=== PATIENT | female | born 1985 | race Caucasian/White ===

== ENCOUNTER 2016-10-09 11:04 | Inpatient (IN) | payer MEDICARE ==
--- NOTE | 2016-10-09 11:13 | ER Document Report ---
ED Medical Screen (RME) - General Stated Complaint: ABDOMINAL PAIN, COUGH Mode of Arrival: Ambulatory Information source: Patient Notes: pt c/o cough for past week. Pt reports cough makes chest and abd to hurt. Pt reports low grade fever at dialysis today. hx: dialysis, endocarditis, PE TRAVEL OUTSIDE OF THE [place] IN LAST 30 DAYS: No - Related Data Allergies/Adverse Reactions: vancomycin [Vancomycin] Allergy (Intermediate, Verified 09/20/16 10:50) rash amoxicillin [Amoxicillin] Allergy (Verified 09/20/16 10:50) Hives metoclopramide HCl [From Reglan] Allergy (Verified 09/20/16 10:50) Iodinated Contrast Media - Oral and [IV Dye, Iodine Containing] Adverse Reaction (Severe, Verified 09/20/16 10:50) esrd ok with topical Past Medical History - Past Medical History Cardiac Medical History: Reports: Hx Hypertension - CONTROLLED WITH MED, Hx Pulmonary Embolism Denies: Hx Coronary Artery Disease, Hx Heart Attack Pulmonary Medical History: Denies: Hx Asthma, Hx Bronchitis, Hx COPD, Hx Pneumonia, Hx Tuberculosis Neurological Medical History: Reports: Hx Seizures - BABY, NONE SINCE AGE 1/ FEBRILE. 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 Denies: Hx Kidney Stones GI Medical History: Denies: Hx Hepatitis, Hx Hiatal Hernia, Hx Ulcer Musculoskeltal Medical History: Denies Hx Arthritis Psychiatric Medical History: Reports: Hx Anxiety, Hx Depression Infectious Medical History: Denies: Hx Hepatitis Past Surgical History: Reports: Hx Cholecystectomy - 01/2010, Hx Herniorrhaphy - Double hernia repair, Hx Kidney (Renal Surgery) - kidney transplant 2004, Hx Tubal Ligation - 02/2008, Hx Vascular Surgery - PermCath placement for dialysis, multiple procedures for declotting CVC. Denies: Hx Appendectomy, Hx Bowel Surgery, Hx Section, Hx Hysterectomy, Hx Mastectomy, Hx Open Heart Surgery, Hx Pacemaker, Hx Tonsillectomy - Immunizations Immunizations up to date: Yes Hx Diphtheria, Pertussis, Tetanus Vaccination: Yes Physical Exam - Respiratory Respiratory status: No respiratory distress Breath sounds: Nonproductive cough
--- NOTE | 2016-10-09 11:28 | ER Document Report ---
ED General - General Chief Complaint: Cough Stated Complaint: ABDOMINAL PAIN, COUGH Mode of Arrival: Ambulatory Information source: Patient Notes: Patient presents to the emergency department with multiple complaints. Patient is a dialysis patient was at dialysis today and sent over. She reports facial swelling that started on [place]. She reports nonproductive cough since last Tuesday that is getting worse. She reports low-grade fever, abdominal swelling right flank pain sore throat. She also reports vomiting daily 3-4 times a day since . She reports she was evaluated by her primary care provider, Dr. cesilia BOTELLO, on . She reports a prescribed her Augmentin and some nasal spray. She's also been taking Mucinex and Tylenol. She reports medication is not helping her symptoms. Patient reports that she has a history of kidney transplant in 2004 in [place]. 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 She reports her shuttler car is Dr. Sanford in [place]. When she is here she sees Dr. Cavanaugh. She has dialysis Tuesday and Tuesday. She reports dialysis just removed 5.8 L today TRAVEL OUTSIDE OF THE [place] IN LAST 30 DAYS: No - HPI Onset: Last week Onset/Duration: Persistent Quality of pain: Achy Severity: Severe Pain Level: 5 Associated symptoms: Diarrhea, Fever, Nausea, Vomiting, Sore throat Exacerbated by: Denies Relieved by: Denies Similar symptoms previously: Yes Recently seen / treated by doctor: Yes - Related Data Allergies/Adverse Reactions: vancomycin [Vancomycin] Allergy (Intermediate, Verified 10/09/16 11:13) rash amoxicillin [Amoxicillin] Allergy (Verified 10/09/16 11:13) Hives metoclopramide HCl [From Reglan] Allergy (Verified 10/09/16 11:13) Iodinated Contrast Media - Oral and [IV Dye, Iodine Containing] Adverse Reaction (Severe, Verified 10/09/16 11:13) esrd ok with topical Home Medications: Current Home Medications Amlodipine Besylate [Norvasc 10 mg Tablet] 1 tab PO DAILY 10/09/16 [History] Calcium Acetate [Phoslo 667 mg Capsule] 2 cap PO MEALS 10/09/16 [History] Dicyclomine HCl [Bentyl 10 mg Capsule] 1 cap PO BID 10/09/16 [History] Hydralazine HCl [Apresoline 10 mg Tablet] 1 tab PO DAILY 10/09/16 [History] Lorazepam [Ativan 1 mg Tablet] 1 tab PO QHS PRN 10/09/16 [History] Metoprolol Succinate [Toprol XL 100 mg Tablet] 1 tab PO BID 10/09/16 [History] Past Medical History - General Information source: Patient - Social History Smoking Status: Unknown if Ever Smoked Cigarette use (# per day): No Frequency of alcohol use: None Drug Abuse: None Lives with: Family Family History: Reviewed & Not Pertinent, Arthritis, Malignancy - Past Medical History Cardiac Medical History: Reports: Hx Hypertension - CONTROLLED WITH MED, Hx Pulmonary Embolism, Other - endocarditis Denies: Hx Coronary Artery Disease, Hx Heart Attack Pulmonary Medical History: Denies: Hx Asthma, Hx Bronchitis, Hx COPD, Hx Pneumonia, Hx Tuberculosis Neurological Medical History: Reports: Hx Seizures - BABY, NONE SINCE AGE 1/ FEBRILE. 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 Denies: Hx Kidney Stones GI Medical History: Reports: Other - pancreatitis. Denies: Hx Hepatitis, Hx Hiatal Hernia, Hx Ulcer Musculoskeltal Medical History: Denies Hx Arthritis Psychiatric Medical History: Reports: Hx Anxiety, Hx Depression Infectious Medical History: Denies: Hx Hepatitis Past Surgical History: Reports: Hx Cholecystectomy - 01/2010, Hx Herniorrhaphy - Double hernia repair, Hx Kidney (Renal Surgery) - kidney transplant 2004, Hx Tubal Ligation - 02/2008, Hx Vascular Surgery - PermCath placement for dialysis, multiple procedures for declotting CVC. Denies: Hx Appendectomy, Hx Bowel Surgery, Hx Section, Hx Hysterectomy, Hx Mastectomy, Hx Open Heart Surgery, Hx Pacemaker, Hx Tonsillectomy - Immunizations Immunizations up to date: Yes Hx Diphtheria, Pertussis, Tetanus Vaccination: Yes Hx Pneumococcal Vaccination: 07/10/14 Review of Systems - Review of Systems Notes: Review HPI for review of systems., All other systems negative Physical Exam - Vital signs Vitals: Temp Pulse Resp BP Pulse Ox 98.7 F 109 H 20 161/105 H 98 10/09/16 11:13 10/09/16 11:13 10/09/16 11:13 10/09/16 11:13 10/09/16 11:13 - Notes Notes: PHYSICAL EXAMINATION: GENERAL: no acute distress nontoxic looking HEAD: Atraumatic, normocephalic. EYES: Pupils equal round and reactive to light, extraocular movements intact, sclera anicteric, conjunctiva are normal. ENT: nares patent, pharyngeal erythema without exudates. Moist mucous membranes. NECK: Normal range of motion, supple without lymphadenopathy LUNGS: CTAB and equal. No wheezes rales or rhonchi. HEART: Regular rate and rhythm without murmurs ABDOMEN: Soft, right sided pain, reports swelling, +BS X 4. No guarding, no rebound BACK: C/O RIGHT flank pain EXTREMITIES: Normal range of motion, no pitting edema. No cyanosis. NEUROLOGICAL: Cranial nerves grossly intact. Normal sensory/motor exams. PSYCH: Normal mood, normal affect. SKIN: Warm, Dry, normal turgor, no rashes or lesions noted Course - Re-evaluation Re-evalutation: 10/09/16 13:58 Lipase [address] Hull she agrees of admission. Contacted Enid Fuentes [facility] REWINDER for admission to telemetry 10/09/16 13:59 Patient updated on plan of care. Patient instructed on nothing by mouth status. She reports pain in her abdomen still and reports she has spit up one time since arrival. - Vital Signs Vital signs: Temp Pulse Resp BP Pulse Ox 98.7 F 83 16 130/90 H 98 10/09/16 18:06 10/09/16 18:31 10/09/16 18:31 10/09/16 18:06 10/09/16 18:31 - Laboratory Result Diagrams: 10/09/16 12:14 10/09/16 12:14 Laboratory results interpreted by me: 10/09/16 10/09/16 10/09/16 12:14 12:14 12:35 RBC 3.20 L Hgb 10.6 L Hct 30.4 L RDW 18.5 H Sodium 131.7 L Chloride 90 L Creatinine 4.43 H Est GFR ( Amer) 14 L Est GFR (Non-Af Amer) 11 L AST 47 H ALT 68 H Lipase 700.5 H Urine Protein 100 H Urine Glucose (UA) 150 H Ur Leukocyte Esterase MODERATE H - Diagnostic Test Radiology reviewed: Image reviewed, Reports reviewed - EKG Interpretation by Me EKG shows normal: Sinus rhythm Discharge - Discharge Clinical Impression: Cough Abdominal pain Qualifiers: Abdominal location: unspecified location Qualified Code(s): R10.9 - Unspecified abdominal pain Vomiting Qualifiers: Vomiting type: unspecified Nausea presence: with nausea Pancreatitis Qualifiers: Pancreatitis type: unspecified pancreatitis type Condition: Stable Disposition: ADMITTED INPATIENT Admitting Provider: Lucas marroquin Unit Admitted: Telemetry
[2016-10-09] MEDS ORDERED: HYDROCODONE/ACETAMINOPHEN 5-325 MG TABLET PO ONE (12:09)
[2016-10-09 12:39] LABS: ABSOLUTE LYMPHOCYTES (AUTO) 1.1 10^3/uL (0.5-4.7); ABSOLUTE MONOCYTES (AUTO) 0.5 10^3/uL (0.1-1.4); ABSOLUTE NEUT (AUTO) 4.4 10^3/uL (1.7-8.2); BASOPHILS % (AUTO) 0.4 % (0-2); EOSINOPHILS % (AUTO) 0.6 % (0-6); HEMATOCRIT 30.4 % (36.0-47.0); HEMOGLOBIN 10.6 g/dL (12.0-15.5); HGB HCT DIFFERENCE 1.4; LYMPHOCYTES % (AUTO) 18.6 % (13-45); MEAN CORPUSCULAR HEMOGLOBIN 33.1 pg (27.0-33.4); MEAN CORPUSCULAR HGB CONC 34.9 g/dL (32.0-36.0); MEAN CORPUSCULAR VOLUME 95 fl (80-97); MONOCYTES % (AUTO) 8.3 % (3-13); RED CELL DISTRIBUTION WIDTH 18.5 % (11.5-14.0); SEGMENTED NEUTROPHILS % (AUTO) 72.1 % (42-78); WHITE BLOOD COUNT 6.1 10^3/uL (4.0-10.5)
[2016-10-09 12:51] LABS: ALANINE AMINOTRANSFERASE 68 U/L (9-52); ALBUMIN 4.3 g/dL (3.5-5.0); ALKALINE PHOSPHATASE 109 U/L (38-126); ANION GAP 19 (5-19); ASPARTATE AMINO TRANSFERASE 47 U/L (14-36); BILIRUBIN,TOTAL 0.8 mg/dL (0.2-1.3); BLOOD UREA NITROGEN 14 mg/dL (7-20); CALCIUM 8.7 mg/dL (8.4-10.2); CARBON DIOXIDE 23 mmol/L (22-30); CHLORIDE 90 mmol/L (98-107); CREATININE RESULT 4.43 mg/dL (0.52-1.25); GLUCOSE 104 mg/dL (75-110); LIPASE 700.5 U/L (23-300); MAGNESIUM 1.6 mg/dL (1.6-2.3); POTASSIUM 3.9 mmol/L (3.6-5.0); SODIUM 131.7 mmol/L (137-145); TOTAL PROTEIN 6.5 g/dL (6.3-8.2)
[2016-10-09 12:59] LABS: APPEARANCE,URINE CLOUDY; BILIRUBIN,URINE NEGATIVE (NEGATIVE); GLUCOSE, URINE 150 mg/dL (NEGATIVE); KETONES,URINE NEGATIVE (NEGATIVE); LEUKOCYTE ESTERASE,URINE MODERATE (NEGATIVE); NITRITE,URINE NEGATIVE (NEGATIVE); PROTEIN,URINE 100 mg/dL (NEGATIVE); URINE SPECIFIC GRAVITY 1.006; UROBILINOGEN,URINE NEGATIVE mg/dL (<2.0)
[2016-10-09] MEDS ORDERED: MORPHINE SULFATE 10 MG/ML INJ IV ONE (13:53)
[2016-10-09] MEDS ORDERED: HYDROXYZINE HCL 10 MG TABLET PO PRN (14:12)
[2016-10-09] MEDS ORDERED: ZOLPIDEM TARTRATE 5 MG TABLET PO PRN (14:13)
[2016-10-09] MEDS ORDERED: IPRATROPIUM/ALBUTEROL 0.5-2.5 MG/3 ML AMPUL NEB PRN (14:13)
[2016-10-09] MEDS ORDERED: ACETAMINOPHEN 325 MG TABLET PO PRN (14:13)
[2016-10-09] MEDS: MORPHINE SULFATE 10 MG/ML INJ IV PRN ×2 (15:58→20:31)
[2016-10-09] MEDS: NORMAL SALINE 1000 ML 1,000 ML IV PRN ×2 (16:05→21:58)
--- NOTE | 2016-10-09 16:18 | PDOC H&P ---
History of Present Illness Admission Date/PCP: 10/09/16 15:11 BIBIANA CLAUDIO NP Patient complains of: Cough, nausea, and abdominal pain History of Present Illness: MILAGROS RAMOS is a 31 year old female with ESRD on HD , and Saturdays. She was sent from dialysis to [facility] ED by dialysis staff due to worsening cough. She states she has been coughing since last Tuesday. Symptoms started with a sore throat and then to a nonproductive cough. She was seen by her primary care provider and started on Augmentin on . Her cough has not improved at all. She denies fevers or chills. She also has abdominal pain and vomiting. She also has had diarrhea all week long as well, prior to starting antibiotics. She states abdominal pain is crampy in nature and waxes and wanes in intensity. She denies any shortness of breath or dyspnea. Her appetite has been poor all week. Vomiting began yesterday. 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 Malignancy Medical History: Reports: None GI Medical History: Reports: Gastroesophageal Reflux Disease, Other - pancreatitis Denies: Hepatitis, Hiatal Hernia Musculoskeltal Medical History: Reports: None Denies: Arthritis Skin Medical History: Reports: None Psychiatric Medical History: Reports: Depression Traumatic Medical History: Reports: None Hematology: Reports: Anemia Denies: Sickle Cell Disease Infectious Medical History: Reports: None Past Surgical History Past Surgical History: Reports: Cholecystectomy - 01/2010, Herniorrhaphy - Double hernia repair, Tubal Ligation - 02/2008, Vascular Surgery - PermCath placement for dialysis, multiple procedures for declotting CVC Denies: Amputation, Appendectomy, Section, Hysterectomy, Mastectomy , Pacemaker, Tonsillectomy Social History Information Source: Patient Lives with: Family, Parents Smoking Status: Current Every Day Smoker Cigarettes Packs Per Day: 0.5 Number of Years Smokin Frequency of Alcohol Use: None Hx Recreational Drug Use: No Drugs: None Hx Prescription Drug Abuse: No - Advance Directive Resuscitation Status: Full Code Surrogate healthcare decision maker:: mother Jonna An, should she become encapacitated Family History Family History: Arthritis, Malignancy Parental Family History Reviewed: Yes Children Family History Reviewed: Yes Sibling(s) Family History Reviewed.: Yes Medication/Allergy Home Medications: Promethazine HCl [Phenergan 25 mg Tablet] 1 - 2 tab PO Q6H PRN #30 tablet Diazepam [Valium 5 mg Tablet] 5 mg PO BID PRN #0 12/11/15 Metoprolol Succinate [Toprol Xl 50 mg Tab.sr] 100 mg PO BID 12/14/15 Hydrocodone/Acetaminophen [Crawford 7.5-325 mg Tablet] 1 tab PO Q4HP PRN #30 tablet 01/11/16 Levetiracetam [Keppra 500 mg Tablet] 250 mg PO DAILY 01/15/16 Warfarin Sodium 5 mg PO QHS #30 tablet 01/20/16 Warfarin Sodium [Coumadin 1 mg Tablet] 3 mg PO QHS #60 tablet 01/20/16 Clindamycin HCl 300 mg PO TID #30 capsule 05/19/16 Hydroxyzine HCl [Atarax 10 mg Tablet] 10 mg PO TID PRN #30 tablet 05/19/16 Omeprazole 40 mg PO DAILY #60 capsule.dr 07/30/16 Oxycodone HCl/Acetaminophen [Percocet 5-325 mg Tablet] 1 - 2 tab PO Q4H PRN #15 tablet 07/30/16 Sucralfate [Carafate 1 gm Tablet] 1 gm PO QID #40 tablet 07/30/16 Ondansetron [Zofran Odt 4 mg Tablet] 1 - 2 tab PO Q4H #30 tab.rapdis 09/09/16 Promethazine HCl [Phenergan 25 mg Tablet] 25 - 50 mg PO ASDIR PRN #60 tablet 10/25 Oxycodone HCl/Acetaminophen [Percocet 5-325 mg Tablet] 1 - 2 tab PO Q4H PRN #15 tablet 09/11/16 Allergies/Adverse Reactions: vancomycin [Vancomycin] Allergy (Intermediate, Verified 10/09/16 11:13) rash amoxicillin [Amoxicillin] Allergy (Verified 10/09/16 11:13) Hives metoclopramide HCl [From Reglan] Allergy (Verified 10/09/16 11:13) Iodinated Contrast Media - Oral and [IV Dye, Iodine Containing] Adverse Reaction (Severe, Verified 10/09/16 11:13) esrd ok with topical Review of Systems Constitutional: PRESENT: chills, fatigue, headache(s), weakness Eyes: ABSENT: visual disturbances Ears: ABSENT: hearing changes Nose, Mouth, and Throat: PRESENT: sore throat Cardiovascular: PRESENT: palpitations Respiratory: PRESENT: cough, sputum Gastrointestinal: PRESENT: abdominal pain, diarrhea, nausea, vomiting Genitourinary: ABSENT: dysuria, hematuria Musculoskeletal: ABSENT: joint swelling Integumentary: ABSENT: rash, wounds Neurological: ABSENT: abnormal gait, abnormal speech, confusion, dizziness, focal weakness, syncope Psychiatric: PRESENT: as per HPI Endocrine: ABSENT: cold intolerance, heat intolerance, polydipsia, polyuria Hematologic/Lymphatic: PRESENT: easy bruising Physical Exam Vital Signs: Temp Pulse Resp BP Pulse Ox 98.7 F 109 H 27 H 161/105 H 98 10/09/16 11:27 10/09/16 11:27 10/09/16 12:26 10/09/16 11:27 10/09/16 11:27 General appearance: PRESENT: no acute distress, thin, well-developed, well- nourished Head exam: PRESENT: atraumatic Eye exam: PRESENT: conjunctiva pale Ear exam: PRESENT: normal external ear exam Mouth exam: PRESENT: moist, tongue midline Neck exam: ABSENT: carotid bruit, JVD, lymphadenopathy, thyromegaly Respiratory exam: PRESENT: clear to auscultation marquis. ABSENT: rales, rhonchi, wheezes Cardiovascular exam: PRESENT: RRR. ABSENT: diastolic murmur, rubs, systolic murmur Pulses: PRESENT: normal dorsalis pedis pul Vascular exam: PRESENT: normal capillary refill GI/Abdominal exam: PRESENT: normal bowel sounds, soft, tenderness. ABSENT: distended, guarding, mass, organolmegaly, rebound Rectal exam: PRESENT: deferred Extremities exam: PRESENT: full ROM. ABSENT: calf tenderness, clubbing, pedal edema Neurological exam: PRESENT: alert, awake, oriented to person, oriented to place , oriented to time, oriented to situation, CN II-XII grossly intact. ABSENT: motor sensory deficit Psychiatric exam: PRESENT: appropriate affect, normal mood. ABSENT: homicidal ideation, suicidal ideation Skin exam: PRESENT: dry, intact, warm. ABSENT: cyanosis, rash Results Impressions: Chest X-Ray 10/09/16 11:10 IMPRESSION: NO ACUTE CARDIOPULMONARY PROCESS. NO SIGNIFICANT CHANGE FROM PRIOR STUDY. Assessment & Plan - Diagnosis (1) Pancreatitis Qualifiers: Pancreatitis type: unspecified pancreatitis type Is this a current diagnosis for this admission?: YesPlan: Will rehydrate, keep NPO and check lipase in the am. Prn analgesics and antiemetics (2) Cough Is this a current diagnosis for this admission?: YesPlan: Most likely viral in nature. PRN nebulizer treatments and cough syrup (3) ESRD on dialysis Is this a current diagnosis for this admission?: YesPlan: Patient was dialysed today. Will avoid nephrotoxic drugs and dosages (4) Chronic prescription opiate use Is this a current diagnosis for this admission?: Yes (5) Vomiting Qualifiers: Vomiting type: unspecified Nausea presence: with nausea Is this a current diagnosis for this admission?: YesPlan: Prn antiemetics (6) Hyponatremia Is this a current diagnosis for this admission?: YesPlan: Will gently rehydrate with normal saline ovenight (7) Pulmonary embolism Qualifiers: Pulmonary embolism type: other Chronicity: acute Acute cor pulmonale presence: without acute cor pulmonale Qualified Code(s): I26.99 - Other pulmonary embolism without acute cor pulmonale Is this a current diagnosis for this admission?: YesPlan: Continue coumadin. (8) Tobacco abuse Is this a current diagnosis for this admission?: YesPlan: Counseled - Time Time Spent: 50 to 70 Minutes Critical Time spent with patient: 25-34 minutes Smoking Cessation Education: 3 to 10 minutes Medications reviewed and adjusted accordingly: Yes Anticipated discharge: Home - Inpatient Certification Medical Necessity: Failure to Improve With Outpatient Therapy, Need For IV Fluids, Need for Pain Control
[2016-10-09] MEDS ORDERED: OXYCODONE-ACETAMINOPHEN 5-325 MG TABLET PO PRN (16:19)
[2016-10-09] MEDS: LANSOPRAZOLE 15 MG TAB.RAP.DR PO SCH (18:19)
[2016-10-09 19:28] LABS: URINE BARBITURATES SCREEN NEGATIVE; URINE METHADONE SCREEN NEGATIVE; URINE PHENCYCLIDINE SCREEN NEGATIVE
[2016-10-09] MEDS: ONDANSETRON HCL INJ/PF 4 MG/2 ML SDV IV PRN (20:53)
[2016-10-09] MEDS: METOPROLOL SUCCINATE 50 MG TAB.SR.24H PO SCH (21:58)
[2016-10-09] MEDS: WARFARIN SODIUM 5 MG TABLET PO SCH (21:58)
--- NOTE | 2016-10-09 22:42 | EKG REPORT ---
SEVERITY:- BORDERLINE ECG - SINUS TACHYCARDIA BORDERLINE PROLONGED QT INTERVAL : Confirmed by: Anthony Small MD 09-Oct-2016 22:40:55
[2016-10-10] MEDS: MORPHINE SULFATE 10 MG/ML INJ IV PRN ×6 (00:34→21:47)
[2016-10-10] MEDS: LANSOPRAZOLE 15 MG TAB.RAP.DR PO SCH ×2 (06:28→16:42)
[2016-10-10] MEDS: ONDANSETRON HCL INJ/PF 4 MG/2 ML SDV IV PRN ×2 (06:30→14:27)
[2016-10-10] MEDS ORDERED: LORAZEPAM 1 MG TABLET PO PRN ×2 (06:51→09:44)
[2016-10-10 07:33] LABS: ABSOLUTE EOSINOPHILS # (AUTO) 0.1 10^3/uL (0.0-0.6); ABSOLUTE LYMPHOCYTES (AUTO) 1.3 10^3/uL (0.5-4.7); ABSOLUTE MONOCYTES (AUTO) 0.3 10^3/uL (0.1-1.4); ABSOLUTE NEUT (AUTO) 2.1 10^3/uL (1.7-8.2); HEMATOCRIT 27.6 % (36.0-47.0); HEMOGLOBIN 9.5 g/dL (12.0-15.5); HGB HCT DIFFERENCE 0.9; LYMPHOCYTES % (AUTO) 33.1 % (13-45); MEAN CORPUSCULAR HEMOGLOBIN 33.6 pg (27.0-33.4); MEAN CORPUSCULAR HGB CONC 34.4 g/dL (32.0-36.0); MEAN CORPUSCULAR VOLUME 98 fl (80-97); MONOCYTES % (AUTO) 8.7 % (3-13); RED BLOOD COUNT 2.83 10^6/uL (3.72-5.28); SEGMENTED NEUTROPHILS % (AUTO) 55.2 % (42-78); WHITE BLOOD COUNT 3.8 10^3/uL (4.0-10.5)
[2016-10-10 07:39] LABS: PROTHROMBIN TIME 13.7 SEC (11.4-15.4)
[2016-10-10 07:51] LABS: ALANINE AMINOTRANSFERASE 59 U/L (9-52); ALKALINE PHOSPHATASE 97 U/L (38-126); ANION GAP 18 (5-19); ASPARTATE AMINO TRANSFERASE 31 U/L (14-36); BILIRUBIN,TOTAL 0.9 mg/dL (0.2-1.3); BLOOD UREA NITROGEN 20 mg/dL (7-20); CALCIUM 9.6 mg/dL (8.4-10.2); CARBON DIOXIDE 22 mmol/L (22-30); CHLORIDE 93 mmol/L (98-107); CREATININE RESULT 6.25 mg/dL (0.52-1.25); GLUCOSE 75 mg/dL (75-110); LIPASE 222.3 U/L (23-300); MAGNESIUM 1.9 mg/dL (1.6-2.3); POTASSIUM 4.6 mmol/L (3.6-5.0); SODIUM 133.3 mmol/L (137-145); TOTAL PROTEIN 5.9 g/dL (6.3-8.2)
[2016-10-10] MEDS ORDERED: CALCIUM ACETATE 667 MG CAPSULE PO SCH (08:00)
[2016-10-10] MEDS: METOPROLOL SUCCINATE 50 MG TAB.SR.24H PO SCH ×4 (09:17→22:03)
[2016-10-10] MEDS: LEVETIRACETAM 500 MG TABLET PO SCH (09:17)
[2016-10-10] MEDS ORDERED: DICYCLOMINE HCL 10 MG CAPSULE PO SCH (10:00)
[2016-10-10] MEDS ORDERED: AMLODIPINE BESYLATE 10 MG TABLET PO SCH (10:00)
[2016-10-10] MEDS ORDERED: HYDRALAZINE HCL 10 MG TABLET PO SCH ×2 (10:00)
[2016-10-10] MEDS ORDERED: WARFARIN SODIUM 3 MG TABLET PO SCH (10:00)
[2016-10-10] MEDS ORDERED: METOPROLOL SUCCINATE PO SCH (10:00)
[2016-10-10] MEDS ORDERED: NORMAL SALINE 1000 ML 1,000 ML IV PRN (10:02)
[2016-10-10] MEDS ORDERED: IPRATROPIUM/ALBUTEROL 0.5-2.5 MG/3 ML AMPUL NEB PRN (10:05)
[2016-10-10] MEDS: GUAIFENESIN/CODEINE PHOS 100-10 MG/ 5 ML UDC PO PRN (10:25)
--- NOTE | 2016-10-10 10:37 | PDOC PROGRESS REPORT ---
Subjective Progress Note for:: 10/10/16 Subjective:: Patient is seen on morning rounds. She is awake, alert and oriented x 3. She continues to have harsh mostly non productive cough. She deny fever or chills. She denies sinus congestion or sore throat. She does have mild pain and fullness in her left ear. She denies any shortness of breath or dyspnea. She denies any chest pain. She has mild epigastric discomfort. No vomiting since last night. She states the cough is what is bothering her the most at the present time. She did not receive any breathing treatments overnight. Physical Exam Vital Signs: Temp Pulse Resp BP Pulse Ox 97.6 F 74 20 119/69 100 10/10/16 05:28 10/10/16 07:00 10/10/16 05:28 10/10/16 05:28 10/10/16 05:28 Intake & Output 10/09/16 10/10/16 10/11/16 06:59 06:59 06:59 Intake Total 30 Output Total 0 Balance 30 Weight 50.5 kg General appearance: PRESENT: no acute distress, thin, well-developed, well- nourished Head exam: PRESENT: atraumatic Eye exam: PRESENT: conjunctiva pink, EOMI, PERRLA. ABSENT: scleral icterus Ear exam: PRESENT: normal external ear exam Mouth exam: PRESENT: moist, tongue midline Neck exam: ABSENT: carotid bruit, JVD, lymphadenopathy, thyromegaly Respiratory exam: PRESENT: clear to auscultation marquis, symmetrical. ABSENT: rales, rhonchi, wheezes Cardiovascular exam: PRESENT: RRR. ABSENT: diastolic murmur, rubs, systolic murmur Pulses: PRESENT: normal dorsalis pedis pul Vascular exam: PRESENT: normal capillary refill GI/Abdominal exam: PRESENT: normal bowel sounds, soft, tenderness - epigastric to palpation. ABSENT: distended, guarding, mass, organolmegaly, rebound Rectal exam: PRESENT: deferred Extremities exam: PRESENT: full ROM. ABSENT: calf tenderness, clubbing, pedal edema Neurological exam: PRESENT: alert, awake, oriented to person, oriented to place , oriented to time, oriented to situation, CN II-XII grossly intact. ABSENT: motor sensory deficit Psychiatric exam: PRESENT: appropriate affect, normal mood. ABSENT: homicidal ideation, suicidal ideation Skin exam: PRESENT: dry, intact, warm. ABSENT: cyanosis, rash Results Laboratory Results: 10/10/16 07:03 10/10/16 07:03 10/10/16 10/10/16 07:03 07:03 WBC 3.8 L RBC 2.83 L Hgb 9.5 L Hct 27.6 L MCV 98 H MCH 33.6 H MCHC 34.4 RDW 19.0 H Plt Count 154 Seg Neutrophils % 55.2 Lymphocytes % 33.1 Monocytes % 8.7 Eosinophils % 2.0 Basophils % 1.0 Absolute Neutrophils 2.1 Absolute Lymphocytes 1.3 Absolute Monocytes 0.3 Absolute Eosinophils 0.1 Absolute Basophils 0.0 Sodium 133.3 L Potassium 4.6 Chloride 93 L Carbon Dioxide 22 Anion Gap 18 BUN 20 Creatinine 6.25 H Est GFR ( Amer) 9 L Est GFR (Non-Af Amer) 8 L Glucose 75 Calcium 9.6 Magnesium 1.9 Total Bilirubin 0.9 AST 31 ALT 59 H Alkaline Phosphatase 97 Total Protein 5.9 L Albumin 4.0 Lipase 222.3 Impressions: Chest X-Ray 10/09/16 11:10 IMPRESSION: NO ACUTE CARDIOPULMONARY PROCESS. NO SIGNIFICANT CHANGE FROM PRIOR STUDY. Assessment & Plan - Diagnosis (1) Pancreatitis Qualifiers: Pancreatitis type: unspecified pancreatitis type Is this a current diagnosis for this admission?: YesPlan: Nausea improved. Lipase trending downward. More likely a flare up of chronic pancreatitis. Will start clear liquids and slowly progress diet. Prn analgesics and antiemetics (2) Cough Is this a current diagnosis for this admission?: YesPlan: Most likely viral in nature. PRN nebulizer treatments and cough syrup (3) ESRD on dialysis Is this a current diagnosis for this admission?: YesPlan: Patient was dialysed today. Will avoid nephrotoxic drugs and dosages (4) Chronic prescription opiate use Is this a current diagnosis for this admission?: Yes (5) Vomiting Qualifiers: Vomiting type: unspecified Nausea presence: with nausea Is this a current diagnosis for this admission?: YesPlan: Has resolved. PRN antiemetics if symptoms reoccur (6) Hyponatremia Is this a current diagnosis for this admission?: YesPlan: Will gently rehydrate with normal saline ovenight (7) Pulmonary embolism Qualifiers: Pulmonary embolism type: other Chronicity: acute Acute cor pulmonale presence: without acute cor pulmonale Qualified Code(s): I26.99 - Other pulmonary embolism without acute cor pulmonale Is this a current diagnosis for this admission?: YesPlan: Continue coumadin. (8) Tobacco abuse Is this a current diagnosis for this admission?: YesPlan: Counseled - Time Time Spent with patient: 25-34 minutes Critical Time spent with patient: 15-24 minutes Medications reviewed and adjusted accordingly: Yes Anticipated discharge: Home
[2016-10-10] MEDS: CALCIUM ACETATE 667 MG CAPSULE PO SCH ×2 (11:15→16:42)
[2016-10-10] MEDS: AMLODIPINE BESYLATE 10 MG TABLET PO SCH (11:15)
[2016-10-10] MEDS: HYDRALAZINE HCL 10 MG TABLET PO SCH (11:16)
[2016-10-10] MEDS: IPRATROPIUM/ALBUTEROL 0.5-2.5 MG/3 ML AMPUL NEB SCH ×2 (13:56→19:37)
[2016-10-10] MEDS ORDERED: HYDROXYZINE HCL 10 MG TABLET ONE (17:00)
[2016-10-10] MEDS: DICYCLOMINE HCL 10 MG CAPSULE PO SCH (17:25)
[2016-10-10] MEDS: WARFARIN SODIUM 5 MG TABLET PO SCH (22:03)
[2016-10-11] MEDS: LANSOPRAZOLE 15 MG TAB.RAP.DR PO SCH ×2 (05:28→17:42)
[2016-10-11] MEDS: MORPHINE SULFATE 10 MG/ML INJ IV PRN ×3 (06:41→19:45)
[2016-10-11 07:01] LABS: ABSOLUTE BASOPHILS # (AUTO) 0.1 10^3/uL (0.0-0.2); ABSOLUTE EOSINOPHILS # (AUTO) 0.1 10^3/uL (0.0-0.6); ABSOLUTE LYMPHOCYTES (AUTO) 1.6 10^3/uL (0.5-4.7); ABSOLUTE MONOCYTES (AUTO) 0.6 10^3/uL (0.1-1.4); ABSOLUTE NEUT (AUTO) 4.8 10^3/uL (1.7-8.2); EOSINOPHILS % (AUTO) 1.2 % (0-6); HEMATOCRIT 27.2 % (36.0-47.0); HEMOGLOBIN 9.3 g/dL (12.0-15.5); HGB HCT DIFFERENCE 0.7; LYMPHOCYTES % (AUTO) 22.6 % (13-45); MEAN CORPUSCULAR HEMOGLOBIN 33.8 pg (27.0-33.4); MEAN CORPUSCULAR HGB CONC 34.2 g/dL (32.0-36.0); MEAN CORPUSCULAR VOLUME 99 fl (80-97); MONOCYTES % (AUTO) 8.3 % (3-13); RED BLOOD COUNT 2.75 10^6/uL (3.72-5.28); RED CELL DISTRIBUTION WIDTH 18.6 % (11.5-14.0); SEGMENTED NEUTROPHILS % (AUTO) 66.9 % (42-78); WHITE BLOOD COUNT 7.1 10^3/uL (4.0-10.5)
[2016-10-11 07:15] LABS: BLOOD UREA NITROGEN 33 mg/dL (7-20); CALCIUM 8.8 mg/dL (8.4-10.2); CHLORIDE 95 mmol/L (98-107); CREATININE RESULT 8.76 mg/dL (0.52-1.25); LIPASE 104.2 U/L (23-300)
[2016-10-11 07:19] LABS: PROTHROMBIN TIME 14.5 SEC (11.4-15.4)
[2016-10-11 07:32] LABS: CARBON DIOXIDE 14 mmol/L (22-30); SODIUM 130.8 mmol/L (137-145)
[2016-10-11] MEDS ORDERED: DEXTROSE 50%-WATER 25 GM/50 ML DISP.SYRIN IV ONE ×2 (07:35→07:36)
[2016-10-11 07:37] LABS: ANION GAP 22 (5-19); GLUCOSE 28 mg/dL (75-110)
[2016-10-11] MEDS: GUAIFENESIN/CODEINE PHOS 100-10 MG/ 5 ML UDC PO PRN ×2 (08:06→17:42)
[2016-10-11] MEDS ORDERED: DIPHENHYDRAMINE HCL 50 MG CAPSULE PO PRN (08:39)
[2016-10-11] MEDS: IPRATROPIUM/ALBUTEROL 0.5-2.5 MG/3 ML AMPUL NEB SCH ×3 (08:51→20:12)
[2016-10-11] MEDS: CALCIUM ACETATE 667 MG CAPSULE PO SCH ×3 (09:37→17:41)
[2016-10-11] MEDS: LEVETIRACETAM 500 MG TABLET PO SCH (09:39)
[2016-10-11] MEDS: DIPHENHYDRAMINE HCL 50 MG/ML VIAL IV PRN ×2 (10:30→14:19)
--- NOTE | 2016-10-11 11:25 | PDOC CONSULTATION ---
Consultation Consult Date: 10/11/16 Attending physician:: FABIOLA HADLEY Consult reason:: I was asked by the hospitalist service to see the patient to supervise dialysis while here in the hospital. History of Present Illness Admission Date/PCP: 10/09/16 14:14 BIBIANA CLAUDIO NP History of Present Illness: MILAGROS RAMOS is a 31 year old female with ESRD on HD , and Saturdays under the supervision of Dr. Sanford of [facility]. She was sent from dialysis to [facility] ED by dialysis staff due to worsening cough. She states she has been coughing since last Tuesday. Symptoms started with a sore throat and then to a nonproductive cough. She was seen by her primary care provider and started on Augmentin on . Her cough has not improved at all. She denies fevers or chills. She also has abdominal pain and vomiting. She also has had diarrhea all week long as well, prior to starting antibiotics. She states abdominal pain is crampy in nature and waxes and wanes in intensity. She denies any shortness of breath or dyspnea. Her appetite has been poor all week. Vomiting began yesterday. I saw the patient during dialysis this morning. He seems to be doing well and feeling better. She said her cough is better and she finally able to expectorate some phlegm. She is not nauseated or vomiting this morning but the related that she had vomiting last night. She doesn't have anymore diarrhea or abdominal pain is getting better. So far she is tolerating dialysis well with Benadryl given prior to initiation of dialysis. She is hemodynamically stable. She denies any chest pains nor shortness of breath. Incidentally, she did have an episode of hypoglycemia this morning with a blood sugar of 28 so they were giving her orange juice in the floor prior to dialysis. 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 Malignancy Medical History: Reports: None GI Medical History: Reports: Gastroesophageal Reflux Disease, Other - pancreatitis Musculoskeltal Medical History: Reports: None Skin Medical History: Reports: None Psychiatric Medical History: Reports: Depression Traumatic Medical History: Reports: None Infectious Medical History: Reports: None Past Surgical History Past Surgical History: Reports: Cholecystectomy - 01/2010, Dialysis Access Surgery AVF, Herniorrhaphy - Double hernia repair, Tubal Ligation - 02/2008, Vascular Surgery - PermCath placement for dialysis, multiple procedures for declotting CVC Social History Lives with: Family Smoking Status: Unknown if Ever Smoked Cigarettes Packs Per Day: 0.5 Number of Years Smokin Frequency of Alcohol Use: None Hx Recreational Drug Use: No Drugs: None Hx Prescription Drug Abuse: No - Advance Directive Resuscitation Status: Full Code Family History Family History: Reviewed & Not Pertinent Parental Family History Reviewed: Yes Children Family History Reviewed: NA Sibling(s) Family History Reviewed.: Unknown Medication/Allergy Home Medications: Promethazine HCl [Phenergan 25 mg Tablet] 1 - 2 tab PO Q6H PRN #30 tablet Hydrocodone/Acetaminophen [[place] 7.5-325 mg Tablet] 1 tab PO Q4HP PRN #30 tablet 01/11/16 Levetiracetam [Keppra 500 mg Tablet] 250 mg PO DAILY 01/15/16 Warfarin Sodium [Coumadin 1 mg Tablet] 3 mg PO QHS #60 tablet 01/20/16 Omeprazole 40 mg PO DAILY #60 capsule. 07/30/16 Oxycodone HCl/Acetaminophen [Percocet 5-325 mg Tablet] 1 - 2 tab PO Q4H PRN #15 tablet 09/11/16 Amlodipine Besylate [Norvasc 10 mg Tablet] 1 tab PO DAILY 10/09/16 Calcium Acetate [Phoslo 667 mg Capsule] 2 cap PO MEALS 10/09/16 Dicyclomine HCl [Bentyl 10 mg Capsule] 1 cap PO BID 10/09/16 Hydralazine HCl [Apresoline 10 mg Tablet] 1 tab PO DAILY 10/09/16 Lorazepam [Ativan 1 mg Tablet] 1 tab PO QHS PRN 10/09/16 Metoprolol Succinate [Toprol XL 100 mg Tablet] 1 tab PO BID 10/09/16 Allergies/Adverse Reactions: vancomycin [Vancomycin] Allergy (Intermediate, Verified 10/09/16 11:13) rash amoxicillin [Amoxicillin] Allergy (Verified 10/09/16 11:13) Hives metoclopramide HCl [From Reglan] Allergy (Verified 10/09/16 11:13) Iodinated Contrast Media - Oral and [IV Dye, Iodine Containing] Adverse Reaction (Severe, Verified 10/09/16 11:13) esrd ok with topical Review of Systems All systems: reviewed and no additional remarkable complaints except as stated Review of Systems: Constitutional: ABSENT: chills, fatigue, fever(s), headache(s), weight gain, weight loss Eyes: ABSENT: visual disturbances Ears: ABSENT: hearing changes Cardiovascular: ABSENT: chest pain, dyspnea on exertion, edema, orthropnea, palpitations Respiratory: ABSENT: dyspnea, hemoptysis, she admits cough Gastrointestinal: ABSENT: constipation, hematemesis, hematochezia; patient has had abdominal pain, nausea, vomiting, and resolve diarrhea. Genitourinary: Patient is anuric Musculoskeletal: ABSENT: joint swelling, she admits muscle pain especially on her rib cage area due to coughing Integumentary: ABSENT: rash, wounds Neurological: ABSENT: abnormal gait, abnormal speech, confusion, dizziness, focal weakness, numbness, syncope Psychiatric: ABSENT: anxiety, depression Endocrine: ABSENT: cold intolerance, heat intolerance, polydipsia, polyuria Hematologic/Lymphatic: ABSENT: easy bleeding, easy bruising, lymphadenopathy Physical Exam Vital Signs: Temp Pulse Resp BP Pulse Ox 98.6 F 81 20 173/88 H 95 10/11/16 07:39 10/11/16 08:47 10/11/16 08:47 10/11/16 07:39 10/11/16 08:47 Intake & Output 10/10/16 10/11/16 10/12/16 06:59 06:59 06:59 Intake Total 30 1440 Output Total 0 Balance 30 1440 Weight 50.5 kg 56.2 kg Vital signs during dialysis when I'm seeing her: Blood pressure of 146/90 pulse rate of 76 blood flow rate of 350 mL per minute, dialysate flow of 600 mL per minute. Exam: General appearance: no acute distress, cooperative, well-developed, well- nourished Head exam: PRESENT: atraumatic, normocephalic Eye exam: PRESENT: Conjunctiva Norene, EOMI, PERRLA. ABSENT: conjunctival injection, scleral icterus Mouth exam: PRESENT: moist, neck supple, tongue midline Neck exam: PRESENT: full ROM. ABSENT: carotid bruit, JVD, lymphadenopathy, thyromegaly Respiratory exam: PRESENT: clear to auscultation bilaterally. ABSENT: rales, rhonchi, stridor, wheezes Cardiovascular exam: PRESENT: RRR, +S1, +S2. ABSENT: systolic murmur Pulses: PRESENT: normal radial pulses, normal dorsalis pedis pulses GI/Abdominal exam: PRESENT: normal bowel sounds, soft. Positive tenderness in the epigastric area and slightly on bilateral upper quadrants. ABSENT: guarding , mass Rectal exam: deferred Extremities exam: PRESENT: full ROM. ABSENT: calf tenderness, pedal edema Musculoskeletal: PRESENT: full ROM. ABSENT: deformity Neurological exam: PRESENT: alert, Awake, Oriented to person, Oriented to place , Oriented to time, reflexes normal, CN II-XII grossly intact. ABSENT: motor sensory deficit Psychiatric exam: PRESENT: appropriate affect, normal mood. ABSENT: homicidal ideation, suicidal ideation Skin exam: PRESENT: intact, dry, warm. ABSENT: rash Results Laboratory Results: 10/11/16 06:24 10/11/16 06:24 10/11/16 10/11/16 06:24 06:24 WBC 7.1 RBC 2.75 L Hgb 9.3 L Hct 27.2 L MCV 99 H MCH 33.8 H MCHC 34.2 RDW 18.6 H Plt Count 171 Seg Neutrophils % 66.9 Lymphocytes % 22.6 Monocytes % 8.3 Eosinophils % 1.2 Basophils % 1.0 Absolute Neutrophils 4.8 Absolute Lymphocytes 1.6 Absolute Monocytes 0.6 Absolute Eosinophils 0.1 Absolute Basophils 0.1 Sodium 130.8 L Potassium 5.0 Chloride 95 L Carbon Dioxide 14 L Anion Gap 22 H BUN 33 H Creatinine 8.76 H Est GFR ( Amer) 6 L Est GFR (Non-Af Amer) 5 L Glucose 28 L* Calcium 8.8 Lipase 104.2 10/09/16 15:36 Sputum Gram Stain - Final 10/09/16 15:36 Sputum Sputum Culture - Final NORMAL JOSE 10/09/16 18:48 Nasophary (Mrsa Only) MRSA Surveillance Culture - Final NO MRSA RECOVERED Impressions: Chest X-Ray 10/09/16 11:10 IMPRESSION: NO ACUTE CARDIOPULMONARY PROCESS. NO SIGNIFICANT CHANGE FROM PRIOR STUDY. Assessment & Plan - Diagnosis (1) ESRD on dialysis Is this a current diagnosis for this admission?: YesPlan: We will do dialysis today for 3 hours, using the patient's access, with 3 potassium bath, blood flow rate of 5050 mL per minute, dialysate flow rate of 600 mL per minute, ultrafiltration as tolerated, no heparin and Procrit with 5000 units during dialysis intravenously. We will monitor the patient during dialysis treatment. We will continue to supervise dialysis on this patient while she is here. If she gets discharge today or tomorrow morning her next dialysis as an outpatient will be on at [facility] on a regular scheduled time. However if she continues to be here by Tuesday then we will dialyze her on Tuesday. (2) Anemia in chronic kidney disease (CKD) Is this a current diagnosis for this admission?: YesPlan: Procrit will be given during dialysis as ordered. (3) Hypertension Is this a current diagnosis for this admission?: YesPlan: Currently controlled. Continue current blood pressure medications (4) Hyponatremia Is this a current diagnosis for this admission?: YesPlan: Dialysis would help resolve this. (5) Acute recurrent pancreatitis Is this a current diagnosis for this admission?: Yes - Notes Notes: Thank you very much for this consultation.
[2016-10-11] MEDS: EPOETIN ALFA 5,000 UNIT in SYRINGE, DISPOSABLE, 1 EACH IV ONE ×2 (13:30→14:18)
[2016-10-11] MEDS: METOPROLOL SUCCINATE 50 MG TAB.SR.24H PO SCH ×2 (14:15→21:45)
[2016-10-11] MEDS: DICYCLOMINE HCL 10 MG CAPSULE PO SCH ×2 (14:15→17:42)
[2016-10-11] MEDS: AMLODIPINE BESYLATE 10 MG TABLET PO SCH (14:16)
[2016-10-11] MEDS: HYDRALAZINE HCL 10 MG TABLET PO SCH (14:16)
[2016-10-11] MEDS: FLUTICASONE NASAL SPRAY 50 MCG/SPRY 120 SPRAY/16 GM NASL SCH (14:17)
--- NOTE | 2016-10-11 15:07 | PDOC PROGRESS REPORT ---
Subjective Progress Note for:: 10/11/16 Subjective:: Patient is seen on morning rounds. She is awake, alert and oriented x 3. She was just reported to have a blood glucose on her morning labs of 28. She typically has only had hypoglycemia when she is hyperkalemic, which she is not today. Her potassium is 5.0. She continues to have harsh mostly non productive cough. She deny fever or chills. She denies sinus congestion or sore throat. She does have mild pain and fullness in her left ear. She denies any shortness of breath or dyspnea. She denies any chest pain. She has mild epigastric discomfort. No vomiting since last night. She states the cough is what is bothering her the most at the present time. She did not receive any breathing treatments overnight. Physical Exam Vital Signs: Temp Pulse Resp BP Pulse Ox 98.6 F 82 20 173/88 H 98 10/11/16 07:39 10/11/16 14:43 10/11/16 14:43 10/11/16 07:39 10/11/16 14:43 Intake & Output 10/10/16 10/11/16 10/12/16 06:59 06:59 06:59 Intake Total 30 1440 Output Total 0 Balance 30 1440 Weight 50.5 kg 56.2 kg General appearance: PRESENT: no acute distress Head exam: PRESENT: atraumatic, normocephalic Eye exam: PRESENT: conjunctiva pink, EOMI, PERRLA. ABSENT: scleral icterus Ear exam: PRESENT: normal external ear exam Mouth exam: PRESENT: moist, tongue midline Neck exam: ABSENT: carotid bruit, JVD, lymphadenopathy, thyromegaly Respiratory exam: PRESENT: clear to auscultation marquis. ABSENT: rales, rhonchi, wheezes Cardiovascular exam: PRESENT: bradycardia Pulses: PRESENT: normal dorsalis pedis pul Vascular exam: PRESENT: normal capillary refill GI/Abdominal exam: PRESENT: normal bowel sounds, soft. ABSENT: distended, guarding, mass, organolmegaly, rebound, tenderness Rectal exam: PRESENT: deferred Extremities exam: PRESENT: full ROM. ABSENT: calf tenderness, clubbing, pedal edema Neurological exam: PRESENT: alert, awake, oriented to person, oriented to place , oriented to time, oriented to situation, CN II-XII grossly intact. ABSENT: motor sensory deficit Psychiatric exam: PRESENT: appropriate affect, normal mood. ABSENT: homicidal ideation, suicidal ideation Skin exam: PRESENT: dry, intact, warm. ABSENT: cyanosis, rash Results Laboratory Results: 10/11/16 06:24 10/11/16 06:24 10/11/16 10/11/16 06:24 06:24 WBC 7.1 RBC 2.75 L Hgb 9.3 L Hct 27.2 L MCV 99 H MCH 33.8 H MCHC 34.2 RDW 18.6 H Plt Count 171 Seg Neutrophils % 66.9 Lymphocytes % 22.6 Monocytes % 8.3 Eosinophils % 1.2 Basophils % 1.0 Absolute Neutrophils 4.8 Absolute Lymphocytes 1.6 Absolute Monocytes 0.6 Absolute Eosinophils 0.1 Absolute Basophils 0.1 Sodium 130.8 L Potassium 5.0 Chloride 95 L Carbon Dioxide 14 L Anion Gap 22 H BUN 33 H Creatinine 8.76 H Est GFR ( Amer) 6 L Est GFR (Non-Af Amer) 5 L Glucose 28 L* Calcium 8.8 Lipase 104.2 10/09/16 15:36 Sputum Gram Stain - Final 10/09/16 15:36 Sputum Sputum Culture - Final NORMAL JOSE 10/09/16 18:48 Nasophary (Mrsa Only) MRSA Surveillance Culture - Final NO MRSA RECOVERED Impressions: Chest X-Ray 10/09/16 11:10 IMPRESSION: NO ACUTE CARDIOPULMONARY PROCESS. NO SIGNIFICANT CHANGE FROM PRIOR STUDY. Assessment & Plan - Diagnosis (1) Pancreatitis Qualifiers: Pancreatitis type: unspecified pancreatitis type Is this a current diagnosis for this admission?: YesPlan: Nausea improved. Lipase is normal today. We will slowly progress diet. Prn analgesics and antiemetics (2) Cough Is this a current diagnosis for this admission?: YesPlan: Most likely viral in nature. PRN nebulizer treatments and cough syrup. Improved overall (3) ESRD on dialysis Is this a current diagnosis for this admission?: YesPlan: Patient was dialysed today. Will avoid nephrotoxic drugs and dosages (4) Chronic prescription opiate use Is this a current diagnosis for this admission?: YesPlan: Continue prn pain medications (5) Vomiting Qualifiers: Vomiting type: unspecified Nausea presence: with nausea Is this a current diagnosis for this admission?: YesPlan: Has resolved. PRN antiemetics if symptoms reoccur (6) Hyponatremia Is this a current diagnosis for this admission?: YesPlan: Will gently rehydrate with normal saline ovenight (7) Pulmonary embolism Qualifiers: Pulmonary embolism type: other Chronicity: acute Acute cor pulmonale presence: without acute cor pulmonale Qualified Code(s): I26.99 - Other pulmonary embolism without acute cor pulmonale Is this a current diagnosis for this admission?: YesPlan: Continue coumadin. (8) Tobacco abuse Is this a current diagnosis for this admission?: YesPlan: Counseled - Time Time Spent with patient: 25-34 minutes Critical Time spent with patient: 15-24 minutes Medications reviewed and adjusted accordingly: Yes Anticipated discharge: Home
[2016-10-11] MEDS: WARFARIN SODIUM 5 MG TABLET PO SCH (21:46)
[2016-10-12] MEDS: MORPHINE SULFATE 10 MG/ML INJ IV PRN ×2 (02:08→08:00)
[2016-10-12 04:57] LABS: PROTHROMBIN TIME 16.9 SEC (11.4-15.4)
[2016-10-12] MEDS: LANSOPRAZOLE 15 MG TAB.RAP.DR PO SCH (05:25)
[2016-10-12 05:27] LABS: BLOOD UREA NITROGEN 21 mg/dL (7-20); CALCIUM 7.8 mg/dL (8.4-10.2); CHLORIDE 90 mmol/L (98-107); CREATININE RESULT 6.27 mg/dL (0.52-1.25); GLUCOSE 73 mg/dL (75-110)
[2016-10-12 05:51] LABS: ANION GAP 16 (5-19); SODIUM 131.8 mmol/L (137-145)
[2016-10-12 05:56] LABS: CARBON DIOXIDE 26 mmol/L (22-30)
[2016-10-12] MEDS: CALCIUM ACETATE 667 MG CAPSULE PO SCH ×2 (08:00→12:28)
[2016-10-12] MEDS: IPRATROPIUM/ALBUTEROL 0.5-2.5 MG/3 ML AMPUL NEB SCH (09:16)
[2016-10-12] MEDS: METOPROLOL SUCCINATE 50 MG TAB.SR.24H PO SCH (10:41)
[2016-10-12] MEDS: FLUTICASONE NASAL SPRAY 50 MCG/SPRY 120 SPRAY/16 GM NASL SCH (10:41)
[2016-10-12] MEDS: DICYCLOMINE HCL 10 MG CAPSULE PO SCH (10:41)
[2016-10-12] MEDS: LEVETIRACETAM 500 MG TABLET PO SCH (10:42)
[2016-10-12] MEDS: AMLODIPINE BESYLATE 10 MG TABLET PO SCH (10:42)
[2016-10-12 12:23] VITALS: BP 133/81
[2016-10-12] MEDS: HYDRALAZINE HCL 10 MG TABLET PO SCH (12:28)
--- NOTE | 2016-10-12 13:21 | PDOC DISCHARGE SUMMARY ---
General - Admit/Disc Date/PCP Admission Date/Primary Care Provider: 10/09/16 14:14 BIBIANA CLAUDIO NP Discharge Date: 10/12/16 - Discharge Diagnosis (1) Pancreatitis Is this a current diagnosis for this admission?: YesSummary: Resolved. Patient with history of recurrent idiopathic pancreatitis (2) Cough Is this a current diagnosis for this admission?: YesSummary: Viral upper respiratory infection. Cough syrup every 4hrs as needed and inhaler prn (3) ESRD on dialysis Is this a current diagnosis for this admission?: YesSummary: Continue on dialysis schedule (4) Chronic prescription opiate use Is this a current diagnosis for this admission?: YesSummary: Patient counseled on to take medication only as needed (5) Vomiting Is this a current diagnosis for this admission?: YesSummary: Resolved (6) Hyponatremia Is this a current diagnosis for this admission?: YesSummary: Resolved with hydration and dialysis (7) Pulmonary embolism Is this a current diagnosis for this admission?: YesSummary: Continue warfarin (8) Tobacco abuse Is this a current diagnosis for this admission?: YesSummary: Patient was counseled, attempting to quit - Additional Information Resuscitation Status: Full Code Discharge Diet: Other (Comments) - Dialysis Discharge Activity: Activity As Tolerated, Balance Activity w/Rest Home Medications: Promethazine HCl [Phenergan 25 mg Tablet] 1 - 2 tab PO Q6H PRN #30 tablet Levetiracetam [Keppra 500 mg Tablet] 250 mg PO DAILY 01/15/16 Warfarin Sodium [Coumadin 1 mg Tablet] 3 mg PO QHS #60 tablet 01/20/16 Omeprazole 40 mg PO DAILY #60 capsule. 07/30/16 Amlodipine Besylate [Norvasc 10 mg Tablet] 1 tab PO DAILY 10/09/16 Calcium Acetate [Phoslo 667 mg Capsule] 2 cap PO MEALS 10/09/16 Dicyclomine HCl [Bentyl 10 mg Capsule] 1 cap PO BID 10/09/16 Hydralazine HCl [Apresoline 10 mg Tablet] 1 tab PO DAILY 10/09/16 Lorazepam [Ativan 1 mg Tablet] 1 tab PO QHS PRN 10/09/16 Metoprolol Succinate [Toprol XL 100 mg Tablet] 1 tab PO BID 10/09/16 Acetaminophen [Tylenol 325 mg Tablet] 650 mg PO Q4HP PRN tablet 10/12/16 Albuterol Sulfate [Proair Respiclick] 90 mcg IH Q4HP PRN #1 inhaler 10/12/16 Fluticasone Propionate [Flonase Nasal Aldie 50 Mcg/Aldie 16 gm] 2 spray NASL DAILY spray.pump 10/12/16 Guaifenesin/Codeine Phos [Robitussin-AC Liquid 5 ml Udcup] 5 ml PO QIDP PRN # 240 udc 10/12/16 Oxycodone HCl/Acetaminophen [Percocet 5-325 mg Tablet] 1 tab PO Q4HP PRN #20 tablet 10/12/16 History of Present Illness History of Present Illness: MILAGROS RAMOS is a 31 year old female with ESRD on HD , and Saturdays. She was sent from dialysis to [facility] ED by dialysis staff due to worsening cough. She states she has been coughing since last Tuesday. Symptoms started with a sore throat and then to a nonproductive cough. She was seen by her primary care provider and started on Augmentin on . Her cough has not improved at all. She denies fevers or chills. She also has abdominal pain and vomiting. She also has had diarrhea all week long as well, prior to starting antibiotics. She states abdominal pain is crampy in nature and waxes and wanes in intensity. She denies any shortness of breath or dyspnea. Her appetite has been poor all week. Vomiting began yesterday. Hospital Course Hospital Course: Patient was admitted to telemetry. She was kept NPO overnight and rehydrated with IV fluid. Lipase improved overnight. She was started on a clear liquid diet which she tolerated. Her cough improved with nebulizer treatments and cough syrup prn. Her abdominal pain improved. The following morning she was noted to be hypoglycemic with a blood sugar of 28. She was given an amp of D50 and started on a regular renal diet. Dr Cavanaugh was consulted from nephrology. The patient was dialyzed on 10/11/2016. Physical Exam Vital Signs: Temp Pulse Resp BP Pulse Ox 98.8 F 64 16 133/81 H 96 10/12/16 12:11 10/12/16 12:11 10/12/16 12:11 10/12/16 12:11 10/12/16 12:11 Intake & Output 10/11/16 10/12/16 10/13/16 06:59 06:59 06:59 Intake Total 1440 1070 Output Total 0 Balance 1440 1070 Weight 56.2 kg 53.3 kg General appearance: PRESENT: no acute distress, well-developed, well-nourished Head exam: PRESENT: atraumatic, normocephalic Eye exam: PRESENT: conjunctiva pink, EOMI, PERRLA. ABSENT: scleral icterus Ear exam: PRESENT: normal external ear exam Mouth exam: PRESENT: moist, tongue midline Neck exam: ABSENT: carotid bruit, JVD, lymphadenopathy, thyromegaly Respiratory exam: PRESENT: clear to auscultation marquis. ABSENT: rales, rhonchi, wheezes Cardiovascular exam: PRESENT: RRR. ABSENT: diastolic murmur, rubs, systolic murmur Pulses: PRESENT: normal dorsalis pedis pul Vascular exam: PRESENT: normal capillary refill GI/Abdominal exam: PRESENT: normal bowel sounds, soft. ABSENT: distended, guarding, mass, organolmegaly, rebound, tenderness Rectal exam: PRESENT: deferred Extremities exam: PRESENT: full ROM. ABSENT: calf tenderness, clubbing, pedal edema Neurological exam: PRESENT: alert, awake, oriented to person, oriented to place , oriented to time, oriented to situation, CN II-XII grossly intact. ABSENT: motor sensory deficit Psychiatric exam: PRESENT: appropriate affect, normal mood. ABSENT: homicidal ideation, suicidal ideation Skin exam: PRESENT: dry, intact, warm. ABSENT: cyanosis, rash Results Laboratory Results: 10/11/16 06:24 10/12/16 04:26 10/12/16 04:26 Sodium 131.8 L Potassium 4.0 D Chloride 90 L Carbon Dioxide 26 D Anion Gap 16 BUN 21 H Creatinine 6.27 H Est GFR ( Amer) 9 L Est GFR (Non-Af Amer) 8 L Glucose 73 L Calcium 7.8 L 10/09/16 15:36 Sputum Gram Stain - Final 10/09/16 15:36 Sputum Sputum Culture - Final NORMAL JOSE 10/09/16 18:48 Nasophary (Mrsa Only) MRSA Surveillance Culture - Final NO MRSA RECOVERED Impressions: Chest X-Ray 12/31/16 11:10 IMPRESSION: NO ACUTE CARDIOPULMONARY PROCESS. NO SIGNIFICANT CHANGE FROM PRIOR STUDY. Qualifiers PATEINT BEING DISCHARGED WITH ANY OF THE FOLLOWING DIAGNOSIS?: No Plan Discharge Plan: Home with family. Follow up with primary care provider in one week Time Spent: Less than 30 Minutes
== END 2016-10-12 13:01 | disposition home or self-care (01) | DRG 438 ==
LOC: ER 11:04 → EH 14:14 → UNDOADMIN 15:11 → 5 18:03
PROVIDERS: ADMIT Family Medicine; ATTEND Family Medicine
DX: K85.00 Idiopathic acute pancreatitis without necrosis or infection (principal); N18.6 End stage renal disease; I26.99 Other pulmonary embolism without acute cor pulmonale; I12.0 Hypertensive chronic kidney disease with stage 5 chronic kidney disease or end stage renal disease; E87.1 Hypo-osmolality and hyponatremia; T86.11 Kidney transplant rejection; J06.9 Acute upper respiratory infection, unspecified; K86.1 Other chronic pancreatitis; D63.1 Anemia in chronic kidney disease; Z99.2 Dependence on renal dialysis; E16.2 Hypoglycemia, unspecified; K21.9 Gastro-esophageal reflux disease without esophagitis; F32.9 Major depressive disorder, single episode, unspecified; F17.210 Nicotine dependence, cigarettes, uncomplicated; Z90.49 Acquired absence of other specified parts of digestive tract; Z79.01 Long term (current) use of anticoagulants; Z88.0 Allergy status to penicillin; Z88.1 Allergy status to other antibiotic agents; Z91.041 Radiographic dye allergy status; Z79.891 Long term (current) use of opiate analgesic; Z98.51 Tubal ligation status; Z82.61 Family history of arthritis; Z80.9 Family history of malignant neoplasm, unspecified
CPT/HCPCS: 36415; 71020; 80048; 80053; 80301; 81001; 82962; 83605; 83690; 83735; 84703; 85025; 85610; 87040; 87070; 87086; 87205; 87804; 87880; 93005; 93010; 94640; 96374; 99285; G0479; J1200; J2270; J2405; J3490; J7030; J7620; Q4081

== ENCOUNTER 2016-10-21 11:22 | Inpatient (IN) | payer MEDICARE ==
[2016-10-21] MEDS ORDERED: ONDANSETRON 4 MG TAB.RAPDIS PO ONE (11:36)
--- NOTE | 2016-10-21 11:36 | ER Document Report ---
ED Medical Screen (RME) - General Stated Complaint: ABDOMINAL PAIN Notes: was discharged on 10/12 for pancreatitis and hyperkalemia. comes in today c/o abdominal pain LUQ and abdominal distension. admits to nausea, vomiting, diarrhea approx. 10 episodes a day had dialysis today, HD every , , Tuesday TRAVEL OUTSIDE OF THE [place] IN LAST 30 DAYS: No - Related Data Allergies/Adverse Reactions: vancomycin [Vancomycin] Allergy (Intermediate, Verified 10/21/16 11:32) rash amoxicillin [Amoxicillin] Allergy (Verified 10/21/16 11:32) Hives metoclopramide HCl [From Reglan] Allergy (Verified 10/21/16 11:32) Iodinated Contrast Media - Oral and [IV Dye, Iodine Containing] Adverse Reaction (Severe, Verified 10/21/16 11:32) esrd ok with topical Past Medical History - Past Medical History Cardiac Medical History: Reports: Hx Hypertension - CONTROLLED WITH MED, Hx Pulmonary Embolism Denies: Hx Coronary Artery Disease, Hx Heart Attack Pulmonary Medical History: Denies: Hx Asthma, Hx Bronchitis, Hx COPD, Hx Pneumonia, Hx Tuberculosis Neurological Medical History: Reports: Hx Seizures - BABY, NONE SINCE AGE 1/ FEBRILE. 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 Denies: Hx Kidney Stones GI Medical History: Reports: Hx Gastroesophageal Reflux Disease. Denies: Hx Hepatitis, Hx Hiatal Hernia, Hx Ulcer Musculoskeltal Medical History: Denies Hx Arthritis Psychiatric Medical History: Reports: Hx Anxiety, Hx Depression Infectious Medical History: Denies: Hx Hepatitis Past Surgical History: Reports: Hx Cholecystectomy - 01/2010, Hx Herniorrhaphy - Double hernia repair, Hx Kidney (Renal Surgery) - kidney transplant 2004, Hx Tubal Ligation - 02/2008, Hx Vascular Surgery - PermCath placement for dialysis, multiple procedures for declotting CVC. Denies: Hx Appendectomy, Hx Bowel Surgery, Hx Section, Hx Hysterectomy, Hx Mastectomy, Hx Open Heart Surgery, Hx Pacemaker, Hx Tonsillectomy - Immunizations Immunizations up to date: Yes Hx Diphtheria, Pertussis, Tetanus Vaccination: Yes
--- NOTE | 2016-10-21 12:16 | ER Document Report ---
ED GI/ - General Chief Complaint: Abdominal Pain Stated Complaint: ABDOMINAL PAIN Notes: The patient is a 31-year-old female, past medical history ESRD ([facility]) from [facility] (failed renal transplant in 2014), multiple episodes of pancreatitis, presents with 1 day of epigastric pain, nausea, and vomiting, similar to her prior episodes of pancreatitis. She was admitted 2 weeks ago for pancreatitis. She received her full course of dialysis today. She denies diarrhea, constipation, fevers, rash, chest pain, shortness of breath or flank pain. TRAVEL OUTSIDE OF THE [place] IN LAST 30 DAYS: No - Related Data Allergies/Adverse Reactions: vancomycin [Vancomycin] Allergy (Intermediate, Verified 10/21/16 11:32) rash amoxicillin [Amoxicillin] Allergy (Verified 10/21/16 11:32) Hives metoclopramide HCl [From Reglan] Allergy (Verified 10/21/16 11:32) Iodinated Contrast Media - Oral and [IV Dye, Iodine Containing] Adverse Reaction (Severe, Verified 10/21/16 11:32) esrd ok with topical Past Medical History - General Information source: Patient - Social History Smoking Status: Never Smoker Chew tobacco use (# tins/day): No Frequency of alcohol use: None Drug Abuse: None Family History: Reviewed & Not Pertinent, Arthritis, Malignancy Patient has suicidal ideation: No Patient has homicidal ideation: No - Past Medical History Cardiac Medical History: Reports: Hx Hypertension - CONTROLLED WITH MED, Hx Pulmonary Embolism Denies: Hx Coronary Artery Disease, Hx Heart Attack Pulmonary Medical History: Denies: Hx Asthma, Hx Bronchitis, Hx COPD, Hx Pneumonia, Hx Tuberculosis Neurological Medical History: Reports: Hx Seizures - BABY, NONE SINCE AGE 1/ FEBRILE. 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 Denies: Hx Kidney Stones GI Medical History: Reports: Hx Gastroesophageal Reflux Disease. Denies: Hx Hepatitis, Hx Hiatal Hernia, Hx Ulcer Musculoskeltal Medical History: Denies Hx Arthritis Psychiatric Medical History: Reports: Hx Anxiety, Hx Depression Infectious Medical History: Denies: Hx Hepatitis Past Surgical History: Reports: Hx Cholecystectomy - 01/2010, Hx Herniorrhaphy - Double hernia repair, Hx Kidney (Renal Surgery) - kidney transplant 2004, Hx Tubal Ligation - 02/2008, Hx Vascular Surgery - PermCath placement for dialysis, multiple procedures for declotting CVC. Denies: Hx Appendectomy, Hx Bowel Surgery, Hx Section, Hx Hysterectomy, Hx Mastectomy, Hx Open Heart Surgery, Hx Pacemaker, Hx Tonsillectomy - Immunizations Immunizations up to date: Yes Hx Diphtheria, Pertussis, Tetanus Vaccination: Yes Hx Pneumococcal Vaccination: 07/10/14 Review of Systems - Review of Systems Notes: REVIEW OF SYSTEMS: CONSTITUTIONAL: -fevers, -chills EENT: -eye pain, -difficulty swallowing, -nasal congestion CARDIOVASCULAR:-chest pain, -syncope. RESPIRATORY: -cough, -SOB GASTROINTESTINAL: +abdominal pain, +nausea, +vomiting, -diarrhea GENITOURINARY: -dysuria, -hematuria MUSCULOSKELETAL: -back pain, -neck pain SKIN: -rash or skin lesions. HEMATOLOGIC: -easy bruising or bleeding. LYMPHATIC: -swollen, enlarged glands. NEUROLOGICAL: -altered mental status or loss of consciousness, -headache, - neurologic symptoms PSYCHIATRIC: -anxiety, -depression. ALL OTHER SYSTEMS REVIEWED AND NEGATIVE. Physical Exam - Vital signs Vitals: Temp Pulse Resp BP Pulse Ox 98.6 F 78 16 170/97 H 99 10/21/16 11:32 10/21/16 11:32 10/21/16 11:32 10/21/16 11:32 10/21/16 11:32 - Notes Notes: PHYSICAL EXAMINATION: GENERAL: Well-appearing, well-nourished and in no acute distress. HEAD: Atraumatic, normocephalic. EYES: Pupils equal round and reactive to light, extraocular movements intact, sclera anicteric, conjunctiva are normal. ENT: nares patent, oropharynx clear without exudates. Moist mucous membranes. NECK: Normal range of motion, supple without lymphadenopathy LUNGS: Breath sounds clear to auscultation bilaterally and equal. No wheezes rales or rhonchi. HEART: Regular rate and rhythm without murmurs ABDOMEN: Moderate epigastric tenderness. Soft, normoactive bowel sounds. No guarding, no rebound. No masses appreciated. EXTREMITIES: Normal range of motion, no pitting or edema. No cyanosis. NEUROLOGICAL: Cranial nerves grossly intact. Normal speech, normal gait. Normal sensory, motor, and reflex exams. PSYCH: Normal mood, normal affect. SKIN: Warm, Dry, normal turgor, no rashes or lesions noted. Course - Re-evaluation Re-evalutation: 10/21/16 14:28 Patient's pain and nausea are under control. Lipase elevated again. Will admit as inpatient for acute pancreatitis. Spoke to Dr. Fagan who has accepted patient. - Vital Signs Vital signs: Temp Pulse Resp BP Pulse Ox 98.6 F 78 16 170/97 H 99 10/21/16 11:32 10/21/16 11:32 10/21/16 11:32 10/21/16 11:32 10/21/16 11:32 - Laboratory Result Diagrams: 10/21/16 13:00 10/21/16 13:00 Laboratory results interpreted by tn: 10/21/16 10/21/16 13:00 13:00 RBC 3.49 L Hgb 11.4 L Hct 33.4 L RDW 17.6 H Chloride 93 L Creatinine 4.16 H Est GFR ( Amer) 15 L Est GFR (Non-Af Amer) 12 L AST 56 H Alkaline Phosphatase 134 H Lipase 1370.9 H - EKG Interpretation by Mi EKG shows normal: Sinus rhythm, Walling, Intervals, QRS Complexes, ST-T Waves Discharge - Discharge Clinical Impression: Acute pancreatitis Condition: Stable Disposition: ADMITTED INPATIENT Admitting Provider: Lucas Fagan Unit Admitted: Medical Floor
[2016-10-21] MEDS ORDERED: MORPHINE SULFATE 10 MG/ML INJ IV ONE ×2 (12:30→13:48)
[2016-10-21 13:20] LABS: ABSOLUTE BASOPHILS # (AUTO) 0.1 10^3/uL (0.0-0.2); ABSOLUTE EOSINOPHILS # (AUTO) 0.1 10^3/uL (0.0-0.6); ABSOLUTE LYMPHOCYTES (AUTO) 2.2 10^3/uL (0.5-4.7); ABSOLUTE MONOCYTES (AUTO) 0.6 10^3/uL (0.1-1.4); ABSOLUTE NEUT (AUTO) 6.2 10^3/uL (1.7-8.2); BASOPHILS % (AUTO) 0.7 % (0-2); EOSINOPHILS % (AUTO) 1.4 % (0-6); HEMATOCRIT 33.4 % (36.0-47.0); HEMOGLOBIN 11.4 g/dL (12.0-15.5); HGB HCT DIFFERENCE 0.8; LYMPHOCYTES % (AUTO) 23.7 % (13-45); MEAN CORPUSCULAR HEMOGLOBIN 32.7 pg (27.0-33.4); MEAN CORPUSCULAR HGB CONC 34.1 g/dL (32.0-36.0); MEAN CORPUSCULAR VOLUME 96 fl (80-97); MONOCYTES % (AUTO) 6.6 % (3-13); RED BLOOD COUNT 3.49 10^6/uL (3.72-5.28); RED CELL DISTRIBUTION WIDTH 17.6 % (11.5-14.0); SEGMENTED NEUTROPHILS % (AUTO) 67.6 % (42-78); WHITE BLOOD COUNT 9.2 10^3/uL (4.0-10.5)
[2016-10-21 13:40] LABS: ALANINE AMINOTRANSFERASE 47 U/L (9-52); ALBUMIN 4.7 g/dL (3.5-5.0); ALKALINE PHOSPHATASE 134 U/L (38-126); ANION GAP 17 (5-19); ASPARTATE AMINO TRANSFERASE 56 U/L (14-36); BILIRUBIN,TOTAL 0.7 mg/dL (0.2-1.3); BLOOD UREA NITROGEN 20 mg/dL (7-20); CALCIUM 9.4 mg/dL (8.4-10.2); CARBON DIOXIDE 28 mmol/L (22-30); CHLORIDE 93 mmol/L (98-107); CREATINE KINASE 35 U/L (30-135); CREATININE RESULT 4.16 mg/dL (0.52-1.25); GLUCOSE 90 mg/dL (75-110); LIPASE 1370.9 U/L (23-300); POTASSIUM 4.2 mmol/L (3.6-5.0); SODIUM 138.1 mmol/L (137-145); TOTAL PROTEIN 7.2 g/dL (6.3-8.2)
[2016-10-21] MEDS ORDERED: OXYCODONE-ACETAMINOPHEN 5-325 MG TABLET PO PRN (14:59)
[2016-10-21] MEDS ORDERED: ACETAMINOPHEN 325 MG TABLET PO PRN (14:59)
[2016-10-21] MEDS ORDERED: FENTANYL CITRATE INJ/PF 100 MCG/2 ML AMPUL IV PRN (15:07)
[2016-10-21] MEDS ORDERED: (PENDING PHARMACY ID) (Albuterol Sulfate [Proair Respiclick] 90 MCG) IH PRN (18:34)
[2016-10-21] MEDS: NORMAL SALINE 1000 ML 1,000 ML IV PRN (18:40)
--- NOTE | 2016-10-21 18:40 | PDOC H&P ---
History of Present Illness Admission Date/PCP: 10/21/16 14:59 MIKE WONG PA-C Patient complains of: Epigastric pain History of Present Illness: MILAGROS RAMOS is a 31 year old female presents from dialysis center after completing her usual session she complained of worsening epigastric pain. She' s had increasing epigastric pain radiating into the left upper abdomen for the last 2 days described as sharp stabbing 88 to her back with a constant ache associated with nausea, vomiting, dry hacking cough and early satiety. She's had a low-grade fever and abdominal distention and reports diarrhea 5-6 liquid brown stools daily for the last couple of days. She describes severe heartburn in spite of PPI therapy worse over the last couple of nights. The patient has a history of chronic recurrent pancreatitis seen here and at [place] and [place] with several gastroenterologists failing to identify the etiology aside from idiopathic. She underwent endoscopy here by Dr. Emery in June 2015 was reportedly normal. He underwent endoscopy by vulcanizer rubber plate and [place] within the last 6 months after an episode of intense retching nausea and vomiting and was diagnosed with a mild distal esophageal tear. She denies alcohol, no longer has her gallbladder, has been evaluated for common duct stones always negative. Evaluation in the emergency department shows a markedly elevated lipase at 1371 signs and symptoms consistent with acute on chronic pancreatitis and we were asked to admit for further evaluation and management. 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 GI Medical History: Reports: Gastroesophageal Reflux Disease Denies: Hepatitis, Hiatal Hernia Musculoskeltal Medical History: Denies: Arthritis Psychiatric Medical History: Reports: Depression Hematology: Reports: Anemia Denies: Sickle Cell Disease Past Surgical History Past Surgical History: Reports: Cholecystectomy - 01/2010, Herniorrhaphy - Double hernia repair, Tubal Ligation - 02/2008, Vascular Surgery - PermCath placement for dialysis, multiple procedures for declotting CVC Denies: Amputation, Appendectomy, Section, Hysterectomy, Mastectomy , Pacemaker, Tonsillectomy Social History Smoking Status: Current Every Day Smoker Cigarettes Packs Per Day: 10 Number of Years Smokin Last Time Smoked: 10/21/2016 Frequency of Alcohol Use: None Hx Recreational Drug Use: No Drugs: None Hx Prescription Drug Abuse: No - Advance Directive Resuscitation Status: Full Code Family History Family History: Reviewed & Not Pertinent, Arthritis, Malignancy Parental Family History Reviewed: Yes Children Family History Reviewed: Yes Sibling(s) Family History Reviewed.: Yes Medication/Allergy Home Medications: Promethazine HCl [Phenergan 25 mg Tablet] 1 - 2 tab PO Q6H PRN #30 tablet Levetiracetam [Keppra 500 mg Tablet] 250 mg PO DAILY 01/15/16 Warfarin Sodium [Coumadin 1 mg Tablet] 3 mg PO QHS #60 tablet 01/20/16 Omeprazole 40 mg PO DAILY #60 capsule. 07/30/16 Amlodipine Besylate [Norvasc 10 mg Tablet] 1 tab PO DAILY 10/09/16 Calcium Acetate [Phoslo 667 mg Capsule] 2 cap PO MEALS 10/09/16 Dicyclomine HCl [Bentyl 10 mg Capsule] 1 cap PO BID 10/09/16 Hydralazine HCl [Apresoline 10 mg Tablet] 1 tab PO DAILY 10/09/16 Lorazepam [Ativan 1 mg Tablet] 1 tab PO QHS PRN 10/09/16 Metoprolol Succinate [Toprol XL 100 mg Tablet] 1 tab PO BID 10/09/16 Acetaminophen [Tylenol 325 mg Tablet] 650 mg PO Q4HP PRN tablet 10/12/16 Albuterol Sulfate [Proair Respiclick] 90 mcg IH Q4HP PRN #1 inhaler 10/12/16 Fluticasone Propionate [Flonase Nasal [place] 50 Mcg/[place] 16 gm] 2 spray NASL DAILY spray.pump 10/12/16 Allergies/Adverse Reactions: vancomycin [Vancomycin] Allergy (Intermediate, Verified 10/21/16 11:32) rash amoxicillin [Amoxicillin] Allergy (Verified 10/21/16 11:32) Hives metoclopramide HCl [From Reglan] Allergy (Verified 10/21/16 11:32) Iodinated Contrast Media - Oral and [IV Dye, Iodine Containing] Adverse Reaction (Severe, Verified 10/21/16 11:32) esrd ok with topical Review of Systems Constitutional: PRESENT: chills. ABSENT: fever(s), headache(s), weight gain, weight loss Eyes: ABSENT: visual disturbances Ears: ABSENT: hearing changes Nose, Mouth, and Throat: ABSENT: mouth pain, sore throat Cardiovascular: ABSENT: chest pain, dyspnea on exertion, edema, orthropnea, palpitations Respiratory: PRESENT: cough. ABSENT: hemoptysis Gastrointestinal: PRESENT: abdominal pain, constipation, diarrhea, nausea. ABSENT: hematemesis, hematochezia, vomiting Genitourinary: ABSENT: dysuria, hematuria Musculoskeletal: ABSENT: joint swelling Integumentary: ABSENT: rash, wounds Neurological: ABSENT: abnormal gait, abnormal speech, confusion, dizziness, focal weakness, syncope Psychiatric: ABSENT: anxiety, depression, homidical ideation, suicidal ideation Endocrine: ABSENT: cold intolerance, heat intolerance, polydipsia, polyuria Hematologic/Lymphatic: ABSENT: easy bleeding, easy bruising Physical Exam Vital Signs: Temp Pulse Resp BP Pulse Ox 97.5 F 58 L 18 123/71 98 10/21/16 17:21 10/21/16 17:21 10/21/16 17:21 10/21/16 17:21 10/21/16 17:21 General appearance: PRESENT: no acute distress, thin, well-developed Head exam: PRESENT: atraumatic, normocephalic Eye exam: PRESENT: conjunctiva pink, EOMI, PERRLA. ABSENT: scleral icterus Mouth exam: PRESENT: moist, tongue midline Neck exam: PRESENT: JVD, lymphadenopathy, thyromegaly. ABSENT: carotid bruit Respiratory exam: PRESENT: clear to auscultation marquis. ABSENT: rales, rhonchi, wheezes Cardiovascular exam: PRESENT: RRR. ABSENT: diastolic murmur, rubs, systolic murmur Pulses: PRESENT: normal dorsalis pedis pul Vascular exam: PRESENT: normal capillary refill GI/Abdominal exam: PRESENT: mass, normal bowel sounds, soft, tenderness. ABSENT : distended, guarding, rebound Rectal exam: PRESENT: deferred Extremities exam: PRESENT: full ROM. ABSENT: calf tenderness, clubbing, pedal edema Neurological exam: PRESENT: alert, awake, oriented to person, oriented to place , oriented to time, oriented to situation Psychiatric exam: PRESENT: appropriate affect, normal mood. ABSENT: homicidal ideation, suicidal ideation Skin exam: PRESENT: dry, intact, warm. ABSENT: cyanosis, rash Assessment & Plan - Diagnosis (1) Acute on chronic pancreatitis Is this a current diagnosis for this admission?: YesPlan: Supportive care. Gentle IV fluids given her end-stage renal disease. anti emetics and analgesics as needed. (2) ESRD on dialysis Is this a current diagnosis for this admission?: YesPlan: Consult nephrology for dialysis recommendations. (3) Pulmonary embolism Qualifiers: Pulmonary embolism type: other Chronicity: chronic Acute cor pulmonale presence: without acute cor pulmonale Qualified Code(s): I27.82 - Chronic pulmonary embolism Is this a current diagnosis for this admission?: YesPlan: Check INR. Continue Coumadin. Adjust dose as needed. - Time Time Spent: 50 to 70 Minutes Medications reviewed and adjusted accordingly: Yes Anticipated discharge: Home Within: within 72 hours - Inpatient Certification Based on my medical assessment, after consideration of the patient's comorbidities, presenting symptoms, or acuity I expect that the services needed warrant INPATIENT care.: Yes I certify that my determination is in accordance with my understanding of Medicare's requirements for reasonable and necessary INPATIENT services [42 CFR 412.3e].: Yes Medical Necessity: Significant Comorbidiites Make Outpatient Treatment Too Risky , Need For IV Fluids
[2016-10-21 19:23] LABS: PROTHROMBIN TIME 13.5 SEC (11.4-15.4)
[2016-10-21] MEDS: MORPHINE SULFATE 10 MG/ML INJ IV PRN (20:02)
[2016-10-21] MEDS: PANTOPRAZOLE SODIUM 40 MG VIAL IV SCH (21:39)
[2016-10-21] MEDS: LORAZEPAM 1 MG TABLET PO PRN (21:40)
[2016-10-21] MEDS: WARFARIN SODIUM 3 MG TABLET PO SCH (21:40)
[2016-10-21] MEDS ORDERED: (PENDING PHARMACY ID) (Warfarin Sodium 3 MG) PO SCH (22:00)
[2016-10-22] MEDS: MORPHINE SULFATE 10 MG/ML INJ IV PRN ×5 (00:38→21:15)
[2016-10-22 07:13] LABS: ABSOLUTE BASOPHILS # (AUTO) 0.1 10^3/uL (0.0-0.2); ABSOLUTE EOSINOPHILS # (AUTO) 0.1 10^3/uL (0.0-0.6); ABSOLUTE LYMPHOCYTES (AUTO) 2.7 10^3/uL (0.5-4.7); ABSOLUTE MONOCYTES (AUTO) 0.4 10^3/uL (0.1-1.4); ABSOLUTE NEUT (AUTO) 2.2 10^3/uL (1.7-8.2); BASOPHILS % (AUTO) 1.1 % (0-2); EOSINOPHILS % (AUTO) 1.8 % (0-6); HEMATOCRIT 29.2 % (36.0-47.0); HGB HCT DIFFERENCE 0.8; MEAN CORPUSCULAR HEMOGLOBIN 33.5 pg (27.0-33.4); MEAN CORPUSCULAR HGB CONC 34.1 g/dL (32.0-36.0); MEAN CORPUSCULAR VOLUME 98 fl (80-97); MONOCYTES % (AUTO) 7.1 % (3-13); RED BLOOD COUNT 2.97 10^6/uL (3.72-5.28); RED CELL DISTRIBUTION WIDTH 17.6 % (11.5-14.0); WHITE BLOOD COUNT 5.4 10^3/uL (4.0-10.5)
[2016-10-22 07:21] LABS: ALANINE AMINOTRANSFERASE 42 U/L (9-52); ALBUMIN 3.6 g/dL (3.5-5.0); ALKALINE PHOSPHATASE 102 U/L (38-126); AMYLASE 220 U/L (30-110); ANION GAP 16 (5-19); ASPARTATE AMINO TRANSFERASE 32 U/L (14-36); BILIRUBIN,TOTAL 0.6 mg/dL (0.2-1.3); BLOOD UREA NITROGEN 27 mg/dL (7-20); CALCIUM 9.1 mg/dL (8.4-10.2); CARBON DIOXIDE 23 mmol/L (22-30); CHLORIDE 99 mmol/L (98-107); CREATININE RESULT 6.23 mg/dL (0.52-1.25); GLUCOSE 69 mg/dL (75-110); LIPASE 368.7 U/L (23-300); MAGNESIUM 1.8 mg/dL (1.6-2.3); POTASSIUM 4.7 mmol/L (3.6-5.0); SODIUM 138.3 mmol/L (137-145); TOTAL PROTEIN 5.4 g/dL (6.3-8.2)
[2016-10-22 07:25] LABS: C-REACTIVE PROTEIN < 5.0 mg/L (<10.0)
[2016-10-22] MEDS ORDERED: DIPHENHYDRAMINE HCL 50 MG/ML VIAL IV PRN (08:16)
[2016-10-22] MEDS: PANTOPRAZOLE SODIUM 40 MG VIAL IV SCH ×2 (09:09→21:16)
[2016-10-22] MEDS: ONDANSETRON HCL INJ/PF 4 MG/2 ML SDV IV PRN (09:09)
[2016-10-22] MEDS: LEVETIRACETAM 500 MG TABLET PO SCH (09:10)
[2016-10-22] MEDS: HYDRALAZINE HCL 10 MG TABLET PO SCH (09:10)
[2016-10-22] MEDS: AMLODIPINE BESYLATE 10 MG TABLET PO SCH (09:11)
[2016-10-22] MEDS: DICYCLOMINE HCL 10 MG CAPSULE PO SCH ×2 (09:11→17:34)
[2016-10-22] MEDS: METOPROLOL SUCCINATE 50 MG TAB.SR.24H PO SCH ×2 (09:11→17:33)
[2016-10-22] MEDS: CALCIUM ACETATE 667 MG CAPSULE PO SCH ×3 (09:21→16:18)
[2016-10-22] MEDS ORDERED: METOPROLOL SUCCINATE PO SCH (10:00)
[2016-10-22] MEDS: NORMAL SALINE 1000 ML 1,000 ML IV PRN (12:50)
--- NOTE | 2016-10-22 13:24 | PDOC PROGRESS REPORT ---
Subjective Progress Note for:: 10/22/16 Subjective:: MILAGROS RAMOS is a 31 year old female presents from dialysis center after completing her usual session she complained of worsening epigastric pain. She' s had increasing epigastric pain radiating into the left upper abdomen for the last 2 days described as sharp stabbing 88 to her back with a constant ache associated with nausea, vomiting, dry hacking cough and early satiety. She's had a low-grade fever and abdominal distention and reports diarrhea 5-6 liquid brown stools daily for the last couple of days. She describes severe heartburn in spite of PPI therapy worse over the last couple of nights. The patient has a history of chronic recurrent pancreatitis seen here and at [place] and [place] with several gastroenterologists failing to identify the etiology aside from idiopathic. She underwent endoscopy here by Dr. Emery in June 2015 was reportedly normal. He underwent endoscopy by nurse's assistant and [place] within the last 6 months after an episode of intense retching nausea and vomiting and was diagnosed with a mild distal esophageal tear. She denies alcohol, no longer has her gallbladder, has been evaluated for common duct stones always negative. Evaluation in the emergency department shows a markedly elevated lipase at 1371 signs and symptoms consistent with acute on chronic pancreatitis and we were asked to admit for further evaluation and management. Still having epigastric pain not well controlled with low-dose morphine. Still feeling nauseous but ironically asking for something to eat. Physical Exam Vital Signs: Temp Pulse Resp BP Pulse Ox 98.0 F 59 L 16 141/82 H 100 10/22/16 11:20 10/22/16 11:20 10/22/16 11:20 10/22/16 11:20 10/22/16 11:20 Intake & Output 10/21/16 10/22/16 10/23/16 06:59 06:59 06:59 Intake Total 530 Balance 530 General appearance: PRESENT: no acute distress, well-developed, well-nourished Head exam: PRESENT: atraumatic, normocephalic Eye exam: PRESENT: conjunctiva pink, EOMI, PERRLA. ABSENT: scleral icterus Mouth exam: PRESENT: moist, tongue midline Neck exam: ABSENT: carotid bruit, lymphadenopathy Respiratory exam: PRESENT: clear to auscultation marquis. ABSENT: rales, rhonchi, wheezes Cardiovascular exam: PRESENT: RRR. ABSENT: diastolic murmur, rubs, systolic murmur Pulses: PRESENT: normal radial pulses GI/Abdominal exam: PRESENT: distended, hyperactive bowel sounds, soft, tenderness - Diffusely but localizes to the epigastrium Extremities exam: PRESENT: full ROM. ABSENT: calf tenderness, clubbing, pedal edema Musculoskeletal exam: PRESENT: ambulatory Skin exam: PRESENT: dry, intact, warm. ABSENT: cyanosis, rash Results Laboratory Results: 10/22/16 06:41 10/22/16 06:41 10/22/16 10/22/16 06:41 06:41 WBC 5.4 RBC 2.97 L Hgb 10.0 L Hct 29.2 L MCV 98 H MCH 33.5 H MCHC 34.1 RDW 17.6 H Plt Count 164 Seg Neutrophils % 40.0 L Lymphocytes % 50.0 H Monocytes % 7.1 Eosinophils % 1.8 Basophils % 1.1 Absolute Neutrophils 2.2 Absolute Lymphocytes 2.7 Absolute Monocytes 0.4 Absolute Eosinophils 0.1 Absolute Basophils 0.1 Sodium 138.3 Potassium 4.7 Chloride 99 Carbon Dioxide 23 Anion Gap 16 BUN 27 H Creatinine 6.23 H Est GFR ( Amer) 9 L Est GFR (Non-Af Amer) 8 L Glucose 69 L Calcium 9.1 Magnesium 1.8 Total Bilirubin 0.6 AST 32 ALT 42 Alkaline Phosphatase 102 C-Reactive Protein < 5.0 Total Protein 5.4 L Albumin 3.6 Amylase 220 H Lipase 368.7 H Assessment & Plan - Diagnosis (1) Acute on chronic pancreatitis Is this a current diagnosis for this admission?: YesPlan: Supportive care. Gentle IV fluids given her end-stage renal disease. anti emetics and analgesics as needed. Lipase is trending down but the patient still has persistent pain. We'll continue to keep her nothing by mouth for now. Her CRP is reassuring. (2) ESRD on dialysis Is this a current diagnosis for this admission?: YesPlan: Consulted nephrology for dialysis recommendations. Anticipate dialysis later today (3) Pulmonary embolism Qualifiers: Pulmonary embolism type: other Chronicity: chronic Acute cor pulmonale presence: without acute cor pulmonale Qualified Code(s): I27.82 - Chronic pulmonary embolism Is this a current diagnosis for this admission?: YesPlan: Check INR. Continue Coumadin. Adjust dose as needed. She is several months out from this event and shows no persistent sequela indicating no need for heparin bridge, we'll adjust Coumadin. - Time Time Spent with patient: 25-34 minutes Anticipated discharge: Home Within: within 48 hours
--- NOTE | 2016-10-22 14:42 | PDOC CONSULTATION ---
Consultation Consult Date: 10/22/16 Attending physician:: JOANN VALLE Consult reason:: I was asked by the hospitalist service to see the patient to supervise dialysis while here in the hospital. History of Present Illness Admission Date/PCP: 10/21/16 14:59 MIKE WONG PA-C History of Present Illness: MILAGROS RAMSO is a 31 year old female presents from dialysis center after completing her usual session she complained of worsening epigastric pain. She' s had increasing epigastric pain radiating into the left upper abdomen for the last 2 days described as sharp stabbing 88 to her back with a constant ache associated with nausea, vomiting, dry hacking cough and early satiety. She's had a low-grade fever and abdominal distention and reports diarrhea 5-6 liquid brown stools daily for the last couple of days. She describes severe heartburn in spite of PPI therapy worse over the last couple of nights. The patient has a history of chronic recurrent pancreatitis seen here and at [place] and [place] with several gastroenterologists failing to identify the etiology aside from idiopathic. She underwent endoscopy here by Dr. Emery in June 2015 was reportedly normal. He underwent endoscopy by radio news writer and [place] within the last 6 months after an episode of intense retching nausea and vomiting and was diagnosed with a mild distal esophageal tear. She denies alcohol, no longer has her gallbladder, has been evaluated for common duct stones always negative. Evaluation in the emergency department shows a markedly elevated lipase at 1371 signs and symptoms consistent with acute on chronic pancreatitis . Patient was admitted last night. Patient's last dialysis was yesterday and she completed it. I am seeing her again on dialysis this afternoon. There is no dialysis over the weekend here in the hospital so we are dialyzing her again today. While on dialysis this afternoon she seems to be fairly stable. She is tolerating dialysis well without any complaints. She is still nothing by mouth since admission. She continues to have epigastric and left upper quadrant abdominal pain. She still feels nauseous no currently not vomiting. 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 GI Medical History: Reports: Gastroesophageal Reflux Disease Psychiatric Medical History: Reports: Depression Past Surgical History Past Surgical History: Reports: Cholecystectomy - 01/2010, Dialysis Access Surgery AVF, Herniorrhaphy - Double hernia repair, Tubal Ligation - 02/2008, Vascular Surgery - PermCath placement for dialysis, multiple procedures for declotting CVC Social History Information Source: Patient Smoking Status: Current Every Day Smoker Cigarettes Packs Per Day: 10 Number of Years Smokin Last Time Smoked: 10/21/2016 Frequency of Alcohol Use: None Hx Recreational Drug Use: No Drugs: None Hx Prescription Drug Abuse: No - Advance Directive Resuscitation Status: Full Code Family History Family History: Reviewed & Not Pertinent Parental Family History Reviewed: Yes Children Family History Reviewed: NA Sibling(s) Family History Reviewed.: NA Medication/Allergy Home Medications: Promethazine HCl [Phenergan 25 mg Tablet] 1 - 2 tab PO Q6H PRN #30 tablet Levetiracetam [Keppra 500 mg Tablet] 250 mg PO DAILY 01/15/16 Warfarin Sodium [Coumadin 1 mg Tablet] 3 mg PO QHS #60 tablet 01/20/16 Omeprazole 40 mg PO DAILY #60 capsule. 07/30/16 Amlodipine Besylate [Norvasc 10 mg Tablet] 1 tab PO DAILY 10/09/16 Calcium Acetate [Phoslo 667 mg Capsule] 2 cap PO MEALS 10/09/16 Dicyclomine HCl [Bentyl 10 mg Capsule] 1 cap PO BID 10/09/16 Hydralazine HCl [Apresoline 10 mg Tablet] 1 tab PO DAILY 10/09/16 Lorazepam [Ativan 1 mg Tablet] 1 tab PO QHS PRN 10/09/16 Metoprolol Succinate [Toprol XL 100 mg Tablet] 1 tab PO BID 10/09/16 Acetaminophen [Tylenol 325 mg Tablet] 650 mg PO Q4HP PRN tablet 10/12/16 Albuterol Sulfate [Proair Respiclick] 90 mcg IH Q4HP PRN #1 inhaler 10/12/16 Fluticasone Propionate [Flonase Nasal Downey 50 Mcg/Downey 16 gm] 2 spray NASL DAILY spray.pump 10/12/16 Allergies/Adverse Reactions: vancomycin [Vancomycin] Allergy (Intermediate, Verified 10/21/16 11:32) rash amoxicillin [Amoxicillin] Allergy (Verified 10/21/16 11:32) Hives metoclopramide HCl [From Reglan] Allergy (Verified 10/21/16 11:32) Iodinated Contrast Media - Oral and [IV Dye, Iodine Containing] Adverse Reaction (Severe, Verified 10/21/16 11:32) esrd ok with topical Review of Systems All systems: reviewed and no additional remarkable complaints except as stated Review of Systems: Constitutional: ABSENT: chills, fatigue, fever(s), headache(s), weight gain, weight loss Eyes: ABSENT: visual disturbances Ears: ABSENT: hearing changes Cardiovascular: ABSENT: chest pain, dyspnea on exertion, edema, orthropnea, palpitations Respiratory: ABSENT: dyspnea, hemoptysis; admits cough Gastrointestinal: ABSENT: constipation, hematemesis, hematochezia; admits nausea , vomiting, abdominal pain, and some diarrhea on presentation Genitourinary: ABSENT: dysuria, hematuria Musculoskeletal: ABSENT: joint swelling Integumentary: ABSENT: rash, wounds Neurological: ABSENT: abnormal gait, abnormal speech, confusion, dizziness, focal weakness, numbness, syncope Psychiatric: ABSENT: anxiety, depression Endocrine: ABSENT: cold intolerance, heat intolerance, polydipsia, polyuria Hematologic/Lymphatic: ABSENT: easy bleeding, easy bruising, lymphadenopathy Physical Exam Vital Signs: Temp Pulse Resp BP Pulse Ox 98.0 F 59 L 16 141/82 H 100 10/22/16 11:20 10/22/16 11:20 10/22/16 11:20 10/22/16 11:20 10/22/16 11:20 Intake & Output 10/21/16 10/22/16 10/23/16 06:59 06:59 06:59 Intake Total 530 Balance 530 Vital signs during dialysis currently: Blood pressure of 130/67, heart rate of 52, blood flow rate of 350 mL per minute, dialysate flow rate of 67 mL per minute. Exam: General appearance: no acute distress, cooperative, well-developed, well- nourished Head exam: PRESENT: atraumatic, normocephalic Eye exam: PRESENT: Conjunctiva slightly pale, EOMI, PERRLA. ABSENT: conjunctival injection, scleral icterus Mouth exam: PRESENT: moist, neck supple, tongue midline Neck exam: PRESENT: full ROM. ABSENT: carotid bruit, JVD, lymphadenopathy, thyromegaly Respiratory exam: PRESENT: clear to auscultation bilaterally. ABSENT: rales, rhonchi, stridor, wheezes Cardiovascular exam: PRESENT: RRR, +S1, +S2. Soft grade 1/6 systolic murmur Pulses: PRESENT: normal radial pulses, normal dorsalis pedis pulses GI/Abdominal exam: PRESENT: normal bowel sounds, soft. She has epigastric and left upper quadrant tenderness on palpation ABSENT: guarding, mass Rectal exam: deferred Extremities exam: PRESENT: full ROM. ABSENT: calf tenderness, pedal edema Musculoskeletal: PRESENT: full ROM. ABSENT: deformity Neurological exam: PRESENT: alert, Awake, Oriented to person, Oriented to place , Oriented to time, reflexes normal, CN II-XII grossly intact. ABSENT: motor sensory deficit Psychiatric exam: PRESENT: appropriate affect, normal mood. ABSENT: homicidal ideation, suicidal ideation Skin exam: PRESENT: intact, dry, warm. ABSENT: rash Results Laboratory Results: 10/22/16 06:41 10/22/16 06:41 10/22/16 10/22/16 06:41 06:41 WBC 5.4 RBC 2.97 L Hgb 10.0 L Hct 29.2 L MCV 98 H MCH 33.5 H MCHC 34.1 RDW 17.6 H Plt Count 164 Seg Neutrophils % 40.0 L Lymphocytes % 50.0 H Monocytes % 7.1 Eosinophils % 1.8 Basophils % 1.1 Absolute Neutrophils 2.2 Absolute Lymphocytes 2.7 Absolute Monocytes 0.4 Absolute Eosinophils 0.1 Absolute Basophils 0.1 Sodium 138.3 Potassium 4.7 Chloride 99 Carbon Dioxide 23 Anion Gap 16 BUN 27 H Creatinine 6.23 H Est GFR ( Amer) 9 L Est GFR (Non-Af Amer) 8 L Glucose 69 L Calcium 9.1 Magnesium 1.8 Total Bilirubin 0.6 AST 32 ALT 42 Alkaline Phosphatase 102 C-Reactive Protein < 5.0 Total Protein 5.4 L Albumin 3.6 Amylase 220 H Lipase 368.7 H Assessment & Plan - Diagnosis (1) ESRD on dialysis Is this a current diagnosis for this admission?: YesPlan: We will do dialysis today for 3 hours, using the patient's PermCath, with 2 potassium bath, blood flow rate of 350 mL per minute, dialysate flow rate of 600 mL per minute, ultrafiltration 2 L, no heparin and no Procrit during dialysis. Patient is comfortable and currently tolerating procedure. She will be monitored closely during dialysis treatment. We will supervise dialysis will here in hospital. (2) Acute on chronic pancreatitis Is this a current diagnosis for this admission?: Yes (3) Anemia in chronic kidney disease (CKD) Is this a current diagnosis for this admission?: YesPlan: She does not need Procrit today. - Notes Notes: Thank you very much for this consultation. - Time Time Spent: 50 to 70 Minutes
--- NOTE | 2016-10-22 14:58 | EKG REPORT ---
SEVERITY:- ABNORMAL ECG - SINUS RHYTHM PROBABLE LEFT ATRIAL ABNORMALITY LEFT VENTRICULAR HYPERTROPHY : Confirmed by: Tucker Elder 22-Oct-2016 14:57:35
[2016-10-22] MEDS ORDERED: HEPARIN SOD (PORCINE) 1,000 UNIT/ML 10 ML VIAL IV PRN (16:00)
[2016-10-22] MEDS: LORAZEPAM 1 MG TABLET PO PRN (21:16)
[2016-10-22] MEDS: WARFARIN SODIUM 3 MG TABLET PO SCH (21:22)
[2016-10-23] MEDS: MORPHINE SULFATE 10 MG/ML INJ IV PRN ×6 (01:34→22:19)
[2016-10-23 09:14] LABS: ABSOLUTE BASOPHILS # (AUTO) 0.1 10^3/uL (0.0-0.2); ABSOLUTE EOSINOPHILS # (AUTO) 0.2 10^3/uL (0.0-0.6); ABSOLUTE LYMPHOCYTES (AUTO) 2.3 10^3/uL (0.5-4.7); ABSOLUTE MONOCYTES (AUTO) 0.5 10^3/uL (0.1-1.4); BASOPHILS % (AUTO) 1.3 % (0-2); EOSINOPHILS % (AUTO) 1.9 % (0-6); HEMATOCRIT 32.7 % (36.0-47.0); HEMOGLOBIN 10.7 g/dL (12.0-15.5); HGB HCT DIFFERENCE -0.6; LYMPHOCYTES % (AUTO) 29.1 % (13-45); MEAN CORPUSCULAR HEMOGLOBIN 32.2 pg (27.0-33.4); MEAN CORPUSCULAR HGB CONC 32.7 g/dL (32.0-36.0); MEAN CORPUSCULAR VOLUME 98 fl (80-97); MONOCYTES % (AUTO) 5.9 % (3-13); RED BLOOD COUNT 3.32 10^6/uL (3.72-5.28); RED CELL DISTRIBUTION WIDTH 17.4 % (11.5-14.0); SEGMENTED NEUTROPHILS % (AUTO) 61.8 % (42-78); WHITE BLOOD COUNT 8.1 10^3/uL (4.0-10.5)
[2016-10-23 09:36] LABS: MAGNESIUM 1.9 mg/dL (1.6-2.3)
[2016-10-23] MEDS: METOPROLOL SUCCINATE 50 MG TAB.SR.24H PO SCH ×2 (10:03→17:36)
[2016-10-23] MEDS: PANTOPRAZOLE SODIUM 40 MG VIAL IV SCH ×2 (10:03→21:50)
[2016-10-23] MEDS: AMLODIPINE BESYLATE 10 MG TABLET PO SCH (10:03)
[2016-10-23] MEDS: DICYCLOMINE HCL 10 MG CAPSULE PO SCH ×2 (10:03→17:36)
[2016-10-23] MEDS: LEVETIRACETAM 500 MG TABLET PO SCH (10:04)
[2016-10-23] MEDS: CALCIUM ACETATE 667 MG CAPSULE PO SCH ×3 (10:10→17:38)
[2016-10-23] MEDS: HYDRALAZINE HCL 10 MG TABLET PO SCH (10:10)
--- NOTE | 2016-10-23 11:03 | PDOC PROGRESS REPORT ---
Subjective Progress Note for:: 10/23/16 Subjective:: MILAGROS RAMOS is a 31 year old female presents from dialysis center after completing her usual session she complained of worsening epigastric pain. She' s had increasing epigastric pain radiating into the left upper abdomen for the last 2 days described as sharp stabbing 88 to her back with a constant ache associated with nausea, vomiting, dry hacking cough and early satiety. She's had a low-grade fever and abdominal distention and reports diarrhea 5-6 liquid brown stools daily for the last couple of days. She describes severe heartburn in spite of PPI therapy worse over the last couple of nights. The patient has a history of chronic recurrent pancreatitis seen here and at [place] and [place] with several gastroenterologists failing to identify the etiology aside from idiopathic. She underwent endoscopy here by Dr. Emery in June 2015 was reportedly normal. He underwent endoscopy by pharmacy technologist and [place] within the last 6 months after an episode of intense retching nausea and vomiting and was diagnosed with a mild distal esophageal tear. She denies alcohol, no longer has her gallbladder, has been evaluated for common duct stones always negative. Evaluation in the emergency department shows a markedly elevated lipase at 1371 signs and symptoms consistent with acute on chronic pancreatitis and we were asked to admit for further evaluation and management. Still having epigastric pain better controlled with increased dose of morphine. Ready to advance her diet. Notes that in the past her epigastric pain lingers for weeks after an acute episode of pancreatitis. Of note her clinical markers have improved her lipases return to normal and her CRP is 0. Physical Exam Vital Signs: Temp Pulse Resp BP Pulse Ox 98.0 F 58 L 17 145/77 H 97 10/23/16 08:41 10/23/16 08:41 10/23/16 08:41 10/23/16 08:41 10/23/16 08:41 Intake & Output 10/22/16 10/23/16 10/24/16 06:59 06:59 06:59 Intake Total 530 720 Output Total 2300 Balance 530 -1580 General appearance: PRESENT: no acute distress, thin Head exam: PRESENT: atraumatic, normocephalic Eye exam: PRESENT: conjunctiva pink, EOMI, PERRLA. ABSENT: scleral icterus Mouth exam: PRESENT: moist, tongue midline Neck exam: ABSENT: carotid bruit, JVD, lymphadenopathy, thyromegaly Respiratory exam: PRESENT: clear to auscultation marquis. ABSENT: rales, rhonchi, wheezes Cardiovascular exam: PRESENT: RRR. ABSENT: diastolic murmur, rubs, systolic murmur GI/Abdominal exam: PRESENT: normal bowel sounds, soft, tenderness - Persistent epigastric tenderness. ABSENT: distended - Improved, guarding, rebound Extremities exam: PRESENT: full ROM. ABSENT: calf tenderness, clubbing, pedal edema Musculoskeletal exam: PRESENT: ambulatory Neurological exam: PRESENT: alert, awake, oriented to person, oriented to place , oriented to time, oriented to situation Psychiatric exam: PRESENT: appropriate affect, normal mood Skin exam: PRESENT: dry, warm Results Laboratory Results: 10/23/16 09:04 10/22/16 06:41 10/23/16 10/23/16 09:04 09:04 WBC 8.1 RBC 3.32 L Hgb 10.7 L Hct 32.7 L MCV 98 H MCH 32.2 MCHC 32.7 RDW 17.4 H Plt Count 159 Seg Neutrophils % 61.8 Lymphocytes % 29.1 Monocytes % 5.9 Eosinophils % 1.9 Basophils % 1.3 Absolute Neutrophils 5.0 Absolute Lymphocytes 2.3 Absolute Monocytes 0.5 Absolute Eosinophils 0.2 Absolute Basophils 0.1 Magnesium 1.9 Amylase 178 H Lipase 234.0 Assessment & Plan - Diagnosis (1) Acute on chronic pancreatitis Is this a current diagnosis for this admission?: YesPlan: Gradual improvement. Continue Supportive care. Continue Gentle IV fluids given her end-stage renal disease. anti emetics and analgesics as needed. Her CRP and lipase are reassuring. Advance to full liquid diet and monitor for effect. (2) ESRD on dialysis Is this a current diagnosis for this admission?: Yes (3) Pulmonary embolism Qualifiers: Pulmonary embolism type: other Chronicity: chronic Acute cor pulmonale presence: without acute cor pulmonale Qualified Code(s): I27.82 - Chronic pulmonary embolism Is this a current diagnosis for this admission?: YesPlan: Check INR. Continue Coumadin. Adjust dose as needed. She is several months out from this event and shows no persistent sequela indicating no need for heparin bridge, we'll adjust Coumadin. - Time Time Spent with patient: 25-34 minutes
[2016-10-23] MEDS: ONDANSETRON HCL INJ/PF 4 MG/2 ML SDV IV PRN ×2 (11:29→18:44)
[2016-10-23] MEDS ORDERED: WARFARIN SODIUM 3 MG TABLET ONE (21:46)
[2016-10-23] MEDS: LORAZEPAM 1 MG TABLET PO PRN (21:50)
[2016-10-23] MEDS: WARFARIN SODIUM 3 MG TABLET PO SCH (21:51)
[2016-10-24] MEDS: MORPHINE SULFATE 10 MG/ML INJ IV PRN ×6 (02:26→22:41)
[2016-10-24] MEDS: ONDANSETRON HCL INJ/PF 4 MG/2 ML SDV IV PRN ×3 (02:26→22:39)
[2016-10-24] MEDS: CALCIUM ACETATE 667 MG CAPSULE PO SCH ×3 (08:11→17:51)
[2016-10-24 08:17] LABS: PROTHROMBIN TIME 14.6 SEC (11.4-15.4)
[2016-10-24] MEDS: PANTOPRAZOLE SODIUM 40 MG VIAL IV SCH (09:01)
[2016-10-24] MEDS: DICYCLOMINE HCL 10 MG CAPSULE PO SCH ×2 (09:01→17:05)
[2016-10-24] MEDS: METOPROLOL SUCCINATE 50 MG TAB.SR.24H PO SCH ×2 (09:01→17:05)
[2016-10-24] MEDS: AMLODIPINE BESYLATE 10 MG TABLET PO SCH (09:02)
[2016-10-24] MEDS: LEVETIRACETAM 500 MG TABLET PO SCH (09:02)
[2016-10-24] MEDS: HYDRALAZINE HCL 10 MG TABLET PO SCH (09:02)
--- NOTE | 2016-10-24 10:44 | PDOC PROGRESS REPORT ---
Subjective Progress Note for:: 10/24/16 Subjective:: MILAGROS RAMOS is a 31 year old female presents from dialysis center after completing her usual session she complained of worsening epigastric pain. She' s had increasing epigastric pain radiating into the left upper abdomen for the last 2 days described as sharp stabbing 88 to her back with a constant ache associated with nausea, vomiting, dry hacking cough and early satiety. She's had a low-grade fever and abdominal distention and reports diarrhea 5-6 liquid brown stools daily for the last couple of days. She describes severe heartburn in spite of PPI therapy worse over the last couple of nights. The patient has a history of chronic recurrent pancreatitis seen here and at [place] and [place] with several gastroenterologists failing to identify the etiology aside from idiopathic. She underwent endoscopy here by Dr. Emery in June 2015 was reportedly normal. He underwent endoscopy by news copy editor and [place] within the last 6 months after an episode of intense retching nausea and vomiting and was diagnosed with a mild distal esophageal tear. She denies alcohol, no longer has her gallbladder, has been evaluated for common duct stones always negative. Evaluation in the emergency department shows a markedly elevated lipase at 1371 signs and symptoms consistent with acute on chronic pancreatitis and we were asked to admit for further evaluation and management. Still having epigastric pain better controlled with increased dose of morphine. advanced her diet but barely tolerable of clear liquids due to increased pain when eating or drinking. Notes that in the past her epigastric pain lingers for weeks after an acute episode of pancreatitis. Of note her clinical markers have improved her lipases return to normal and her CRP is 0. Overall her condition has stabilized but she is not back to baseline. Physical Exam Vital Signs: Temp Pulse Resp BP Pulse Ox 98.2 F 58 L 16 139/84 H 95 10/24/16 07:59 10/24/16 07:59 10/24/16 07:59 10/24/16 07:59 10/24/16 07:59 Intake & Output 10/23/16 10/24/16 10/25/16 06:59 06:59 06:59 Intake Total 720 480 Output Total 2300 Balance -1580 480 General appearance: PRESENT: no acute distress, thin, well-developed, well- nourished Head exam: PRESENT: atraumatic, normocephalic Eye exam: PRESENT: conjunctiva pink, EOMI, PERRLA. ABSENT: scleral icterus Mouth exam: PRESENT: moist, tongue midline Neck exam: ABSENT: carotid bruit, JVD, lymphadenopathy, thyromegaly Respiratory exam: PRESENT: clear to auscultation marquis. ABSENT: rales, rhonchi, wheezes Cardiovascular exam: PRESENT: RRR. ABSENT: diastolic murmur, rubs, systolic murmur Pulses: PRESENT: normal dorsalis pedis pul Vascular exam: PRESENT: normal capillary refill GI/Abdominal exam: PRESENT: normal bowel sounds, soft, tenderness - Epigastrium. ABSENT: distended, guarding, mass, organolmegaly, rebound Rectal exam: PRESENT: deferred Extremities exam: PRESENT: full ROM. ABSENT: calf tenderness, clubbing, pedal edema Neurological exam: PRESENT: alert, awake, oriented to person, oriented to place , oriented to time, oriented to situation Psychiatric exam: PRESENT: appropriate affect, normal mood Skin exam: PRESENT: dry, intact, warm. ABSENT: cyanosis, rash Results Laboratory Results: 10/23/16 09:04 10/22/16 06:41 Assessment & Plan - Diagnosis (1) Acute on chronic pancreatitis Is this a current diagnosis for this admission?: YesPlan: Minimal improvement. Continue Supportive care. Decrease IV fluids to 1 L per day given her end-stage renal disease. anti emetics and analgesics as needed. Her CRP and lipase are reassuring. Continue full liquid diet and monitor for effect. Appears to need another day in hospital. Start Pancrease. (2) ESRD on dialysis Is this a current diagnosis for this admission?: YesPlan: Consulted nephrology for dialysis recommendations. Anticipate dialysis Tuesday (3) Pulmonary embolism Qualifiers: Pulmonary embolism type: other Chronicity: chronic Acute cor pulmonale presence: without acute cor pulmonale Qualified Code(s): I27.82 - Chronic pulmonary embolism Is this a current diagnosis for this admission?: YesPlan: Check INR. Continue Coumadin. Adjust dose as needed. She is several months out from this event and shows no persistent sequela indicating no need for heparin bridge. - Time Time Spent with patient: 35 or more minutes
[2016-10-24] MEDS: LIPASE/PROTEASE/AMYLASE 1 CAP CAPSULE.DR PO SCH ×3 (16:00)
[2016-10-24] MEDS: NORMAL SALINE 1000 ML 1,000 ML IV PRN (21:19)
[2016-10-24] MEDS: WARFARIN SODIUM 3 MG TABLET PO SCH (21:20)
[2016-10-24] MEDS: LORAZEPAM 1 MG TABLET PO PRN (21:24)
[2016-10-25] MEDS: MORPHINE SULFATE 10 MG/ML INJ IV PRN ×5 (02:43→20:15)
[2016-10-25] MEDS: ONDANSETRON HCL INJ/PF 4 MG/2 ML SDV IV PRN ×2 (06:25→15:59)
[2016-10-25 06:38] LABS: ABSOLUTE BASOPHILS # (AUTO) 0.1 10^3/uL (0.0-0.2); ABSOLUTE EOSINOPHILS # (AUTO) 0.1 10^3/uL (0.0-0.6); ABSOLUTE LYMPHOCYTES (AUTO) 1.6 10^3/uL (0.5-4.7); ABSOLUTE MONOCYTES (AUTO) 0.6 10^3/uL (0.1-1.4); ABSOLUTE NEUT (AUTO) 5.2 10^3/uL (1.7-8.2); BASOPHILS % (AUTO) 0.7 % (0-2); EOSINOPHILS % (AUTO) 0.9 % (0-6); LYMPHOCYTES % (AUTO) 21.3 % (13-45); MEAN CORPUSCULAR HEMOGLOBIN 32.9 pg (27.0-33.4); MEAN CORPUSCULAR HGB CONC 33.4 g/dL (32.0-36.0); MEAN CORPUSCULAR VOLUME 98 fl (80-97); MONOCYTES % (AUTO) 8.2 % (3-13); RED BLOOD COUNT 2.74 10^6/uL (3.72-5.28); RED CELL DISTRIBUTION WIDTH 16.4 % (11.5-14.0); SEGMENTED NEUTROPHILS % (AUTO) 68.9 % (42-78); WHITE BLOOD COUNT 7.6 10^3/uL (4.0-10.5)
[2016-10-25 06:58] LABS: ANION GAP 14 (5-19); BLOOD UREA NITROGEN 35 mg/dL (7-20); C-REACTIVE PROTEIN 77.9 mg/L (<10.0); CALCIUM 9.2 mg/dL (8.4-10.2); CARBON DIOXIDE 21 mmol/L (22-30); CHLORIDE 96 mmol/L (98-107); CREATININE RESULT 8.65 mg/dL (0.52-1.25); GLUCOSE 67 mg/dL (75-110); LIPASE 90.8 U/L (23-300); POTASSIUM 5.3 mmol/L (3.6-5.0); SODIUM 130.6 mmol/L (137-145)
[2016-10-25] MEDS ORDERED: ALBUTEROL SULFATE HFA (90 MCG/PUFF) 200 PUFF/8.5 GM MDI IH PRN (07:14)
[2016-10-25] MEDS ORDERED: DIPHENHYDRAMINE HCL 50 MG/ML VIAL IV ONE (07:45)
[2016-10-25] MEDS ORDERED: DIPHENHYDRAMINE HCL 50 MG/ML VIAL IV SCH (08:00)
[2016-10-25] MEDS ORDERED: HEPARIN SOD (PORCINE) 1,000 UNIT/ML 10 ML VIAL IV PRN (10:59)
[2016-10-25] MEDS ORDERED: EPOETIN ALFA 10,000 UNIT in SYRINGE, DISPOSABLE, 1 EACH IV ONE (11:00)
[2016-10-25] MEDS: LEVETIRACETAM 500 MG TABLET PO SCH (11:46)
[2016-10-25] MEDS: HYDRALAZINE HCL 10 MG TABLET PO SCH (11:47)
[2016-10-25] MEDS: AMLODIPINE BESYLATE 10 MG TABLET PO SCH (11:48)
--- NOTE | 2016-10-25 12:57 | PDOC PROGRESS REPORT ---
Subjective Progress Note for:: 10/25/16 Subjective:: MILAGROS RAMOS is a 31 year old female presents from dialysis center after completing her usual session she complained of worsening epigastric pain. She' s had increasing epigastric pain radiating into the left upper abdomen for the last 2 days described as sharp stabbing 88 to her back with a constant ache associated with nausea, vomiting, dry hacking cough and early satiety. She's had a low-grade fever and abdominal distention and reports diarrhea 5-6 liquid brown stools daily for the last couple of days. She describes severe heartburn in spite of PPI therapy worse over the last couple of nights. The patient has a history of chronic recurrent pancreatitis seen here and at [place] and [place] with several gastroenterologists failing to identify the etiology aside from idiopathic. She underwent endoscopy here by Dr. Emery in June 2015 was reportedly normal. she underwent endoscopy by sergeant of corrections in [place] within the last 6 months after an episode of intense retching nausea and vomiting and was diagnosed with a mild distal esophageal tear. She denies alcohol, no longer has her gallbladder, has been evaluated for common duct stones always negative. Evaluation in the emergency department shows a markedly elevated lipase at 1371 signs and symptoms consistent with acute on chronic pancreatitis and we were asked to admit for further evaluation and management. Still having epigastric pain better controlled with increased dose of morphine. advanced her diet but barely tolerable of clear liquids due to increased pain when eating or drinking. Notes that in the past her epigastric pain lingers for weeks after an acute episode of pancreatitis. Of note her clinical markers initially improved, her lipases return to normal and her CRP dropped to 0 but risen again this morning. Physical Exam Vital Signs: Temp Pulse Resp BP Pulse Ox 98.5 F 64 16 138/86 H 96 10/25/16 04:00 10/25/16 04:00 10/25/16 04:00 10/25/16 04:00 10/25/16 04:00 Intake & Output 10/24/16 10/25/16 10/26/16 06:59 06:59 06:59 Intake Total 480 1464 Balance 480 1464 General appearance: PRESENT: mild distress, thin, well-developed Eye exam: PRESENT: EOMI, PERRLA. ABSENT: conjunctival injection Mouth exam: PRESENT: moist, tongue midline Neck exam: ABSENT: carotid bruit, JVD, tracheal deviation Respiratory exam: PRESENT: clear to auscultation marquis. ABSENT: accessory muscle use, unlabored Cardiovascular exam: PRESENT: RRR. ABSENT: systolic murmur Pulses: PRESENT: normal carotid pulses, normal radial pulses GI/Abdominal exam: PRESENT: hypoactive bowel sounds, soft, tenderness - Epigastrium Extremities exam: ABSENT: calf tenderness, pedal edema Musculoskeletal exam: PRESENT: full ROM Neurological exam: PRESENT: alert, awake, oriented to person, oriented to place , oriented to time Psychiatric exam: PRESENT: appropriate affect, normal mood Skin exam: PRESENT: dry, warm Results Laboratory Results: 10/25/16 06:22 10/25/16 06:22 10/25/16 10/25/16 06:22 06:22 WBC 7.6 RBC 2.74 L Hgb 9.0 L Hct 27.0 L MCV 98 H MCH 32.9 MCHC 33.4 RDW 16.4 H Plt Count 158 Seg Neutrophils % 68.9 Lymphocytes % 21.3 Monocytes % 8.2 Eosinophils % 0.9 Basophils % 0.7 Absolute Neutrophils 5.2 Absolute Lymphocytes 1.6 Absolute Monocytes 0.6 Absolute Eosinophils 0.1 Absolute Basophils 0.1 Sodium 130.6 L Potassium 5.3 H Chloride 96 L Carbon Dioxide 21 L Anion Gap 14 BUN 35 H Creatinine 8.65 H Est GFR ( Amer) 6 L Est GFR (Non-Af Amer) 5 L Glucose 67 L Calcium 9.2 C-Reactive Protein 77.9 H Lipase 90.8 Assessment & Plan - Diagnosis (1) Acute on chronic pancreatitis Is this a current diagnosis for this admission?: YesPlan: Minimal improvement. Continue Supportive care. Decrease IV fluids to 1 L per day given her end-stage renal disease. anti emetics and analgesics as needed. Her improved but her CRP is climbing. Check MRCP, she has an iodine allergy so CT with contrast contraindicated. Started Pancrease. (2) ESRD on dialysis Is this a current diagnosis for this admission?: YesPlan: Consulted nephrology for dialysis recommendations. dialysised Tuesday (3) Pulmonary embolism Qualifiers: Pulmonary embolism type: other Chronicity: chronic Acute cor pulmonale presence: without acute cor pulmonale Qualified Code(s): I27.82 - Chronic pulmonary embolism Is this a current diagnosis for this admission?: YesPlan: Check INR. Continue Coumadin. Adjust dose as needed. She is several months out from this event and shows no persistent sequela indicating no need for heparin bridge. - Time Time Spent with patient: 25-34 minutes Anticipated discharge: Home Within: within 48 hours
[2016-10-25] MEDS: CALCIUM ACETATE 667 MG CAPSULE PO SCH (13:50)
[2016-10-25] MEDS: METOPROLOL SUCCINATE 50 MG TAB.SR.24H PO SCH ×2 (13:50→18:16)
[2016-10-25] MEDS: LIPASE/PROTEASE/AMYLASE 1 CAP CAPSULE.DR PO SCH ×6 (13:50→15:59)
[2016-10-25] MEDS: DICYCLOMINE HCL 10 MG CAPSULE PO SCH ×2 (13:50→18:16)
--- NOTE | 2016-10-25 18:30 | PDOC PROGRESS REPORT ---
Subjective Progress Note for:: 10/25/16 Subjective:: I saw the patient during dialysis at around 8:30 AM this morning. She was doing fine except that she continues to have nausea, vomiting, and some abdominal pain. She was started on some liquid diet over the weekend but unable to tolerate it. Otherwise she was tolerating dialysis well except for elevated blood pressure. Physical Exam Vital Signs: Temp Pulse Resp BP Pulse Ox 98.5 F 69 16 120/81 99 10/25/16 15:31 10/25/16 15:31 10/25/16 15:31 10/25/16 15:31 10/25/16 15:31 Intake & Output 10/24/16 10/25/16 10/26/16 06:59 06:59 06:59 Intake Total 480 1464 Balance 480 1464 Vital signs during dialysis I was seeing her this morning: Blood pressure of 173 /80, heart rate of 61, blood flow rate of 350 mL per minute, and dialysate flow of 600 mL per minute. Exam: General appearance: PRESENT: no acute distress, cooperative, well-developed, well-nourished Head exam: PRESENT: atraumatic, normocephalic Eye exam: PRESENT: conjunctiva slightly pale, PERRLA. ABSENT: scleral icterus Neck exam: ABSENT: JVD Respiratory exam: PRESENT: Diminished breath sounds. ABSENT: crackles, rales, rhonchi, unlabored, wheezes Cardiovascular exam: PRESENT: Regular rate rhythm -+S1, +S2. ABSENT: diastolic murmur, systolic murmur GI/Abdominal exam: PRESENT: normal bowel sounds, soft. Positive epigastric tenderness ABSENT: guarding, mass Extremities exam: ABSENT: No edema Neurological exam: PRESENT: alert, awake, oriented to person, place and time. Skin exam: PRESENT: dry, warm, Results Laboratory Results: 10/25/16 06:22 10/25/16 06:22 10/25/16 10/25/16 06:22 06:22 WBC 7.6 RBC 2.74 L Hgb 9.0 L Hct 27.0 L MCV 98 H MCH 32.9 MCHC 33.4 RDW 16.4 H Plt Count 158 Seg Neutrophils % 68.9 Lymphocytes % 21.3 Monocytes % 8.2 Eosinophils % 0.9 Basophils % 0.7 Absolute Neutrophils 5.2 Absolute Lymphocytes 1.6 Absolute Monocytes 0.6 Absolute Eosinophils 0.1 Absolute Basophils 0.1 Sodium 130.6 L Potassium 5.3 H Chloride 96 L Carbon Dioxide 21 L Anion Gap 14 BUN 35 H Creatinine 8.65 H Est GFR ( Amer) 6 L Est GFR (Non-Af Amer) 5 L Glucose 67 L Calcium 9.2 C-Reactive Protein 77.9 H Lipase 90.8 Impressions: Abdomen/Pelvis CT 10/25/16 00:00 IMPRESSION: 1. SMALL AMOUNT OF FREE FLUID IN THE PELVIC CUL-DE-SAC. THIS COULD BE PHYSIOLOGIC THERE IS NO ASCITES ELSEWHERE. 2. MARKEDLY ATROPHIC [place] KIDNEYS. TRANSPLANT KIDNEY IN THE RIGHT LOWER QUADRANT. 3. NO OTHER SIGNIFICANT OR ACUTE PROCESS IN THE ABDOMEN OR PELVIS. NO ABNORMAL CT FINDINGS RELATED TO THE PANCREAS. Assessment & Plan - Diagnosis (1) ESRD on dialysis Is this a current diagnosis for this admission?: YesPlan: We did dialysis today for 3 hours, using the patient's PermCath, with 2 potassium bath, blood flow rate of 350 mL per minute, dialysate flow rate of 600 mL per minute, ultrafiltration as tolerated, no heparin and Procrit with 10, 000 units during dialysis intravenously. We will continue hemodialysis support while here in the hospital. (2) Acute on chronic pancreatitis Is this a current diagnosis for this admission?: Yes (3) Anemia in chronic kidney disease (CKD) Is this a current diagnosis for this admission?: YesPlan: Procrit given during dialysis today. (4) Hypertension Is this a current diagnosis for this admission?: YesPlan: Labile. - Time Time with patient: 15-25 minutes
[2016-10-25] MEDS: NORMAL SALINE 1000 ML 1,000 ML IV PRN (20:16)
[2016-10-25] MEDS: LORAZEPAM 1 MG TABLET PO PRN (22:38)
[2016-10-25] MEDS: WARFARIN SODIUM 3 MG TABLET PO SCH (22:38)
[2016-10-26] MEDS: MORPHINE SULFATE 10 MG/ML INJ IV PRN ×3 (00:04→08:33)
[2016-10-26] MEDS: ONDANSETRON HCL INJ/PF 4 MG/2 ML SDV IV PRN ×2 (04:21→17:57)
[2016-10-26 07:23] LABS: PROTHROMBIN TIME 21.9 SEC (11.4-15.4)
[2016-10-26 07:25] LABS: ALANINE AMINOTRANSFERASE 25 U/L (9-52); ALBUMIN 3.2 g/dL (3.5-5.0); ALKALINE PHOSPHATASE 93 U/L (38-126); ASPARTATE AMINO TRANSFERASE 21 U/L (14-36); BILIRUBIN,TOTAL 0.5 mg/dL (0.2-1.3); CHOLESTEROL 126.52 mg/dL (0-200); Direct HDL 46 mg/dL (>40); LIPASE 76.3 U/L (23-300); MAGNESIUM 1.6 mg/dL (1.6-2.3); PHOSPHORUS 6.4 mg/dL (2.5-4.5); TOTAL PROTEIN 5.3 g/dL (6.3-8.2); TRIGLYCERIDES 76 mg/dL (<150)
[2016-10-26 07:33] LABS: DIRECT LDL 57 mg/dL (<100)
[2016-10-26 07:44] LABS: C-REACTIVE PROTEIN 110.7 mg/L (<10.0)
[2016-10-26] MEDS: LIPASE/PROTEASE/AMYLASE 1 CAP CAPSULE.DR PO SCH ×9 (08:32→18:06)
[2016-10-26] MEDS: CALCIUM ACETATE 667 MG CAPSULE PO SCH ×3 (08:32→18:03)
[2016-10-26] MEDS ORDERED: WARFARIN SODIUM 3 MG TABLET PO SCH (09:11)
[2016-10-26] MEDS: AMLODIPINE BESYLATE 10 MG TABLET PO SCH (11:10)
[2016-10-26] MEDS: DICYCLOMINE HCL 10 MG CAPSULE PO SCH ×2 (11:10→18:06)
[2016-10-26] MEDS: LEVETIRACETAM 500 MG TABLET PO SCH (11:10)
[2016-10-26] MEDS: HYDRALAZINE HCL 10 MG TABLET PO SCH (11:11)
[2016-10-26] MEDS: METOPROLOL SUCCINATE 50 MG TAB.SR.24H PO SCH ×2 (11:13→22:44)
[2016-10-26] MEDS: TRAMADOL HCL 50 MG TABLET PO PRN (12:18)
[2016-10-26] MEDS ORDERED: METOPROLOL SUCCINATE 50 MG TAB.SR.24H PO SCH (12:28)
--- NOTE | 2016-10-26 12:36 | PDOC PROGRESS REPORT ---
Subjective Progress Note for:: 10/26/16 Subjective:: Patient is still complaining of epigastric pain The pain actually is in the left upper quadrant more or less constant and has been chronic She still feels nauseous time without any vomiting No fever no chills no diarrhea Physical Exam Vital Signs: Temp Pulse Resp BP Pulse Ox 98.4 F 55 L 16 133/80 H 96 10/26/16 10:59 10/26/16 10:59 10/26/16 10:59 10/26/16 10:59 10/26/16 10:59 Intake & Output 10/25/16 10/26/16 10/27/16 00:59 00:59 00:59 Intake Total 960 744 280 Output Total 4400 0 Balance 960 -3656 280 General appearance: PRESENT: mild distress Head exam: PRESENT: atraumatic, normocephalic Eye exam: PRESENT: conjunctiva pink, EOMI, PERRLA. ABSENT: scleral icterus Neck exam: ABSENT: carotid bruit, JVD, lymphadenopathy, thyromegaly Respiratory exam: PRESENT: clear to auscultation marquis. ABSENT: rales, rhonchi, wheezes Cardiovascular exam: PRESENT: RRR. ABSENT: diastolic murmur, rubs, systolic murmur Pulses: PRESENT: normal dorsalis pedis pul GI/Abdominal exam: PRESENT: soft, tenderness - Epigastrium and left upper quadrant. ABSENT: distended, mass, Arnett's sign, rebound, rigid Rectal exam: PRESENT: deferred Extremities exam: PRESENT: full ROM. ABSENT: calf tenderness, clubbing, pedal edema Neurological exam: PRESENT: alert, awake, oriented to person, oriented to place , oriented to time, oriented to situation, CN II-XII grossly intact. ABSENT: motor sensory deficit Results Laboratory Results: 10/25/16 06:22 10/25/16 06:22 10/26/16 06:20 Phosphorus 6.4 H Magnesium 1.6 Total Bilirubin 0.5 AST 21 ALT 25 Alkaline Phosphatase 93 C-Reactive Protein 110.7 H Total Protein 5.3 L Albumin 3.2 L Triglycerides 76 Cholesterol 126.52 LDL Cholesterol Direct 57 VLDL Cholesterol 15.0 HDL Cholesterol 46 Lipase 76.3 Impressions: Abdomen/Pelvis CT 10/25/16 00:00 IMPRESSION: 1. SMALL AMOUNT OF FREE FLUID IN THE PELVIC CUL-DE-SAC. THIS COULD BE PHYSIOLOGIC THERE IS NO ASCITES ELSEWHERE. 2. MARKEDLY ATROPHIC [place] KIDNEYS. TRANSPLANT KIDNEY IN THE RIGHT LOWER QUADRANT. 3. NO OTHER SIGNIFICANT OR ACUTE PROCESS IN THE ABDOMEN OR PELVIS. NO ABNORMAL CT FINDINGS RELATED TO THE PANCREAS. Assessment & Plan - Diagnosis (1) Chronic anticoagulation Is this a current diagnosis for this admission?: YesPlan: INR is subtherapeutic. We will increase Coumadin to 7 mg daily at bedtime Chronic anticoagulation for pulmonary embolism (2) Acute on chronic pancreatitis Is this a current diagnosis for this admission?: YesPlan: Patient had multiple admissions before ; a CT abdomen and pelvis did not show any pseudocyst Lipase has normalized We will treat the patient with pancreatic enzymes, lyrica and Ultram Discontinue morphine (3) Abdominal pain Qualifiers: Abdominal location: epigastric Qualified Code(s): R10.13 - Epigastric pain Is this a current diagnosis for this admission?: YesPlan: Secondary to pancreatitis Patient had recently endoscopies We will add PPI (4) Anemia in chronic kidney disease (CKD) Is this a current diagnosis for this admission?: YesPlan: Patient did get Epogen during dialysis H&H is stable (5) ESRD on dialysis Is this a current diagnosis for this admission?: Yes (6) Hypertension Qualifiers: Hypertension type: essential hypertension Qualified Code(s): I10 - Essential (primary) hypertension Is this a current diagnosis for this admission?: YesPlan: Controlled Patient was somewhat bradycardic this morning with a heart rate in the 50s The blood pressure was low We will decrease metoprolol to 50 mg by mouth twice a day - Time Time Spent with patient: We will increase diet to low-fat Reevaluate patient in a.m. She may be discharged if she is able to take by mouth Time Spent with patient: 25-34 minutes
[2016-10-26] MEDS: LANSOPRAZOLE 30 MG TAB.RAP.DR PO SCH (18:02)
[2016-10-26] MEDS ORDERED: PREGABALIN 75 MG CAPSULE PO SCH (22:00)
[2016-10-26] MEDS ORDERED: WARFARIN SODIUM 5 MG TABLET PO SCH (22:00)
[2016-10-26] MEDS ORDERED: WARFARIN SODIUM 2 MG TABLET PO SCH (22:00)
[2016-10-26] MEDS: LORAZEPAM 1 MG TABLET PO PRN (22:44)
[2016-10-26] MEDS: NORMAL SALINE 1000 ML 1,000 ML IV PRN (22:47)
[2016-10-27] MEDS: TRAMADOL HCL 50 MG TABLET PO PRN (00:22)
[2016-10-27] MEDS ORDERED: EPOETIN ALFA 10,000 UNIT in SYRINGE, DISPOSABLE, 1 EACH IV PRN (05:00)
[2016-10-27] MEDS ORDERED: HEPARIN SOD (PORCINE) 1,000 UNIT/ML 10 ML VIAL IV PRN (05:00)
[2016-10-27] MEDS: LANSOPRAZOLE 30 MG TAB.RAP.DR PO SCH (05:24)
[2016-10-27 07:26] LABS: ABSOLUTE EOSINOPHILS # (AUTO) 0.1 10^3/uL (0.0-0.6); ABSOLUTE LYMPHOCYTES (AUTO) 1.6 10^3/uL (0.5-4.7); ABSOLUTE MONOCYTES (AUTO) 0.4 10^3/uL (0.1-1.4); ABSOLUTE NEUT (AUTO) 1.8 10^3/uL (1.7-8.2); BASOPHILS % (AUTO) 0.9 % (0-2); EOSINOPHILS % (AUTO) 2.7 % (0-6); HEMATOCRIT 26.1 % (36.0-47.0); HEMOGLOBIN 8.5 g/dL (12.0-15.5); HGB HCT DIFFERENCE -0.6; LYMPHOCYTES % (AUTO) 40.4 % (13-45); MEAN CORPUSCULAR HEMOGLOBIN 32.4 pg (27.0-33.4); MEAN CORPUSCULAR HGB CONC 32.6 g/dL (32.0-36.0); MEAN CORPUSCULAR VOLUME 99 fl (80-97); MONOCYTES % (AUTO) 10.6 % (3-13); RED BLOOD COUNT 2.62 10^6/uL (3.72-5.28); RED CELL DISTRIBUTION WIDTH 16.5 % (11.5-14.0); SEGMENTED NEUTROPHILS % (AUTO) 45.4 % (42-78)
[2016-10-27 07:46] LABS: ANION GAP 15 (5-19); BLOOD UREA NITROGEN 26 mg/dL (7-20); CARBON DIOXIDE 22 mmol/L (22-30); CHLORIDE 94 mmol/L (98-107); CREATININE RESULT 8.43 mg/dL (0.52-1.25); GLUCOSE 65 mg/dL (75-110); POTASSIUM 4.7 mmol/L (3.6-5.0); SODIUM 131.2 mmol/L (137-145)
[2016-10-27 08:57] VITALS: BP 137/85
[2016-10-27] MEDS ORDERED: OXYCODONE-ACETAMINOPHEN 5-325 MG TABLET PO ONE (09:00)
[2016-10-27] MEDS: LIPASE/PROTEASE/AMYLASE 1 CAP CAPSULE.DR PO SCH ×3 (09:28)
[2016-10-27] MEDS: METOPROLOL SUCCINATE 50 MG TAB.SR.24H PO SCH (09:29)
[2016-10-27] MEDS: AMLODIPINE BESYLATE 10 MG TABLET PO SCH (09:29)
[2016-10-27] MEDS: DICYCLOMINE HCL 10 MG CAPSULE PO SCH (09:29)
[2016-10-27] MEDS: LEVETIRACETAM 500 MG TABLET PO SCH (09:29)
[2016-10-27] MEDS: CALCIUM ACETATE 667 MG CAPSULE PO SCH (09:31)
[2016-10-27] MEDS ORDERED: OXYCODONE-ACETAMINOPHEN 5-325 MG TABLET PO PRN (09:43)
[2016-10-27] MEDS: HYDRALAZINE HCL 10 MG TABLET PO SCH (09:50)
[2016-10-27] MEDS ORDERED: TRAMADOL HCL 50 MG TABLET PO PRN (10:04)
--- NOTE | 2016-10-27 10:51 | PDOC CONSULTATION ---
Consultation Consult Date: 10/27/16 Attending physician:: ROGE ARIZA Consult reason:: Chronic abdominal pain. Patient admitted for possible pancreatitis, that has resolved. Pain is apparently still persistent. CT negative, liver functions negative. No evidence of calcifications question etiology of pain History of Present Illness Admission Date/PCP: 10/21/16 14:59 MIKE WONG PA-C History of Present Illness: I was asked to see this patient by the admitting service. Patient is status post renal transplant. I have seen this patient in the past approximately a year ago. At that time she was admitted for similar complaints. She has had multiple admissions to the emergency room as well. She is complaining of abdominal pain. She was first admitted she did have an elevated amylase and lipase although the numbers were only slightly elevated. This seems to have resolved. Her LFTs are normal. No CT evidence of chronic calcifications. She denies any diarrhea. When she was last seen in 2014 she did not make a follow- up appointment. She had requested pain medication in the past. He is currently on pancreatic enzymes, Lyrica as well as Ultram. Attempting to discontinue her narcotics. She may need referral to pain medication. We can give her a trial of pancreatic enzymes but given the lack of chronic calcifications it may not be useful for her. There are a couple formulations. She can be started on either Creon or Zenpep. She is on chronic anticoagulation due to history of pulmonary embolism. Due to her age is unclear she's been worked up for any sort of protein deficiency. 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 GI Medical History: Reports: Gastroesophageal Reflux Disease Denies: Hepatitis, Hiatal Hernia Musculoskeltal Medical History: Denies: Arthritis Psychiatric Medical History: Reports: Depression Hematology: Reports: Anemia Denies: Sickle Cell Disease Past Surgical History Past Surgical History: Reports: Cholecystectomy - 01/2010, Herniorrhaphy - Double hernia repair, Tubal Ligation - 02/2008, Vascular Surgery - PermCath placement for dialysis, multiple procedures for declotting CVC Denies: Amputation, Appendectomy, Section, Hysterectomy, Mastectomy , Pacemaker, Tonsillectomy Social History Smoking Status: Current Every Day Smoker Cigarettes Packs Per Day: 10 Number of Years Smokin Last Time Smoked: 10/21/2016 Frequency of Alcohol Use: None Hx Recreational Drug Use: No Drugs: None Hx Prescription Drug Abuse: No - Advance Directive Resuscitation Status: Full Code Family History Family History: Reviewed & Not Pertinent, Arthritis, Malignancy Parental Family History Reviewed: Yes Children Family History Reviewed: Unknown Sibling(s) Family History Reviewed.: Unknown Medication/Allergy Home Medications: Promethazine HCl [Phenergan 25 mg Tablet] 1 - 2 tab PO Q6H PRN #30 tablet Levetiracetam [Keppra 500 mg Tablet] 250 mg PO DAILY 01/15/16 Warfarin Sodium [Coumadin 1 mg Tablet] 3 mg PO QHS #60 tablet 01/20/16 Omeprazole 40 mg PO DAILY #60 capsule. 07/30/16 Amlodipine Besylate [Norvasc 10 mg Tablet] 1 tab PO DAILY 10/09/16 Calcium Acetate [Phoslo 667 mg Capsule] 2 cap PO MEALS 10/09/16 Dicyclomine HCl [Bentyl 10 mg Capsule] 1 cap PO BID 10/09/16 Hydralazine HCl [Apresoline 10 mg Tablet] 1 tab PO DAILY 10/09/16 Lorazepam [Ativan 1 mg Tablet] 1 tab PO QHS PRN 10/09/16 Metoprolol Succinate [Toprol XL 100 mg Tablet] 1 tab PO BID 10/09/16 Acetaminophen [Tylenol 325 mg Tablet] 650 mg PO Q4HP PRN tablet 10/12/16 Albuterol Sulfate [Proair Respiclick] 90 mcg IH Q4HP PRN #1 inhaler 10/12/16 Fluticasone Propionate [Flonase Nasal [place] 50 Mcg/[place] 16 gm] 2 spray NASL DAILY spray.pump 10/12/16 Allergies/Adverse Reactions: vancomycin [Vancomycin] Allergy (Intermediate, Verified 10/21/16 11:32) rash amoxicillin [Amoxicillin] Allergy (Verified 10/21/16 11:32) Hives metoclopramide HCl [From Reglan] Allergy (Verified 10/21/16 11:32) Iodinated Contrast Media - Oral and [IV Dye, Iodine Containing] Adverse Reaction (Severe, Verified 10/21/16 11:32) esrd ok with topical Review of Systems Constitutional: ABSENT: chills, fever(s), night sweats Eyes: ABSENT: visual disturbances Ears: ABSENT: hearing changes Cardiovascular: ABSENT: chest pain, orthropnea, palpitations Respiratory: ABSENT: dyspnea, hemoptysis Gastrointestinal: PRESENT: abdominal pain, nausea. ABSENT: dysphagia, hematemesis, hematochezia, melena, vomiting Genitourinary: ABSENT: dysuria, hematuria Integumentary: ABSENT: lesions, pruritus Neurological: ABSENT: abnormal speech, confusion, syncope, tremor(s), vertigo, weakness Endocrine: ABSENT: menstrual abnormalities, polydipsia, polyphagia, polyuria Hematologic/Lymphatic: ABSENT: easy bruising Physical Exam Vital Signs: Temp Pulse Resp BP Pulse Ox 98.3 F 64 16 137/85 H 95 10/27/16 08:00 10/27/16 08:00 10/27/16 08:00 10/27/16 08:00 10/27/16 08:00 Intake & Output 10/26/16 10/27/16 10/28/16 06:59 06:59 06:59 Intake Total 280 1030 Output Total 4400 0 Balance -4120 1030 General appearance: PRESENT: cooperative, mild distress Head exam: PRESENT: atraumatic, normocephalic Eye exam: PRESENT: EOMI. ABSENT: nystagmus, periorbital swelling, PERRLA Mouth exam: PRESENT: moist Throat exam: ABSENT: tonsillar exudate, tonsillogmegaly Neck exam: ABSENT: JVD, meningismus, tenderness, thyromegaly, tracheal deviation Respiratory exam: PRESENT: clear to auscultation marquis, symmetrical. ABSENT: unlabored, wheezes Cardiovascular exam: PRESENT: RRR, +S1, +S2. ABSENT: gallop, rubs GI/Abdominal exam: PRESENT: diminished bowel sounds. ABSENT: Arnett's sign, rebound Musculoskeletal exam: PRESENT: full ROM Neurological exam: PRESENT: alert, awake, oriented to time, oriented to situation Psychiatric exam: PRESENT: appropriate affect Skin exam: PRESENT: normal color. ABSENT: mottled, pallor, petechiae, urticaria , vesicles Results Laboratory Results: 10/27/16 06:53 10/27/16 06:53 10/27/16 10/27/16 06:53 06:53 WBC 4.0 RBC 2.62 L Hgb 8.5 L Hct 26.1 L MCV 99 H MCH 32.4 MCHC 32.6 RDW 16.5 H Plt Count 137 L Seg Neutrophils % 45.4 Lymphocytes % 40.4 Monocytes % 10.6 Eosinophils % 2.7 Basophils % 0.9 Absolute Neutrophils 1.8 Absolute Lymphocytes 1.6 Absolute Monocytes 0.4 Absolute Eosinophils 0.1 Absolute Basophils 0.0 Sodium 131.2 L Potassium 4.7 Chloride 94 L Carbon Dioxide 22 Anion Gap 15 BUN 26 H Creatinine 8.43 H Est GFR ( Amer) 7 L Est GFR (Non-Af Amer) 5 L Glucose 65 L Calcium 9.0 Impressions: Abdomen/Pelvis CT 10/25/16 00:00 IMPRESSION: 1. SMALL AMOUNT OF FREE FLUID IN THE PELVIC CUL-DE-SAC. THIS COULD BE PHYSIOLOGIC THERE IS NO ASCITES ELSEWHERE. 2. MARKEDLY ATROPHIC [place] KIDNEYS. TRANSPLANT KIDNEY IN THE RIGHT LOWER QUADRANT. 3. NO OTHER SIGNIFICANT OR ACUTE PROCESS IN THE ABDOMEN OR PELVIS. NO ABNORMAL CT FINDINGS RELATED TO THE PANCREAS. Assessment & Plan - Diagnosis (1) Acute on chronic pancreatitis Is this a current diagnosis for this admission?: YesPlan: From her labs it appears that her pancreatitis has resolved. From the CT scan it appears that she does not have any evidence of chronic calcifications to suggest chronic pancreatitis. Recommendations would include a trial of pancreatic enzymes but is unclear if that would be effective in a case like this. She'll need a PPI. She likely needs follow-up with pain management at this point. (2) Chronic anticoagulation Is this a current diagnosis for this admission?: YesPlan: Continue anticoagulation for previous history of pulmonary embolism. No active GI bleeding is noted. - Time Time Spent: 50 to 70 Minutes
--- NOTE | 2016-10-27 14:28 | PDOC DISCHARGE SUMMARY ---
General - Admit/Disc Date/PCP Admission Date/Primary Care Provider: 10/21/16 14:59 MIKE WONG PA-C Discharge Date: 10/27/16 - Discharge Diagnosis (1) Chronic anticoagulation Is this a current diagnosis for this admission?: YesSummary: Chronic anticoagulation for pulmonary embolism The INR was subtherapeutic Patient was discharged on Coumadin 7 mg by mouth daily PT INR should be done in the week (2) Acute on chronic pancreatitis Is this a current diagnosis for this admission?: YesSummary: The lipase was mildly elevated on admission Patient likely has acute on chronic pancreatitis She had no diabetes ;no pancreatic calcifications on x-ray No pseudocyst was visualized on CAT scan Patient was treated with pancreatic enzymes; Lyrica was added to the list of her medications And Ultram alternating with Percocet was also prescribed Unfortunately the pain is chronic and very difficult to address (3) Abdominal pain Is this a current diagnosis for this admission?: YesSummary: Secondary to acute on chronic pancreatitis See above (4) Anemia in chronic kidney disease (CKD) Is this a current diagnosis for this admission?: YesSummary: Patient received Procrit during hemodialysis (5) ESRD on dialysis Is this a current diagnosis for this admission?: YesSummary: She underwent dialysis during hospital stay as scheduled (6) Hypertension Is this a current diagnosis for this admission?: YesSummary: Was controlled - Additional Information Resuscitation Status: Full Code Discharge Activity: Activity As Tolerated Home Medications: Promethazine HCl [Phenergan 25 mg Tablet] 1 - 2 tab PO Q6H PRN #30 tablet Levetiracetam [Keppra 500 mg Tablet] 250 mg PO DAILY 01/15/16 Amlodipine Besylate [Norvasc 10 mg Tablet] 1 tab PO DAILY 10/09/16 Calcium Acetate [Phoslo 667 mg Capsule] 2 cap PO MEALS 10/09/16 Dicyclomine HCl [Bentyl 10 mg Capsule] 1 cap PO BID 10/09/16 Hydralazine HCl [Apresoline 10 mg Tablet] 1 tab PO DAILY 10/09/16 Lorazepam [Ativan 1 mg Tablet] 1 tab PO QHS PRN 10/09/16 Metoprolol Succinate [Toprol XL 100 mg Tablet] 1 tab PO BID 10/09/16 Acetaminophen [Tylenol 325 mg Tablet] 650 mg PO Q4HP PRN tablet 10/12/16 Albuterol Sulfate [Proair Respiclick] 90 mcg IH Q4HP PRN #1 inhaler 10/12/16 Fluticasone Propionate [Flonase Nasal [place] 50 Mcg/[place] 16 gm] 2 spray NASL DAILY spray.pump 10/12/16 Lansoprazole [Prevacid 30 mg Odt Tablet] 30 mg PO QHS #30 tab.rap. 10/27/16 Lipase/Protease/Amylase [Timo Cast[place] 12,000 Units Capsule] 1 cap PO MEALS #120 capsule. 10/27/16 Oxycodone HCl/Acetaminophen [Percocet 5-325 mg Tablet] 1 tab PO Q4HP PRN #20 tablet 10/27/16 Pregabalin [Lyrica 75 mg Capsule] 75 mg PO QHS #30 capsule 10/27/16 Tramadol HCl [Ultram 50 mg Tablet] 50 mg PO Q12HP PRN #20 tablet 10/27/16 Warfarin Sodium [Coumadin 2 mg Tablet] 2 mg PO QHS #60 tablet 10/27/16 Warfarin Sodium [Coumadin 5 mg Tablet] 5 mg PO QHS #30 tablet 10/27/16 History of Present Illness Patient complains of: abdominal pain History of Present Illness: MILAGROS RAMOS is a 31 year old female presents from dialysis center after completing her usual session she complained of worsening epigastric pain. She's had increasing epigastric pain radiating into the left upper abdomen for the last 2 days described as sharp stabbing 88 to her back with a constant ache associated with nausea, vomiting, dry hacking cough and early satiety. She's had a low-grade fever and abdominal distention and reports diarrhea 5-6 liquid brown stools daily for the last couple of days. She describes severe heartburn in spite of PPI therapy worse over the last couple of nights. The patient has a history of chronic recurrent pancreatitis seen here and at [facility] and [facility] with several gastroenterologists failing to identify the etiology aside from idiopathic. She underwent endoscopy here by Dr. Emery in June 2015 was reportedly normal. He underwent endoscopy by weatherization specialist and [facility] within the last 6 months after an episode of intense retching nausea and vomiting and was diagnosed with a mild distal esophageal tear. She denies alcohol, no longer has her gallbladder, has been evaluated for common duct stones always negative. Evaluation in the emergency department shows a markedly elevated lipase at 1371 signs and symptoms consistent with acute on chronic pancreatitis and we were asked to admit for further evaluation and management. Hospital Course Hospital Course: See above Physical Exam Vital Signs: Temp Pulse Resp BP Pulse Ox 98.3 F 64 16 137/85 H 95 10/27/16 08:00 10/27/16 08:00 10/27/16 08:00 10/27/16 08:00 10/27/16 08:00 Intake & Output 10/26/16 10/27/16 10/28/16 00:59 00:59 00:59 Intake Total 744 500 810 Output Total 4400 0 0 Balance -3656 500 810 General appearance: PRESENT: no acute distress, well-developed, well-nourished Head exam: PRESENT: atraumatic, normocephalic Eye exam: PRESENT: conjunctiva pink, EOMI, PERRLA. ABSENT: scleral icterus Ear exam: PRESENT: normal external ear exam Mouth exam: PRESENT: moist, tongue midline Neck exam: ABSENT: carotid bruit, JVD, lymphadenopathy, thyromegaly Respiratory exam: PRESENT: clear to auscultation marquis. ABSENT: rales, rhonchi, wheezes Cardiovascular exam: PRESENT: RRR. ABSENT: diastolic murmur, rubs, systolic murmur Pulses: PRESENT: normal dorsalis pedis pul Vascular exam: PRESENT: normal capillary refill GI/Abdominal exam: PRESENT: normal bowel sounds, soft, tenderness - In the epigastrium and left upper quadrant remains without guarding or rebound. ABSENT : distended, guarding, mass, organolmegaly, rebound Rectal exam: PRESENT: deferred Extremities exam: PRESENT: full ROM. ABSENT: calf tenderness, clubbing, pedal edema Neurological exam: PRESENT: alert, awake, oriented to person, oriented to place , oriented to time, oriented to situation, CN II-XII grossly intact. ABSENT: motor sensory deficit Psychiatric exam: PRESENT: appropriate affect, normal mood. ABSENT: homicidal ideation, suicidal ideation Skin exam: PRESENT: dry, intact, warm. ABSENT: cyanosis, rash Results Laboratory Results: 10/27/16 06:53 10/27/16 06:53 10/27/16 10/27/16 06:53 06:53 WBC 4.0 RBC 2.62 L Hgb 8.5 L Hct 26.1 L MCV 99 H MCH 32.4 MCHC 32.6 RDW 16.5 H Plt Count 137 L Seg Neutrophils % 45.4 Lymphocytes % 40.4 Monocytes % 10.6 Eosinophils % 2.7 Basophils % 0.9 Absolute Neutrophils 1.8 Absolute Lymphocytes 1.6 Absolute Monocytes 0.4 Absolute Eosinophils 0.1 Absolute Basophils 0.0 Sodium 131.2 L Potassium 4.7 Chloride 94 L Carbon Dioxide 22 Anion Gap 15 BUN 26 H Creatinine 8.43 H Est GFR ( Amer) 7 L Est GFR (Non-Af Amer) 5 L Glucose 65 L Calcium 9.0 10/21/16 10/24/16 10/26/16 18:54 07:27 06:20 INR 1.00 1.10 1.83 Impressions: Abdomen/Pelvis CT 10/25/16 00:00 IMPRESSION: 1. SMALL AMOUNT OF FREE FLUID IN THE PELVIC CUL-DE-SAC. THIS COULD BE PHYSIOLOGIC THERE IS NO ASCITES ELSEWHERE. 2. MARKEDLY ATROPHIC [place] KIDNEYS. TRANSPLANT KIDNEY IN THE RIGHT LOWER QUADRANT. 3. NO OTHER SIGNIFICANT OR ACUTE PROCESS IN THE ABDOMEN OR PELVIS. NO ABNORMAL CT FINDINGS RELATED TO THE PANCREAS. Plan Discharge Plan: We'll discharge home Follow up with primary care, president as scheduled, and GI Time Spent: Greater than 30 Minutes
--- NOTE | 2016-10-27 15:40 | PDOC PROGRESS REPORT ---
Subjective Progress Note for:: 10/27/16 Subjective:: I'm seeing the patient on dialysis this afternoon. She tells me that she is eating but still has some nausea and vomiting. Her abdominal pain is improved but she still has some pain. Patient was seen by clinic specialist, Dr. Masters who recommended Pancrease. Patient also tells me that she was scheduled to be started on some Lyrica. Otherwise she is tolerating dialysis and she is hemodynamically stable while on dialysis machine. Physical Exam Vital Signs: Temp Pulse Resp BP Pulse Ox 98.3 F 67 16 137/85 H 95 10/27/16 15:14 10/27/16 15:14 10/27/16 15:14 10/27/16 15:14 10/27/16 15:14 Intake & Output 10/26/16 10/27/16 10/28/16 06:59 06:59 06:59 Intake Total 280 1030 Output Total 4400 0 Balance -4120 1030 Vital signs during dialysis well was seeing her: Blood pressure of 120/61, heart rate of 47, blood flow rate of 350 mL per minute, dialysate flow rate 600 mL per minute. Goal for ultrafiltration around she 3.8 -4 L. Exam: General appearance: PRESENT: no acute distress, cooperative, well-developed, well-nourished Head exam: PRESENT: atraumatic, normocephalic Eye exam: PRESENT: conjunctiva pale, PERRLA. ABSENT: scleral icterus Neck exam: ABSENT: JVD Respiratory exam: PRESENT: Normal breath sounds. ABSENT: crackles, rales, rhonchi, unlabored, wheezes Cardiovascular exam: PRESENT: Regular rate rhythm -+S1, +S2. ABSENT: diastolic murmur, systolic murmur GI/Abdominal exam: PRESENT: normal bowel sounds, soft. Mild epigastric and left upper quadrant tenderness ABSENT: guarding, mass Extremities exam: ABSENT: No edema Neurological exam: PRESENT: alert, awake, oriented to person, place and time. Skin exam: PRESENT: dry, warm, Results Laboratory Results: 10/27/16 06:53 10/27/16 06:53 10/27/16 10/27/16 06:53 06:53 WBC 4.0 RBC 2.62 L Hgb 8.5 L Hct 26.1 L MCV 99 H MCH 32.4 MCHC 32.6 RDW 16.5 H Plt Count 137 L Seg Neutrophils % 45.4 Lymphocytes % 40.4 Monocytes % 10.6 Eosinophils % 2.7 Basophils % 0.9 Absolute Neutrophils 1.8 Absolute Lymphocytes 1.6 Absolute Monocytes 0.4 Absolute Eosinophils 0.1 Absolute Basophils 0.0 Sodium 131.2 L Potassium 4.7 Chloride 94 L Carbon Dioxide 22 Anion Gap 15 BUN 26 H Creatinine 8.43 H Est GFR ( Amer) 7 L Est GFR (Non-Af Amer) 5 L Glucose 65 L Calcium 9.0 Impressions: Abdomen/Pelvis CT 10/25/16 00:00 IMPRESSION: 1. SMALL AMOUNT OF FREE FLUID IN THE PELVIC CUL-DE-SAC. THIS COULD BE PHYSIOLOGIC THERE IS NO ASCITES ELSEWHERE. 2. MARKEDLY ATROPHIC [place] KIDNEYS. TRANSPLANT KIDNEY IN THE RIGHT LOWER QUADRANT. 3. NO OTHER SIGNIFICANT OR ACUTE PROCESS IN THE ABDOMEN OR PELVIS. NO ABNORMAL CT FINDINGS RELATED TO THE PANCREAS. Assessment & Plan - Diagnosis (1) ESRD on dialysis Is this a current diagnosis for this admission?: YesPlan: We will do dialysis today for 3 hours, using the patient's PermCath, with 2 potassium bath, blood flow rate of 350 mL per minute, dialysate flow rate of 600 mL per minute, ultrafiltration she 0.8-4 L, no heparin and Procrit with 10, 000 units during dialysis intravenously. Continue to monitor her during dialysis treatment by our dialysis nurse. (2) Acute on chronic pancreatitis Is this a current diagnosis for this admission?: Yes (3) Anemia in chronic kidney disease (CKD) Is this a current diagnosis for this admission?: YesPlan: She will be given Procrit 10,000 units IV during dialysis today. (4) Hypertension Qualifiers: Hypertension type: essential hypertension Qualified Code(s): I10 - Essential (primary) hypertension Is this a current diagnosis for this admission?: YesPlan: Labile. Currently controlled. - Notes Notes: Discussed with Dr. Arcos ,the primary service. She plans to send the patient home after dialysis today. From nephrology standpoint patient may go home. Next dialysis would be at [facility] on her regular scheduled treatment days. - Time Time with patient: 15-25 minutes
== END 2016-10-27 17:22 | disposition home or self-care (01) | DRG 438 ==
LOC: ER 11:22 → EH 14:59 → UNDOADMIN 15:03 → 2S 17:22 → 2N 10-23 18:00
PROC: 5A1D60Z (ICD-10-PCS; principal; 2016-10-22)
DX: K85.90 Acute pancreatitis without necrosis or infection, unspecified (principal); N18.6 End stage renal disease; I12.0 Hypertensive chronic kidney disease with stage 5 chronic kidney disease or end stage renal disease; I27.82 Chronic pulmonary embolism; T86.12 Kidney transplant failure; Z94.0 Kidney transplant status; D63.1 Anemia in chronic kidney disease; K86.1 Other chronic pancreatitis; F17.210 Nicotine dependence, cigarettes, uncomplicated; Z79.01 Long term (current) use of anticoagulants; Z99.2 Dependence on renal dialysis; Z91.041 Radiographic dye allergy status; Z88.1 Allergy status to other antibiotic agents
CPT/HCPCS: 36415; 74176; 80048; 80053; 80061; 80076; 82150; 82550; 83690; 83735; 84100; 84484; 84703; 85025; 85610; 86140; 93005; 93010; 96374; 96376; 99285; J1200; J1644; J2270; J2405; J3490; J7030; Q4081; S0119; S0164

== ENCOUNTER 2016-11-12 10:12 | Day surgery (SDC) | payer MEDICARE ==
[2016-11-12] MEDS ORDERED: DIPHENHYDRAMINE HCL 50 MG/ML VIAL ONE (10:38)
[2016-11-12] MEDS ORDERED: ONDANSETRON HCL INJ/PF 4 MG/2 ML SDV ONE (10:38)
[2016-11-12] MEDS ORDERED: PROMETHAZINE HCL INJ 25 MG/1 ML VIAL ONE (10:38)
[2016-11-12] MEDS ORDERED: NALOXONE HCL INJ/PF 0.4 MG/1 ML SDV ONE (10:38)
[2016-11-12] MEDS ORDERED: MIDAZOLAM 2 MG/2 ML INJ ONE (10:39)
[2016-11-12] MEDS ORDERED: FLUMAZENIL INJ 0.5 MG/5 ML VIAL IV ONE (10:39)
[2016-11-12] MEDS ORDERED: FENTANYL CITRATE INJ/PF 100 MCG/2 ML AMPUL ONE ×2 (10:39)
[2016-11-12] MEDS ORDERED: EPINEPHRINE INJ 1 MG/10 ML DISP.SYRIN ONE (10:40)
[2016-11-12] MEDS ORDERED: GLUCAGON,HUMAN RECOMB 1 MG INJ ONE (10:40)
[2016-11-12] MEDS: MIDAZOLAM 2 MG/2 ML INJ ONE ×2 (11:03→11:09)
--- NOTE | 2016-11-12 11:15 | Operative Report ---
Operative Report DATE OF SURGERY: 11/12/16 Operative Report: The risks benefits and alternatives of the procedure explained to the patient in detail and informed consent is obtained that GIF Olympus video scope was inserted into the patient's mouth and hypopharynx the esophagus is identified intubated and insufflated the scope was then advanced through the esophagus stomach and duodenum retroflexion maneuver is done the esophagus stomach and first and second portions of the duodenum examined PREOPERATIVE DIAGNOSIS: Epigastric pain, rule out peptic ulcer disease POSTOPERATIVE DIAGNOSIS: Esophagitis. Nodular gastritis status post biopsy OPERATION: EGD with biopsy SURGEON: ROGE ARIZA ANESTHESIA: Moderate Sedation - 4 mg of Versed, 75 g of fentanyl. TISSUE REMOVED OR ALTERED: Gastric specimens obtained rule out Helicobacter pylori COMPLICATIONS: None. ESTIMATED BLOOD LOSS: none. INTRAOPERATIVE FINDINGS: As described above. PROCEDURE: Patient tolerated the procedure well. No immediate postprocedure complications are noted. Patient is discharged in good condition. Discharge date 11/12/2016. Discharge diet: Regular. Discharge activity: Regular. We'll follow-up on biopsies Patient does have a 2-3 week follow-up to discuss findings. Patient is instructed to call the office or proceed to the emergency room should there be any further problems or questions.
[2016-11-12 12:31] VITALS: BP 126/88
== END 2016-11-12 12:20 | disposition home or self-care (01) ==
LOC: END 10:12
PROVIDERS: ATTEND Internal Medicine Gastroenterology
PROC: 0DB68ZX Excision of Stomach, Via Natural or Artificial Opening Endoscopic, Diagnostic (ICD-10-PCS; principal; 2016-11-12 10:30)
DX: K20.9 Esophagitis, unspecified (principal); K29.50 Unspecified chronic gastritis without bleeding; B96.81 Helicobacter pylori [H. pylori] as the cause of diseases classified elsewhere; I10 Essential (primary) hypertension; Z79.899 Other long term (current) drug therapy; Z88.8 Allergy status to other drugs, medicaments and biological substances
CPT/HCPCS: 43239; 88342 ×2; 88305 ×2; J2250; J3010; J1610; J0171; J1200; J2310; J2405; J2550; J3490

== ENCOUNTER 2016-11-14 13:49 | Inpatient (IN) | payer MEDICARE, MEDICAID ==
--- NOTE | 2016-11-14 14:27 | ER Document Report ---
ED Medical Screen (RME) - General Stated Complaint: ABDOMINAL PAIN Mode of Arrival: Ambulatory Information source: Patient Notes: Patient complains of epigastric abdominal pain 2 weeks. Patient reports having a recent endoscopy procedure 2 days ago. Patient dialyzed yesterday. Patient reports increased abdominal distention. hx: Renal transplant, pancreatitis, endocarditis, hyperkalemia I have greeted and performed a rapid initial assessment of this patient. A comprehensive ED assessment and evaluation of the patient, analysis of test results and completion of the medical decision making process will be conducted by additional ED providers. TRAVEL OUTSIDE OF THE [place] IN LAST 30 DAYS: No - Related Data Allergies/Adverse Reactions: metoclopramide HCl [From Reglan] Allergy (Severe, Verified 11/12/16 10:14) DYSTONIC REACTION vancomycin [Vancomycin] Allergy (Intermediate, Verified 11/12/16 10:14) rash amoxicillin [Amoxicillin] Allergy (Mild, Verified 11/12/16 10:14) Hives Iodinated Contrast Media - Oral and [IV Dye, Iodine Containing] Adverse Reaction (Severe, Verified 11/12/16 10:14) esrd ok with topical Past Medical History - Past Medical History Cardiac Medical History: Reports: Hx Hypertension - CONTROLLED WITH MED, Hx Pulmonary Embolism Denies: Hx Coronary Artery Disease, Hx Heart Attack Pulmonary Medical History: Denies: Hx Asthma, Hx Bronchitis, Hx COPD, Hx Pneumonia, Hx Tuberculosis Neurological Medical History: Reports: Hx Seizures - BABY, NONE SINCE AGE 1/ FEBRILE. 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 Denies: Hx Kidney Stones GI Medical History: Reports: Hx Gastroesophageal Reflux Disease. Denies: Hx Hepatitis, Hx Hiatal Hernia, Hx Ulcer Musculoskeltal Medical History: Denies Hx Arthritis Psychiatric Medical History: Reports: Hx Anxiety, Hx Depression Infectious Medical History: Denies: Hx Hepatitis Past Surgical History: Reports: Hx Cholecystectomy - 01/2010, Hx Herniorrhaphy - Double hernia repair, Hx Kidney (Renal Surgery) - kidney transplant 2004, Hx Tubal Ligation - 02/2008, Hx Vascular Surgery - PermCath placement for dialysis, multiple procedures for declotting CVC. Denies: Hx Appendectomy, Hx Bowel Surgery, Hx Section, Hx Hysterectomy, Hx Mastectomy, Hx Open Heart Surgery, Hx Pacemaker, Hx Tonsillectomy - Immunizations Immunizations up to date: Yes Hx Diphtheria, Pertussis, Tetanus Vaccination: Yes Physical Exam - Abdominal Distension: Distended Tenderness: Tender - Epigastric
[2016-11-14 17:44] LABS: ABSOLUTE BASOPHILS # (AUTO) 0.1 10^3/uL (0.0-0.2); ABSOLUTE EOSINOPHILS # (AUTO) 0.2 10^3/uL (0.0-0.6); ABSOLUTE LYMPHOCYTES (AUTO) 2.6 10^3/uL (0.5-4.7); ABSOLUTE MONOCYTES (AUTO) 0.6 10^3/uL (0.1-1.4); ABSOLUTE NEUT (AUTO) 4.9 10^3/uL (1.7-8.2); BASOPHILS % (AUTO) 1.2 % (0-2); EOSINOPHILS % (AUTO) 2.4 % (0-6); HEMATOCRIT 32.2 % (36.0-47.0); HEMOGLOBIN 10.7 g/dL (12.0-15.5); HGB HCT DIFFERENCE -0.1; LYMPHOCYTES % (AUTO) 31.1 % (13-45); MEAN CORPUSCULAR HGB CONC 33.1 g/dL (32.0-36.0); MEAN CORPUSCULAR VOLUME 100 fl (80-97); MONOCYTES % (AUTO) 6.7 % (3-13); RED BLOOD COUNT 3.23 10^6/uL (3.72-5.28); RED CELL DISTRIBUTION WIDTH 16.9 % (11.5-14.0); SEGMENTED NEUTROPHILS % (AUTO) 58.6 % (42-78); WHITE BLOOD COUNT 8.3 10^3/uL (4.0-10.5)
[2016-11-14 17:53] LABS: PROTHROMBIN TIME 13.6 SEC (11.4-15.4)
[2016-11-14] MEDS ORDERED: MORPHINE SULFATE 10 MG/ML INJ IV ONE (18:52)
[2016-11-14 18:58] LABS: ALANINE AMINOTRANSFERASE 71 U/L (9-52); ALBUMIN 3.6 g/dL (3.5-5.0); ALKALINE PHOSPHATASE 111 U/L (38-126); ANION GAP 19 (5-19); ASPARTATE AMINO TRANSFERASE 38 U/L (14-36); BILIRUBIN,TOTAL 0.5 mg/dL (0.2-1.3); BLOOD UREA NITROGEN 58 mg/dL (7-20); CALCIUM 8.5 mg/dL (8.4-10.2); CARBON DIOXIDE 19 mmol/L (22-30); CHLORIDE 97 mmol/L (98-107); CREATININE RESULT 7.95 mg/dL (0.52-1.25); GLUCOSE 76 mg/dL (75-110); LIPASE 846.4 U/L (23-300); POTASSIUM 5.9 mmol/L (3.6-5.0); SODIUM 135.3 mmol/L (137-145); TOTAL PROTEIN 6.3 g/dL (6.3-8.2)
[2016-11-14] MEDS ORDERED: INSULIN REG, HUMAN 100 UNIT/ML 3 ML VIAL (PYX) IV ONE (19:13)
[2016-11-14] MEDS ORDERED: DEXTROSE 50%-WATER 25 GM/50 ML DISP.SYRIN IV ONE ×3 (19:13→22:53)
[2016-11-14] MEDS ORDERED: SODIUM BICARBONATE 8.4% INJ 50 MEQ/50 ML DISP.SYRIN IV ONE (19:13)
--- NOTE | 2016-11-14 19:13 | ER Document Report ---
ED GI/ - General Chief Complaint: Abdominal Pain Stated Complaint: ABDOMINAL PAIN Mode of Arrival: Ambulatory Information source: Patient Notes: 31-year-old female with past medical history as recorded including Tuesday dialysis as well as kidney transplant in 2004 the cut rejected in 2013. Patient presents today stating some intermittent epigastric nonradiating abdominal pain with some abdominal swelling that she states around 3 weeks. Patient denies any fevers, vomiting, or diarrhea. Patient states she did see her GI specialist Dr. Matsers and had an endoscopy this past Tuesday that she states showed no acute abnormalities. Patient states she has a history of pancreatitis in the past. TRAVEL OUTSIDE OF THE [place] IN LAST 30 DAYS: No - HPI Patient complains to provider of: Abdominal pain Onset: This morning - See above Timing/Duration: Gradual Quality of pain: Achy Severity at maximum: Moderate Severity in ED: Moderate Pain Level: 2 Location: Epigastric Vaginal bleeding (Compared to normal period): None Associated symptoms: Other - See above Exacerbated by: Denies Relieved by: Denies Similar symptoms previously: Yes Recently seen / treated by doctor: Yes - Related Data Allergies/Adverse Reactions: metoclopramide HCl [From Reglan] Allergy (Severe, Verified 11/12/16 10:14) DYSTONIC REACTION vancomycin [Vancomycin] Allergy (Intermediate, Verified 11/12/16 10:14) rash amoxicillin [Amoxicillin] Allergy (Mild, Verified 11/12/16 10:14) Hives Iodinated Contrast Media - Oral and [IV Dye, Iodine Containing] Adverse Reaction (Severe, Verified 11/12/16 10:14) esrd ok with topical Past Medical History - General Information source: Patient - Social History Smoking Status: Current Every Day Smoker Chew tobacco use (# tins/day): No Frequency of alcohol use: None Drug Abuse: None Family History: Reviewed & Not Pertinent, Arthritis, Malignancy Patient has suicidal ideation: No Patient has homicidal ideation: No - Past Medical History Cardiac Medical History: Reports: Hx Hypertension - CONTROLLED WITH MED, Hx Pulmonary Embolism Denies: Hx Coronary Artery Disease, Hx Heart Attack Pulmonary Medical History: Denies: Hx Asthma, Hx Bronchitis, Hx COPD, Hx Pneumonia, Hx Tuberculosis Neurological Medical History: Reports: Hx Seizures - BABY, NONE SINCE AGE 1/ FEBRILE. 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 Denies: Hx Kidney Stones GI Medical History: Reports: Hx Gastroesophageal Reflux Disease. Denies: Hx Hepatitis, Hx Hiatal Hernia, Hx Ulcer Musculoskeltal Medical History: Denies Hx Arthritis Psychiatric Medical History: Reports: Hx Anxiety, Hx Depression Infectious Medical History: Denies: Hx Hepatitis Past Surgical History: Reports: Hx Cholecystectomy - 01/2010, Hx Herniorrhaphy - Double hernia repair, Hx Kidney (Renal Surgery) - kidney transplant 2004, Hx Tubal Ligation, Hx Vascular Surgery - PermCath placement for dialysis, multiple procedures for declotting CVC. Denies: Hx Appendectomy, Hx Bowel Surgery, Hx Section, Hx Hysterectomy, Hx Mastectomy, Hx Open Heart Surgery, Hx Pacemaker, Hx Tonsillectomy - Immunizations Immunizations up to date: Yes Hx Diphtheria, Pertussis, Tetanus Vaccination: Yes Hx Pneumococcal Vaccination: 07/10/14 Review of Systems - Review of Systems Constitutional: denies: Fever EENT: denies: Eye discharge, Nose discharge Cardiovascular: denies: Chest pain, Palpitations, Heart racing Respiratory: denies: Short of breath Gastrointestinal: Abdomen distended. denies: Vomiting, Black stools, Rectal bleeding Genitourinary: denies: Dysuria Musculoskeletal: denies: Leg swelling Skin: Other - no hives. denies: Rash Neurological/Psychological: Other - no slurred speech -: Yes All other systems reviewed and negative Physical Exam - Vital signs Notes: Reviewed vital signs and nursing note as charted by RN. CONSTITUTIONAL: Alert and oriented and responds appropriately to questions. Well -appearing; well-nourished HEAD: Normocephalic; atraumatic EYES:Sclerae non-icteric CARD: Regular rate and rhythm; no murmurs, no clicks, no rubs, no gallops; symmetric distal pulses RESP: Normal chest excursion without splinting or tachypnea; breath sounds clear and equal bilaterally; no wheezes, no rhonchi, no rales ABD/GI: Normal bowel sounds; mildly distended. Mildly tender to the epigastric region. No rebound or guarding. No palpable fluid wave. No obvious organomegaly. BACK: The back appears normal and is non-tender to palpation, there is no CVA tenderness EXT: Normal ROM in all joints; non-tender to palpation; no cyanosis, no effusions, no edema SKIN: Normal color for age and race; warm; dry; good turgor; capillary refill < 2 seconds; no acute lesions noted NEURO: Moves all extremities equally; Motor and sensory function intact PSYCH: The patient's mood and manner are appropriate. Grooming and personal hygiene are appropriate. Course - Re-evaluation Re-evalutation: Given the history and physical examination we will order basic labs, abdominal labs, and a CT scan of the abdomen and pelvis without contrast given the kidney failure and the elevated BMI. 11/14/16 18:12 Labs as recorded. Chemistry has hemolyzed. Patient is being taken to CT. 11/14/16 19:12 Patient's pain is slightly improved. CT scan shows no acute abnormality. Patient's lipase as recorded. Patient did have a recent lipase that was within normal limits. Patient states she did receive 3 hours of dialysis yesterday with a potassium as recorded. I have paged the client service consultant. I will provide insulin, glucose, bicarbonate, and obtain an EKG. Patient is on the monitor. 11/14/16 19:[address] Emerson the client service consultant. She states she is comfortable with the patient having a potassium of 6 and will perform dialysis tomorrow morning around 6 AM. She has been consulted for the patient. Patient will be admitted to the hospitalist service. - Laboratory Result Diagrams: 11/14/16 17:35 11/14/16 18:22 Laboratory results interpreted by me: 11/14/16 11/14/16 17:35 18:22 RBC 3.23 L Hgb 10.7 L Hct 32.2 L MCV 100 H RDW 16.9 H Plt Count 120 L Sodium 135.3 L Potassium 5.9 H Chloride 97 L Carbon Dioxide 19 L BUN 58 H Creatinine 7.95 H Est GFR ( Amer) 7 L Est GFR (Non-Af Amer) 6 L AST 38 H ALT 71 H Lipase 846.4 H Critical Care Note - Critical Care Note Total time excluding time spent on procedures (mins): 40 Discharge - Discharge Clinical Impression: Hyperkalemia Acute pancreatitis Qualifiers: Pancreatitis type: unspecified pancreatitis type Acute pancreatitis complication: unspecified Qualified Code(s): K85.90 - Acute pancreatitis without necrosis or infection, unspecified Condition: Fair Disposition: ADMITTED INPATIENT Admitting Provider: Hospitalist Unit Admitted: Telemetry
[2016-11-14] MEDS ORDERED: CALCIUM GLUCONATE 1000 MG/10 ML INJ IV ONE (19:14)
[2016-11-14] MEDS ORDERED: SODIUM POLYSTYRENE SULFONATE 15 GM/60 ML PO ONE (19:14)
[2016-11-14] MEDS ORDERED: IPRATROPIUM/ALBUTEROL 0.5-2.5 MG/3 ML AMPUL NEB PRN (19:46)
[2016-11-14] MEDS ORDERED: ONDANSETRON HCL INJ/PF 4 MG/2 ML SDV IV PRN (19:46)
[2016-11-14] MEDS ORDERED: ACETAMINOPHEN 325 MG TABLET PO PRN (19:52)
[2016-11-14] MEDS ORDERED: NORMAL SALINE 1000 ML 1,000 ML IV SCH (20:00)
[2016-11-14] MEDS ORDERED: WARFARIN SODIUM 5 MG TABLET PO SCH (22:00)
[2016-11-14] MEDS ORDERED: INSULIN REG, HUMAN 100 UNIT/ML 3 ML VIAL (PYX) ONE (22:50)
[2016-11-14] MEDS ORDERED: SODIUM BICARBONATE 8.4% INJ 50 MEQ/50 ML DISP.SYRIN ONE (22:50)
[2016-11-14] MEDS ORDERED: ONDANSETRON HCL INJ/PF 4 MG/2 ML SDV ONE (23:13)
[2016-11-14] MEDS ORDERED: ONDANSETRON HCL INJ/PF 4 MG/2 ML SDV IV ONE (23:15)
--- NOTE | 2016-11-14 23:45 | EKG REPORT ---
SEVERITY:- NORMAL ECG - SINUS RHYTHM : Confirmed by: Tucker Elder 14-Nov-2016 23:44:16
[2016-11-15] MEDS: MORPHINE SULFATE 10 MG/ML INJ IV PRN ×5 (00:43→22:08)
[2016-11-15] MEDS: PREGABALIN 75 MG CAPSULE PO SCH ×2 (00:45→22:07)
[2016-11-15] MEDS: METOPROLOL SUCCINATE 50 MG TAB.SR.24H PO SCH (00:51)
[2016-11-15] MEDS: LANSOPRAZOLE 15 MG TAB.RAP.DR PO SCH ×2 (00:55→17:11)
[2016-11-15] MEDS ORDERED: DEXTROSE 50%-WATER 25 GM/50 ML DISP.SYRIN IV ONE ×2 (01:50→02:30)
[2016-11-15] MEDS: HEPARIN SOD (PORCINE) 5,000 UNIT/ML 1 ML SYRINGE SUBCUT SCH ×2 (02:20→05:19)
--- NOTE | 2016-11-15 05:45 | PDOC H&P ---
History of Present Illness Admission Date/PCP: 11/14/16 19:46 Patient complains of: Epigastric pain nausea vomiting History of Present Illness: MILAGROS RAMOS is a 31 year old female with a past medical history of end-stage renal failure on hemodialysis Tuesday and a recent hospitalization for pancreatitis in early October 2016. She admits that her epigastric pain is a continuum from early October and has waxed and waned but over the last 3 days significantly worsened unable to tolerate by mouth with intermittent radiation of pain from the epigastrium to the back prompting him to seek evaluation emergency room where she's found to have a elevated lipase and referred to the hospitalist after an otherwise unremarkable workup. Late last week she had upper endoscopy by Dr. Masters with uncertain findings. 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 GI Medical History: Reports: Gastroesophageal Reflux Disease, Other - Pancreatitis Denies: Hepatitis, Hiatal Hernia Musculoskeltal Medical History: Denies: Arthritis Psychiatric Medical History: Reports: Depression Hematology: Reports: Anemia Denies: Sickle Cell Disease Past Surgical History Past Surgical History: Reports: Cholecystectomy - 01/2010, Herniorrhaphy - Double hernia repair, Tubal Ligation, Vascular Surgery - PermCath placement for dialysis, multiple procedures for declotting CVC Denies: Amputation, Appendectomy, Section, Hysterectomy, Mastectomy , Pacemaker, Tonsillectomy Social History Information Source: Patient Smoking Status: Current Every Day Smoker Cigarettes Packs Per Day: 0.5 Frequency of Alcohol Use: None Hx Recreational Drug Use: No Drugs: None Hx Prescription Drug Abuse: No - Advance Directive Resuscitation Status: Full Code Family History Family History: Arthritis, Malignancy Parental Family History Reviewed: Yes Children Family History Reviewed: Yes Sibling(s) Family History Reviewed.: Yes Medication/Allergy Home Medications: Amlodipine Besylate [Norvasc 10 mg Tablet] 1 tab PO DAILY 10/09/16 Calcium Acetate [Phoslo 667 mg Capsule] 2 cap PO MEALS 10/09/16 Dicyclomine HCl [Bentyl 10 mg Capsule] 1 cap PO TID 10/09/16 Hydralazine HCl [Apresoline 10 mg Tablet] 1 tab PO DAILY 10/09/16 Metoprolol Succinate [Toprol XL 100 mg Tablet] 1 tab PO BID 10/09/16 Lipase/Protease/Amylase [Timo Castillo 12,000 Units Capsule] 1 cap PO MEALS #120 capsule. 10/27/16 Pregabalin [Lyrica 75 mg Capsule] 75 mg PO QHS #30 capsule 10/27/16 Omeprazole 20 mg PO BID 11/12/16 Warfarin Sodium [Coumadin 5 mg Tablet] 3 mg PO QHS 11/12/16 Allergies/Adverse Reactions: metoclopramide HCl [From Reglan] Allergy (Severe, Verified 11/12/16 10:14) DYSTONIC REACTION vancomycin [Vancomycin] Allergy (Intermediate, Verified 11/12/16 10:14) rash amoxicillin [Amoxicillin] Allergy (Mild, Verified 11/12/16 10:14) Hives Iodinated Contrast Media - Oral and [IV Dye, Iodine Containing] Adverse Reaction (Severe, Verified 11/12/16 10:14) esrd ok with topical Review of Systems Constitutional: PRESENT: anorexia, fatigue. ABSENT: chills, fever(s), headache( s), weight gain, weight loss Eyes: ABSENT: visual disturbances Ears: ABSENT: hearing changes Cardiovascular: ABSENT: chest pain, dyspnea on exertion, edema, orthropnea, palpitations Respiratory: ABSENT: cough, hemoptysis Gastrointestinal: PRESENT: abdominal pain, bloating, nausea, vomiting, other - Loose stools. ABSENT: coffee ground emesis, constipation, diarrhea, hematemesis , hematochezia Genitourinary: ABSENT: dysuria, hematuria Musculoskeletal: ABSENT: joint swelling Integumentary: ABSENT: rash, wounds Neurological: ABSENT: abnormal gait, abnormal speech, confusion, dizziness, focal weakness, syncope Psychiatric: ABSENT: anxiety, depression, homidical ideation, suicidal ideation Endocrine: ABSENT: cold intolerance, heat intolerance, polydipsia, polyuria Hematologic/Lymphatic: ABSENT: easy bleeding, easy bruising Physical Exam Vital Signs: Temp Pulse Resp BP Pulse Ox 97.2 F 77 16 112/81 97 11/15/16 04:09 11/15/16 04:09 11/15/16 04:09 11/15/16 04:09 11/15/16 04:09 Intake & Output 11/13/16 11/14/16 11/15/16 11:59 11:59 11:59 Weight 55.9 kg General appearance: PRESENT: cooperative, mild distress, well-developed, well- nourished Head exam: PRESENT: atraumatic, normocephalic Eye exam: PRESENT: conjunctiva pink, EOMI, PERRLA. ABSENT: scleral icterus Ear exam: PRESENT: normal external ear exam Mouth exam: PRESENT: moist, tongue midline Neck exam: ABSENT: carotid bruit, JVD, lymphadenopathy, thyromegaly Respiratory exam: PRESENT: clear to auscultation marquis. ABSENT: rales, rhonchi, wheezes Cardiovascular exam: PRESENT: RRR. ABSENT: diastolic murmur, rubs, systolic murmur Pulses: PRESENT: normal dorsalis pedis pul Vascular exam: PRESENT: normal capillary refill GI/Abdominal exam: PRESENT: hyperactive bowel sounds, soft, tenderness. ABSENT : ascites, diminished bowel sounds, distended, firm, guarding, hernia, Arnett's sign Rectal exam: PRESENT: deferred Extremities exam: PRESENT: full ROM. ABSENT: calf tenderness, clubbing, pedal edema Neurological exam: PRESENT: alert, awake, oriented to person, oriented to place , oriented to time, oriented to situation, CN II-XII grossly intact. ABSENT: motor sensory deficit Psychiatric exam: PRESENT: appropriate affect, normal mood. ABSENT: homicidal ideation, suicidal ideation Skin exam: PRESENT: dry, intact, warm. ABSENT: cyanosis, rash Results Impressions: Abdomen/Pelvis CT 11/14/16 16:25 IMPRESSION: ATROPHIC [place] KIDNEYS. TRANSPLANT KIDNEY IN THE RIGHT LOWER QUADRANT. OTHERWISE NO SIGNIFICANT OR ACUTE PROCESS IN THE ABDOMEN OR PELVIS. Assessment & Plan - Diagnosis (1) Acute on chronic pancreatitis Is this a current diagnosis for this admission?: YesPlan: Patient symptoms began 4 weeks ago preceded by symptoms suggestive of gastroenteritis. She has been placed on a trial of pancreatic enzyme replacement without significant improvement and waxing and waning symptoms. I believe this strongly suggest a viral etiology of pancreatitis and will subsequently continue to treat with symptomatic management bowel rest reevaluation of labs and GI consultation (2) Abdominal pain Qualifiers: Abdominal location: epigastric Qualified Code(s): R10.13 - Epigastric pain Is this a current diagnosis for this admission?: YesPlan: Please see #1 (3) Anemia in chronic kidney disease (CKD) Is this a current diagnosis for this admission?: YesPlan: Will avoid volume overload otherwise treat hyperkalemia with Kayexalate and obtain consultation with nephrology for hemodialysis (4) Hyperkalemia Is this a current diagnosis for this admission?: YesPlan: She is received albuterol nebulizer, calcium gluconate, and Kayexalate, no evidence of peaked T waves reevaluate with chemistry - Time Time Spent: 50 to 70 Minutes
[2016-11-15] MEDS ORDERED: DEXTROSE 40% GEL 15 GM TUBE PO PRN (05:48)
[2016-11-15] MEDS ORDERED: GLUCAGON,HUMAN RECOMB 1 MG INJ IM PRN (05:48)
[2016-11-15] MEDS ORDERED: DEXTROSE 50%-WATER SYRINGE 25 GM/50 ML DOSE IV PRN (05:48)
[2016-11-15] MEDS ORDERED: DEXTROSE 40% GEL 15 GM TUBE X 2 PO PRN (05:48)
[2016-11-15] MEDS ORDERED: DEXTROSE 50%-WATER SYRINGE 12.5 GM/25 ML DOSE IV PRN (05:48)
[2016-11-15] MEDS ORDERED: (PENDING PHARMACY ID) (Lipase/Protease/Amylase [Creon Dr 12,000 Units Capsule] 1 CAP) PO SCH (08:00)
[2016-11-15] MEDS ORDERED: DIPHENHYDRAMINE HCL 50 MG/ML VIAL IV ONE (08:00)
[2016-11-15 08:41] LABS: ABSOLUTE EOSINOPHILS # (AUTO) 0.1 10^3/uL (0.0-0.6); ABSOLUTE LYMPHOCYTES (AUTO) 2.3 10^3/uL (0.5-4.7); ABSOLUTE MONOCYTES (AUTO) 0.3 10^3/uL (0.1-1.4); ABSOLUTE NEUT (AUTO) 4.4 10^3/uL (1.7-8.2); BASOPHILS % (AUTO) 0.6 % (0-2); EOSINOPHILS % (AUTO) 1.9 % (0-6); HEMATOCRIT 27.8 % (36.0-47.0); HEMOGLOBIN 9.4 g/dL (12.0-15.5); HGB HCT DIFFERENCE 0.4; LYMPHOCYTES % (AUTO) 32.5 % (13-45); MEAN CORPUSCULAR HEMOGLOBIN 33.5 pg (27.0-33.4); MEAN CORPUSCULAR HGB CONC 33.8 g/dL (32.0-36.0); MEAN CORPUSCULAR VOLUME 99 fl (80-97); MONOCYTES % (AUTO) 4.6 % (3-13); RED CELL DISTRIBUTION WIDTH 17.1 % (11.5-14.0); SEGMENTED NEUTROPHILS % (AUTO) 60.4 % (42-78); WHITE BLOOD COUNT 7.2 10^3/uL (4.0-10.5)
[2016-11-15 09:00] LABS: ALANINE AMINOTRANSFERASE 59 U/L (9-52); ALBUMIN 3.4 g/dL (3.5-5.0); ALKALINE PHOSPHATASE 95 U/L (38-126); ANION GAP 18 (5-19); ASPARTATE AMINO TRANSFERASE 34 U/L (14-36); BILIRUBIN,TOTAL 0.5 mg/dL (0.2-1.3); BLOOD UREA NITROGEN 56 mg/dL (7-20); CALCIUM 8.6 mg/dL (8.4-10.2); CARBON DIOXIDE 22 mmol/L (22-30); CHLORIDE 96 mmol/L (98-107); CREATININE RESULT 8.54 mg/dL (0.52-1.25); GLUCOSE 80 mg/dL (75-110); POTASSIUM 5.4 mmol/L (3.6-5.0); SODIUM 135.5 mmol/L (137-145); TOTAL PROTEIN 5.8 g/dL (6.3-8.2)
[2016-11-15] MEDS ORDERED: LIPASE/PROTEASE/AMYLASE 1 CAP CAPSULE.DR PO ONE ×3 (09:00)
[2016-11-15] MEDS ORDERED: HEPARIN SOD (PORCINE) 1,000 UNIT/ML 10 ML VIAL IV PRN (10:14)
[2016-11-15] MEDS ORDERED: LIPASE/PROTEASE/AMYLASE 1 CAP CAPSULE.DR PO SCH ×3 (12:00)
[2016-11-15] MEDS: DICYCLOMINE HCL 10 MG CAPSULE PO SCH ×3 (12:25→17:41)
[2016-11-15] MEDS: AMLODIPINE BESYLATE 10 MG TABLET PO SCH (12:25)
[2016-11-15] MEDS: HYDRALAZINE HCL 10 MG TABLET PO SCH (12:25)
[2016-11-15] MEDS: CALCIUM ACETATE 667 MG CAPSULE PO SCH (17:11)
--- NOTE | 2016-11-15 17:35 | PDOC PROGRESS REPORT ---
Subjective Progress Note for:: 11/15/16 Subjective:: Patient seen on morning rounds, presently awake alert and oriented 3. She denies any nausea, vomiting or diarrhea. She does have abdominal bloating and epigastric pain. She denies any chest pain, shortness breath or dyspnea. She denies any back pain or headache. She denies any other complaints at the present time. She did undergo hemodialysis earlier. She had a recent EGD by Dr. Masters and has not heard results. Physical Exam Vital Signs: Temp Pulse Resp BP Pulse Ox 98.7 F 70 16 116/73 94 11/15/16 11:48 11/15/16 16:53 11/15/16 16:53 11/15/16 11:48 11/15/16 16:53 Intake & Output 11/14/16 11/15/16 11/16/16 06:59 06:59 06:59 Intake Total 600 Balance 600 Weight 55.9 kg General appearance: PRESENT: no acute distress, well-developed, well-nourished Head exam: PRESENT: atraumatic, normocephalic Eye exam: PRESENT: conjunctiva pink, EOMI, PERRLA. ABSENT: scleral icterus Ear exam: PRESENT: normal external ear exam Mouth exam: PRESENT: moist, tongue midline Neck exam: ABSENT: carotid bruit, JVD, lymphadenopathy, thyromegaly Respiratory exam: PRESENT: clear to auscultation marquis. ABSENT: rales, rhonchi, wheezes Cardiovascular exam: PRESENT: RRR. ABSENT: diastolic murmur, rubs, systolic murmur Pulses: PRESENT: normal dorsalis pedis pul Vascular exam: PRESENT: normal capillary refill GI/Abdominal exam: PRESENT: normal bowel sounds, soft. ABSENT: distended, guarding, mass, organolmegaly, rebound, tenderness Rectal exam: PRESENT: deferred Extremities exam: PRESENT: full ROM. ABSENT: calf tenderness, clubbing, pedal edema Musculoskeletal exam: PRESENT: ambulatory Neurological exam: PRESENT: alert, awake, oriented to person, oriented to place , oriented to time, oriented to situation, CN II-XII grossly intact. ABSENT: motor sensory deficit Psychiatric exam: PRESENT: appropriate affect, normal mood. ABSENT: homicidal ideation, suicidal ideation Skin exam: PRESENT: dry, intact, warm. ABSENT: cyanosis, rash Results Laboratory Results: 11/15/16 08:10 11/15/16 08:10 11/15/16 11/15/16 08:10 08:10 WBC 7.2 RBC 2.80 L Hgb 9.4 L Hct 27.8 L MCV 99 H MCH 33.5 H MCHC 33.8 RDW 17.1 H Plt Count 101 L Seg Neutrophils % 60.4 Lymphocytes % 32.5 Monocytes % 4.6 Eosinophils % 1.9 Basophils % 0.6 Absolute Neutrophils 4.4 Absolute Lymphocytes 2.3 Absolute Monocytes 0.3 Absolute Eosinophils 0.1 Absolute Basophils 0.0 Sodium 135.5 L Potassium 5.4 H Chloride 96 L Carbon Dioxide 22 Anion Gap 18 BUN 56 H Creatinine 8.54 H Est GFR ( Amer) 7 L Est GFR (Non-Af Amer) 5 L Glucose 80 Calcium 8.6 Total Bilirubin 0.5 AST 34 ALT 59 H Alkaline Phosphatase 95 Total Protein 5.8 L Albumin 3.4 L Impressions: Abdomen/Pelvis CT 11/14/16 16:25 IMPRESSION: ATROPHIC UNALAKLEET KIDNEYS. TRANSPLANT KIDNEY IN THE RIGHT LOWER QUADRANT. OTHERWISE NO SIGNIFICANT OR ACUTE PROCESS IN THE ABDOMEN OR PELVIS. Assessment & Plan - Diagnosis (1) Acute on chronic pancreatitis Is this a current diagnosis for this admission?: YesPlan: Patient's lipase was 850. We will hold her pancreatic supplements for now. She was given IV hydration and when necessary and pain medicine (2) Hyperkalemia Plan: patient end-stage renal disease on hemodialysis (3) Anemia in chronic kidney disease (CKD) Is this a current diagnosis for this admission?: YesPlan: Currently stable (4) Chronic anticoagulation Is this a current diagnosis for this admission?: YesPlan: For PE (5) Chronic rejection of kidney transplant Is this a current diagnosis for this admission?: YesPlan: On hemodialysis (6) ESRD on dialysis Is this a current diagnosis for this admission?: YesPlan: She had dialysis today (7) Hypertension Qualifiers: Hypertension type: essential hypertension Qualified Code(s): I10 - Essential (primary) hypertension Is this a current diagnosis for this admission?: YesPlan: Continue current medications - Time Time Spent with patient: 25-34 minutes Medications reviewed and adjusted accordingly: Yes Anticipated discharge: Home
--- NOTE | 2016-11-15 19:28 | PDOC CONSULTATION ---
Consultation Consult Date: 11/15/16 Attending physician:: FREDERICK WAGNER Consult reason:: I was asked by the hospitalist service to see the patient for dialysis supervision in a patient with history of ESRD and now having hyperkalemia. History of Present Illness Admission Date/PCP: 11/14/16 19:46 History of Present Illness: MILAGROS RAMOS is a 31 year old female with a past medical history of end-stage renal failure on hemodialysis Tuesday and a recent hospitalization for pancreatitis in early October 2016. She admits that her epigastric pain is a continuum from early October and has waxed and waned but over the last 3 days significantly worsened unable to tolerate by mouth with intermittent radiation of pain from the epigastrium to the back prompting him to seek evaluation emergency room where she's found to have a elevated lipase and referred to the hospitalist after an otherwise unremarkable workup. Late last week she had upper endoscopy by Dr. Masters with uncertain findings. Patient denies any new medications, alcohol or infectious contacts. Patient tells me that since she started the Pancrease last admission she felt like she is having abdominal bloating. She also feels like her she is retaining fluid with facial swelling. She had a little bit of nausea but no vomiting. She said the Pancrease help with the vomiting but she continues to have pain. She denied any fever no chills. In terms of the dialysis, she has had dialysis last Tuesday with ultrafiltration of 5.2 L. I saw her this morning at around 8:50 AM during dialysis treatment. She received Benadryl prior to treatment. She was still having abdominal discomfort at that time. She was monitored for the whole treatment. 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 GI Medical History: Reports: Gastroesophageal Reflux Disease, Other - Pancreatitis Psychiatric Medical History: Reports: Depression Past Surgical History Past Surgical History: Reports: Cholecystectomy - 01/2010, Dialysis Access Surgery AVF, Herniorrhaphy - Double hernia repair, Renal Transplant - Failed, Tubal Ligation, Vascular Surgery - PermCath placement for dialysis, multiple procedures for declotting CVC Social History Smoking Status: Current Every Day Smoker Cigarettes Packs Per Day: 0.5 Frequency of Alcohol Use: None Hx Recreational Drug Use: No Drugs: None Hx Prescription Drug Abuse: No - Advance Directive Resuscitation Status: Full Code Family History Family History: Reviewed & Not Pertinent Parental Family History Reviewed: Yes Children Family History Reviewed: NA Sibling(s) Family History Reviewed.: No Medication/Allergy Home Medications: Amlodipine Besylate [Norvasc 10 mg Tablet] 10 mg PO DAILY 10/09/16 Calcium Acetate [Phoslo 667 mg Capsule] 1,334 mg PO AC 10/09/16 Dicyclomine HCl [Bentyl 10 mg Capsule] 10 mg PO TID 10/09/16 Hydralazine HCl [Apresoline 10 mg Tablet] 10 mg PO DAILY 10/09/16 Metoprolol Succinate [Toprol XL 100 mg Tablet] 100 mg PO Q12 10/09/16 Pregabalin [Lyrica 75 mg Capsule] 75 mg PO QHS #30 capsule 10/27/16 Omeprazole 20 mg PO BID 11/12/16 Lipase/Protease/Amylase [Creon Dr 12,000 Units Capsule] 1 cap PO AC 11/15/16 Warfarin Sodium [Coumadin 3 mg Tablet] 3 mg PO QHS 11/15/16 Allergies/Adverse Reactions: metoclopramide HCl [From Reglan] Allergy (Severe, Verified 11/12/16 10:14) DYSTONIC REACTION vancomycin [Vancomycin] Allergy (Intermediate, Verified 11/12/16 10:14) rash amoxicillin [Amoxicillin] Allergy (Mild, Verified 11/12/16 10:14) Hives Iodinated Contrast Media - Oral and [IV Dye, Iodine Containing] Adverse Reaction (Severe, Verified 11/12/16 10:14) esrd ok with topical Review of Systems All systems: reviewed and no additional remarkable complaints except as stated Review of Systems: Constitutional: ABSENT: chills, fatigue, fever(s), headache(s), weight gain, weight loss Eyes: ABSENT: visual disturbances Ears: ABSENT: hearing changes Cardiovascular: ABSENT: chest pain, dyspnea on exertion, edema, orthropnea, palpitations Respiratory: ABSENT: cough, dyspnea, hemoptysis Gastrointestinal: ABSENT: constipation, diarrhea, hematemesis, hematochezia; admits abdominal pain, and on admission some nausea, vomiting Genitourinary: ABSENT: dysuria, hematuria Musculoskeletal: ABSENT: joint swelling Integumentary: ABSENT: rash, wounds Neurological: ABSENT: abnormal gait, abnormal speech, confusion, dizziness, focal weakness, numbness, syncope Psychiatric: ABSENT: anxiety, depression Endocrine: ABSENT: cold intolerance, heat intolerance, polydipsia, polyuria Hematologic/Lymphatic: ABSENT: easy bleeding, easy bruising, lymphadenopathy Physical Exam Vital Signs: Temp Pulse Resp BP Pulse Ox 98.9 F 70 16 137/87 H 94 11/15/16 16:19 11/15/16 16:53 11/15/16 16:53 11/15/16 16:19 11/15/16 16:53 Intake & Output 11/14/16 11/15/16 11/16/16 06:59 06:59 06:59 Intake Total 600 Balance 600 Weight 55.9 kg Vital signs during dialysis when I saw her this morning: Blood pressure of 162/ 106, heart rate of 76, blood flow rate of 350 mL per minute, dialysate flow rate of 600 mL per minute. Exam: General appearance: no acute distress, cooperative, well-developed, well- nourished Head exam: PRESENT: atraumatic, normocephalic, positive obvious facial swelling Eye exam: PRESENT: Conjunctiva pale, EOMI, PERRLA. ABSENT: conjunctival injection, scleral icterus Mouth exam: PRESENT: moist, neck supple, tongue midline Neck exam: PRESENT: full ROM. ABSENT: carotid bruit, JVD, lymphadenopathy, thyromegaly Respiratory exam: PRESENT: Decreased to auscultation bilaterally. ABSENT: rales , rhonchi, stridor, wheezes Cardiovascular exam: PRESENT: RRR, +S1, +S2. ABSENT: systolic murmur Pulses: PRESENT: normal radial pulses, normal dorsalis pedis pulses GI/Abdominal exam: PRESENT: normal bowel sounds, soft. Positive epigastric tenderness and some abdominal bloating ABSENT: guarding, mass Rectal exam: deferred Extremities exam: PRESENT: full ROM. ABSENT: calf tenderness, pedal edema Musculoskeletal: PRESENT: full ROM. ABSENT: deformity Neurological exam: PRESENT: alert, Awake, Oriented to person, Oriented to place , Oriented to time, reflexes normal, CN II-XII grossly intact. ABSENT: motor sensory deficit Psychiatric exam: PRESENT: appropriate affect, normal mood. ABSENT: homicidal ideation, suicidal ideation Skin exam: PRESENT: intact, dry, warm. ABSENT: rash Results Laboratory Results: 11/15/16 08:10 11/15/16 08:10 11/15/16 11/15/16 08:10 08:10 WBC 7.2 RBC 2.80 L Hgb 9.4 L Hct 27.8 L MCV 99 H MCH 33.5 H MCHC 33.8 RDW 17.1 H Plt Count 101 L Seg Neutrophils % 60.4 Lymphocytes % 32.5 Monocytes % 4.6 Eosinophils % 1.9 Basophils % 0.6 Absolute Neutrophils 4.4 Absolute Lymphocytes 2.3 Absolute Monocytes 0.3 Absolute Eosinophils 0.1 Absolute Basophils 0.0 Sodium 135.5 L Potassium 5.4 H Chloride 96 L Carbon Dioxide 22 Anion Gap 18 BUN 56 H Creatinine 8.54 H Est GFR ( Amer) 7 L Est GFR (Non-Af Amer) 5 L Glucose 80 Calcium 8.6 Total Bilirubin 0.5 AST 34 ALT 59 H Alkaline Phosphatase 95 Total Protein 5.8 L Albumin 3.4 L Impressions: Abdomen/Pelvis CT 11/14/16 16:25 IMPRESSION: ATROPHIC STOCKBRIDGE KIDNEYS. TRANSPLANT KIDNEY IN THE RIGHT LOWER QUADRANT. OTHERWISE NO SIGNIFICANT OR ACUTE PROCESS IN THE ABDOMEN OR PELVIS. Assessment & Plan - Diagnosis (1) ESRD on dialysis Is this a current diagnosis for this admission?: YesPlan: We did dialysis today for [3] hours, using the patient's PermCath, with [2] potassium bath, blood flow rate of 350 mL per minute, dialysate flow rate of [ 600] mL per minute, ultrafiltration 4 L, [no heparin] and no Procrit during dialysis. We will continue to supervise dialysis will the patient is here in the hospital. (2) Hyperkalemia Is this a current diagnosis for this admission?: YesPlan: Dialysis today. (3) Anemia in chronic kidney disease (CKD) Is this a current diagnosis for this admission?: YesPlan: Patient's labs came and resulted late almost after dialysis since the blood was not drawn before dialysis treatment so Procrit was not given today. Her hemoglobin was 10.7 yesterday. We will give Procrit in the next dialysis treatment. (4) Hypertension Qualifiers: Hypertension type: essential hypertension Qualified Code(s): I10 - Essential (primary) hypertension Is this a current diagnosis for this admission?: YesPlan: Resume regular blood pressure medications. (5) Acute recurrent pancreatitis Is this a current diagnosis for this admission?: YesPlan: Primary service managing as well as gastroenterology service. - Notes Notes: Thank you very much for this consultation. We will follow the patient with you. - Time Time Spent: 50 to 70 Minutes
[2016-11-15] MEDS ORDERED: WARFARIN SODIUM 5 MG TABLET PO SCH (22:00)
[2016-11-15] MEDS ORDERED: FAMOTIDINE 20 MG TABLET PO SCH (22:00)
[2016-11-15] MEDS: FAMOTIDINE 20 MG TABLET PO SCH (22:06)
[2016-11-16] MEDS: MORPHINE SULFATE 10 MG/ML INJ IV PRN ×2 (02:08→06:21)
[2016-11-16 05:24] LABS: HEMATOCRIT 28.4 % (36.0-47.0); HEMOGLOBIN 9.6 g/dL (12.0-15.5); HGB HCT DIFFERENCE 0.4; MEAN CORPUSCULAR HEMOGLOBIN 33.5 pg (27.0-33.4); MEAN CORPUSCULAR HGB CONC 33.8 g/dL (32.0-36.0); MEAN CORPUSCULAR VOLUME 99 fl (80-97); RED BLOOD COUNT 2.86 10^6/uL (3.72-5.28); RED CELL DISTRIBUTION WIDTH 16.8 % (11.5-14.0); WHITE BLOOD COUNT 5.7 10^3/uL (4.0-10.5)
[2016-11-16] MEDS ORDERED: SIMETHICONE 40 MG/0.6 ML DROPS 30ML PO ONE (09:12)
[2016-11-16] MEDS ORDERED: MAG HYDROX/AL HYDROX/SIMETH SUSP 30 ML UDCUP PO ONE (10:00)
[2016-11-16] MEDS ORDERED: LIDOCAINE 2% VISCOUS SOLN 20 ML UDCUP PO ONE (10:00)
[2016-11-16] MEDS ORDERED: SIMETHICONE 80 MG TAB.CHEW PO ONE (10:00)
[2016-11-16] MEDS: FAMOTIDINE 20 MG TABLET PO SCH (10:35)
[2016-11-16] MEDS: METOPROLOL SUCCINATE 50 MG TAB.SR.24H PO SCH (10:35)
[2016-11-16] MEDS: HYDRALAZINE HCL 10 MG TABLET PO SCH (10:35)
[2016-11-16] MEDS: LANSOPRAZOLE 15 MG TAB.RAP.DR PO SCH (10:36)
[2016-11-16] MEDS: DICYCLOMINE HCL 10 MG CAPSULE PO SCH ×2 (10:36→15:01)
[2016-11-16] MEDS: AMLODIPINE BESYLATE 10 MG TABLET PO SCH (10:36)
[2016-11-16] MEDS: CALCIUM ACETATE 667 MG CAPSULE PO SCH ×2 (10:39→15:01)
[2016-11-16 14:34] VITALS: BP 123/80
--- NOTE | 2016-11-16 17:14 | PDOC DISCHARGE SUMMARY ---
General - Admit/Disc Date/PCP Admission Date/Primary Care Provider: 11/14/16 19:46 Automatic Spreader Operator: Dr. Cavanaugh Discharge Date: 11/16/16 - Discharge Diagnosis (1) Acute on chronic pancreatitis Is this a current diagnosis for this admission?: Yes (2) Anemia in chronic kidney disease (CKD) Is this a current diagnosis for this admission?: Yes (3) Hypertension Is this a current diagnosis for this admission?: Yes (4) Hyperkalemia Is this a current diagnosis for this admission?: Yes (5) Hyponatremia Is this a current diagnosis for this admission?: Yes (6) Metabolic acidosis Is this a current diagnosis for this admission?: Yes (7) Hyperkalemia Is this a current diagnosis for this admission?: Yes (8) Chronic anticoagulation Is this a current diagnosis for this admission?: Yes (9) History of pulmonary embolism Is this a current diagnosis for this admission?: Yes (10) Chronic rejection of kidney transplant Is this a current diagnosis for this admission?: Yes (11) ESRD on dialysis Is this a current diagnosis for this admission?: Yes (12) Tobacco abuse Is this a current diagnosis for this admission?: Yes (13) Cervical adenopathy Is this a current diagnosis for this admission?: No - Additional Information Resuscitation Status: Full Code Discharge Diet: As Tolerated - Fat free Discharge Activity: Activity As Tolerated Home Medications: Amlodipine Besylate [Norvasc 10 mg Tablet] 10 mg PO DAILY 10/09/16 Calcium Acetate [Phoslo 667 mg Capsule] 1,334 mg PO AC 10/09/16 Hydralazine HCl [Apresoline 10 mg Tablet] 10 mg PO DAILY 10/09/16 Metoprolol Succinate [Toprol XL 100 mg Tablet] 100 mg PO Q12 10/09/16 Pregabalin [Lyrica 75 mg Capsule] 75 mg PO QHS #30 capsule 10/27/16 Omeprazole 20 mg PO BID 11/12/16 Lipase/Protease/Amylase [Timo Castillo 12,000 Units Capsule] 1 cap PO AC 11/15/16 Dicyclomine HCl [Bentyl 10 mg Capsule] 10 mg PO TIDP PRN #0 11/16/16 Warfarin Sodium [Coumadin 5 mg Tablet] 5 mg PO QHS #10 tablet 11/16/16 History of Present Illness Patient complains of: Epigastric pain History of Present Illness: MILAGROS RAMOS is a 31 year old female with a past medical history of end-stage renal failure on hemodialysis Tuesday and a recent hospitalization for pancreatitis in early October 2016. She admits that her epigastric pain is a continuum from early October and has waxed and waned but over the last 3 days significantly worsened unable to tolerate by mouth with intermittent radiation of pain from the epigastrium to the back prompting him to seek evaluation emergency room where she's found to have a elevated lipase and referred to the hospitalist after an otherwise unremarkable workup. Late last week she had upper endoscopy by Dr. Masters with uncertain findings. Patient denies any new medications, alcohol or infectious contacts. Hospital Course Hospital Course: The patient was admitted to a continuous telemetry unit. The patient maintained NPO status and aggressively hydrated. The patient's lipase improved and low fat diet advanced accordingly without an increase in lipase. The patient's symptoms of abdominal pain, nausea, or vomiting were managed with appropriate analgesia and/or antiemetic. The patient is now able to maintain hydration. Nephrology was consult and Patient was dialyzed. Patient had complete symptom resolution and is ready for discharge. Physical Exam Vital Signs: Temp Pulse Resp BP Pulse Ox 98.7 F 70 12 123/80 96 11/16/16 14:32 11/16/16 14:32 11/16/16 14:32 11/16/16 14:32 11/16/16 14:32 Intake & Output 11/14/16 11/15/16 11/16/16 23:59 23:59 23:59 Intake Total 600 720 Output Total 0 Balance 600 720 Weight 55.9 kg 53.1 kg General appearance: PRESENT: no acute distress, well-developed, well-nourished Head exam: PRESENT: atraumatic, normocephalic Eye exam: PRESENT: conjunctiva pink, EOMI, PERRLA. ABSENT: scleral icterus Ear exam: PRESENT: normal external ear exam Mouth exam: PRESENT: moist, tongue midline Neck exam: ABSENT: carotid bruit, JVD, lymphadenopathy, thyromegaly Respiratory exam: PRESENT: clear to auscultation marquis. ABSENT: rales, rhonchi, wheezes Cardiovascular exam: PRESENT: RRR. ABSENT: diastolic murmur, rubs, systolic murmur Pulses: PRESENT: normal dorsalis pedis pul Vascular exam: PRESENT: normal capillary refill GI/Abdominal exam: PRESENT: normal bowel sounds, soft. ABSENT: distended, guarding, mass, organolmegaly, rebound, tenderness Rectal exam: PRESENT: deferred Extremities exam: PRESENT: full ROM. ABSENT: calf tenderness, clubbing, pedal edema Neurological exam: PRESENT: alert, awake, oriented to person, oriented to place , oriented to time, oriented to situation, CN II-XII grossly intact. ABSENT: motor sensory deficit Psychiatric exam: PRESENT: appropriate affect, normal mood. ABSENT: homicidal ideation, suicidal ideation Skin exam: PRESENT: dry, intact, warm. ABSENT: cyanosis, rash Results Laboratory Results: Labs- Entire Visit 11/14/16 11/14/16 11/14/16 17:35 17:35 17:35 WBC 8.3 RBC 3.23 L Hgb 10.7 L Hct 32.2 L MCV 100 H MCH 33.0 MCHC 33.1 RDW 16.9 H Plt Count 120 L Seg Neutrophils % 58.6 Lymphocytes % 31.1 Monocytes % 6.7 Eosinophils % 2.4 Basophils % 1.2 Absolute Neutrophils 4.9 Absolute Lymphocytes 2.6 Absolute Monocytes 0.6 Absolute Eosinophils 0.2 Absolute Basophils 0.1 PT INR Sodium Cancelled Potassium Cancelled Chloride Cancelled Carbon Dioxide Cancelled Anion Gap Cancelled BUN Cancelled Creatinine Cancelled Est GFR ( Amer) Cancelled Est GFR (Non-Af Amer) Cancelled Glucose Cancelled POC Glucose Calcium Cancelled Total Bilirubin Cancelled Direct Bilirubin Cancelled AST Cancelled ALT Cancelled Alkaline Phosphatase Cancelled Total Protein Cancelled Albumin Cancelled Lipase Cancelled Serum HCG, Qual Cancelled 11/14/16 11/14/16 11/14/16 17:35 18:22 18:22 WBC RBC Hgb Hct MCV MCH MCHC RDW Plt Count Seg Neutrophils % Lymphocytes % Monocytes % Eosinophils % Basophils % Absolute Neutrophils Absolute Lymphocytes Absolute Monocytes Absolute Eosinophils Absolute Basophils PT 13.6 INR 1.01 Sodium 135.3 L Potassium 5.9 H Chloride 97 L Carbon Dioxide 19 L Anion Gap 19 BUN 58 H Creatinine 7.95 H Est GFR ( Amer) 7 L Est GFR (Non-Af Amer) 6 L Glucose 76 POC Glucose Calcium 8.5 Total Bilirubin 0.5 Direct Bilirubin 0.0 AST 38 H ALT 71 H Alkaline Phosphatase 111 Total Protein 6.3 Albumin 3.6 Lipase 846.4 H Serum HCG, Qual NEGATIVE 11/15/16 11/15/16 11/15/16 01:33 03:08 04:04 WBC RBC Hgb Hct MCV MCH MCHC RDW Plt Count Seg Neutrophils % Lymphocytes % Monocytes % Eosinophils % Basophils % Absolute Neutrophils Absolute Lymphocytes Absolute Monocytes Absolute Eosinophils Absolute Basophils PT INR Sodium Potassium Chloride Carbon Dioxide Anion Gap BUN Creatinine Est GFR ( Amer) Est GFR (Non-Af Amer) Glucose POC Glucose 44 L 79 82 Calcium Total Bilirubin Direct Bilirubin AST ALT Alkaline Phosphatase Total Protein Albumin Lipase Serum HCG, Qual 11/15/16 11/15/16 11/15/16 05:15 06:07 07:55 WBC RBC Hgb Hct MCV MCH MCHC RDW Plt Count Seg Neutrophils % Lymphocytes % Monocytes % Eosinophils % Basophils % Absolute Neutrophils Absolute Lymphocytes Absolute Monocytes Absolute Eosinophils Absolute Basophils PT INR Sodium Potassium Chloride Carbon Dioxide Anion Gap BUN Creatinine Est GFR ( Amer) Est GFR (Non-Af Amer) Glucose POC Glucose 75 82 78 Calcium Total Bilirubin Direct Bilirubin AST ALT Alkaline Phosphatase Total Protein Albumin Lipase Serum HCG, Qual 11/15/16 11/15/16 11/16/16 08:10 08:10 04:18 WBC 7.2 5.7 RBC 2.80 L 2.86 L Hgb 9.4 L 9.6 L Hct 27.8 L 28.4 L MCV 99 H 99 H MCH 33.5 H 33.5 H MCHC 33.8 33.8 RDW 17.1 H 16.8 H Plt Count 101 L 105 L Seg Neutrophils % 60.4 Lymphocytes % 32.5 Monocytes % 4.6 Eosinophils % 1.9 Basophils % 0.6 Absolute Neutrophils 4.4 Absolute Lymphocytes 2.3 Absolute Monocytes 0.3 Absolute Eosinophils 0.1 Absolute Basophils 0.0 PT INR Sodium 135.5 L Potassium 5.4 H Chloride 96 L Carbon Dioxide 22 Anion Gap 18 BUN 56 H Creatinine 8.54 H Est GFR ( Amer) 7 L Est GFR (Non-Af Amer) 5 L Glucose 80 POC Glucose Calcium 8.6 Total Bilirubin 0.5 Direct Bilirubin 0.0 AST 34 ALT 59 H Alkaline Phosphatase 95 Total Protein 5.8 L Albumin 3.4 L Lipase Serum HCG, Qual 11/16/16 04:18 WBC RBC Hgb Hct MCV MCH MCHC RDW Plt Count Seg Neutrophils % Lymphocytes % Monocytes % Eosinophils % Basophils % Absolute Neutrophils Absolute Lymphocytes Absolute Monocytes Absolute Eosinophils Absolute Basophils PT INR Sodium Potassium Chloride Carbon Dioxide Anion Gap BUN Creatinine Est GFR ( Amer) Est GFR (Non-Af Amer) Glucose POC Glucose Calcium Total Bilirubin Direct Bilirubin AST ALT Alkaline Phosphatase Total Protein Albumin Lipase 240.5 Serum HCG, Qual Impressions: Abdomen/Pelvis CT 11/14/16 16:25 IMPRESSION: ATROPHIC HABEMATOLEL KIDNEYS. TRANSPLANT KIDNEY IN THE RIGHT LOWER QUADRANT. OTHERWISE NO SIGNIFICANT OR ACUTE PROCESS IN THE ABDOMEN OR PELVIS. Qualifiers PATEINT BEING DISCHARGED WITH ANY OF THE FOLLOWING DIAGNOSIS?: No Plan Discharge Plan: The patient is to follow with Dr. Masters as already scheduled within the week. Time Spent: Less than 30 Minutes
== END 2016-11-16 15:11 | disposition home or self-care (01) | DRG 438 ==
LOC: ER 13:49 → EH 19:46 → UNDOADMIN 19:52 → 4N 11-15 01:26
PROVIDERS: ADMIT Internal Medicine; ATTEND Internal Medicine
PROC: 5A1D00Z (ICD-10-PCS; principal; 2016-11-15)
DX: K85.90 Acute pancreatitis without necrosis or infection, unspecified (principal); N18.6 End stage renal disease; I12.0 Hypertensive chronic kidney disease with stage 5 chronic kidney disease or end stage renal disease; T86.11 Kidney transplant rejection; E87.1 Hypo-osmolality and hyponatremia; E87.2 Acidosis; D63.1 Anemia in chronic kidney disease; K86.1 Other chronic pancreatitis; F17.210 Nicotine dependence, cigarettes, uncomplicated; K21.9 Gastro-esophageal reflux disease without esophagitis; F32.9 Major depressive disorder, single episode, unspecified; Z90.49 Acquired absence of other specified parts of digestive tract; Z98.51 Tubal ligation status; E87.5 Hyperkalemia; Z79.01 Long term (current) use of anticoagulants; Z99.2 Dependence on renal dialysis; Z91.041 Radiographic dye allergy status; Z86.711 Personal history of pulmonary embolism; Z88.1 Allergy status to other antibiotic agents
CPT/HCPCS: 36415; 74176; 80053; 82962; 83690; 84703; 85025; 85027; 85610; 88305; 88342; 93005; 93010; 99291; J1200; J1644; J2270; J2405; J3490; J7030

== ENCOUNTER 2016-11-20 10:37 | Observation (INO) | payer MEDICARE, MEDICAID ==
--- NOTE | 2016-11-20 10:56 | ER Document Report ---
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 She has recurrent angry otitis last episode 3 weeks ago and it feels the same. She vomited this morning. No diarrhea. No fever. History of cholecystectomy and tubal ligation. No menses. TRAVEL OUTSIDE OF THE [place] IN LAST 30 DAYS: No - Related Data Allergies/Adverse Reactions: metoclopramide HCl [From Reglan] Allergy (Severe, Verified 11/12/16 10:14) DYSTONIC REACTION vancomycin [Vancomycin] Allergy (Intermediate, Verified 11/12/16 10:14) rash amoxicillin [Amoxicillin] Allergy (Mild, Verified 11/12/16 10:14) Hives Iodinated Contrast Media - Oral and [IV Dye, Iodine Containing] Adverse Reaction (Severe, Verified 11/12/16 10:14) esrd ok with topical Past Medical History - Past Medical History Cardiac Medical History: Reports: Hx Hypertension - CONTROLLED WITH MED, Hx Pulmonary Embolism Denies: Hx Coronary Artery Disease, Hx Heart Attack Pulmonary Medical History: Denies: Hx Asthma, Hx Bronchitis, Hx COPD, Hx Pneumonia, Hx Tuberculosis Neurological Medical History: Reports: Hx Seizures - BABY, NONE SINCE AGE 1/ FEBRILE. 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 Denies: Hx Kidney Stones GI Medical History: Reports: Hx Gastroesophageal Reflux Disease. Denies: Hx Hepatitis, Hx Hiatal Hernia, Hx Ulcer Musculoskeltal Medical History: Denies Hx Arthritis Psychiatric Medical History: Reports: Hx Anxiety, Hx Depression Infectious Medical History: Denies: Hx Hepatitis Past Surgical History: Reports: Hx Cholecystectomy - 01/2010, Hx Herniorrhaphy - Double hernia repair, Hx Kidney (Renal Surgery) - kidney transplant 2004, Hx Tubal Ligation, Hx Vascular Surgery - PermCath placement for dialysis, multiple procedures for declotting CVC. Denies: Hx Appendectomy, Hx Bowel Surgery, Hx Section, Hx Hysterectomy, Hx Mastectomy, Hx Open Heart Surgery, Hx Pacemaker, Hx Tonsillectomy - Immunizations Immunizations up to date: Yes Hx Diphtheria, Pertussis, Tetanus Vaccination: Yes Physical Exam - Vital signs Vitals: Temp Pulse Resp BP Pulse Ox 97.5 F 80 20 124/81 100 11/20/16 10:44 11/20/16 10:44 11/20/16 10:44 11/20/16 10:44 11/20/16 10:44 Course - Vital Signs Vital signs: Temp Pulse Resp BP Pulse Ox 97.5 F 80 20 124/81 100 11/20/16 10:44 11/20/16 10:44 11/20/16 10:44 11/20/16 10:44 11/20/16 10:44
[2016-11-20] MEDS ORDERED: ONDANSETRON HCL INJ/PF 4 MG/2 ML SDV IV ONE ×2 (11:31→14:42)
[2016-11-20] MEDS ORDERED: MORPHINE SULFATE 10 MG/ML INJ IV ONE (11:31)
--- NOTE | 2016-11-20 11:31 | ER Document Report ---
ED General - General Chief Complaint: Abdominal Pain Stated Complaint: NAUSEA AND VOMITING Mode of Arrival: Ambulatory Notes: Patient presents to the emergency department with complaints of abdominal pain vomiting back pain. Patient has history of FSGS, kidney transplant and rejection. She is now on hemodialysis and also has history of pancreatitis. Patient reports she started having upper back pain on Tuesday. Today she started having abdominal pain and vomiting. She reports low-grade fever of 100.1. Pt reports RFA, LFA fistula that does not work anymore. Pt has permcath right chest that is now utilized for dialysis. TRAVEL OUTSIDE OF THE [place] IN LAST 30 DAYS: No - HPI Onset: Other Onset/Duration: Gradual Quality of pain: Achy, Sharp Severity: Severe Pain Level: 5 Associated symptoms: Fever, Vomiting Exacerbated by: Denies Relieved by: Denies Similar symptoms previously: Yes Recently seen / treated by doctor: No - Related Data Allergies/Adverse Reactions: metoclopramide HCl [From Reglan] Allergy (Severe, Verified 11/12/16 10:14) DYSTONIC REACTION vancomycin [Vancomycin] Allergy (Intermediate, Verified 11/12/16 10:14) rash amoxicillin [Amoxicillin] Allergy (Mild, Verified 11/12/16 10:14) Hives Iodinated Contrast Media - Oral and [IV Dye, Iodine Containing] Adverse Reaction (Severe, Verified 11/12/16 10:14) esrd ok with topical Home Medications: Current Home Medications Amlodipine Besylate [Norvasc 10 mg Tablet] 10 mg PO DAILY 11/20/16 [History] Calcium Acetate [Phoslo 667 mg Capsule] 1.334 mg PO TID 11/20/16 [History] Dicyclomine HCl [Bentyl 10 mg Capsule] 10 mg PO TIDP PRN 11/20/16 [History] Hydralazine HCl [Apresoline 10 mg Tablet] 10 mg PO DAILY 11/20/16 [History] Lipase/Protease/Amylase [Creon Dr 12,000 Units Capsule] 1 each PO QID 11/20/16 [ History] Metoprolol Succinate [Toprol XL 100 mg Tablet] 100 mg PO Q12 11/20/16 [History] Omeprazole 20 mg PO BID 11/20/16 [History] Pregabalin [Lyrica 75 mg Capsule] 75 mg PO QHS 11/20/16 [History] Warfarin Sodium [Coumadin 5 mg Tablet] 5 mg PO QHS 11/20/16 [History] Past Medical History - General Information source: Patient - Social History Smoking Status: Current Every Day Smoker Family History: Arthritis, Malignancy - Past Medical History Cardiac Medical History: Reports: Hx Hypertension - CONTROLLED WITH MED, Hx Pulmonary Embolism Denies: Hx Coronary Artery Disease, Hx Heart Attack Pulmonary Medical History: Denies: Hx Asthma, Hx Bronchitis, Hx COPD, Hx Pneumonia, Hx Tuberculosis Neurological Medical History: Reports: Hx Seizures - BABY, NONE SINCE AGE 1/ FEBRILE. 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 Denies: Hx Kidney Stones GI Medical History: Reports: Hx Gastroesophageal Reflux Disease. Denies: Hx Hepatitis, Hx Hiatal Hernia, Hx Ulcer Musculoskeltal Medical History: Denies Hx Arthritis Psychiatric Medical History: Reports: Hx Anxiety, Hx Depression Infectious Medical History: Denies: Hx Hepatitis Past Surgical History: Reports: Hx Cholecystectomy - 01/2010, Hx Herniorrhaphy - Double hernia repair, Hx Kidney (Renal Surgery) - kidney transplant 2004, Hx Tubal Ligation, Hx Vascular Surgery - PermCath placement for dialysis, multiple procedures for declotting CVC. Denies: Hx Appendectomy, Hx Bowel Surgery, Hx Section, Hx Hysterectomy, Hx Mastectomy, Hx Open Heart Surgery, Hx Pacemaker, Hx Tonsillectomy - Immunizations Immunizations up to date: Yes Hx Diphtheria, Pertussis, Tetanus Vaccination: Yes Hx Pneumococcal Vaccination: 07/10/14 Physical Exam - Vital signs Vitals: Temp Pulse Resp BP Pulse Ox 97.5 F 80 20 124/81 100 11/20/16 10:44 11/20/16 10:44 11/20/16 10:44 11/20/16 10:44 11/20/16 10:44 - Notes Notes: PHYSICAL EXAMINATION: GENERAL: nontoxic looking HEAD: Atraumatic, normocephalic. EYES: Pupils equal round extraocular movements intact, sclera anicteric, conjunctiva are normal. ENT: nares patent, Moist mucous membranes. NECK: Normal range of motion, supple without lymphadenopathy LUNGS: CTAB and equal. No wheezes rales or rhonchi. HEART: Regular rate and rhythm without murmurs ABDOMEN: distended, Soft, epigastric tenderness. No guarding, no rebound EXTREMITIES: Normal range of motion, no pitting edema. No cyanosis. fistula noted to LFA and RFA- +thrill to LFA, sites benign NEUROLOGICAL: Cranial nerves grossly intact. Normal sensory/motor PSYCH: Normal mood, normal affect. SKIN: Warm, Dry, normal turgor, no rashes or lesions noted Course - Re-evaluation Re-evalutation: 11/20/16 13:54 I have consulted the attending provider dr umanzor per [facility] guidelines. Advised GI cocktail without Reglan and clear liquids. Patient instructed on plan of care. She reports a little bit of pain right now. 11/20/16 14:42 Patient reports modified GI cocktail made her stomach hurt more. She reports she feels nauseated. Dr Umanzor consulted, dilaudid and zofran ordered 11/20/16 14:50 Dr. Umanzor in to assess patient agrees with admission. Dr. Alex consulted and agrees to the telemetry admission. - Vital Signs Vital signs: Temp Pulse Resp BP Pulse Ox 98.0 F 72 20 111/72 94 11/20/16 15:18 11/20/16 15:18 11/20/16 10:57 11/20/16 15:18 11/20/16 15:18 - Laboratory Result Diagrams: 11/20/16 11:49 11/20/16 11:49 Laboratory results interpreted by me: 11/20/16 11/20/16 11:49 11:49 RBC 3.29 L Hgb 10.9 L Hct 32.3 L MCV 98 H RDW 15.7 H Plt Count 130 L Chloride 96 L BUN 21 H Creatinine 4.73 H Est GFR ( Amer) 13 L Est GFR (Non-Af Amer) 11 L Glucose 73 L Lipase 329.4 H Discharge - Discharge Clinical Impression: Abdominal pain Qualifiers: Abdominal location: epigastric Qualified Code(s): R10.13 - Epigastric pain Condition: Stable Disposition: ADMITTED INPATIENT Admitting Provider: [facility] Admitted: Telemetry
[2016-11-20 12:10] LABS: ABSOLUTE EOSINOPHILS # (AUTO) 0.3 10^3/uL (0.0-0.6); ABSOLUTE LYMPHOCYTES (AUTO) 0.9 10^3/uL (0.5-4.7); ABSOLUTE MONOCYTES (AUTO) 0.5 10^3/uL (0.1-1.4); ABSOLUTE NEUT (AUTO) 3.3 10^3/uL (1.7-8.2); BASOPHILS % (AUTO) 0.9 % (0-2); EOSINOPHILS % (AUTO) 5.3 % (0-6); HEMATOCRIT 32.3 % (36.0-47.0); HEMOGLOBIN 10.9 g/dL (12.0-15.5); HGB HCT DIFFERENCE 0.4; LYMPHOCYTES % (AUTO) 18.5 % (13-45); MEAN CORPUSCULAR HEMOGLOBIN 33.1 pg (27.0-33.4); MEAN CORPUSCULAR HGB CONC 33.7 g/dL (32.0-36.0); MEAN CORPUSCULAR VOLUME 98 fl (80-97); MONOCYTES % (AUTO) 10.1 % (3-13); RED BLOOD COUNT 3.29 10^6/uL (3.72-5.28); RED CELL DISTRIBUTION WIDTH 15.7 % (11.5-14.0); SEGMENTED NEUTROPHILS % (AUTO) 65.2 % (42-78); WHITE BLOOD COUNT 5.1 10^3/uL (4.0-10.5)
[2016-11-20 12:20] LABS: ALANINE AMINOTRANSFERASE 48 U/L (9-52); ALBUMIN 4.7 g/dL (3.5-5.0); ALKALINE PHOSPHATASE 109 U/L (38-126); ANION GAP 15 (5-19); ASPARTATE AMINO TRANSFERASE 34 U/L (14-36); BILIRUBIN,TOTAL 0.7 mg/dL (0.2-1.3); BLOOD UREA NITROGEN 21 mg/dL (7-20); CALCIUM 9.5 mg/dL (8.4-10.2); CARBON DIOXIDE 27 mmol/L (22-30); CHLORIDE 96 mmol/L (98-107); CREATININE RESULT 4.73 mg/dL (0.52-1.25); GLUCOSE 73 mg/dL (75-110); LIPASE 329.4 U/L (23-300); SODIUM 137.7 mmol/L (137-145)
[2016-11-20 12:23] LABS: POTASSIUM 4.6 mmol/L (3.6-5.0)
[2016-11-20] MEDS ORDERED: HYDROMORPHONE HCL INJ/PF 2 MG/ML AMPULE IV ONE ×2 (12:33→14:42)
[2016-11-20] MEDS ORDERED: LIDOCAINE 2% VISCOUS SOLN 20 ML UDCUP PO ONE (13:51)
[2016-11-20] MEDS ORDERED: MAG HYDROX/AL HYDROX/SIMETH SUSP 30 ML UDCUP PO ONE (13:51)
[2016-11-20 16:22] LABS: PARTIAL THROMBOPLASTIN TIME 33.1 SEC (23.5-35.8)
[2016-11-20] MEDS ORDERED: NORMAL SALINE 1000 ML 1,000 ML IV PRN (16:27)
[2016-11-20] MEDS ORDERED: ACETAMINOPHEN 325 MG TABLET PO PRN (16:27)
[2016-11-20] MEDS ORDERED: DICYCLOMINE HCL 10 MG CAPSULE PO PRN (16:35)
--- NOTE | 2016-11-20 17:00 | PDOC H&P ---
History of Present Illness Admission Date/PCP: 11/20/16 14:58 BIBIANA CLAUDIO NP Patient complains of: Nausea vomiting abdominal pain History of Present Illness: MILAGROS RAMOS is a 31 year old female, with end-stage renal disease on dialysis , chronic pancreatitis, recently admitted and discharged from the hospital for pancreatitis apparently came back to the hospital with nausea and vomiting. Patient's abdominal pain is intermittent. She started to develop nausea and vomiting 2 days ago. It has gotten worse today. Denies constipation but admits to soft sometimes watery stools. No melena hematochezia and hematemesis. She still breaks out urine every 3 days but no noted dysuria. Last admission she has a CT of the abdomen and pelvis showing no peripancreatic fluid nor pancreatic inflammation. Patient is being followed by gastroenterology, Dr. Masters. Pain is located in the epigastric area sometimes radiating to the back. Today her pain is more in the flank on the right side. In the emergency room lipase was 329. Patient was referred for admission for pancreatitis. 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 GI Medical History: Reports: Gastroesophageal Reflux Disease Denies: Hepatitis, Hiatal Hernia Musculoskeltal Medical History: Denies: Arthritis Psychiatric Medical History: Reports: Depression Hematology: Reports: Anemia Denies: Sickle Cell Disease Past Surgical History Past Surgical History: Reports: Cholecystectomy - 01/2010, Herniorrhaphy - Double hernia repair, Tubal Ligation, Vascular Surgery - PermCath placement for dialysis, multiple procedures for declotting CVC Denies: Amputation, Appendectomy, Section, Hysterectomy, Mastectomy , Pacemaker, Tonsillectomy Social History Information Source: Patient Smoking Status: Current Every Day Smoker Frequency of Alcohol Use: None Hx Recreational Drug Use: No Drugs: None Hx Prescription Drug Abuse: No Family History Family History: Arthritis, Malignancy Parental Family History Reviewed: Yes Children Family History Reviewed: Yes Sibling(s) Family History Reviewed.: Yes Medication/Allergy Home Medications: Amlodipine Besylate [Norvasc 10 mg Tablet] 10 mg PO DAILY 11/20/16 Calcium Acetate [Phoslo 667 mg Capsule] 1.334 mg PO TID 11/20/16 Dicyclomine HCl [Bentyl 10 mg Capsule] 10 mg PO TIDP PRN 11/20/16 Hydralazine HCl [Apresoline 10 mg Tablet] 10 mg PO DAILY 11/20/16 Lipase/Protease/Amylase [Creon Dr 12,000 Units Capsule] 1 each PO QID 11/20/16 Metoprolol Succinate [Toprol XL 100 mg Tablet] 100 mg PO Q12 11/20/16 Omeprazole 20 mg PO BID 11/20/16 Pregabalin [Lyrica 75 mg Capsule] 75 mg PO QHS 11/20/16 Warfarin Sodium [Coumadin 5 mg Tablet] 5 mg PO QHS 11/20/16 Allergies/Adverse Reactions: metoclopramide HCl [From Reglan] Allergy (Severe, Verified 11/12/16 10:14) DYSTONIC REACTION vancomycin [Vancomycin] Allergy (Intermediate, Verified 11/12/16 10:14) rash amoxicillin [Amoxicillin] Allergy (Mild, Verified 11/12/16 10:14) Hives Iodinated Contrast Media - Oral and [IV Dye, Iodine Containing] Adverse Reaction (Severe, Verified 11/12/16 10:14) esrd ok with topical Review of Systems Constitutional: ABSENT: chills, fever(s), headache(s), weight gain, weight loss Eyes: ABSENT: visual disturbances Ears: ABSENT: hearing changes Nose, Mouth, and Throat: ABSENT: mouth pain, sore throat Cardiovascular: ABSENT: chest pain, dyspnea on exertion, edema, orthropnea, palpitations Respiratory: ABSENT: cough, hemoptysis Gastrointestinal: PRESENT: abdominal pain, bloating, diarrhea, nausea, vomiting. ABSENT: constipation, hematemesis, hematochezia, melena Genitourinary: ABSENT: difficulty urinating, dysuria, hematuria Musculoskeletal: ABSENT: joint swelling Integumentary: ABSENT: pruritus, rash, wounds Neurological: ABSENT: abnormal gait, abnormal speech, confusion, dizziness, focal weakness, syncope Psychiatric: ABSENT: anxiety, depression, homidical ideation, suicidal ideation Endocrine: ABSENT: cold intolerance, heat intolerance, polydipsia, polyuria Hematologic/Lymphatic: ABSENT: easy bleeding, easy bruising Physical Exam Vital Signs: Temp Pulse Resp BP Pulse Ox 98.0 F 72 20 111/72 94 11/20/16 15:18 11/20/16 15:18 11/20/16 10:57 11/20/16 15:18 11/20/16 15:18 General appearance: PRESENT: no acute distress, cooperative Head exam: PRESENT: atraumatic, normocephalic Eye exam: PRESENT: conjunctiva pale, EOMI, PERRLA. ABSENT: scleral icterus Ear exam: PRESENT: normal external ear exam Mouth exam: PRESENT: moist, neck supple, tongue midline Neck exam: ABSENT: carotid bruit, JVD, lymphadenopathy, thyromegaly Respiratory exam: PRESENT: clear to auscultation marquis. ABSENT: rales, rhonchi, wheezes Cardiovascular exam: PRESENT: RRR, systolic murmur - 2/6 on the left sternal border with midsystolic click. ABSENT: diastolic murmur, rubs Pulses: PRESENT: normal dorsalis pedis pul Vascular exam: PRESENT: normal capillary refill GI/Abdominal exam: PRESENT: hyperactive bowel sounds, soft, tenderness - More on the epigastric area. ABSENT: distended, guarding, mass, organolmegaly, rebound Rectal exam: PRESENT: deferred Extremities exam: PRESENT: full ROM. ABSENT: calf tenderness, clubbing, pedal edema Neurological exam: PRESENT: alert, awake, oriented to person, oriented to place , oriented to time, oriented to situation Psychiatric exam: PRESENT: appropriate affect, normal mood. ABSENT: homicidal ideation, suicidal ideation Skin exam: PRESENT: dry, intact, warm. ABSENT: cyanosis, rash Assessment & Plan - Diagnosis (1) Abdominal pain Qualifiers: Abdominal location: epigastric Qualified Code(s): R10.13 - Epigastric pain Is this a current diagnosis for this admission?: Yes (2) Nausea and vomiting Qualifiers: Vomiting type: unspecified Vomiting Intractability: unspecified Qualified Code(s): R11.2 - Nausea with vomiting, unspecified Is this a current diagnosis for this admission?: Yes (3) Chronic pancreatitis Qualifiers: Pancreatitis type: unspecified pancreatitis type Qualified Code(s): K86.1 - Other chronic pancreatitis Is this a current diagnosis for this admission?: Yes (4) Anemia in chronic kidney disease (CKD) Is this a current diagnosis for this admission?: Yes (5) History of pulmonary embolism Is this a current diagnosis for this admission?: Yes (6) Hypertension Qualifiers: Hypertension type: essential hypertension Qualified Code(s): I10 - Essential (primary) hypertension Is this a current diagnosis for this admission?: Yes (7) ESRD on dialysis Is this a current diagnosis for this admission?: Yes (8) Cervical adenopathy Is this a current diagnosis for this admission?: Yes - Time Time Spent: 30 to 50 Minutes Within: within 24 hours - Plan Summary Plan Summary: The patient will be admitted to observation. We will monitor lipase as well as amylase level. I will gently hydrate the patient with normal saline. We will monitor electrolytes WBC as well. We will do a urinalysis and a urine culture. We will check a KUB for impaction. I will continue the warfarin and monitor PT/INR. Further testing depends on the initial evaluation as outlined above.
[2016-11-20] MEDS: LANSOPRAZOLE 30 MG TAB.RAP.DR PO SCH (17:20)
[2016-11-20 17:58] LABS: APPEARANCE,URINE TURBID; BILIRUBIN,URINE NEGATIVE (NEGATIVE); GLUCOSE, URINE 50 mg/dL (NEGATIVE); KETONES,URINE NEGATIVE (NEGATIVE); LEUKOCYTE ESTERASE,URINE LARGE (NEGATIVE); NITRITE,URINE NEGATIVE (NEGATIVE); PROTEIN,URINE 100 mg/dL (NEGATIVE); URINE SPECIFIC GRAVITY 1.005; UROBILINOGEN,URINE NEGATIVE mg/dL (<2.0)
[2016-11-20] MEDS ORDERED: (PENDING PHARMACY ID) (Lipase/Protease/Amylase [Creon Dr 12,000 Units Capsule] 1 EACH) PO SCH (18:00)
[2016-11-20] MEDS: HYDROMORPHONE HCL INJ/PF 2 MG/ML AMPULE IV PRN ×2 (18:17→22:15)
[2016-11-20] MEDS: CALCIUM ACETATE 667 MG CAPSULE PO SCH (19:28)
[2016-11-20] MEDS: PREGABALIN 75 MG CAPSULE PO SCH (21:19)
[2016-11-20] MEDS: WARFARIN SODIUM 5 MG TABLET PO SCH (21:19)
[2016-11-20] MEDS: METOPROLOL SUCCINATE 50 MG TAB.SR.24H PO SCH (21:19)
[2016-11-20] MEDS: ONDANSETRON HCL INJ/PF 4 MG/2 ML SDV IV PRN (22:15)
[2016-11-21] MEDS: HYDROMORPHONE HCL INJ/PF 2 MG/ML AMPULE IV PRN ×6 (02:12→22:44)
[2016-11-21 05:19] LABS: ABSOLUTE EOSINOPHILS # (AUTO) 0.4 10^3/uL (0.0-0.6); ABSOLUTE LYMPHOCYTES (AUTO) 2.8 10^3/uL (0.5-4.7); ABSOLUTE MONOCYTES (AUTO) 0.5 10^3/uL (0.1-1.4); ABSOLUTE NEUT (AUTO) 1.6 10^3/uL (1.7-8.2); BASOPHILS % (AUTO) 0.6 % (0-2); EOSINOPHILS % (AUTO) 7.1 % (0-6); HEMATOCRIT 29.2 % (36.0-47.0); HGB HCT DIFFERENCE 0.8; LYMPHOCYTES % (AUTO) 51.8 % (13-45); MEAN CORPUSCULAR HEMOGLOBIN 33.5 pg (27.0-33.4); MEAN CORPUSCULAR HGB CONC 34.1 g/dL (32.0-36.0); MEAN CORPUSCULAR VOLUME 98 fl (80-97); MONOCYTES % (AUTO) 10.2 % (3-13); RED BLOOD COUNT 2.98 10^6/uL (3.72-5.28); RED CELL DISTRIBUTION WIDTH 15.3 % (11.5-14.0); SEGMENTED NEUTROPHILS % (AUTO) 30.3 % (42-78); WHITE BLOOD COUNT 5.3 10^3/uL (4.0-10.5)
[2016-11-21 05:40] LABS: AMYLASE 114 U/L (30-110); ANION GAP 17 (5-19); BLOOD UREA NITROGEN 24 mg/dL (7-20); CALCIUM 9.6 mg/dL (8.4-10.2); CARBON DIOXIDE 23 mmol/L (22-30); CHLORIDE 91 mmol/L (98-107); CHOLESTEROL 140.45 mg/dL (0-200); CREATININE RESULT 6.43 mg/dL (0.52-1.25); Direct HDL 48 mg/dL (>40); GLUCOSE 72 mg/dL (75-110); LIPASE 98.4 U/L (23-300); POTASSIUM 4.9 mmol/L (3.6-5.0); SODIUM 130.5 mmol/L (137-145); TRIGLYCERIDES 137 mg/dL (<150)
[2016-11-21 05:42] LABS: PROTHROMBIN TIME 14.1 SEC (11.4-15.4)
[2016-11-21 05:43] LABS: PARTIAL THROMBOPLASTIN TIME 36.7 SEC (23.5-35.8)
[2016-11-21 05:51] LABS: DIRECT LDL 50 mg/dL (<100)
[2016-11-21] MEDS: LANSOPRAZOLE 30 MG TAB.RAP.DR PO SCH ×2 (06:29→16:22)
[2016-11-21] MEDS: ONDANSETRON HCL INJ/PF 4 MG/2 ML SDV IV PRN ×3 (06:29→22:44)
[2016-11-21] MEDS: METOPROLOL SUCCINATE 50 MG TAB.SR.24H PO SCH ×2 (10:45→22:44)
[2016-11-21] MEDS: CALCIUM ACETATE 667 MG CAPSULE PO SCH ×3 (10:45→17:49)
--- NOTE | 2016-11-21 16:11 | PDOC DISCHARGE SUMMARY ---
General - Admit/Disc Date/PCP Admission Date/Primary Care Provider: 11/20/16 16:27 BIBIANA CLAUDIO NP Discharge Date: 11/22/16 - Discharge Diagnosis (1) UTI (urinary tract infection) Is this a current diagnosis for this admission?: Yes (2) Chronic pancreatitis Is this a current diagnosis for this admission?: Yes (3) Anemia in chronic kidney disease (CKD) Is this a current diagnosis for this admission?: Yes (4) History of pulmonary embolism Is this a current diagnosis for this admission?: Yes (5) Hypertension Is this a current diagnosis for this admission?: Yes (6) ESRD on dialysis Is this a current diagnosis for this admission?: Yes (7) Cervical adenopathy Is this a current diagnosis for this admission?: Yes - Additional Information Resuscitation Status: Full Code Discharge Activity: Activity As Tolerated, Balance Activity w/Rest Home Medications: Amlodipine Besylate [Norvasc 10 mg Tablet] 10 mg PO DAILY 11/20/16 Calcium Acetate [Phoslo 667 mg Capsule] 1.334 mg PO TID 11/20/16 Dicyclomine HCl [Bentyl 10 mg Capsule] 10 mg PO TIDP PRN 11/20/16 Hydralazine HCl [Apresoline 10 mg Tablet] 10 mg PO DAILY 11/20/16 Lipase/Protease/Amylase [Creon Dr 12,000 Units Capsule] 1 each PO QID 11/20/16 Metoprolol Succinate [Toprol XL 100 mg Tablet] 100 mg PO Q12 11/20/16 Omeprazole 20 mg PO BID 11/20/16 Pregabalin [Lyrica 75 mg Capsule] 75 mg PO QHS 11/20/16 Warfarin Sodium [Coumadin 5 mg Tablet] 5 mg PO QHS 11/20/16 Levofloxacin [Levaquin 750 mg Tablet] 750 mg PO ONCE #1 tablet 11/21/16 Warfarin Sodium 1 mg PO QHS #30 tablet 11/21/16 Oxycodone HCl 5 mg PO Q6H PRN #20 tablet 11/22/16 Additional Information: 1. Follow-up final result of urine culture as outpatient with primary care physician. 2. PT/INR in 1 week with primary care physician. 3. Take 1 time dose of antibiotic Levaquin on 11/23/2016 History of Present Illness Patient complains of: Nausea and vomiting and abdominal pain History of Present Illness: MILAGROS RAMOS is a 31 year old female, with end-stage renal disease on dialysis , chronic pancreatitis, recently admitted and discharged from the hospital for pancreatitis apparently came back to the hospital with nausea and vomiting. Patient's abdominal pain is intermittent. She started to develop nausea and vomiting 2 days ago. It has gotten worse today. Denies constipation but admits to soft sometimes watery stools. No melena hematochezia and hematemesis. She still breaks out urine every 3 days but no noted dysuria. Last admission she has a CT of the abdomen and pelvis showing no peripancreatic fluid nor pancreatic inflammation. Patient is being followed by gastroenterology, Dr. Masters. Pain is located in the epigastric area sometimes radiating to the back. Today her pain is more in the flank on the right side. In the emergency room lipase was 329. Patient was referred for admission for pancreatitis. Hospital Course Hospital Course: The patient was admitted to telemetry. The patient was gently hydrated with intravenous fluids. Patient was placed on clear liquids diet. Serial lipase level was done and it has normalized. Her triglyceride level is normal. A urinalysis was done and findings suggestive of urinary tract infection. The patient was given antibiotic with Levaquin. Culture report is pending. The patient improved. Diet was advanced. Patient able to tolerate oral intake. The rest of the hospital stays unremarkable. Patient reports that she had pulmonary embolism January of last year and she has been treated for almost a year now. She will continue her warfarin but I encouraged her to take with her primary care physician to discuss about discontinuing it or continue it for a total of 12 months. I have increased her warfarin 6 mg daily and encouraged her to have a PT/INR check in 1 week with primary care physician. Physical Exam Vital Signs: Temp Pulse Resp BP Pulse Ox 97.9 F 61 17 115/76 99 11/21/16 10:48 11/21/16 10:48 11/21/16 10:48 11/21/16 10:48 11/21/16 10:48 Intake & Output 11/20/16 11/21/16 11/22/16 06:59 06:59 06:59 Intake Total 1123 Output Total 0 Balance 1123 Weight 52.5 kg General appearance: PRESENT: no acute distress, cooperative Head exam: PRESENT: normocephalic Eye exam: PRESENT: EOMI, PERRLA. ABSENT: scleral icterus Mouth exam: PRESENT: moist, neck supple Neck exam: ABSENT: JVD Respiratory exam: PRESENT: clear to auscultation marquis Cardiovascular exam: PRESENT: RRR GI/Abdominal exam: PRESENT: normal bowel sounds, soft. ABSENT: distended Extremities exam: ABSENT: pedal edema Neurological exam: PRESENT: alert, awake, oriented to situation Skin exam: PRESENT: dry, warm. ABSENT: cyanosis Results Laboratory Results: 11/21/16 04:20 11/21/16 04:20 11/20/16 11/21/16 11/21/16 16:55 04:20 04:20 WBC 5.3 RBC 2.98 L Hgb 10.0 L Hct 29.2 L MCV 98 H MCH 33.5 H MCHC 34.1 RDW 15.3 H Plt Count 136 L Seg Neutrophils % 30.3 L Lymphocytes % 51.8 H Monocytes % 10.2 Eosinophils % 7.1 H Basophils % 0.6 Absolute Neutrophils 1.6 L Absolute Lymphocytes 2.8 Absolute Monocytes 0.5 Absolute Eosinophils 0.4 Absolute Basophils 0.0 Sodium 130.5 L Potassium 4.9 Chloride 91 L Carbon Dioxide 23 Anion Gap 17 BUN 24 H Creatinine 6.43 H Est GFR ( Amer) 9 L Est GFR (Non-Af Amer) 7 L Glucose 72 L Calcium 9.6 Triglycerides 137 Cholesterol 140.45 LDL Cholesterol Direct 50 VLDL Cholesterol 27.0 HDL Cholesterol 48 Amylase 114 H Lipase 98.4 Urine Color YELLOW Urine Appearance TURBID Urine pH 8.0 Ur Specific [place] 1.005 Urine Protein 100 H Urine Glucose (UA) 50 H Urine Ketones NEGATIVE Urine Blood SMALL H Urine Nitrite NEGATIVE Ur Leukocyte Esterase LARGE H Urine WBC (Auto) >182 Urine RBC (Auto) 5 Impressions: KUB X-Ray 11/20/16 00:00 IMPRESSION: NO RADIOGRAPHIC EVIDENCE FOR ACUTE ABDOMINAL DISEASE. Mild to moderate colonic stool burden Qualifiers PATEINT BEING DISCHARGED WITH ANY OF THE FOLLOWING DIAGNOSIS?: No Plan Discharge Plan: Follow-up with primary care physician in one week. Time Spent: Less than 30 Minutes
[2016-11-21] MEDS ORDERED: LEVOFLOXACIN 750 MG TABLET PO ONE (16:30)
--- NOTE | 2016-11-21 18:49 | PDOC PROGRESS REPORT ---
Subjective Progress Note for:: 11/21/16 Subjective:: Patient still complains of abdominal discomfort after eating a regular diet. No nausea or vomiting. No chills or fever. No diarrhea. No shortness of breath, PND or orthopnea. Physical Exam Vital Signs: Temp Pulse Resp BP Pulse Ox 98.0 F 56 L 18 113/73 98 11/21/16 14:00 11/21/16 14:00 11/21/16 14:00 11/21/16 14:00 11/21/16 14:00 Intake & Output 11/20/16 11/21/16 11/22/16 06:59 06:59 06:59 Intake Total 1123 300 Output Total 0 Balance 1123 300 Weight 52.5 kg General appearance: PRESENT: no acute distress, cooperative Head exam: PRESENT: normocephalic Eye exam: PRESENT: EOMI. ABSENT: scleral icterus Mouth exam: PRESENT: moist, neck supple Neck exam: ABSENT: JVD Respiratory exam: PRESENT: clear to auscultation marquis. ABSENT: rhonchi, wheezes Cardiovascular exam: PRESENT: RRR GI/Abdominal exam: PRESENT: hypoactive bowel sounds, soft, tenderness - Minimal. ABSENT: distended Extremities exam: ABSENT: pedal edema Neurological exam: PRESENT: alert, awake Skin exam: PRESENT: dry, warm. ABSENT: cyanosis Results Laboratory Results: 11/21/16 04:20 11/21/16 04:20 11/21/16 11/21/16 04:20 04:20 WBC 5.3 RBC 2.98 L Hgb 10.0 L Hct 29.2 L MCV 98 H MCH 33.5 H MCHC 34.1 RDW 15.3 H Plt Count 136 L Seg Neutrophils % 30.3 L Lymphocytes % 51.8 H Monocytes % 10.2 Eosinophils % 7.1 H Basophils % 0.6 Absolute Neutrophils 1.6 L Absolute Lymphocytes 2.8 Absolute Monocytes 0.5 Absolute Eosinophils 0.4 Absolute Basophils 0.0 Sodium 130.5 L Potassium 4.9 Chloride 91 L Carbon Dioxide 23 Anion Gap 17 BUN 24 H Creatinine 6.43 H Est GFR ( Amer) 9 L Est GFR (Non-Af Amer) 7 L Glucose 72 L Calcium 9.6 Triglycerides 137 Cholesterol 140.45 LDL Cholesterol Direct 50 VLDL Cholesterol 27.0 HDL Cholesterol 48 Amylase 114 H Lipase 98.4 Impressions: KUB X-Ray 11/20/16 00:00 IMPRESSION: NO RADIOGRAPHIC EVIDENCE FOR ACUTE ABDOMINAL DISEASE. Mild to moderate colonic stool burden Assessment & Plan - Diagnosis (1) UTI (urinary tract infection) Is this a current diagnosis for this admission?: Yes (2) Chronic pancreatitis Qualifiers: Pancreatitis type: unspecified pancreatitis type Qualified Code(s): K86.1 - Other chronic pancreatitis Is this a current diagnosis for this admission?: Yes (3) Anemia in chronic kidney disease (CKD) Is this a current diagnosis for this admission?: Yes (4) History of pulmonary embolism Is this a current diagnosis for this admission?: Yes (5) Hypertension Qualifiers: Hypertension type: essential hypertension Qualified Code(s): I10 - Essential (primary) hypertension Is this a current diagnosis for this admission?: Yes (6) ESRD on dialysis Is this a current diagnosis for this admission?: Yes (7) Cervical adenopathy Is this a current diagnosis for this admission?: Yes - Time Time Spent with patient: 15-24 minutes - Plan Summary Plan Summary: Continue advancing the diet. Continue gentle hydration. Begin antibiotics for urinary tract infection. Follow cultures. Continue supportive care. Hold discharge plan.
[2016-11-21] MEDS: PREGABALIN 75 MG CAPSULE PO SCH (22:44)
[2016-11-21] MEDS: WARFARIN SODIUM 5 MG TABLET PO SCH (22:45)
[2016-11-22] MEDS: HYDROMORPHONE HCL INJ/PF 2 MG/ML AMPULE IV PRN ×4 (02:51→14:52)
[2016-11-22 04:58] LABS: PROTHROMBIN TIME 14.4 SEC (11.4-15.4)
[2016-11-22] MEDS: LANSOPRAZOLE 30 MG TAB.RAP.DR PO SCH (05:19)
[2016-11-22] MEDS: ONDANSETRON HCL INJ/PF 4 MG/2 ML SDV IV PRN (06:46)
[2016-11-22] MEDS: METOPROLOL SUCCINATE 50 MG TAB.SR.24H PO SCH (10:26)
[2016-11-22] MEDS: CALCIUM ACETATE 667 MG CAPSULE PO SCH ×2 (10:26→14:53)
--- NOTE | 2016-11-22 13:59 | PDOC PROGRESS REPORT ---
Subjective Progress Note for:: 11/22/16 Subjective:: Patient is doing better. Abdominal pain significantly improved. No nausea or vomiting. Tolerating oral intake well. Discharge was held yesterday due to abdominal discomfort after eating. Physical Exam Vital Signs: Temp Pulse Resp BP Pulse Ox 98.3 F 60 16 127/85 H 98 11/22/16 05:02 11/22/16 07:00 11/22/16 05:02 11/22/16 05:02 11/22/16 05:02 Intake & Output 11/21/16 11/22/16 11/23/16 06:59 06:59 06:59 Intake Total 1123 1513 Output Total 0 Balance 1123 1513 Weight 52.5 kg 55.5 kg General appearance: PRESENT: no acute distress, cooperative Head exam: PRESENT: normocephalic Eye exam: PRESENT: EOMI. ABSENT: scleral icterus Mouth exam: PRESENT: moist, neck supple Neck exam: ABSENT: JVD Respiratory exam: PRESENT: clear to auscultation marquis Cardiovascular exam: PRESENT: RRR GI/Abdominal exam: PRESENT: soft. ABSENT: distended, tenderness Extremities exam: ABSENT: pedal edema Neurological exam: PRESENT: alert, awake, oriented to person, oriented to place , oriented to time, oriented to situation Skin exam: PRESENT: dry, warm. ABSENT: cyanosis Results Laboratory Results: 11/21/16 04:20 11/21/16 04:20 11/20/16 16:55 Clean Catch Midstream Urine Culture - Final Lactobacillus (Vaginal Nury) Impressions: KUB X-Ray 11/20/16 00:00 IMPRESSION: NO RADIOGRAPHIC EVIDENCE FOR ACUTE ABDOMINAL DISEASE. Mild to moderate colonic stool burden Assessment & Plan - Diagnosis (1) UTI (urinary tract infection) Is this a current diagnosis for this admission?: Yes (2) Chronic pancreatitis Qualifiers: Pancreatitis type: unspecified pancreatitis type Qualified Code(s): K86.1 - Other chronic pancreatitis Is this a current diagnosis for this admission?: Yes (3) Anemia in chronic kidney disease (CKD) Is this a current diagnosis for this admission?: Yes (4) History of pulmonary embolism Is this a current diagnosis for this admission?: Yes (5) Hypertension Qualifiers: Hypertension type: essential hypertension Qualified Code(s): I10 - Essential (primary) hypertension Is this a current diagnosis for this admission?: Yes (6) ESRD on dialysis Is this a current diagnosis for this admission?: Yes (7) Cervical adenopathy Is this a current diagnosis for this admission?: Yes - Time Time Spent with patient: Less than 15 minutes - Plan Summary Plan Summary: Continue discharge planning for today. Please refer to the discharge summary done 11/21/2016. Prescription for Oxycodone 5 mg by mouth every 6 hours as needed for pain was given with 20 tablets with no refills.
[2016-11-22 14:13] VITALS: BP 110/75
== END 2016-11-22 16:08 | disposition home or self-care (01) ==
LOC: ER 10:37 → UNDOADMOB 14:58 → EH 14:58 → 4N 18:57
PROC: 3E033GC Introduction of Other Therapeutic Substance into Peripheral Vein, Percutaneous Approach (ICD-10-PCS; principal; 2016-11-20)
PROC: 3E033GC Introduction of Other Therapeutic Substance into Peripheral Vein, Percutaneous Approach (ICD-10-PCS; 2016-11-20)
PROC: 3E033GC Introduction of Other Therapeutic Substance into Peripheral Vein, Percutaneous Approach (ICD-10-PCS; 2016-11-20)
DX: R10.13 Epigastric pain (principal); R11.2 Nausea with vomiting, unspecified; N39.0 Urinary tract infection, site not specified; K86.1 Other chronic pancreatitis; D63.1 Anemia in chronic kidney disease; R59.9 Enlarged lymph nodes, unspecified; I12.0 Hypertensive chronic kidney disease with stage 5 chronic kidney disease or end stage renal disease; N18.6 End stage renal disease; Z99.2 Dependence on renal dialysis; Z86.711 Personal history of pulmonary embolism; Z79.01 Long term (current) use of anticoagulants; F17.200 Nicotine dependence, unspecified, uncomplicated
CPT/HCPCS: 96376; 99285; 96374; 96375; 36415 ×3; 87086; 82150; 83690 ×2; 84703; 85025 ×2; 85610 ×3; 85730 ×2; 80048; 80053; 81001; 80061; 74000; G0378 ×4; A9270 ×12; J3490; J2270; J1170 ×3; J2405 ×3; J7030

== ENCOUNTER 2016-12-14 10:35 | Emergency (ER) | payer MEDICARE, MEDICAID ==
[2016-12-14] MEDS ORDERED: ONDANSETRON 4 MG TAB.RAPDIS PO ONE (11:06)
--- NOTE | 2016-12-14 11:14 | ER Document Report ---
ED Medical Screen (RME) - General Stated Complaint: ABDOMINAL PAIN,NAUSEA,VOMITING Time seen by provider: 11:05 Mode of Arrival: Ambulatory Information source: Patient Notes: 31-year-old female with [facility] hemodialysis patient is complaining of epigastric abdominal pain and abdominal swelling since Tuesday. She had her dialysis today. sHe has nausea, vomiting and diarrhea this weekend. I have greeted and performed a rapid initial assessment of this patient. A comprehensive ED assessment, evaluation of the patient, analysis of test results , and completion of the medical decision making process will be conducted by additional ED providers. TRAVEL OUTSIDE OF THE [place] IN LAST 30 DAYS: No - Related Data Allergies/Adverse Reactions: metoclopramide HCl [From Reglan] Allergy (Severe, Verified 12/14/16 11:03) DYSTONIC REACTION vancomycin [Vancomycin] Allergy (Intermediate, Verified 12/14/16 11:03) rash amoxicillin [Amoxicillin] Allergy (Mild, Verified 12/14/16 11:03) Hives Iodinated Contrast Media - Oral and [IV Dye, Iodine Containing] Adverse Reaction (Severe, Verified 12/14/16 11:03) esrd ok with topical Past Medical History - Past Medical History Cardiac Medical History: Reports: Hx Hypertension - CONTROLLED WITH MED, Hx Pulmonary Embolism Denies: Hx Coronary Artery Disease, Hx Heart Attack Pulmonary Medical History: Denies: Hx Asthma, Hx Bronchitis, Hx COPD, Hx Pneumonia, Hx Tuberculosis Neurological Medical History: Reports: Hx Seizures - BABY, NONE SINCE AGE 1/ FEBRILE. 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 Denies: Hx Kidney Stones GI Medical History: Reports: Hx Gastroesophageal Reflux Disease. Denies: Hx Hepatitis, Hx Hiatal Hernia, Hx Ulcer Musculoskeltal Medical History: Denies Hx Arthritis Psychiatric Medical History: Reports: Hx Anxiety, Hx Depression Infectious Medical History: Denies: Hx Hepatitis Past Surgical History: Reports: Hx Cholecystectomy - 01/2010, Hx Herniorrhaphy - Double hernia repair, Hx Kidney (Renal Surgery) - kidney transplant 2004, Hx Tubal Ligation, Hx Vascular Surgery - PermCath placement for dialysis, multiple procedures for declotting CVC. Denies: Hx Appendectomy, Hx Bowel Surgery, Hx Section, Hx Hysterectomy, Hx Mastectomy, Hx Open Heart Surgery, Hx Pacemaker, Hx Tonsillectomy - Immunizations Immunizations up to date: Yes Hx Diphtheria, Pertussis, Tetanus Vaccination: Yes Physical Exam - Vital signs Vitals: Temp Pulse Resp BP Pulse Ox 98.3 F 88 14 143/97 H 99 12/14/16 10:42 12/14/16 10:42 12/14/16 10:42 12/14/16 10:42 12/14/16 10:42 Course - Vital Signs Vital signs: Temp Pulse Resp BP Pulse Ox 98.3 F 88 14 143/97 H 99 12/14/16 10:42 12/14/16 10:42 12/14/16 10:42 12/14/16 10:42 12/14/16 10:42
--- NOTE | 2016-12-14 12:38 | ER Document Report ---
ED GI/ - General Chief Complaint: Upper Abdominal Pain Stated Complaint: ABDOMINAL PAIN,NAUSEA,VOMITING Time seen by provider: 12:34 Mode of Arrival: Ambulatory Information source: Patient Notes: 31-year-old female presents to ED for pain of epigastric abdominal pain with a history of pancreatitis and abdominal swelling since Tuesday. She had dialysis today. She states she's had nausea vomiting and diarrhea this weekend. She's had 3 emesis today and 3 diarrhea stools today. States she got Zofran at the dialysis center and again in E. Will give patient fluids to sip on and run labs as ordered in [facility]. TRAVEL OUTSIDE OF THE [place] IN LAST 30 DAYS: No - HPI Patient complains to provider of: Abdominal pain, Diarrhea, Vomiting Onset: Other - This Timing/Duration: Intermittent Quality of pain: Cramping, Sharp Severity at maximum: Severe Severity in ED: Severe Pain Level: 5 Location: Epigastric, LUQ, RUQ Vaginal bleeding (Compared to normal period): None Associated symptoms: Diarrhea, Nausea, Vomiting Exacerbated by: Denies Relieved by: Denies Similar symptoms previously: Yes Recently seen / treated by doctor: Yes - Related Data Allergies/Adverse Reactions: metoclopramide HCl [From Reglan] Allergy (Severe, Verified 12/14/16 11:03) DYSTONIC REACTION vancomycin [Vancomycin] Allergy (Intermediate, Verified 12/14/16 11:03) rash amoxicillin [Amoxicillin] Allergy (Mild, Verified 12/14/16 11:03) Hives Iodinated Contrast Media - Oral and [IV Dye, Iodine Containing] Adverse Reaction (Severe, Verified 12/14/16 11:03) esrd ok with topical Past Medical History - General Information source: Patient - Social History Smoking Status: Never Smoker Cigarette use (# per day): No Chew tobacco use (# tins/day): No Smoking Education Provided: No Frequency of alcohol use: None Drug Abuse: None Family History: Arthritis, Malignancy Patient has suicidal ideation: No Patient has homicidal ideation: No - Past Medical History Cardiac Medical History: Reports: Hx Hypertension - CONTROLLED WITH MED, Hx Pulmonary Embolism Pulmonary Medical History: Reports: None EENT Medical History: Reports: None Neurological Medical History: Reports: Hx Seizures - BABY, NONE SINCE AGE 1/ FEBRILE Endocrine Medical History: Reports: None Renal/ Medical History: Reports: 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 Denies: Hx Hepatitis Past Surgical History: Reports: Hx Cholecystectomy - 01/2010, Hx Herniorrhaphy - Double hernia repair, Hx Kidney (Renal Surgery) - kidney transplant 2004, Hx Tubal Ligation, Hx Vascular Surgery - PermCath placement for dialysis, multiple procedures for declotting CVC - Immunizations Immunizations up to date: Yes Hx Diphtheria, Pertussis, Tetanus Vaccination: Yes Hx Pneumococcal Vaccination: 07/10/14 Review of Systems - Review of Systems Constitutional: No symptoms reported EENT: No symptoms reported Cardiovascular: No symptoms reported Respiratory: No symptoms reported Gastrointestinal: Abdomen distended, Abdominal pain, Diarrhea, Nausea, Vomiting Genitourinary: No symptoms reported Female Genitourinary: No symptoms reported Musculoskeletal: No symptoms reported Skin: No symptoms reported Hematologic/Lymphatic: No symptoms reported Neurological/Psychological: No symptoms reported Physical Exam - Vital signs Vitals: Temp Pulse Resp BP Pulse Ox 98.3 F 88 14 143/97 H 99 12/14/16 10:42 12/14/16 10:42 12/14/16 10:42 12/14/16 10:42 12/14/16 10:42 Interpretation: Normal - General General appearance: Appears well, Alert - HEENT Head: Normocephalic, Atraumatic Eyes: Normal Pupils: PERRL - Respiratory Respiratory status: No respiratory distress Chest status: Nontender Breath sounds: Normal Chest palpation: Normal - Cardiovascular Rhythm: Regular Heart sounds: Normal auscultation Murmur: No - Abdominal Inspection: Normal Distension: Distended Bowel sounds: Hyperactive Tenderness: Tender - Generalized Organomegaly: No organomegaly - Back Back: Normal, Nontender - Extremities General upper extremity: Normal inspection, Nontender, Normal color, Normal ROM , Normal temperature General lower extremity: Normal inspection, Nontender, Normal color, Normal ROM , Normal temperature, Normal weight bearing. No: Mark's sign - Neurological Neuro grossly intact: Yes Cognition: Normal Orientation: AAOx4 Pranav Coma Scale Eye Opening: Spontaneous [place] Coma Scale Verbal: Oriented Pranav Coma Scale Motor: Obeys Commands Pranav Coma Scale Total: 15 Speech: Normal Motor strength normal: LUE, RUE, LLE, RLE Sensory: Normal - Psychological Associated symptoms: Normal affect, Normal mood - Skin Skin Temperature: Warm Skin Moisture: Dry Skin Color: Normal Course - Re-evaluation Re-evalutation: 12/14/16 14:53 Discussed labs and x-rays with Dr. Ge, we'll discharge patient home patient has elevated BNP due to renal dialysis potassium is within normal limits and her lipase has been bad and higher multiple times in the recent past. We'll discharge home with nausea medicine and have follow-up with her kidney dialysis doctor. - Vital Signs Vital signs: Temp Pulse Resp BP Pulse Ox 98.3 F 88 18 147/87 H 97 12/14/16 10:42 12/14/16 10:42 12/14/16 14:01 12/14/16 14:01 12/14/16 14:01 - Laboratory Result Diagrams: 12/14/16 12:25 12/14/16 13:35 Laboratory results interpreted by me: 12/14/16 12/14/16 12/14/16 12:25 13:35 13:35 RBC 3.25 L Hgb 10.6 L Hct 31.4 L RDW 14.7 H Sodium 130.1 L Chloride 88 L BUN 22 H Creatinine 5.90 H Est GFR ( Amer) 10 L Est GFR (Non-Af Amer) 8 L Glucose 117 H NT-Pro-B Natriuret Pep 47732 H Lipase 366.8 H - Diagnostic Test Radiology reviewed: Image reviewed, Reports reviewed Discharge - Discharge Clinical Impression: Abdominal pain Nausea and vomiting Qualifiers: Vomiting type: unspecified Vomiting Intractability: unspecified Qualified Code( s): R11.2 - Nausea with vomiting, unspecified Condition: Stable Disposition: HOME, SELF-CARE Additional Instructions: ABDOMINAL PAIN: There are many causes of abdominal pain. Pain can mean a serious problem requiring surgery (such as appendicitis). It can also be an innocent problem that goes away on its own (such as a viral infection). Often, time must pass to determine the cause of pain. The physician does not feel that hospitalization is necessary, at present. Things may change within the next 24 hours. Call the doctor or come back for re- examination if any problems occur, such as: (1) Pain that becomes more severe, steady, or becomes concentrated in one specific area. Also, pain that is more severe with movement or coughing. (2) Vomiting that persists or becomes more frequent. (3) Blood in the vomitus, urine, or bowel movements. Blood in the stool may have a tarry or black appearance. (4) Shaking chills or fever greater than 100 degrees F. (5) The abdomen becomes more distended or swollen. (6) Bowel movements cease. (7) Failure to improve as expected. Acetaminophen Acetaminophen may be taken for pain relief or fever control. It's much safer than aspirin, offering a wider range of "safe" dosages. It is safe during . Some brand names are Tylenol, Panadol, Datril, Anacin 3, Tempra, and Liquiprin. Acetaminophen can be repeated every four hours. The following are maximum recommended dosages: WEIGHT Dose Drops Elixir Chewable( 80mg) (LBS.) drprs=droppers tsp=teaspoon 6 40 mg .4 ml (1/2) 6-11 80 mg .8 ml (full) 1/2 tsp 1 tab 12-16 120 mg 1 1/2 drprs 3/4 tsp 1 1/2 tabs 17-23 160 mg 2 drprs 1 tsp 2 tabs 24-30 240 mg 3 drprs 1 1/2 tsp 3 tabs 30-35 320 mg 2 tsp 4 tabs 36-41 360 mg 2 1/4 tsp 4 1 /2 tabs 42-47 400 mg 2 1/2 tsp 5 tabs 48-53 480 mg 3 tsp 6 tabs 54-59 520 mg 3 1/4 tsp 6 1 /2 tabs 60-64 560 mg 3 1/2 tsp 7 tabs 65-70 600 mg 3 3/4 tsp 7 1 /2 tabs 71-76 640 mg 4 tsp 8 tabs 77-82 720 mg 4 1/2 tsp 9 tabs 83-88 800 mg 5 tsp 10 tabs >89 pounds or adults 650 mg to 900 mg Acetaminophen can be repeated every four hours. Maximum daily dose not to exceed 4000 mg. These maximum recommended dosages are slightly higher than the dosages written on the product container, but these dosages are very safe and well below the toxic dosage for acetaminophen. ANTINAUSEA MEDICATION: You have been given a medication to suppress nausea and vomiting. This type of medication can be given as a shot, pill, or suppository. It will usually last for many hours. Pills and shots usually last six to eight hours, suppositories last about 12 hours. For the typical illness, only one or two doses of the medication may be necessary. Mild lightheadedness may occur. This type of medicine can cause drowsiness. Do not drive or operate dangerous machinery while under its influence. Do not mix with alcohol. See your doctor at once if you have muscle spasms or tightness, or uncontrollable motions (particularly of the neck, mouth, or jaw). Persistent vomiting or severe lightheadedness should also be evaluated by the physician. FOLLOW-UP CARE: If you have been referred to a physician for follow-up care, call the physician s office for an appointment as you were instructed or within the next two days. If you experience worsening or a significant change in your symptoms, notify the physician immediately or return to the Emergency Department at any time for re-evaluation. Prescriptions: Promethazine HCl [Phenergan 25 mg Tablet] 25 mg PO Q6H PRN #15 tablet PRN Reason: Forms: Elevated Blood Pressure
[2016-12-14 12:50] LABS: ABSOLUTE EOSINOPHILS # (AUTO) 0.1 10^3/uL (0.0-0.6); ABSOLUTE LYMPHOCYTES (AUTO) 1.2 10^3/uL (0.5-4.7); ABSOLUTE MONOCYTES (AUTO) 0.6 10^3/uL (0.1-1.4); ABSOLUTE NEUT (AUTO) 4.6 10^3/uL (1.7-8.2); BASOPHILS % (AUTO) 0.7 % (0-2); EOSINOPHILS % (AUTO) 2.1 % (0-6); HEMATOCRIT 31.4 % (36.0-47.0); HEMOGLOBIN 10.6 g/dL (12.0-15.5); HGB HCT DIFFERENCE 0.4; LYMPHOCYTES % (AUTO) 18.7 % (13-45); MEAN CORPUSCULAR HEMOGLOBIN 32.7 pg (27.0-33.4); MEAN CORPUSCULAR HGB CONC 33.8 g/dL (32.0-36.0); MEAN CORPUSCULAR VOLUME 97 fl (80-97); MONOCYTES % (AUTO) 8.7 % (3-13); RED BLOOD COUNT 3.25 10^6/uL (3.72-5.28); RED CELL DISTRIBUTION WIDTH 14.7 % (11.5-14.0); SEGMENTED NEUTROPHILS % (AUTO) 69.8 % (42-78); WHITE BLOOD COUNT 6.6 10^3/uL (4.0-10.5)
--- NOTE | 2016-12-14 12:58 | EKG REPORT ---
SEVERITY:- ABNORMAL ECG - SINUS RHYTHM PROBABLE LEFT VENTRICULAR HYPERTROPHY BORDERLINE PROLONGED QT INTERVAL : Confirmed by: Tucker Elder 14-Dec-2016 12:58:19
[2016-12-14] MEDS ORDERED: ACETAMINOPHEN 325 MG TABLET PO ONE (13:55)
[2016-12-14 14:14] LABS: ALANINE AMINOTRANSFERASE 35 U/L (9-52); ALBUMIN 4.6 g/dL (3.5-5.0); ALKALINE PHOSPHATASE 110 U/L (38-126); ANION GAP 19 (5-19); ASPARTATE AMINO TRANSFERASE 26 U/L (14-36); BILIRUBIN,TOTAL 0.6 mg/dL (0.2-1.3); BLOOD UREA NITROGEN 22 mg/dL (7-20); CALCIUM 8.8 mg/dL (8.4-10.2); CARBON DIOXIDE 23 mmol/L (22-30); CHLORIDE 88 mmol/L (98-107); CREATINE KINASE 51 U/L (30-135); GLUCOSE 117 mg/dL (75-110); LIPASE 366.8 U/L (23-300); MAGNESIUM 1.8 mg/dL (1.6-2.3); POTASSIUM 4.3 mmol/L (3.6-5.0); SODIUM 130.1 mmol/L (137-145); TOTAL PROTEIN 7.1 g/dL (6.3-8.2)
[2016-12-14 14:27] LABS: CREATINE KINASE MB < 0.22 ng/mL (<4.55); TROPONIN I < 0.012 ng/mL
[2016-12-14 15:07] VITALS: BP 162/94
== END 2016-12-14 15:01 | disposition home or self-care (01) ==
LOC: ER 10:35
DX: R10.9 Unspecified abdominal pain (principal); R11.2 Nausea with vomiting, unspecified; R10.13 Epigastric pain; R10.10 Upper abdominal pain, unspecified
CPT/HCPCS: 93005; 99284; 36415; 87040; 82553; 82550; 83690; 83735; 85025; 80053; 84484; 83605; 83880; 71020; 93010; A9270 ×2; S0119

== ENCOUNTER 2016-12-17 10:14 | Inpatient (IN) | payer MEDICARE, MEDICAID ==
[2016-12-17] MEDS ORDERED: ONDANSETRON 4 MG TAB.RAPDIS PO ONE (10:28)
--- NOTE | 2016-12-17 10:29 | ER Document Report ---
ED Medical Screen (RME) - General Chief Complaint: Abdominal Pain Stated Complaint: ABDOMINAL PAIN Time seen by provider: 10:23 Mode of Arrival: Medic Notes: Patient states she has had vomiting and diarrhea since Tuesday, abdominal pain started on Tuesday. Denies fever. Feels like her heart is racing. Patient states her abdominal pain is underneath the left breast. Complains of weakness. Patient is a dialysis patient, and last dialysis was yesterday. Patient states she does not produce urine. Patient has a history of pancreatitis. TRAVEL OUTSIDE OF THE [place] IN LAST 30 DAYS: No - Related Data Allergies/Adverse Reactions: metoclopramide HCl [From Reglan] Allergy (Severe, Verified 12/17/16 10:23) DYSTONIC REACTION vancomycin [Vancomycin] Allergy (Intermediate, Verified 12/17/16 10:23) rash amoxicillin [Amoxicillin] Allergy (Mild, Verified 12/17/16 10:23) Hives Iodinated Contrast Media - Oral and [IV Dye, Iodine Containing] Adverse Reaction (Severe, Verified 12/17/16 10:23) esrd ok with topical Past Medical History - Past Medical History Cardiac Medical History: Reports: Hx Hypertension - CONTROLLED WITH MED, Hx Pulmonary Embolism Denies: Hx Coronary Artery Disease, Hx Heart Attack Pulmonary Medical History: Denies: Hx Asthma, Hx Bronchitis, Hx COPD, Hx Pneumonia, Hx Tuberculosis Neurological Medical History: Reports: Hx Seizures - BABY, NONE SINCE AGE 1/ FEBRILE. 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 Denies: Hx Kidney Stones GI Medical History: Reports: Hx Gastroesophageal Reflux Disease. Denies: Hx Hepatitis, Hx Hiatal Hernia, Hx Ulcer Musculoskeltal Medical History: Denies Hx Arthritis Psychiatric Medical History: Reports: Hx Anxiety, Hx Depression Infectious Medical History: Denies: Hx Hepatitis Past Surgical History: Reports: Hx Cholecystectomy - 01/2010, Hx Herniorrhaphy - Double hernia repair, Hx Kidney (Renal Surgery) - kidney transplant 2004, Hx Tubal Ligation, Hx Vascular Surgery - PermCath placement for dialysis, multiple procedures for declotting CVC. Denies: Hx Appendectomy, Hx Bowel Surgery, Hx Section, Hx Hysterectomy, Hx Mastectomy, Hx Open Heart Surgery, Hx Pacemaker, Hx Tonsillectomy - Immunizations Immunizations up to date: Yes Hx Diphtheria, Pertussis, Tetanus Vaccination: Yes Physical Exam - Vital signs Vitals: Temp Pulse Resp BP Pulse Ox 97.9 F 85 16 199/118 H 100 12/17/16 10:19 12/17/16 10:19 12/17/16 10:19 12/17/16 10:19 12/17/16 10:19 - Abdominal Notes: Patient with diffuse tenderness over entire abdomen, but more pronounced in the left upper quadrant. Course - Vital Signs Vital signs: Temp Pulse Resp BP Pulse Ox 97.9 F 85 16 199/118 H 100 12/17/16 10:19 12/17/16 10:19 12/17/16 10:19 12/17/16 10:19 12/17/16 10:19
[2016-12-17] MEDS ORDERED: NORMAL SALINE 1000 ML 1,000 ML IV ONE ×2 (10:55→10:56)
[2016-12-17] MEDS ORDERED: HYDROMORPHONE HCL INJ/PF 2 MG/ML AMPULE IV ONE ×3 (10:56→16:14)
--- NOTE | 2016-12-17 11:01 | ER Document Report ---
ED GI/ - General Chief Complaint: Abdominal Pain Stated Complaint: ABDOMINAL PAIN Mode of Arrival: Medic Information source: Patient, H Records Notes: This is a 31-year-old female with a history of multiple medical problems including end-stage renal disease on dialysis and chronic pancreatitis who presents with upper abdominal pain worsening for the last week. She states that her pain is very similar to her prior flares of pancreatitis. She has also had nausea vomiting and diarrhea for the past 3 days. She denies any fevers. She does not make urine. She denies any chest pain. She last had dialysis yesterday as scheduled and she reports compliance with all of her home medications. TRAVEL OUTSIDE OF THE [place] IN LAST 30 DAYS: No - Related Data Allergies/Adverse Reactions: metoclopramide HCl [From Reglan] Allergy (Severe, Verified 12/17/16 10:23) DYSTONIC REACTION vancomycin [Vancomycin] Allergy (Intermediate, Verified 12/17/16 10:23) rash amoxicillin [Amoxicillin] Allergy (Mild, Verified 12/17/16 10:23) Hives Iodinated Contrast Media - Oral and [IV Dye, Iodine Containing] Adverse Reaction (Severe, Verified 12/17/16 10:23) esrd ok with topical Home Medications: Current Home Medications Amlodipine Besylate [Norvasc 10 mg Tablet] 10 mg PO DAILY 12/17/16 [History] Calcium Acetate [Phoslo 667 Mg Capsule] 1,334 mg PO TID 12/17/16 [History] Dicyclomine HCl [Bentyl 10 mg Capsule] 10 mg PO TIDP PRN 12/17/16 [History] Hydralazine HCl [Apresoline 10 mg Tablet] 10 mg PO DAILY 12/17/16 [History] Lipase/Protease/Amylase [Creon Dr 12,000 Units Capsule] 1 each PO QID 12/17/16 [ History] Metoprolol Succinate [Toprol XL 100 mg Tablet] 100 mg PO Q12 12/17/16 [History] Omeprazole 20 mg PO BID 12/17/16 [History] Oxycodone HCl 5 mg PO Q6HP PRN 12/17/16 [History] Pregabalin [Lyrica 75 mg Capsule] 75 mg PO QHS 12/17/16 [History] Promethazine HCl [Phenergan 25 mg Tablet] 25 mg PO Q6HP PRN 12/17/16 [History] Warfarin Sodium [Coumadin 1 mg Tablet] 1 mg PO QHS 12/17/16 [History] Past Medical History - General Information source: Patient - Social History Smoking Status: Former Smoker Chew tobacco use (# tins/day): No Frequency of alcohol use: None Drug Abuse: None Family History: Arthritis, Malignancy Patient has suicidal ideation: No Patient has homicidal ideation: No - Past Medical History Cardiac Medical History: Reports: Hx Hypertension - CONTROLLED WITH MED, Hx Pulmonary Embolism, Other - endocarditis 2014 Denies: Hx Coronary Artery Disease, Hx Heart Attack Pulmonary Medical History: Denies: Hx Asthma, Hx Bronchitis, Hx COPD, Hx Pneumonia, Hx Tuberculosis Neurological Medical History: Reports: Hx Seizures - BABY, NONE SINCE AGE 1/ FEBRILE. 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 Denies: Hx Kidney Stones GI Medical History: Reports: Hx Gastroesophageal Reflux Disease. Denies: Hx Hepatitis, Hx Hiatal Hernia, Hx Ulcer Musculoskeltal Medical History: Denies Hx Arthritis Psychiatric Medical History: Reports: Hx Anxiety, Hx Depression Infectious Medical History: Denies: Hx Hepatitis Past Surgical History: Reports: Hx Cholecystectomy - 01/2010, Hx Herniorrhaphy - Double hernia repair, Hx Kidney (Renal Surgery) - kidney transplant 2004, Hx Tubal Ligation, Hx Vascular Surgery - PermCath placement for dialysis, multiple procedures for declotting CVC. Denies: Hx Appendectomy, Hx Bowel Surgery, Hx Section, Hx Hysterectomy, Hx Mastectomy, Hx Open Heart Surgery, Hx Pacemaker, Hx Tonsillectomy - Immunizations Immunizations up to date: Yes Hx Diphtheria, Pertussis, Tetanus Vaccination: Yes Hx Pneumococcal Vaccination: 07/10/14 Review of Systems - Review of Systems Notes: REVIEW OF SYSTEMS: CONSTITUTIONAL : Denies fever, chills, or sweats. EENT: Denies eye, ear, throat, or mouth pain or symptoms. Denies nasal or sinus congestion. CARDIOVASCULAR: Denies chest pain. RESPIRATORY: Denies cough, cold, or chest congestion. Denies shortness of breath, difficulty breathing, or wheezing. GASTROINTESTINAL: As per history of present illness GENITOURINARY: Dialysis dependent, does not make urine. MUSCULOSKELETAL: Denies neck or back pain or joint pain or swelling. SKIN: Denies rash or skin lesions. HEMATOLOGIC : Denies easy bruising or bleeding. LYMPHATIC: Denies swollen, enlarged glands. NEUROLOGICAL: Denies altered mental status or loss of consciousness. Denies headache. PSYCHIATRIC: Denies anxiety or stress or depression. ALL OTHER SYSTEMS REVIEWED AND NEGATIVE. Physical Exam - Vital signs Vitals: Temp Pulse Resp BP Pulse Ox 97.9 F 85 16 199/118 H 100 12/17/16 10:19 12/17/16 10:19 12/17/16 10:19 12/17/16 10:19 12/17/16 10:19 - Notes Notes: PHYSICAL EXAMINATION: GENERAL: Well-appearing, well-nourished and in no acute distress. Very pleasant and conversant HEAD: Atraumatic, normocephalic. EYES: Pupils equal round and reactive to light, extraocular movements intact, sclera anicteric, conjunctiva are normal. ENT: nares patent, oropharynx clear without exudates. Moist mucous membranes. NECK: Normal range of motion, supple without lymphadenopathy LUNGS: Breath sounds clear to auscultation bilaterally and equal. No wheezes rales or rhonchi. HEART: Regular rate and rhythm without murmurs ABDOMEN: Mildly distended, epigastric tenderness to palpation and left upper quadrant tenderness to palpation. Abdomen is soft and bowel sounds are hypoactive but present. There is no rigidity or guarding. No rebound EXTREMITIES: Normal range of motion, no pitting or edema. No cyanosis. NEUROLOGICAL: Cranial nerves grossly intact. Normal speech. No gross focal motor sensory deficits appreciated PSYCH: Normal mood, normal affect. SKIN: Warm, Dry, normal turgor, no rashes or lesions noted. Course - Re-evaluation Re-evalutation: 12/17/16 13:32 Based on initial EKG and history of dialysis patient was given 1 amp of calcium gluconate secondaries to suspicion of hyperkalemia. Labs were delayed secondary to difficult venous access, the potassium now known to be 7.7. At this point patient will be treated with insulin and glucose as well as albuterol and Atrovent Kayexalate. Patient was also given a second amp of calcium gluconate. Will treat with bicarbonate is well. Nephrology has been paged. 12/17/16 13:[address] Dominguez. As there are no ICU beds currently available we will set up for emergent dialysis here in the emergency department. Patient will be admitted to the hospitalist. I have paged - Vital Signs Vital signs: Temp Pulse Resp BP Pulse Ox 97.3 F 88 15 140/97 H 100 12/17/16 19:00 12/17/16 20:00 12/17/16 20:00 12/17/16 20:00 12/17/16 20:00 - Laboratory Result Diagrams: 12/17/16 12:30 12/17/16 22:25 Laboratory results interpreted by me: 12/17/16 12/17/16 12/17/16 12:30 12:30 16:00 RBC 3.27 L Hgb 10.8 L Hct 31.6 L RDW 14.5 H Sodium 120.6 L* 124.8 L Potassium 7.7 H* Chloride 84 L 85 L Carbon Dioxide 19 L 19 L Anion Gap 21 H BUN 43 H 44 H Creatinine 7.49 H 7.68 H Est GFR ( Amer) 8 L 7 L Est GFR (Non-Af Amer) 6 L 6 L Glucose 48 L 69 L - EKG Interpretation by Me Additional EKG results interpreted by me: 12/18/16 01:02 EKG at 1034 demonstrates normal sinus rhythm with a rate of 79. There are peaked T waves noted diffusely concerning for possible hyperkalemia. The QTc interval is borderline prolonged at 487. The QRS is normal. Critical Care Note - Critical Care Note Total time excluding time spent on procedures (mins): 40 - minutes of critical care time spent in direct contact evaluating and reevaluating the patient, treating symptoms, reviewing labs and studies and speaking with family and consultants excluding any procedures Discharge - Discharge Clinical Impression: Acute hyperkalemia, Hypoglycemia, Accelerated hypertension, ESRD on dialysis Abdominal pain Qualifiers: Abdominal location: generalized Qualified Code(s): R10.84 - Generalized abdominal pain Chronic pancreatitis Qualifiers: Pancreatitis type: unspecified pancreatitis type Qualified Code(s): K86.1 - Other chronic pancreatitis Condition: Serious Disposition: ADMITTED INPATIENT Admitting Provider: Hospitalist - Dr. Alex Unit Admitted: ICU
[2016-12-17] MEDS ORDERED: CALCIUM GLUCONATE 1000 MG/10 ML INJ IV ONE ×2 (12:20→13:23)
[2016-12-17 12:47] LABS: ABSOLUTE BASOPHILS # (AUTO) 0.1 10^3/uL (0.0-0.2); ABSOLUTE EOSINOPHILS # (AUTO) 0.1 10^3/uL (0.0-0.6); ABSOLUTE LYMPHOCYTES (AUTO) 1.7 10^3/uL (0.5-4.7); ABSOLUTE MONOCYTES (AUTO) 0.6 10^3/uL (0.1-1.4); ABSOLUTE NEUT (AUTO) 5.6 10^3/uL (1.7-8.2); BASOPHILS % (AUTO) 1.3 % (0-2); EOSINOPHILS % (AUTO) 1.6 % (0-6); HEMATOCRIT 31.6 % (36.0-47.0); HEMOGLOBIN 10.8 g/dL (12.0-15.5); HGB HCT DIFFERENCE 0.8; LYMPHOCYTES % (AUTO) 20.6 % (13-45); MEAN CORPUSCULAR HEMOGLOBIN 32.9 pg (27.0-33.4); MEAN CORPUSCULAR HGB CONC 34.1 g/dL (32.0-36.0); MEAN CORPUSCULAR VOLUME 97 fl (80-97); RED BLOOD COUNT 3.27 10^6/uL (3.72-5.28); RED CELL DISTRIBUTION WIDTH 14.5 % (11.5-14.0); SEGMENTED NEUTROPHILS % (AUTO) 69.5 % (42-78); WHITE BLOOD COUNT 8.1 10^3/uL (4.0-10.5)
[2016-12-17 13:08] LABS: BLOOD UREA NITROGEN 43 mg/dL (7-20); CALCIUM 8.8 mg/dL (8.4-10.2); CREATININE RESULT 7.49 mg/dL (0.52-1.25); GLUCOSE 48 mg/dL (75-110)
[2016-12-17 13:09] LABS: ALANINE AMINOTRANSFERASE 33 U/L (9-52); ALBUMIN 4.6 g/dL (3.5-5.0); ALKALINE PHOSPHATASE 106 U/L (38-126); ANION GAP 18 (5-19); ASPARTATE AMINO TRANSFERASE 23 U/L (14-36); BILIRUBIN,TOTAL 0.7 mg/dL (0.2-1.3); CARBON DIOXIDE 19 mmol/L (22-30); CHLORIDE 84 mmol/L (98-107); LIPASE 262.7 U/L (23-300); TOTAL PROTEIN 6.9 g/dL (6.3-8.2)
[2016-12-17 13:20] LABS: ALCOHOL < 10 mg/dL (NONE DETECTED)
[2016-12-17 13:21] LABS: POTASSIUM 7.7 mmol/L (3.6-5.0); SODIUM 120.6 mmol/L (137-145)
[2016-12-17] MEDS ORDERED: DEXTROSE 50%-WATER 25 GM/50 ML DISP.SYRIN IV ONE ×2 (13:24→13:30)
[2016-12-17] MEDS ORDERED: INSULIN REG, HUMAN 100 UNIT/ML 3 ML VIAL (PYX) IV ONE (13:24)
[2016-12-17] MEDS ORDERED: ALBUTEROL SULFATE 0.083% NEB 2.5 MG/3 ML AMPUL NEB ONE ×2 (13:25→14:00)
[2016-12-17] MEDS ORDERED: SODIUM POLYSTYRENE SULFONATE 15 GM/60 ML PO ONE (13:26)
[2016-12-17] MEDS ORDERED: SODIUM BICARBONATE 8.4% INJ 10 MEQ/10 ML DISP.SYRIN IV ONE (13:34)
[2016-12-17 15:28] LABS: PROTHROMBIN TIME 13.7 SEC (11.4-15.4)
[2016-12-17] MEDS ORDERED: ACETAMINOPHEN 325 MG TABLET PO PRN (16:04)
[2016-12-17] MEDS ORDERED: ONDANSETRON HCL INJ/PF 4 MG/2 ML SDV IV PRN (16:09)
[2016-12-17] MEDS ORDERED: OXYCODONE HCL IR 5 MG TABLET PO PRN (16:15)
--- NOTE | 2016-12-17 16:37 | PDOC H&P ---
History of Present Illness Admission Date/PCP: 12/17/16 14:21 MIKE WONG PA-C Patient complains of: Abdominal pain History of Present Illness: MILAGROS RAMOS is a 31 year old female, with end-stage renal disease on hemodialysis, chronic abdominal pain, chronic pancreatitis, multiple admissions and visits in the hospital for abdominal pain presents to the hospital because of persistent abdominal pain for about a week. Symptoms associated with intermittent diarrhea, nausea and vomiting. Patient reported that she went here 3-4 days ago and was told to have a stomach virus. Symptoms persisted and got worse. She felt like her potassium level is elevated therefore she went to the hospital for evaluation. Potassium was noted to be 7.8. EKG shows hyperacute T waves. She was given insulin and D50, calcium intravenously, albuterol. Nephrology was consulted and recommended ICU admission and dialysis. The patient was then referred to the hospitalist for admission. Patient denies any chills or fever, no recent travel, no intake of leftover fOODS, no exposure to someone with diarrhea. Past Medical History Cardiac Medical History: Reports: Hypertension - CONTROLLED WITH MED, Pulmonary Embolism, Other - endocarditis 2014 Denies: Coronary Artery Disease, Myocardial Infarction Pulmonary Medical History: Denies: Asthma, Bronchitis, Chronic Obstructive Pulmonary Disease (COPD), Pneumonia, Tuberculosis Neurological Medical History: Reports: Seizures - BABY, NONE SINCE AGE 1/ FEBRILE Renal/ Medical History: Reports: End Stage Renal Disease - focal segmental glumerulosclerosis GI Medical History: Reports: Gastroesophageal Reflux Disease Denies: Hepatitis, Hiatal Hernia Musculoskeltal Medical History: Denies: Arthritis Psychiatric Medical History: Reports: Depression Hematology: Reports: Anemia Denies: Sickle Cell Disease Past Surgical History Past Surgical History: Reports: Cholecystectomy - 01/2010, Herniorrhaphy - Double hernia repair, Tubal Ligation, Vascular Surgery - PermCath placement for dialysis, multiple procedures for declotting CVC Denies: Amputation, Appendectomy, Section, Hysterectomy, Mastectomy , Pacemaker, Tonsillectomy Social History Information Source: Patient Smoking Status: Former Smoker Frequency of Alcohol Use: None Hx Recreational Drug Use: No Drugs: None Hx Prescription Drug Abuse: No Family History Family History: Arthritis, Malignancy Parental Family History Reviewed: Yes Children Family History Reviewed: Yes Sibling(s) Family History Reviewed.: Yes Medication/Allergy Home Medications: Amlodipine Besylate [Norvasc 10 mg Tablet] 10 mg PO DAILY 12/17/16 Calcium Acetate [Phoslo 667 Mg Capsule] 1,334 mg PO TID 12/17/16 Dicyclomine HCl [Bentyl 10 mg Capsule] 10 mg PO TIDP PRN 12/17/16 Hydralazine HCl [Apresoline 10 mg Tablet] 10 mg PO DAILY 12/17/16 Lipase/Protease/Amylase [Creon Dr 12,000 Units Capsule] 1 each PO QID 12/17/16 Metoprolol Succinate [Toprol XL 100 mg Tablet] 100 mg PO Q12 12/17/16 Omeprazole 20 mg PO BID 12/17/16 Oxycodone HCl 5 mg PO Q6HP PRN 12/17/16 Pregabalin [Lyrica 75 mg Capsule] 75 mg PO QHS 12/17/16 Promethazine HCl [Phenergan 25 mg Tablet] 25 mg PO Q6HP PRN 12/17/16 Warfarin Sodium [Coumadin 1 mg Tablet] 1 mg PO QHS 12/17/16 Allergies/Adverse Reactions: metoclopramide HCl [From Reglan] Allergy (Severe, Verified 12/17/16 10:23) DYSTONIC REACTION vancomycin [Vancomycin] Allergy (Intermediate, Verified 12/17/16 10:23) rash amoxicillin [Amoxicillin] Allergy (Mild, Verified 12/17/16 10:23) Hives Iodinated Contrast Media - Oral and [IV Dye, Iodine Containing] Adverse Reaction (Severe, Verified 12/17/16 10:23) esrd ok with topical Review of Systems Constitutional: ABSENT: chills, fever(s), headache(s), weight gain, weight loss Eyes: ABSENT: visual disturbances Ears: ABSENT: hearing changes Nose, Mouth, and Throat: ABSENT: mouth pain, sore throat Cardiovascular: PRESENT: palpitations. ABSENT: chest pain, dyspnea on exertion , edema, orthropnea Respiratory: ABSENT: cough, dyspnea, hemoptysis, sputum Gastrointestinal: PRESENT: abdominal pain, diarrhea, nausea, vomiting. ABSENT: constipation, hematemesis, hematochezia Genitourinary: ABSENT: dysuria, hematuria Musculoskeletal: ABSENT: joint swelling Integumentary: ABSENT: rash, wounds Neurological: ABSENT: abnormal gait, abnormal speech, confusion, dizziness, focal weakness, syncope Psychiatric: ABSENT: anxiety, depression, homidical ideation, suicidal ideation Endocrine: ABSENT: cold intolerance, heat intolerance, polydipsia, polyuria Hematologic/Lymphatic: ABSENT: easy bleeding, easy bruising Physical Exam Vital Signs: Temp Pulse Resp BP Pulse Ox 97.9 F 85 27 H 134/97 H 99 12/17/16 10:19 12/17/16 10:19 12/17/16 16:11 12/17/16 16:11 12/17/16 15:01 General appearance: PRESENT: no acute distress, cooperative, obese - Overweight Head exam: PRESENT: atraumatic, normocephalic Eye exam: PRESENT: conjunctiva pale, EOMI, PERRLA. ABSENT: scleral icterus Ear exam: PRESENT: normal external ear exam Mouth exam: PRESENT: moist, neck supple, tongue midline Neck exam: ABSENT: carotid bruit, JVD, lymphadenopathy, thyromegaly Respiratory exam: PRESENT: other - Occasional crepitations posteriorly bilateral. ABSENT: rales, rhonchi, wheezes Cardiovascular exam: PRESENT: RRR, +S1, +S2. ABSENT: diastolic murmur, gallop, rubs, systolic murmur Pulses: PRESENT: normal dorsalis pedis pul Vascular exam: PRESENT: normal capillary refill GI/Abdominal exam: PRESENT: guarding - Voluntary, hypoactive bowel sounds, soft , tenderness - Diffuse. ABSENT: distended, mass, organolmegaly - Examination limited due to discomfort, rebound Rectal exam: PRESENT: deferred Extremities exam: PRESENT: full ROM. ABSENT: calf tenderness, clubbing, pedal edema Neurological exam: PRESENT: alert, awake, oriented to person, oriented to place , oriented to time, oriented to situation Psychiatric exam: PRESENT: appropriate affect, normal mood. ABSENT: homicidal ideation, suicidal ideation Skin exam: PRESENT: dry, intact, warm. ABSENT: cyanosis, rash Results Impressions: Chest X-Ray 12/17/16 10:24 IMPRESSION: No significant interval change. No acute findings. Other findings as noted above Assessment & Plan - Diagnosis (1) Acute hyperkalemia Is this a current diagnosis for this admission?: Yes (2) ESRD on dialysis Is this a current diagnosis for this admission?: Yes (3) Abdominal pain Qualifiers: Abdominal location: generalized Qualified Code(s): R10.84 - Generalized abdominal pain Is this a current diagnosis for this admission?: Yes (4) Chronic pancreatitis Qualifiers: Pancreatitis type: unspecified pancreatitis type Qualified Code(s): K86.1 - Other chronic pancreatitis Is this a current diagnosis for this admission?: Yes (5) Hyponatremia Is this a current diagnosis for this admission?: Yes (6) Anemia in chronic kidney disease (CKD) Is this a current diagnosis for this admission?: Yes (7) History of pulmonary embolism Is this a current diagnosis for this admission?: Yes (8) Hypertension Qualifiers: Hypertension type: essential hypertension Qualified Code(s): I10 - Essential (primary) hypertension Is this a current diagnosis for this admission?: Yes (9) GERD (gastroesophageal reflux disease) Qualifiers: Esophagitis presence: without esophagitis Qualified Code(s): K21.9 - Gastro-esophageal reflux disease without esophagitis Is this a current diagnosis for this admission?: Yes - Time Time Spent: 30 to 50 Minutes - Inpatient Certification Based on my medical assessment, after consideration of the patient's comorbidities, presenting symptoms, or acuity I expect that the services needed warrant INPATIENT care.: Yes I certify that my determination is in accordance with my understanding of Medicare's requirements for reasonable and necessary INPATIENT services [42 CFR 412.3e].: Yes Medical Necessity: Significant Comorbidiites Make Outpatient Treatment Too Risky , Need Close Monitoring Due to Risk of Patient Decompensation, Need For Continuous Telemetry Monitoring, Risk of Diagnosis Which Will Require Inpatient Eval/Care/Monitoring 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 Consult nephrology for dialysis. We will recheck potassium postdialysis. In the meantime I will continue the patient's home medications. She is not on any medication that might cause potassium retention. We will monitor electrolytes. Continue the warfarin but an increased dose. Monitor INR. Patient's chronic abdominal pain likely irritable bowel syndrome.
[2016-12-17 16:43] LABS: BLOOD UREA NITROGEN 44 mg/dL (7-20); CALCIUM 9.3 mg/dL (8.4-10.2); CARBON DIOXIDE 19 mmol/L (22-30); CHLORIDE 85 mmol/L (98-107); CREATININE RESULT 7.68 mg/dL (0.52-1.25); GLUCOSE 69 mg/dL (75-110)
[2016-12-17 16:52] LABS: SODIUM 124.8 mmol/L (137-145)
[2016-12-17 16:55] LABS: ANION GAP 21 (5-19); POTASSIUM 3.9 mmol/L (3.6-5.0)
[2016-12-17] MEDS: LANSOPRAZOLE 30 MG TAB.RAP.DR PO SCH (17:12)
[2016-12-17] MEDS: DOCUSATE SODIUM 100 MG CAPSULE PO SCH (17:13)
[2016-12-17] MEDS ORDERED: (PENDING PHARMACY ID) (Lipase/Protease/Amylase [Creon Dr 12,000 Units Capsule] 1 EACH) PO SCH (18:00)
[2016-12-17] MEDS ORDERED: DIPHENHYDRAMINE HCL 50 MG/ML VIAL ONE (18:08)
[2016-12-17] MEDS: CALCIUM ACETATE 667 MG CAPSULE PO SCH (18:49)
--- NOTE | 2016-12-17 18:59 | PDOC CONSULTATION ---
Consultation Consult Date: 12/17/16 Consult reason:: Urgent hemodialysis in the setting of severe hyperkalemia. History of Present Illness Admission Date/PCP: 12/17/16 16:04 MIKE WONG PA-C History of Present Illness: MILAGROS RAMOS is a 31 year old female, with end-stage renal disease on hemodialysis, chronic abdominal pain, chronic pancreatitis, multiple admissions and visits in the hospital for abdominal pain presents to the hospital because of persistent abdominal pain for about a week. Symptoms associated with intermittent diarrhea, nausea and vomiting. Patient reported that she went here 3-4 days ago and was told to have a stomach virus. Symptoms persisted and got worse. She felt like her potassium level is elevated therefore she went to the hospital for evaluation. Potassium was noted to be 7.8. EKG shows hyperacute T waves. She was given insulin and D50, calcium intravenously, albuterol. I was consulted and recommended ICU admission and dialysis. However repeat potassium was come back at 3.8. Last dialysis was yesterday. She is under Dr. Sanford of [facility]. Presently she is complaining of mild to moderate abdominal pains with intermittent nausea. However she is trying to drink some liquids. She is currently being seen on hemodialysis is undergoing dialysis without any issues. The cause of her potassium coming back at 3+ not doing rapid correction of potassium. We'll repeat the potassium now and one hour later. She is only going to be done on a 2K bath. 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 GI Medical History: Reports: Gastroesophageal Reflux Disease Denies: Hepatitis, Hiatal Hernia Musculoskeltal Medical History: Denies: Arthritis Psychiatric Medical History: Reports: Depression Past Surgical History Past Surgical History: Reports: Cholecystectomy - 01/2010, Dialysis Access Surgery AVF, Herniorrhaphy - Double hernia repair, Tubal Ligation, Vascular Surgery - PermCath placement for dialysis, multiple procedures for declotting CVC Denies: Appendectomy, Section, Hysterectomy, Mastectomy, Pacemaker, Tonsillectomy Social History Smoking Status: Current Every Day Smoker Cigarettes Packs Per Day: 0.5 Frequency of Alcohol Use: None Hx Recreational Drug Use: No Drugs: None Hx Prescription Drug Abuse: No Family History Parental Family History Reviewed: No Children Family History Reviewed: No Sibling(s) Family History Reviewed.: No Medication/Allergy Home Medications: Amlodipine Besylate [Norvasc 10 mg Tablet] 10 mg PO DAILY 12/17/16 Calcium Acetate [Phoslo 667 mg Capsule] 1,334 mg PO TID 12/17/16 Dicyclomine HCl [Bentyl 10 mg Capsule] 10 mg PO TIDP PRN 12/17/16 Hydralazine HCl [Apresoline 10 mg Tablet] 10 mg PO DAILY 12/17/16 Lipase/Protease/Amylase [Creon Dr 12,000 Units Capsule] 1 each PO QID 12/17/16 Metoprolol Succinate [Toprol XL 100 mg Tablet] 100 mg PO Q12 12/17/16 Omeprazole 20 mg PO BID 12/17/16 Pregabalin [Lyrica 75 mg Capsule] 75 mg PO QHS 12/17/16 Promethazine HCl [Phenergan 25 mg Tablet] 25 mg PO Q6HP PRN 12/17/16 Warfarin Sodium [Coumadin 1 mg Tablet] 1 mg PO QHS 12/17/16 Ondansetron [Zofran Odt] 8 mg PO Q6HP PRN #40 tab.rapdis 12/18/16 Oxycodone HCl 5 mg PO Q6HP PRN #15 tablet 12/18/16 Allergies/Adverse Reactions: metoclopramide HCl [From Reglan] Allergy (Severe, Verified 12/17/16 10:23) DYSTONIC REACTION vancomycin [Vancomycin] Allergy (Intermediate, Verified 12/17/16 10:23) rash amoxicillin [Amoxicillin] Allergy (Mild, Verified 12/17/16 10:23) Hives Iodinated Contrast Media - Oral and [IV Dye, Iodine Containing] Adverse Reaction (Severe, Verified 12/17/16 10:23) esrd ok with topical Review of Systems Review of Systems: Constitutional: PRESENT: as per HPI. ABSENT: chills, fever(s), headache(s), weight gain, weight loss Eyes: ABSENT: visual disturbances Ears: ABSENT: hearing changes Cardiovascular: ABSENT: chest pain, dyspnea on exertion, edema, orthropnea, palpitations Respiratory: ABSENT: cough, hemoptysis Gastrointestinal: [ABSENT: , hematemesis, hematochezia, Musculoskeletal: ABSENT: joint swelling Integumentary: ABSENT: rash, wounds Neurological: ABSENT: abnormal gait, abnormal speech, confusion, dizziness, focal weakness, syncope Psychiatric: ABSENT: anxiety, depression, homicidal ideation, suicidal ideation Endocrine: ABSENT: cold intolerance, heat intolerance, menstrual abnormalities, polydipsia, polyuria Hematologic/Lymphatic: ABSENT: easy bleeding, easy bruising, lymphadenopathy Physical Exam Vital Signs: Temp Pulse Resp BP Pulse Ox 97.8 F 87 18 161/103 H 99 12/17/16 17:48 12/17/16 17:48 12/17/16 17:48 12/17/16 17:48 12/17/16 17:48 Intake & Output 12/16/16 12/17/16 12/18/16 06:59 06:59 06:59 Output Total 0 Balance 0 Weight 59.2 kg General appearance: PRESENT: no acute distress Eye exam: PRESENT: conjunctiva pink, EOMI, PERRLA. ABSENT: nystagmus, periorbital swelling Neck exam: ABSENT: meningismus, tenderness, thyromegaly Respiratory exam: PRESENT: clear to auscultation marquis. ABSENT: crackles, rhonchi Cardiovascular exam: PRESENT: +S1, +S2, systolic murmur GI/Abdominal exam: PRESENT: guarding - Mild, hypoactive bowel sounds, soft, tenderness. ABSENT: distended Extremities exam: ABSENT: pedal edema Neurological exam: PRESENT: alert, awake, oriented to person, oriented to place , oriented to time Psychiatric exam: PRESENT: appropriate affect Skin exam: PRESENT: dry. ABSENT: erythema, mottled, rash Results Impressions: Chest X-Ray 12/17/16 10:24 IMPRESSION: No significant interval change. No acute findings. Other findings as noted above Assessment & Plan - Diagnosis (1) Abdominal pain Qualifiers: Abdominal location: generalized Qualified Code(s): R10.84 - Generalized abdominal pain Is this a current diagnosis for this admission?: YesPlan: As per hospitalist. Acute on chronic pancreatitis is being entertained. Patient is showing some signs of mild acute abdomen. Needs close monitoring. (2) Accelerated hypertension Plan: Stable (3) Acute hyperkalemia Is this a current diagnosis for this admission?: YesPlan: Even though the initial potassium was 7+ subsequent K come back at 3.8. I don' t believe that the measures is instituted in the ED would be responsible for such a drop. Therefore in spite of starting her on dialysis on a 2K bath we will repeat potassium now and then hour later postdialysis. Discussed this at length with the treating nurse and hemodialysis. (4) Chronic pancreatitis Qualifiers: Pancreatitis type: unspecified pancreatitis type Qualified Code(s): K86.1 - Other chronic pancreatitis Is this a current diagnosis for this admission?: Yes (5) ESRD on dialysis Is this a current diagnosis for this admission?: YesPlan: Patient undergoing dialysis now without any issues. Orders were discussed with the treating nurse. Going to go on a 2K bath instead of a lower bath as discussed earlier with my treating nurse. We'll keep a close eye on the potassium postdialysis and again for tomorrow. (6) Nausea and vomiting Qualifiers: Vomiting type: unspecified Vomiting Intractability: unspecified Qualified Code(s): R11.2 - Nausea with vomiting, unspecified
[2016-12-17] MEDS ORDERED: HEPARIN SOD (PORCINE) 1,000 UNIT/ML 10 ML VIAL IV PRN (19:15)
[2016-12-17] MEDS ORDERED: DIPHENHYDRAMINE HCL 50 MG/ML VIAL IV ONE (19:15)
--- NOTE | 2016-12-17 19:38 | EKG REPORT ---
SEVERITY:- BORDERLINE ECG - SINUS RHYTHM PROBABLE LEFT ATRIAL ABNORMALITY BORDERLINE PROLONGED QT INTERVAL : Confirmed by: Tucker Elder 17-Dec-2016 19:37:26
--- NOTE | 2016-12-17 19:38 | EKG REPORT ---
SEVERITY:- BORDERLINE ECG - SINUS RHYTHM PROBABLE LEFT ATRIAL ABNORMALITY : Confirmed by: Tucker Elder 17-Dec-2016 19:37:20
[2016-12-17] MEDS: MORPHINE SULFATE 10 MG/ML INJ IV PRN (20:18)
[2016-12-17] MEDS ORDERED: PREGABALIN 75 MG CAPSULE PO SCH (22:00)
[2016-12-17] MEDS ORDERED: (PENDING PHARMACY ID) (Warfarin Sodium 1 MG) PO SCH (22:00)
[2016-12-17] MEDS ORDERED: WARFARIN SODIUM 5 MG TABLET PO SCH (22:00)
[2016-12-17] MEDS: HEPARIN SOD (PORCINE) 5,000 UNIT/ML 1 ML SYRINGE SUBCUT SCH (23:46)
[2016-12-17] MEDS: METOPROLOL SUCCINATE 50 MG TAB.SR.24H PO SCH (23:48)
[2016-12-18] MEDS: MORPHINE SULFATE 10 MG/ML INJ IV PRN ×3 (00:19→08:40)
[2016-12-18] MEDS: LANSOPRAZOLE 30 MG TAB.RAP.DR PO SCH (05:25)
[2016-12-18] MEDS: HEPARIN SOD (PORCINE) 5,000 UNIT/ML 1 ML SYRINGE SUBCUT SCH ×2 (05:30→13:13)
[2016-12-18 07:37] LABS: PROTHROMBIN TIME 14.4 SEC (11.4-15.4)
[2016-12-18 07:51] LABS: ANION GAP 15 (5-19); CALCIUM 8.8 mg/dL (8.4-10.2); CARBON DIOXIDE 26 mmol/L (22-30); CHLORIDE 84 mmol/L (98-107); GLUCOSE 74 mg/dL (75-110); SODIUM 124.8 mmol/L (137-145)
[2016-12-18 08:10] LABS: BLOOD UREA NITROGEN 20 mg/dL (7-20); POTASSIUM 4.8 mmol/L (3.6-5.0)
[2016-12-18] MEDS ORDERED: HYDRALAZINE HCL 10 MG TABLET PO SCH (10:00)
[2016-12-18] MEDS ORDERED: AMLODIPINE BESYLATE 10 MG TABLET PO SCH (10:00)
[2016-12-18] MEDS: CALCIUM ACETATE 667 MG CAPSULE PO SCH ×2 (10:06→13:13)
[2016-12-18] MEDS: METOPROLOL SUCCINATE 50 MG TAB.SR.24H PO SCH (10:06)
[2016-12-18] MEDS: DOCUSATE SODIUM 100 MG CAPSULE PO SCH (10:07)
--- NOTE | 2016-12-18 14:56 | PDOC DISCHARGE SUMMARY ---
General - Admit/Disc Date/PCP Admission Date/Primary Care Provider: 12/17/16 16:04 MIKE WONG PA-C Discharge Date: 12/18/16 - Discharge Diagnosis (1) Acute hyperkalemia Is this a current diagnosis for this admission?: Yes (2) ESRD on dialysis Is this a current diagnosis for this admission?: Yes (3) Abdominal pain Is this a current diagnosis for this admission?: Yes (4) Chronic pancreatitis Is this a current diagnosis for this admission?: Yes (5) Hyponatremia Is this a current diagnosis for this admission?: Yes (6) Anemia in chronic kidney disease (CKD) Is this a current diagnosis for this admission?: Yes (7) History of pulmonary embolism Is this a current diagnosis for this admission?: Yes (8) Hypertension Is this a current diagnosis for this admission?: Yes (9) GERD (gastroesophageal reflux disease) Is this a current diagnosis for this admission?: Yes - Additional Information Resuscitation Status: Full Code Discharge Diet: Cardiac - no fat low salt, Other (Comments) - renal Discharge Activity: Activity As Tolerated, Balance Activity w/Rest Home Medications: Amlodipine Besylate [Norvasc 10 mg Tablet] 10 mg PO DAILY 12/17/16 Calcium Acetate [Phoslo 667 mg Capsule] 1,334 mg PO TID 12/17/16 Dicyclomine HCl [Bentyl 10 mg Capsule] 10 mg PO TIDP PRN 12/17/16 Hydralazine HCl [Apresoline 10 mg Tablet] 10 mg PO DAILY 12/17/16 Lipase/Protease/Amylase [Creon Dr 12,000 Units Capsule] 1 each PO QID 12/17/16 Metoprolol Succinate [Toprol XL 100 mg Tablet] 100 mg PO Q12 12/17/16 Omeprazole 20 mg PO BID 12/17/16 Pregabalin [Lyrica 75 mg Capsule] 75 mg PO QHS 12/17/16 Promethazine HCl [Phenergan 25 mg Tablet] 25 mg PO Q6HP PRN 12/17/16 Warfarin Sodium [Coumadin 1 mg Tablet] 1 mg PO QHS 12/17/16 Ondansetron [Zofran Odt] 8 mg PO Q6HP PRN #40 tab.rapdis 12/18/16 Oxycodone HCl 5 mg PO Q6HP PRN #15 tablet 12/18/16 Additional Information: 1. PT/INR with primary physician in 1 week. 2. Cont. hemodialysis outpatient as scheduled. History of Present Illness Patient complains of: Abdominal pain, feeling like potassium is high History of Present Illness: MILAGROS RAMOS is a 31 year old female, with end-stage renal disease on hemodialysis, chronic abdominal pain, chronic pancreatitis, multiple admissions and visits in the hospital for abdominal pain presents to the hospital because of persistent abdominal pain for about a week. Symptoms associated with intermittent diarrhea, nausea and vomiting. Patient reported that she went here 3-4 days ago and was told to have a stomach virus. Symptoms persisted and got worse. She felt like her potassium level is elevated therefore she went to the hospital for evaluation. Potassium was noted to be 7.8. EKG shows hyperacute T waves. She was given insulin and D50, calcium intravenously, albuterol. Nephrology was consulted and recommended ICU admission and dialysis. The patient was then referred to the hospitalist for admission. Patient denies any chills or fever, no recent travel, no intake of leftover fOODS, no exposure to someone with diarrhea. Hospital Course Hospital Course: The patient was admitted to the intensive care unit. The patient received insulin and D50, calcium and albuterol in the emergency room and the potassium improved. She was noted to have hyperacute T waves on EKG, nephrology was consulted and emergent hemodialysis was performed. Eventually serial potassium has normalized. In terms of her abdominal pain, it is chronic and eventually improved with dialysis as well. Her lipase level was normal. The following morning after admission the patient wanted to go home and continue treatment outpatient. The rest of the hospital stays unremarkable. Case discussed with nephrology who cleared the patient to be discharged. She was given prescription for 15 tablets of oxycodone to take for pain as needed at home. Physical Exam Vital Signs: Temp Pulse Resp BP Pulse Ox 98.1 F 64 18 144/82 H 99 12/18/16 11:03 12/18/16 11:03 12/18/16 11:03 12/18/16 11:03 12/18/16 11:03 Intake & Output 12/17/16 12/18/16 12/19/16 06:59 06:59 07:59 Output Total 5100 Balance -5100 Weight 57.3 kg General appearance: PRESENT: no acute distress, cooperative Head exam: PRESENT: normocephalic Eye exam: PRESENT: EOMI Mouth exam: PRESENT: moist, neck supple Neck exam: ABSENT: JVD Respiratory exam: PRESENT: clear to auscultation marquis Cardiovascular exam: PRESENT: RRR. ABSENT: gallop GI/Abdominal exam: PRESENT: hypoactive bowel sounds, soft, tenderness - Minimal which is chronic.. ABSENT: distended Extremities exam: ABSENT: pedal edema Neurological exam: PRESENT: alert, awake, oriented to person, oriented to place , oriented to time, oriented to situation Skin exam: PRESENT: dry, warm. ABSENT: cyanosis Results Laboratory Results: 12/18/16 07:05 12/17/16 12/17/16 12/18/16 18:45 22:25 07:05 Sodium 124.8 L Potassium 3.4 L 3.5 L 4.8 D Chloride 84 L Carbon Dioxide 26 Anion Gap 15 BUN 20 D Creatinine 4.90 H Est GFR ( Amer) 12 L Est GFR (Non-Af Amer) 10 L Glucose 74 L Calcium 8.8 Impressions: Chest X-Ray 12/17/16 10:24 IMPRESSION: No significant interval change. No acute findings. Other findings as noted above Qualifiers PATEINT BEING DISCHARGED WITH ANY OF THE FOLLOWING DIAGNOSIS?: No Plan Discharge Plan: Follow-up with primary care physician in one week. Time Spent: Less than 30 Minutes
[2016-12-18 15:19] VITALS: BP 140/97
--- NOTE | 2016-12-30 07:38 | Progress Note ---
Provider Note Provider Note: Addendum to the discharge summary final diagnosis: End-stage renal disease on hemodialysis probably from underlying failure of renal transplant in combination with prior renal failure necessitating transplant of which prior renal failure cause necessitating transplant unknown at this time.
== END 2016-12-18 15:37 | disposition home or self-care (01) | DRG 698 ==
LOC: ER 10:14 → UNDOADMIN 14:21 → EH 14:21 → ICU 17:42 → EH 17:42 → 3W 12-18 02:15
PROC: 5A1D00Z (ICD-10-PCS; principal; 2016-12-17)
DX: T86.11 Kidney transplant rejection (principal); N18.6 End stage renal disease; I12.0 Hypertensive chronic kidney disease with stage 5 chronic kidney disease or end stage renal disease; K86.1 Other chronic pancreatitis; E87.1 Hypo-osmolality and hyponatremia; E87.5 Hyperkalemia; Z99.2 Dependence on renal dialysis; K21.9 Gastro-esophageal reflux disease without esophagitis; F32.9 Major depressive disorder, single episode, unspecified; D63.1 Anemia in chronic kidney disease; F41.9 Anxiety disorder, unspecified; E16.2 Hypoglycemia, unspecified; F17.210 Nicotine dependence, cigarettes, uncomplicated; Z79.01 Long term (current) use of anticoagulants; Z98.51 Tubal ligation status; Z86.711 Personal history of pulmonary embolism; Z90.49 Acquired absence of other specified parts of digestive tract; Z88.1 Allergy status to other antibiotic agents; Z88.0 Allergy status to penicillin; Z91.041 Radiographic dye allergy status; Z79.899 Other long term (current) drug therapy; Z79.02 Long term (current) use of antithrombotics/antiplatelets
CPT/HCPCS: 36415; 71010; 80048; 80053; 80307; 82962; 83690; 84132; 84702; 85025; 85610; 93005; 93010; 94640; 96374; 96375; 96376; 99291; J0610; J1170; J1200; J1644; J1815; J2270; J2405; J3490; J7030; S0119

== ENCOUNTER 2016-12-30 06:51 | Emergency (ER) | payer MEDICARE, MEDICAID ==
[2016-12-30] MEDS ORDERED: LEVETIRACETAM 500 MG TABLET PO ONE (07:41)
--- NOTE | 2016-12-30 07:41 | ER Document Report ---
ED Seizure - General Mode of Arrival: Medic Information source: Patient - HPI Patient complains to provider of: History of seizures Number of episodes: 1 Time of onset: ~06:30 Continued on arrival to ED: No Episode witnessed (by whom): Yes - dialysis staff Preceding symptoms/context: Sleep deprivation Character of seizure: Complete loss/conscious Injuries: None - General Chief Complaint: Probable Seizure Stated Complaint: SEIZURE Notes: Patient is a 31-year-old female presenting to the emergency department after having a probable seizure dialysis this morning. Patient is amnetic to the event. Patient states that she now feels tired, "out of it", and her "head feels funny". Patient says this is how she normally feels after having a seizure. Patient has fast history of seizures as an , one in 2010, 1 in July 2015, and one in November 2015. Patient has not had any further evaluation after these seizures saying that she has not had time with all her potassium and phosphorus issues. Patient is on dialysis by Dr. Sanford. (CIRO NATH) - Related Data Allergies/Adverse Reactions: metoclopramide HCl [From Reglan] Allergy (Severe, Verified 12/17/16 10:23) DYSTONIC REACTION vancomycin [Vancomycin] Allergy (Intermediate, Verified 12/17/16 10:23) rash amoxicillin [Amoxicillin] Allergy (Mild, Verified 12/17/16 10:23) Hives Iodinated Contrast Media - Oral and [IV Dye, Iodine Containing] Adverse Reaction (Severe, Verified 12/17/16 10:23) esrd ok with topical Past Medical History - General Information source: Patient, [facility] Records - Social History Smoking Status: Unknown if Ever Smoked Family History: Reviewed & Not Pertinent, Arthritis, Malignancy - Past Medical History Cardiac Medical History: Reports: Hx Hypertension - CONTROLLED WITH MED, Hx Pulmonary Embolism Denies: Hx Coronary Artery Disease, Hx Heart Attack Pulmonary Medical History: Denies: Hx Asthma, Hx Bronchitis, Hx COPD, Hx Pneumonia, Hx Tuberculosis Neurological Medical History: Reports: Hx Seizures - febrile as infant, 2010, , 11/2015, 12/2016. 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 Denies: Hx Kidney Stones GI Medical History: Reports: Hx Gastroesophageal Reflux Disease. Denies: Hx Hepatitis, Hx Hiatal Hernia, Hx Ulcer Musculoskeltal Medical History: Denies Hx Arthritis Psychiatric Medical History: Reports: Hx Anxiety, Hx Depression Infectious Medical History: Denies: Hx Hepatitis Past Surgical History: Reports: Hx Cholecystectomy - 01/2010, Hx Herniorrhaphy - Double hernia repair, Hx Kidney (Renal Surgery) - kidney transplant 2004, Hx Tubal Ligation, Hx Vascular Surgery - PermCath placement for dialysis, multiple procedures for declotting CVC. Denies: Hx Appendectomy, Hx Bowel Surgery, Hx Section, Hx Hysterectomy, Hx Mastectomy, Hx Open Heart Surgery, Hx Pacemaker, Hx Tonsillectomy - Immunizations Immunizations up to date: Yes Hx Diphtheria, Pertussis, Tetanus Vaccination: Yes Hx Pneumococcal Vaccination: 07/10/14 Review of Systems - Review of Systems Constitutional: See HPI, Malaise EENT: No symptoms reported Cardiovascular: No symptoms reported Respiratory: No symptoms reported Gastrointestinal: No symptoms reported Genitourinary: No symptoms reported Female Genitourinary: No symptoms reported Musculoskeletal: No symptoms reported Skin: No symptoms reported Hematologic/Lymphatic: No symptoms reported Neurological/Psychological: See HPI, Seizure, Other - "head feels funny" "out of it" -: Yes All other systems reviewed and negative Physical Exam - General General appearance: Alert In distress: None - HEENT Head: Normocephalic, Atraumatic Eyes: Normal Pupils: PERRL Mouth/Lips: Other - Tongue appears dry/coated. No injury to tongue noted. - Respiratory Respiratory status: No respiratory distress Chest status: Nontender, Other - Permanent catheter for dialysis Breath sounds: Normal Chest palpation: Normal - Cardiovascular Rhythm: Regular Heart sounds: Normal auscultation Murmur: No - Abdominal Tenderness: Nontender - Back Back: Normal, Nontender - Extremities General upper extremity: Normal inspection, Nontender General lower extremity: Normal inspection, Nontender - Neurological Neuro grossly intact: Yes Cognition: Normal Orientation: AAOx4 [place] Coma Scale Eye Opening: Spontaneous Pranav Coma Scale Verbal: Oriented [place] Coma Scale Motor: Obeys Commands [place] Coma Scale Total: 15 Speech: Normal - Psychological Associated symptoms: Normal affect, Normal mood - Skin Skin Temperature: Warm Skin Moisture: Dry Skin Color: Normal - Vital signs Vitals: Temp Pulse Resp BP Pulse Ox 98.0 F 71 17 117/71 98 12/30/16 07:02 12/30/16 07:02 12/30/16 07:02 12/30/16 07:02 12/30/16 07:02 Discharge - Discharge Clinical Impression: Seizure, Chronic renal failure, stage 5 Additional Instructions: Seizure: You have had a seizure. Seizure disorders (epilepsy) of one sort or another affect about one out of 50 people. The seizure occurs because of abnormal electrical activity in the brain. Seizures may be due to drugs and alcohol, strokes, brain injury, or infection. In the most common form of epilepsy, no cause can be found. You will require further evaluation to determine the cause of your seizure, and to determine whether anti-seizure medication is required. This follow-up testing is important, so please call us if you encounter problems with scheduling of tests or appointments. YOU SHOULD NOT DRIVE until released to do so by your physician. The law requires that seizures be reported to the contract driver's license bureau--a seizure while driving could be catastrophic. Call the doctor if seizures recur, or if you develop new symptoms such as fever, severe headache, stiff neck, confusion or increasing sleepiness, weakness or numbness, or visual problems. TAKE THE KEPPRA PRESCRIBED. FOLLOW UP WITH YOUR PRIMARY CARE DOCTOR TODAY OR TOMORROW FOR ADJUSTING KEPPRA DOSE FOR DIALYSIS AND FOR NEUROLOGY REFERRAL. GO TO DIALYSIS NOW. RETURN TO THE EMERGENCY ROOM IF ANY NEW OR WORSENING SYMPTOMS. Prescriptions: Levetiracetam [Keppra 500 mg Tablet] 500 mg PO Q12 #60 tablet Scribe Attestation: 12/30/16 07:45 I personally performed the services described in the documentation, reviewed and edited the documentation which was dictated to the scribe in my presence, and it accurately records my words and actions. (TAMARA HOSKINS) Scribe Documentation - Scribe Written by [place]:: Ciro Nath 12/30/20161939 acting as scribe for :: Salvatore
[2016-12-30 08:22] VITALS: BP 112/59
== END 2016-12-30 08:10 | disposition home or self-care (01) ==
LOC: ER 06:51
DX: R56.9 Unspecified convulsions (principal); R53.81 Other malaise; I12.0 Hypertensive chronic kidney disease with stage 5 chronic kidney disease or end stage renal disease; N18.5 Chronic kidney disease, stage 5; Z99.2 Dependence on renal dialysis; Z88.8 Allergy status to other drugs, medicaments and biological substances; Z88.1 Allergy status to other antibiotic agents; Z88.0 Allergy status to penicillin; Z91.041 Radiographic dye allergy status; Z86.711 Personal history of pulmonary embolism; Z94.0 Kidney transplant status
CPT/HCPCS: 99284; A9270

== ENCOUNTER 2017-01-01 14:35 | Emergency (ER) | payer MEDICARE, MEDICAID ==
--- NOTE | 2017-01-01 14:41 | ER Document Report ---
ED Medical Screen (RME) - General Stated Complaint: FALL/ HEAD PAIN Mode of Arrival: Ambulatory Information source: Patient Notes: pt reports she had a seizure at dialysis on , fell hit the top of her head. Patient reports she was evaluated at the emergency department and discharged back to dialysis. She reports she is hurting now, doesn't feel right. Denies f/v/d. Brought by sister to the ED. Reports dialysis on , , SAT. Had dialysis this am. Pt is a&o speaks in clear voice, ambulates well. I have greeted and performed a rapid initial assessment of this patient. A comprehensive ED assessment and evaluation of the patient, analysis of test results and completion of the medical decision making process will be conducted by additional ED providers. TRAVEL OUTSIDE OF THE [place] IN LAST 30 DAYS: No - Related Data Allergies/Adverse Reactions: metoclopramide HCl [From Reglan] Allergy (Severe, Verified 01/01/17 14:41) DYSTONIC REACTION vancomycin [Vancomycin] Allergy (Intermediate, Verified 01/01/17 14:41) rash amoxicillin [Amoxicillin] Allergy (Mild, Verified 01/01/17 14:41) Hives Iodinated Contrast Media - Oral and [IV Dye, Iodine Containing] Adverse Reaction (Severe, Verified 01/01/17 14:41) esrd ok with topical Past Medical History - Past Medical History Cardiac Medical History: Reports: Hx Hypertension - CONTROLLED WITH MED, Hx Pulmonary Embolism Denies: Hx Coronary Artery Disease, Hx Heart Attack Pulmonary Medical History: Denies: Hx Asthma, Hx Bronchitis, Hx COPD, Hx Pneumonia, Hx Tuberculosis Neurological Medical History: Reports: Hx Seizures - febrile as infant, 2010, , 11/2015, 12/2016. 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 Denies: Hx Kidney Stones GI Medical History: Reports: Hx Gastroesophageal Reflux Disease. Denies: Hx Hepatitis, Hx Hiatal Hernia, Hx Ulcer Musculoskeltal Medical History: Denies Hx Arthritis Psychiatric Medical History: Reports: Hx Anxiety, Hx Depression Infectious Medical History: Denies: Hx Hepatitis Past Surgical History: Reports: Hx Cholecystectomy - 01/2010, Hx Herniorrhaphy - Double hernia repair, Hx Kidney (Renal Surgery) - kidney transplant 2004, Hx Tubal Ligation, Hx Vascular Surgery - PermCath placement for dialysis, multiple procedures for declotting CVC. Denies: Hx Appendectomy, Hx Bowel Surgery, Hx Section, Hx Hysterectomy, Hx Mastectomy, Hx Open Heart Surgery, Hx Pacemaker, Hx Tonsillectomy - Immunizations Immunizations up to date: Yes Hx Diphtheria, Pertussis, Tetanus Vaccination: Yes
--- NOTE | 2017-01-01 16:28 | ER Document Report ---
ED Fall - General Chief Complaint: Fall Stated Complaint: FALL/ HEAD PAIN Mode of Arrival: Ambulatory Information source: Patient TRAVEL OUTSIDE OF THE [place] IN LAST 30 DAYS: No - HPI Occurred: Other - 2 DAYS AGO Where: Other - DIALYSIS CLINIC Context: Fell from sitting - SITTING IN CHAIR @ DIALYSIS, HAD SEIZURE, FELL FORWARD, STRUCK FRONTAL PART OF HEAD ON CONCRETE FLOOR. Associated symptoms: Seizure - HAS H/O SAME Location of injury/pain: Head, Neck, Other - PAIN RADIATES TO R. ARM Quality of pain: Achy, Dull Severity: Mild - Related data Allergies/Adverse Reactions: metoclopramide HCl [From Reglan] Allergy (Severe, Verified 01/01/17 14:41) DYSTONIC REACTION vancomycin [Vancomycin] Allergy (Intermediate, Verified 01/01/17 14:41) rash amoxicillin [Amoxicillin] Allergy (Mild, Verified 01/01/17 14:41) Hives Iodinated Contrast Media - Oral and [IV Dye, Iodine Containing] Adverse Reaction (Severe, Verified 01/01/17 14:41) esrd ok with topical Past Medical History - General Information source: Patient - Social History Smoking Status: Current Every Day Smoker Chew tobacco use (# tins/day): No Frequency of alcohol use: None Drug Abuse: None Family History: Reviewed & Not Pertinent, Arthritis, Malignancy - Past Medical History Cardiac Medical History: Reports: Hx Hypertension - CONTROLLED WITH MED, Hx Pulmonary Embolism Denies: Hx Coronary Artery Disease, Hx Heart Attack Pulmonary Medical History: Denies: Hx Asthma, Hx Bronchitis, Hx COPD, Hx Pneumonia, Hx Tuberculosis Neurological Medical History: Reports: Hx Seizures - febrile as infant, 2010, , 11/2015, 12/2016. 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 Denies: Hx Kidney Stones GI Medical History: Reports: Hx Gastroesophageal Reflux Disease. Denies: Hx Hepatitis, Hx Hiatal Hernia, Hx Ulcer Musculoskeltal Medical History: Denies Hx Arthritis Psychiatric Medical History: Reports: Hx Anxiety, Hx Depression Infectious Medical History: Denies: Hx Hepatitis Past Surgical History: Reports: Hx Cholecystectomy - 01/2010, Hx Herniorrhaphy - Double hernia repair, Hx Kidney (Renal Surgery) - kidney transplant 2004, Hx Tubal Ligation, Hx Vascular Surgery - PermCath placement for dialysis, multiple procedures for declotting CVC. Denies: Hx Appendectomy, Hx Bowel Surgery, Hx Section, Hx Hysterectomy, Hx Mastectomy, Hx Open Heart Surgery, Hx Pacemaker, Hx Tonsillectomy - Immunizations Immunizations up to date: Yes Hx Diphtheria, Pertussis, Tetanus Vaccination: Yes Hx Pneumococcal Vaccination: 07/10/14 Physical Exam - Vital signs Vitals: Temp Pulse Resp BP Pulse Ox 98.9 F 87 16 122/88 H 98 01/01/17 14:41 01/01/17 14:41 01/01/17 14:41 01/01/17 14:41 01/01/17 14:41 Interpretation: Normal Course - Vital Signs Vital signs: Temp Pulse Resp BP Pulse Ox 98.9 F 87 16 122/88 H 98 01/01/17 14:41 01/01/17 14:41 01/01/17 14:41 01/01/17 14:41 01/01/17 14:41 Discharge - Discharge Clinical Impression: Seizure disorder Contusion of scalp Qualifiers: Encounter type: initial encounter Qualified Code(s): S00.03XA - Contusion of scalp, initial encounter Concussion Qualifiers: Encounter type: initial encounter Loss of consciousness presence/duration: with LOC of unspecified duration Qualified Code(s): S06.0X9A - Concussion with loss of consciousness of unspecified duration, initial encounter Cervical muscle strain Qualifiers: Encounter type: initial encounter Qualified Code(s): S16.1XXA - Strain of muscle, fascia and tendon at neck level, initial encounter Condition: Stable Disposition: HOME, SELF-CARE Instructions: Neck Injury (Cervical Strain) ([facility]), Concussion ([facility]), Warm Packs ([facility]), Oral Narcotic Medication ([facility]) Additional Instructions: REST, AVOID PAINFUL ACTIVITY. MINIMIZE YOUR PHYSICAL AND MENTAL ACTIVITY UNTIL HEADACHE SYMPTOMS HAVE RESOLVED. YOU MAY TAKE NORCO FOR PAIN CONTROL IF NEEDED. CONTINUE YOUR OTHER MEDICATIONS USUAL. FOLLOW UP WITH YOUR PRIMARY CARE PROVIDER OR RETURN TO E.R. IF PROBLEMS. Prescriptions: Hydrocodone/Acetaminophen [Magnolia 5-325 mg Tablet] 1 tab PO Q4HP PRN #14 tablet PRN Reason: For Pain Hydrocodone/Acetaminophen [Magnolia 5-325 mg Tablet] 1 tab PO Q4HP PRN #14 tablet PRN Reason: For Pain Referrals: BIBIANA CLAUDIO NP [Primary Care Provider] - Follow up as needed
[2017-01-01] MEDS ORDERED: OXYCODONE-ACETAMINOPHEN 5-325 MG TABLET PO ONE (18:18)
[2017-01-01 18:57] VITALS: BP 126/84
== END 2017-01-01 18:49 | disposition home or self-care (01) ==
LOC: ER 14:35
DX: S00.03XA Contusion of scalp, initial encounter (principal); S06.0X9A Concussion with loss of consciousness of unspecified duration, initial encounter; S16.1XXA Strain of muscle, fascia and tendon at neck level, initial encounter; G40.909 Epilepsy, unspecified, not intractable, without status epilepticus; W07.XXXA Fall from chair, initial encounter; Y92.531 Health care provider office as the place of occurrence of the external cause; F17.200 Nicotine dependence, unspecified, uncomplicated; I12.0 Hypertensive chronic kidney disease with stage 5 chronic kidney disease or end stage renal disease; N18.6 End stage renal disease; Z86.711 Personal history of pulmonary embolism; Z99.2 Dependence on renal dialysis; Z90.49 Acquired absence of other specified parts of digestive tract; Z98.51 Tubal ligation status; Z94.0 Kidney transplant status; Z88.3 Allergy status to other anti-infective agents; Z88.0 Allergy status to penicillin
CPT/HCPCS: 99284; 70450; 72125; A9270

== ENCOUNTER 2017-01-31 22:48 | Emergency (ER) | payer MEDICARE, MEDICAID ==
[2017-01-31] MEDS ORDERED: DIPHENHYDRAMINE HCL 50 MG/ML VIAL IV ONE (23:29)
[2017-01-31] MEDS ORDERED: METHYLPREDNISOLONE INJ 125 MG/2 ML SDV IV ONE (23:29)
[2017-01-31] MEDS ORDERED: EPINEPHRINE INJ/PF 1 MG/1 ML AMPULE IM ONE (23:29)
[2017-01-31] MEDS ORDERED: ONDANSETRON HCL INJ/PF 4 MG/2 ML SDV IV ONE (23:29)
[2017-01-31] MEDS ORDERED: FAMOTIDINE INJ/PF 20 MG/2 ML SDV IV ONE (23:29)
--- NOTE | 2017-01-31 23:50 | ER Document Report ---
ED Allergic Reaction - General Chief Complaint: Facial Swelling Stated Complaint: FACIAL SWELLING Notes: The patient is a 31-year-old female, past medical history ESRD ([facility]), current pancreatitis, presents after 2 hours of facial and abdominal swelling and feeling like her throat is closing. She is also feeling nauseous and having mild pain in her epigastric area. She has never had this swelling before. She has not missed any of her dialysis days. She denies new medications, new food, new detergents, stridor, shortness of breath, wheezing, rash, vomiting, diarrhea or headache. TRAVEL OUTSIDE OF THE [place] IN LAST 30 DAYS: No - Related Data Allergies/Adverse Reactions: metoclopramide HCl [From Reglan] Allergy (Severe, Verified 01/01/17 14:41) DYSTONIC REACTION vancomycin [Vancomycin] Allergy (Intermediate, Verified 01/01/17 14:41) rash amoxicillin [Amoxicillin] Allergy (Mild, Verified 01/01/17 14:41) Hives Iodinated Contrast Media - Oral and [IV Dye, Iodine Containing] Adverse Reaction (Severe, Verified 01/01/17 14:41) esrd ok with topical Past Medical History - General Information source: Patient - Social History Smoking Status: Unknown if Ever Smoked Family History: Reviewed & Not Pertinent, Arthritis, Malignancy - Past Medical History Cardiac Medical History: Reports: Hx Hypertension - CONTROLLED WITH MED, Hx Pulmonary Embolism Denies: Hx Coronary Artery Disease, Hx Heart Attack Pulmonary Medical History: Denies: Hx Asthma, Hx Bronchitis, Hx COPD, Hx Pneumonia, Hx Tuberculosis Neurological Medical History: Reports: Hx Seizures - febrile as infant, 2010, , 11/2015, 12/2016. 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 Denies: Hx Kidney Stones, Hx Peritoneal Dialysis GI Medical History: Reports: Hx Gastroesophageal Reflux Disease. Denies: Hx Hepatitis, Hx Hiatal Hernia, Hx Ulcer Musculoskeltal Medical History: Denies Hx Arthritis Psychiatric Medical History: Reports: Hx Anxiety, Hx Depression Infectious Medical History: Denies: Hx Hepatitis Past Surgical History: Reports: Hx Cholecystectomy - 01/2010, Hx Herniorrhaphy - Double hernia repair, Hx Kidney (Renal Surgery) - kidney transplant 2004, Hx Tubal Ligation, Hx Vascular Surgery - PermCath placement for dialysis, multiple procedures for declotting CVC. Denies: Hx Appendectomy, Hx Bowel Surgery, Hx Section, Hx Hysterectomy, Hx Mastectomy, Hx Open Heart Surgery, Hx Pacemaker, Hx Tonsillectomy - Immunizations Immunizations up to date: Yes Hx Diphtheria, Pertussis, Tetanus Vaccination: Yes Hx Pneumococcal Vaccination: 07/10/14 Review of Systems - Review of Systems Notes: REVIEW OF SYSTEMS: CONSTITUTIONAL: -fevers, -chills EENT: -eye pain, +throat swelling, -nasal congestion CARDIOVASCULAR:-chest pain, -syncope. RESPIRATORY: -cough, -SOB GASTROINTESTINAL: -epigastric abdominal pain, +nausea, -vomiting, -diarrhea GENITOURINARY: -dysuria, -hematuria MUSCULOSKELETAL: -back pain, -neck pain SKIN: -rash or skin lesions. HEMATOLOGIC: -easy bruising or bleeding. LYMPHATIC: -swollen, enlarged glands. NEUROLOGICAL: -altered mental status or loss of consciousness, -headache, - neurologic symptoms PSYCHIATRIC: -anxiety, -depression. ALL OTHER SYSTEMS REVIEWED AND NEGATIVE. Physical Exam - Vital signs Vitals: Temp Pulse Resp BP Pulse Ox 97.3 F 82 21 H 178/111 H 98 01/31/17 22:57 01/31/17 22:57 01/31/17 22:57 01/31/17 22:57 01/31/17 22:57 - Notes Notes: PHYSICAL EXAMINATION: GENERAL: Well-appearing, well-nourished and in no acute distress. HEAD: Atraumatic, normocephalic. EYES: Pupils equal round and reactive to light, extraocular movements intact, sclera anicteric, conjunctiva are normal. ENT: mild facial swelling, nares patent, oropharynx clear without exudates. Patent airway without swelling in posterior pharynx. No stridor. Moist mucous membranes. NECK: Normal range of motion, supple without lymphadenopathy LUNGS: Breath sounds clear to auscultation bilaterally and equal. No wheezes rales or rhonchi. HEART: Regular rate and rhythm without murmurs ABDOMEN: Soft, nontender, normoactive bowel sounds. No guarding, no rebound. No masses appreciated. EXTREMITIES: Normal range of motion, no pitting or edema. No cyanosis. NEUROLOGICAL: Cranial nerves grossly intact. Normal speech, normal gait. Normal sensory, motor, and reflex exams. PSYCH: Normal mood, normal affect. SKIN: Warm, Dry, normal turgor, no rashes or lesions noted. Course - Re-evaluation Re-evalutation: Patient monitored in the emergency room after epi and anaphylactic medications given. Her airway is still intact and she is in no respiratory distress. She remains without posterior pharynx involvement. Swelling around her face decreased. She has a slight leukocytosis on her blood work, but no signs of infection at this time. Her hyponatremia has improved from her prior values. She is due for dialysis in the morning. Will discharge home with follow-up at her primary care physician. Given strict return precautions and she understands. - Vital Signs Vital signs: Temp Pulse Resp BP Pulse Ox 97.3 F 82 15 153/103 H 94 01/31/17 22:57 01/31/17 22:57 02/01/17 02:01 02/01/17 02:01 02/01/17 02:01 - Laboratory Result Diagrams: 02/01/17 01:07 02/01/17 01:07 Laboratory results interpreted by me: 02/01/17 02/01/17 02/01/17 01:07 01:07 01:07 WBC 12.1 H RBC 3.48 L Hgb 11.2 L Hct 33.2 L RDW 16.0 H Absolute Neutrophils 8.7 H Sodium 129.1 L Chloride 90 L Carbon Dioxide 20 L BUN 54 H Creatinine 11.00 H Est GFR ( Amer) 5 L Est GFR (Non-Af Amer) 4 L Direct Bilirubin 0.7 H NT-Pro-B Natriuret Pep 80034 H Lipase 426.1 H - EKG Interpretation by Me EKG shows normal: Sinus rhythm, [place], Intervals, QRS Complexes, ST-T Waves Discharge - Discharge Clinical Impression: Allergic reaction Qualifiers: Encounter type: initial encounter Qualified Code(s): T78.40XA - Allergy, unspecified, initial encounter Condition: Stable Additional Instructions: ACUTE ALLERGIC REACTION: Your symptoms are due to an allergic reaction. Allergy can cause hives, swelling of the hands, feet, and face, hoarseness, and difficulty swallowing or breathing. It may be due to exposure to medication, animal dander, foods, infection, or insect bites. Medication is a common cause, even when prior use of this same medication caused no problems. Acute treatment may include adrenalin and antihistamines. Usually, the specific allergic agent can't be identified unless repeated episodes occur. Home treatment includes the following: (1) Stop any suspicious medications. This will be discussed with you. (2) Oral antihistamines for the next four to five days. Example, diphenhydramine (Benadryl) every four hours. (3) You may also use cimetidine (Tagamet), ranitidine (Zantac), or famotidine ( Pepcid) every four hours if diphenhydramine is not controlling itching and hives. (4) Avoid aspirin until the hives completely disappear. (5) Avoid hot baths or showers until the hives are completely gone. Call the doctor if faintness, difficulty swallowing, tightness in the chest , or wheezing occurs. EPINEPHRINE: An injection of epinephrine (also called adrenalin) is used to treat allergic reactions, asthma, and some other medical conditions. It is a stimulant medication that consticts blood vessels, relaxes smooth muscles such as in the bronchioles of the lung, elevates blood pressure, and increases heart rate. It can temporarily make you feel very nervous and shakey, but it's affects last only a short time, about 15 to 30 minutes at most. STEROID MEDICATION INJECTION: You have been given an injection of medicine of the cortisone/steroid class. This medication is used to control inflammation or allergy. It is often continued as a pill for a short period of time, until the acute process subsides. There are usually no side effects from short-term use of cortisone-like medications. Some persons feel an increased sense of well-being and are not sleepy at bedtime. Long-term use of cortisone medications is best avoided, unless required for a severe condition. If your condition does not remit, or relapses after the course of corticosteroid medication, you should consult your physician. ACID-SUPPRESSING MEDICATION: You have a prescription for medicine which reduces the stomach's secretion of acid. Examples include Zantac, Tagament, and Pepcid. These drugs are often used to allow healing of ulcers or esophagitis. They may be needed to prevent recurrence of ulcers in some patients, or to prevent damage from acid reflux in the esophagus. Take all medication as prescribed, even after the pain is gone. Regular antacids may be added as needed if you have symptoms while taking this medicine. These medications sometimes are prescribed for allergic reactions because they have anti-histaminic effects and relieve the rash and itching of the reaction. There are usually no side effects from this medication. But, in rare cases and particularly in the elderly, serious problems can occur. Contact your doctor if there is fever, rash, hallucinations, confusion, or unusual bruising. Contact your doctor at once if you develop lightheadedness, black or bloody stool, or bloody vomitus. ANTIHISTAMINES: An antihistamine has been given and/or prescribed to control your symptoms. Antihistamines are used for many reasons, including itching, watering eyes, runny nose, allergic swelling, hives, and insect stings. Antihistamines may cause drowsiness, especially with the first dose. Do not operate machinery or drive while under the effects of the medication. Other common side effects include dry mouth and eyes. In older persons, antihistamines can occasionally cause urinary retention, constipation, and trouble focusing the eyes. Do not combine the medication with alcohol, or with any other medication without talking to your doctor. USE OF DIPHENHYDRAMINE: The use of diphenhydramine (Benadryl) has been recommended to control allergic symptoms. The 25 mg strength is available over- the-counter, as well as the elixir. This antihistamine is used for many symptoms. It's useful for itching, watering eyes and nose, allergic swelling, hives, and insect stings. The medication can be repeated four times daily. Age Elixir (12.5 mg/tsp) 25 mg pill 2-3 yr 1/2 tsp 4-8 yr 1 tsp 9-14 yr 2 tsp one tab adult 1-2 tabs Antihistamines may cause drowsiness, especially with the first dose. Do not operate machinery or drive while under the effects of the medication. Do not combine the medication with alcohol, or with any other medication without talking to your doctor. FOLLOW-UP CARE: If you have been referred to a physician for follow-up care, call the physician s office for an appointment as you were instructed or within the next two days. If you experience worsening or a significant change in your symptoms, notify the physician immediately or return to the Emergency Department at any time for re-evaluation. Prescriptions: Epinephrine [Epipen 2-Aleksander] 0.3 mg IM ONCE PRN #1 ml PRN Reason: Referrals: BIBIANA CLAUDIO NP [Primary Care Provider] - Follow up as needed
[2017-02-01] MEDS ORDERED: MORPHINE SULFATE 10 MG/ML INJ IV ONE (00:59)
[2017-02-01 01:16] LABS: ABSOLUTE BASOPHILS # (AUTO) 0.1 10^3/uL (0.0-0.2); ABSOLUTE EOSINOPHILS # (AUTO) 0.2 10^3/uL (0.0-0.6); ABSOLUTE LYMPHOCYTES (AUTO) 2.4 10^3/uL (0.5-4.7); ABSOLUTE MONOCYTES (AUTO) 0.7 10^3/uL (0.1-1.4); ABSOLUTE NEUT (AUTO) 8.7 10^3/uL (1.7-8.2); BASOPHILS % (AUTO) 0.9 % (0-2); EOSINOPHILS % (AUTO) 1.8 % (0-6); HEMATOCRIT 33.2 % (36.0-47.0); HEMOGLOBIN 11.2 g/dL (12.0-15.5); HGB HCT DIFFERENCE 0.4; LYMPHOCYTES % (AUTO) 19.9 % (13-45); MEAN CORPUSCULAR HEMOGLOBIN 32.1 pg (27.0-33.4); MEAN CORPUSCULAR HGB CONC 33.6 g/dL (32.0-36.0); MEAN CORPUSCULAR VOLUME 95 fl (80-97); MONOCYTES % (AUTO) 5.7 % (3-13); RED BLOOD COUNT 3.48 10^6/uL (3.72-5.28); SEGMENTED NEUTROPHILS % (AUTO) 71.7 % (42-78); WHITE BLOOD COUNT 12.1 10^3/uL (4.0-10.5)
[2017-02-01 01:27] LABS: ALANINE AMINOTRANSFERASE 23 U/L (9-52); ALBUMIN 4.2 g/dL (3.5-5.0); ALKALINE PHOSPHATASE 108 U/L (38-126); ANION GAP 19 (5-19); ASPARTATE AMINO TRANSFERASE 19 U/L (14-36); BILIRUBIN,DIRECT 0.7 mg/dL (0.0-0.4); BILIRUBIN,TOTAL 0.7 mg/dL (0.2-1.3); BLOOD UREA NITROGEN 54 mg/dL (7-20); CALCIUM 8.4 mg/dL (8.4-10.2); CARBON DIOXIDE 20 mmol/L (22-30); CHLORIDE 90 mmol/L (98-107); GLUCOSE 90 mg/dL (75-110); LIPASE 426.1 U/L (23-300); SODIUM 129.1 mmol/L (137-145); TOTAL PROTEIN 6.6 g/dL (6.3-8.2)
[2017-02-01 02:08] VITALS: BP 153/103
--- NOTE | 2017-02-01 11:20 | EKG REPORT ---
SEVERITY:- ABNORMAL ECG - SINUS RHYTHM LEFT ATRIAL ABNORMALITY : Confirmed by: Tucker Elder 01-Feb-2017 11:18:58
== END 2017-02-01 02:38 | disposition home or self-care (01) ==
LOC: ER 22:48
DX: R22.0 Localized swelling, mass and lump, head (principal); T78.40XA Allergy, unspecified, initial encounter; X58.XXXA Exposure to other specified factors, initial encounter; R11.0 Nausea; R10.13 Epigastric pain; I12.0 Hypertensive chronic kidney disease with stage 5 chronic kidney disease or end stage renal disease; K85.90 Acute pancreatitis without necrosis or infection, unspecified; N18.6 End stage renal disease; Z86.711 Personal history of pulmonary embolism; K21.9 Gastro-esophageal reflux disease without esophagitis; Z90.49 Acquired absence of other specified parts of digestive tract; Z94.0 Kidney transplant status; Z99.2 Dependence on renal dialysis; Z88.3 Allergy status to other anti-infective agents; Z88.0 Allergy status to penicillin
CPT/HCPCS: 93005; 99284; 96372; 96374; 96375; 36415; 83690; 85025; 80076; 80048; 83880; 93010; J1200; J0171; J2930; J2270; J2405; S0028

== ENCOUNTER 2017-02-17 11:12 | Emergency (ER) | payer MEDICARE, MEDICAID ==
[2017-02-17] MEDS ORDERED: ONDANSETRON 4 MG TAB.RAPDIS PO ONE (11:37)
--- NOTE | 2017-02-17 11:38 | ER Document Report ---
ED Medical Screen (RME) - General Chief Complaint: Palpitations Stated Complaint: HEART RACING,DIARRHEA,NAUSEA,DIZZY Time Seen by Provider: 02/17/17 11:35 Mode of Arrival: Ambulatory Information source: Patient Notes: Patient presents to emergency department with complaints of abdominal pain and palpitations nausea. Patient is a dialysis patient, with history of pancreatitis. TRAVEL OUTSIDE OF THE [place] IN LAST 30 DAYS: No - Related Data Allergies/Adverse Reactions: metoclopramide HCl [From Reglan] Allergy (Severe, Verified 02/17/17 11:33) DYSTONIC REACTION vancomycin [Vancomycin] Allergy (Intermediate, Verified 02/17/17 11:33) rash amoxicillin [Amoxicillin] Allergy (Mild, Verified 02/17/17 11:33) Hives Iodinated Contrast Media - Oral and [IV Dye, Iodine Containing] Adverse Reaction (Severe, Verified 02/17/17 11:33) esrd ok with topical Past Medical History - Past Medical History Cardiac Medical History: Reports: Hx Hypertension - CONTROLLED WITH MED, Hx Pulmonary Embolism Denies: Hx Coronary Artery Disease, Hx Heart Attack Pulmonary Medical History: Denies: Hx Asthma, Hx Bronchitis, Hx COPD, Hx Pneumonia, Hx Tuberculosis Neurological Medical History: Reports: Hx Seizures - febrile as , 2010, , 11/2015, 12/2016. 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 Denies: Hx Kidney Stones, Hx Peritoneal Dialysis - [facility] GI Medical History: Reports: Hx Gastroesophageal Reflux Disease. Denies: Hx Hepatitis, Hx Hiatal Hernia, Hx Ulcer Musculoskeltal Medical History: Denies Hx Arthritis Psychiatric Medical History: Reports: Hx Anxiety, Hx Depression Infectious Medical History: Denies: Hx Hepatitis Past Surgical History: Reports: Hx Cholecystectomy - 01/2010, Hx Herniorrhaphy - Double hernia repair, Hx Kidney (Renal Surgery) - kidney transplant 2004, Hx Tubal Ligation, Hx Vascular Surgery - PermCath placement for dialysis, multiple procedures for declotting CVC. Denies: Hx Appendectomy, Hx Bowel Surgery, Hx Section, Hx Hysterectomy, Hx Mastectomy, Hx Open Heart Surgery, Hx Pacemaker, Hx Tonsillectomy - Immunizations Immunizations up to date: Yes Hx Diphtheria, Pertussis, Tetanus Vaccination: Yes Physical Exam - Vital signs Vitals: Temp Pulse Resp BP Pulse Ox 99.6 F 80 17 123/82 96 02/17/17 11:19 02/17/17 11:19 02/17/17 11:19 02/17/17 11:19 02/17/17 11:19 Course - Vital Signs Vital signs: Temp Pulse Resp BP Pulse Ox 99.6 F 80 17 123/82 96 02/17/17 11:19 02/17/17 11:19 02/17/17 11:19 02/17/17 11:19 02/17/17 11:19
[2017-02-17 12:16] LABS: ABSOLUTE BASOPHILS # (AUTO) 0.1 10^3/uL (0.0-0.2); ABSOLUTE EOSINOPHILS # (AUTO) 0.2 10^3/uL (0.0-0.6); ABSOLUTE LYMPHOCYTES (AUTO) 1.5 10^3/uL (0.5-4.7); ABSOLUTE MONOCYTES (AUTO) 0.6 10^3/uL (0.1-1.4); ABSOLUTE NEUT (AUTO) 3.7 10^3/uL (1.7-8.2); BASOPHILS % (AUTO) 0.9 % (0-2); EOSINOPHILS % (AUTO) 2.6 % (0-6); HEMATOCRIT 38.9 % (36.0-47.0); HEMOGLOBIN 12.8 g/dL (12.0-15.5); HGB HCT DIFFERENCE -0.5; LYMPHOCYTES % (AUTO) 25.8 % (13-45); MEAN CORPUSCULAR HEMOGLOBIN 32.1 pg (27.0-33.4); MEAN CORPUSCULAR HGB CONC 32.9 g/dL (32.0-36.0); MEAN CORPUSCULAR VOLUME 98 fl (80-97); MONOCYTES % (AUTO) 9.7 % (3-13); RED BLOOD COUNT 3.99 10^6/uL (3.72-5.28); RED CELL DISTRIBUTION WIDTH 16.3 % (11.5-14.0)
[2017-02-17 12:40] LABS: ALANINE AMINOTRANSFERASE 45 U/L (9-52); ALBUMIN 5.2 g/dL (3.5-5.0); ALKALINE PHOSPHATASE 137 U/L (38-126); ANION GAP 19 (5-19); ASPARTATE AMINO TRANSFERASE 37 U/L (14-36); BILIRUBIN,DIRECT 0.6 mg/dL (0.0-0.4); BLOOD UREA NITROGEN 25 mg/dL (7-20); CALCIUM 10.4 mg/dL (8.4-10.2); CARBON DIOXIDE 27 mmol/L (22-30); CHLORIDE 93 mmol/L (98-107); CREATININE RESULT 4.98 mg/dL (0.52-1.25); GLUCOSE 64 mg/dL (75-110); LIPASE 506.6 U/L (23-300); POTASSIUM 4.5 mmol/L (3.6-5.0); SODIUM 139.1 mmol/L (137-145); TOTAL PROTEIN 8.2 g/dL (6.3-8.2)
--- NOTE | 2017-02-17 13:52 | EKG REPORT ---
SEVERITY:- BORDERLINE ECG - SINUS RHYTHM PROBABLE LEFT ATRIAL ABNORMALITY : Confirmed by: Tucker Elder 17-Feb-2017 13:51:37
[2017-02-17] MEDS ORDERED: ONDANSETRON HCL INJ/PF 4 MG/2 ML SDV IV ONE (14:21)
[2017-02-17] MEDS ORDERED: MORPHINE SULFATE 10 MG/ML INJ IV ONE (14:25)
--- NOTE | 2017-02-17 14:49 | ER Document Report ---
ED General - General Chief Complaint: Palpitations Stated Complaint: HEART RACING,DIARRHEA,NAUSEA,DIZZY Time Seen by Provider: 02/17/17 11:35 Mode of Arrival: Ambulatory Notes: The patient is a 31-year-old female, past medical history ESRD ([facility]), chronic pancreatitis, presents after intermittent episodes of feeling a fast heart rate, nausea and diarrhea over the past 3 days. She says the episodes occur and last a few seconds. She had her full course of dialysis today, but she is still worried that her potassium is elevated. She is also having mild epigastric pain, similar to her chronic pain. She denies vomiting, current palpitations, chest pain, shortness of breath, hematemesis, hematochezia, fevers , recent antibiotic use, recent travel or rash. TRAVEL OUTSIDE OF THE [place] IN LAST 30 DAYS: No - Related Data Allergies/Adverse Reactions: metoclopramide HCl [From Reglan] Allergy (Severe, Verified 02/17/17 11:33) DYSTONIC REACTION vancomycin [Vancomycin] Allergy (Intermediate, Verified 02/17/17 11:33) rash amoxicillin [Amoxicillin] Allergy (Mild, Verified 02/17/17 11:33) Hives Iodinated Contrast Media - Oral and [IV Dye, Iodine Containing] Adverse Reaction (Severe, Verified 02/17/17 11:33) esrd ok with topical Past Medical History - General Information source: Patient - Social History Smoking Status: Unknown if Ever Smoked Family History: Reviewed & Not Pertinent, Arthritis, Malignancy Patient has suicidal ideation: No Patient has homicidal ideation: No - Past Medical History Cardiac Medical History: Reports: Hx Hypertension - CONTROLLED WITH MED, Hx Pulmonary Embolism Denies: Hx Coronary Artery Disease, Hx Heart Attack Pulmonary Medical History: Denies: Hx Asthma, Hx Bronchitis, Hx COPD, Hx Pneumonia, Hx Tuberculosis Neurological Medical History: Reports: Hx Seizures - febrile as , 2010, , 11/2015, 12/2016. 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 Denies: Hx Kidney Stones, Hx Peritoneal Dialysis - hemo GI Medical History: Reports: Hx Gastroesophageal Reflux Disease. Denies: Hx Hepatitis, Hx Hiatal Hernia, Hx Ulcer Musculoskeltal Medical History: Denies Hx Arthritis Psychiatric Medical History: Reports: Hx Anxiety, Hx Depression Infectious Medical History: Denies: Hx Hepatitis Past Surgical History: Reports: Hx Cholecystectomy - 01/2010, Hx Herniorrhaphy - Double hernia repair, Hx Kidney (Renal Surgery) - kidney transplant 2004, Hx Tubal Ligation, Hx Vascular Surgery - PermCath placement for dialysis, multiple procedures for declotting CVC. Denies: Hx Appendectomy, Hx Bowel Surgery, Hx Section, Hx Hysterectomy, Hx Mastectomy, Hx Open Heart Surgery, Hx Pacemaker, Hx Tonsillectomy - Immunizations Immunizations up to date: Yes Hx Diphtheria, Pertussis, Tetanus Vaccination: Yes Hx Pneumococcal Vaccination: 07/10/14 Review of Systems - Review of Systems Notes: REVIEW OF SYSTEMS: CONSTITUTIONAL: -fevers, -chills EENT: -eye pain, -difficulty swallowing, -nasal congestion CARDIOVASCULAR: -chest pain, -syncope, +palpitations RESPIRATORY: -cough, -SOB GASTROINTESTINAL: +chronic epigastric pain, +nausea, +vomiting, -diarrhea MUSCULOSKELETAL: -back pain, -neck pain SKIN: -rash or skin lesions. HEMATOLOGIC: -easy bruising or bleeding. LYMPHATIC: -swollen, enlarged glands. NEUROLOGICAL: -altered mental status or loss of consciousness, -headache, - neurologic symptoms PSYCHIATRIC: -anxiety, -depression. ALL OTHER SYSTEMS REVIEWED AND NEGATIVE. Physical Exam - Vital signs Vitals: Temp Pulse Resp BP Pulse Ox 99.6 F 80 17 123/82 96 02/17/17 11:19 02/17/17 11:19 02/17/17 11:19 02/17/17 11:19 02/17/17 11:19 - Notes Notes: PHYSICAL EXAMINATION: GENERAL: Well-appearing, well-nourished and in no acute distress. HEAD: Atraumatic, normocephalic. EYES: Pupils equal round and reactive to light, extraocular movements intact, sclera anicteric, conjunctiva are normal. ENT: nares patent, oropharynx clear without exudates. Moist mucous membranes. NECK: Normal range of motion, supple without lymphadenopathy LUNGS: Breath sounds clear to auscultation bilaterally and equal. No wheezes rales or rhonchi. HEART: Regular rate and rhythm without murmurs ABDOMEN: Soft, nontender, normoactive bowel sounds. No guarding, no rebound. No masses appreciated. EXTREMITIES: Normal range of motion, no pitting or edema. No cyanosis. NEUROLOGICAL: Cranial nerves grossly intact. Normal speech, normal gait. Normal sensory, motor, and reflex exams. PSYCH: Normal mood, normal affect. SKIN: Warm, Dry, normal turgor, no rashes or lesions noted. Course - Re-evaluation Re-evalutation: Patient appears well. Lipase is 500, but her prior values that she has acute pancreatitis much higher. Patient was placed on the monitor in the emergency room without any arrhythmias and EKG does not show evidence of prolonged QTC, Brugada or WPW. Potassium is normal. Patient tolerating fluids. Instructed her that she must follow-up with her primary care physician for further evaluation and treatment with possible Holter monitor from cardiology to assess for any potential arrhythmias. Patient comfortable with plan. Given strict return precautions and she understands. - Vital Signs Vital signs: Temp Pulse Resp BP Pulse Ox 99.6 F 80 19 127/99 H 96 02/17/17 11:19 02/17/17 11:19 02/17/17 14:22 02/17/17 14:22 02/17/17 14:22 - Laboratory Result Diagrams: 02/17/17 12:00 02/17/17 12:00 Laboratory results interpreted by me: 02/17/17 02/17/17 12:00 12:00 MCV 98 H RDW 16.3 H Plt Count 141 L Chloride 93 L BUN 25 H Creatinine 4.98 H Est GFR ( Amer) 12 L Est GFR (Non-Af Amer) 10 L Glucose 64 L Calcium 10.4 H Direct Bilirubin 0.6 H AST 37 H Alkaline Phosphatase 137 H Albumin 5.2 H Lipase 506.6 H - EKG Interpretation by Nm EKG shows normal: Sinus rhythm, [place], Intervals, QRS Complexes, ST-T Waves Discharge - Discharge Clinical Impression: Palpitations, Nausea Diarrhea Qualifiers: Diarrhea type: unspecified type Qualified Code(s): R19.7 - Diarrhea, unspecified Condition: Good Disposition: HOME, SELF-CARE Additional Instructions: You must follow-up with your primary care physician for further evaluation and treatment of your palpitations. You may need referral to a Tax [employer] Intern for a Holter monitor. Palpitations (Irregular/Rapid Heartrate) Irregular or rapid heartbeat is called "palpitation." To diagnose the cause of palpitation, we have to "catch it in the act" with an EKG. Sinus Tachycardia: This is a rapid (but NORMAL) rhythm that can be due to fever, pain, anxiety, lack of sleep, over-exertion, or drugs. Cold medications, caffeine, and diet pills are particularly likely to cause tachycardia. Usually , all that's required is rest, reassurance, and avoiding caffeine, alcohol, nicotine, and unnecessary medicines. Paroxysmal Atrial Tachycardia (PAT): This abnormally rapid heartbeat is caused by a "short circuit" in the electrical system of the heart. It is not dangerous, unless other heart disease is present. These attacks of PAT may occur occasionally for years. Medication is available for treatment. Paroxysmal Atrial Fibrillation or Atrial Flutter: This is irregular electrical activity in the upper heart chamber. These abnormal rhythms often occur with valve disease or in hearts damaged by hardening of the arteries. These rhythms usually require further testing, for example a cardiac echo. Premature Beats: Extra beats occur more commonly after caffeine, nicotine , alcohol, cold pills, diet pills. Emotional stress or fatigue also provoke them. Extra beats are only dangerous when heart disease is present. They usually need no treatment. If they're frequent, or if evidence of heart disease develops, medication can be given to suppress them. If we were unable to "catch" the palpitations on EKG, you should try to get an EKG immediately if the symptoms begin again. Contact the physician at once if you develop persistent lightheadedness, shortness of breath, chest pain , or swelling of the ankles. VOMITING: Vomiting (or nausea without vomiting) can be caused by many other different problems. It can mean that something's wrong with the stomach, such as ulcers or inflammation or the intestinal tract, such as appendicitis. But it can also be a symptom of a problem that has nothing to do with the stomach or intestines. Vomiting is common with severe headaches, earaches, tonsillitis, and kidney infections, etc. We see it with pneumonia or heart attacks. Drugs can cause nausea and vomiting. Many abdominal problems cause vomiting; for example, gallstones, kidney stones, pancreatitis, and intestinal obstruction ( blocked bowels). In most cases, curing the vomiting depends on fixing the problem that caused it. For temporary relief, we may use an anti-nausea medicine. For home use, we can prescribe suppositories, chewable pills, pills that dissolve in the mouth, or liquid anti-nausea drugs. If the vomiting seems to be caused by a problem in the stomach, acid-suppressing drugs may be prescribed as well. It's important to avoid dehydration. Sip small amounts of clear liquids ( soft drinks, tea, broth, etc) . Try to take fluids frequently even if you are vomiting to prevent dehydration. Take increasing amounts of fluid and when liquids are being consumed successfully, advance to small amounts of bland food (toast, soups, mashed potatoes, etc.) until you are able to resume a regular diet. Avoid aspirin, tobacco, and alcohol. If the vomiting worsens, if the problem that's making you vomit worsens, or if there's evidence of bleeding in the stomach (such as black, tarry stool, or bloody or black vomit), you should return immediately. Also, return if abdominal pain worsens or becomes localized to one area or you develop high fever. Call your doctor if you aren't improved in 24 hours. DIARRHEA, NON-SPECIFIC: Diarrhea means frequent, watery stools. There are many causes. Any problem that keeps the intestinal tract from absorbing water from the stool can lead to diarrhea. A sudden new diarrhea problem is usually caused by a virus, food sensitivity, toxic bacteria, or drugs. In this case, we expect the problem to go away soon. Testing is done only if you seem seriously ill from the diarrhea. If you have chronic diarrhea, or diarrhea that keeps coming back, we need to find out why. Chronic diarrhea can be due to inflammation of the bowels such as Crohn's disease or ulcerative colitis, food sensitivity such as intolerance to lactose or wheat protein, irritable bowel syndrome, and other problems. If your diarrhea is a significant problem but it's not clear why you have it, we' ll refer you to a specialist for further testing. During an episode of diarrhea, drink small amounts (two to six ounces) of clear liquids (soft drinks, sport drinks, herb teas, broth, etc). Take fluids frequently to prevent dehydration. It's usually not a problem to take mild anti- diarrhea medication such as Kaopectate or Pepto-Bismol. As the diarrhea eases, advance to small amounts of bland food (mashed potato, toast) for 24 hours. Call the physician if blood appears in your vomit or stool, if vomiting lasts longer than 24 hours, if the abdominal pain worsens or becomes localized to one area, if you develop high fever, or if you become lightheaded and weak. ANTINAUSEA MEDICATION: You have been given a medication to suppress nausea and vomiting. This type of medication can be given as a shot, pill, or suppository. It will usually last for many hours. Pills and shots usually last six to eight hours. For the typical illness, only one or two doses of the medication may be necessary. Mild lightheadedness may occur. This type of medicine can cause drowsiness. Do not drive or operate dangerous machinery while under its influence. Do not mix with alcohol. See your doctor at once if you have muscle spasms or tightness, or uncontrollable motions (particularly of the neck, mouth, or jaw). Persistent vomiting or severe lightheadedness should also be evaluated by the physician. FOLLOW-UP CARE: If you have been referred to a physician for follow-up care, call the physician s office for an appointment as you were instructed or within the next two days. If you experience worsening or a significant change in your symptoms, notify the physician immediately or return to the Emergency Department at any time for re-evaluation. Referrals: DANIA HUERTA MD [ACTIVE STAFF] - Follow up as needed
[2017-02-17 16:16] VITALS: BP 123/88
== END 2017-02-17 16:23 | disposition home or self-care (01) ==
LOC: ER 11:12
DX: R00.2 Palpitations (principal); R19.7 Diarrhea, unspecified; R11.2 Nausea with vomiting, unspecified; R42 Dizziness and giddiness; I12.0 Hypertensive chronic kidney disease with stage 5 chronic kidney disease or end stage renal disease; N18.6 End stage renal disease; Z99.2 Dependence on renal dialysis; G89.29 Other chronic pain; R10.13 Epigastric pain; Z86.711 Personal history of pulmonary embolism; Z90.49 Acquired absence of other specified parts of digestive tract; Z98.51 Tubal ligation status; Z94.0 Kidney transplant status
CPT/HCPCS: 93005; 99285; 96374; 96375; 36415; 83690; 84703; 85025; 80053; 93010; A9270; J2270; J2405; S0119

== ENCOUNTER 2017-03-02 05:07 | Emergency (ER) | payer MEDICARE, MEDICAID ==
[2017-03-02 06:50] LABS: ABSOLUTE EOSINOPHILS # (AUTO) 0.2 10^3/uL (0.0-0.6); ABSOLUTE LYMPHOCYTES (AUTO) 1.6 10^3/uL (0.5-4.7); ABSOLUTE MONOCYTES (AUTO) 0.6 10^3/uL (0.1-1.4); BASOPHILS % (AUTO) 0.5 % (0-2); HEMATOCRIT 31.5 % (36.0-47.0); HEMOGLOBIN 10.6 g/dL (12.0-15.5); HGB HCT DIFFERENCE 0.3; LYMPHOCYTES % (AUTO) 29.4 % (13-45); MEAN CORPUSCULAR HEMOGLOBIN 32.3 pg (27.0-33.4); MEAN CORPUSCULAR HGB CONC 33.7 g/dL (32.0-36.0); MEAN CORPUSCULAR VOLUME 96 fl (80-97); MONOCYTES % (AUTO) 10.7 % (3-13); RED CELL DISTRIBUTION WIDTH 14.9 % (11.5-14.0); SEGMENTED NEUTROPHILS % (AUTO) 56.4 % (42-78); WHITE BLOOD COUNT 5.4 10^3/uL (4.0-10.5)
--- NOTE | 2017-03-02 06:58 | RADIOLOGY REPORT (SQ) ---
EXAM DESCRIPTION: CHEST SINGLE VIEW COMPLETED DATE/TIME: 03/02/2017 6:48 am REASON FOR STUDY: facial edema COMPARISON: 12/17/2016. EXAM PARAMETERS: NUMBER OF VIEWS: One view. TECHNIQUE: Single frontal radiographic view of the chest acquired. RADIATION DOSE: NA LIMITATIONS: None. FINDINGS: LUNGS AND PLEURA: No opacities, masses or pneumothorax. No pleural effusion. MEDIASTINUM AND HILAR STRUCTURES: No masses. Contour normal. HEART AND VASCULAR STRUCTURES: Enlargement of the cardiac silhouette. BONES: No acute findings. HARDWARE: Tip of a right large caliber central line in the right atrium; consider 8.5 cm retraction. OTHER: No other significant finding. IMPRESSION: No acute cardiopulmonary findings.Tip of a right large caliber central line in the right atrium; consider 8.5 cm retraction. TECHNICAL DOCUMENTATION: JOB ID: [id number]
[2017-03-02 07:04] LABS: ALANINE AMINOTRANSFERASE 27 U/L (9-52); ALBUMIN 4.1 g/dL (3.5-5.0); ALKALINE PHOSPHATASE 118 U/L (38-126); ANION GAP 17 (5-19); ASPARTATE AMINO TRANSFERASE 24 U/L (14-36); BILIRUBIN,DIRECT 0.7 mg/dL (0.0-0.4); BILIRUBIN,TOTAL 0.7 mg/dL (0.2-1.3); BLOOD UREA NITROGEN 35 mg/dL (7-20); CALCIUM 9.4 mg/dL (8.4-10.2); CARBON DIOXIDE 23 mmol/L (22-30); CHLORIDE 89 mmol/L (98-107); CREATININE RESULT 8.99 mg/dL (0.52-1.25); GLUCOSE 76 mg/dL (75-110); SODIUM 128.5 mmol/L (137-145); TOTAL PROTEIN 6.7 g/dL (6.3-8.2)
--- NOTE | 2017-03-02 07:08 | ER Document Report ---
ED General - General Chief Complaint: Facial Swelling Stated Complaint: FACIAL SWELLING Time Seen by Provider: 03/02/17 06:06 Mode of Arrival: Ambulatory Information source: Patient Notes: 31-year-old female history of dialysis presents with complaints of generalized weakness and facial swelling. Patient been having facial swelling intermittently for weeks. Notes that her dialysis access may have clotted. Patient denies any fevers or chills denies any chest pain shortness breath difficulty breathing TRAVEL OUTSIDE OF THE [place] IN LAST 30 DAYS: No - HPI Onset: Other Onset/Duration: Intermittent Quality of pain: No pain Severity: Mild Pain Level: Denies Associated symptoms: Other Exacerbated by: Denies Relieved by: Denies Similar symptoms previously: Yes Recently seen / treated by doctor: Yes - Related Data Allergies/Adverse Reactions: metoclopramide HCl [From Reglan] Allergy (Severe, Verified 02/17/17 11:33) DYSTONIC REACTION vancomycin [Vancomycin] Allergy (Intermediate, Verified 02/17/17 11:33) rash amoxicillin [Amoxicillin] Allergy (Mild, Verified 02/17/17 11:33) Hives Iodinated Contrast Media - Oral and [IV Dye, Iodine Containing] Adverse Reaction (Severe, Verified 02/17/17 11:33) esrd ok with topical Past Medical History - Social History Smoking Status: Current Every Day Smoker Cigarette use (# per day): Yes Chew tobacco use (# tins/day): No Smoking Education Provided: No Frequency of alcohol use: None Drug Abuse: None Family History: Reviewed & Not Pertinent, Arthritis, Malignancy - Past Medical History Cardiac Medical History: Reports: Hx Hypertension - CONTROLLED WITH MED, Hx Pulmonary Embolism Denies: Hx Coronary Artery Disease, Hx Heart Attack Pulmonary Medical History: Denies: Hx Asthma, Hx Bronchitis, Hx COPD, Hx Pneumonia, Hx Tuberculosis Neurological Medical History: Reports: Hx Seizures - febrile as infant, 2010, , 11/2015, 12/2016. 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 Denies: Hx Kidney Stones, Hx Peritoneal Dialysis GI Medical History: Reports: Hx Gastroesophageal Reflux Disease. Denies: Hx Hepatitis, Hx Hiatal Hernia, Hx Ulcer Musculoskeltal Medical History: Denies Hx Arthritis Psychiatric Medical History: Reports: Hx Anxiety, Hx Depression Infectious Medical History: Denies: Hx Hepatitis Past Surgical History: Reports: Hx Cholecystectomy - 01/2010, Hx Herniorrhaphy - Double hernia repair, Hx Kidney (Renal Surgery) - kidney transplant 2004, Hx Tubal Ligation, Hx Vascular Surgery - PermCath placement for dialysis, multiple procedures for declotting CVC. Denies: Hx Appendectomy, Hx Bowel Surgery, Hx Section, Hx Hysterectomy, Hx Mastectomy, Hx Open Heart Surgery, Hx Pacemaker, Hx Tonsillectomy - Immunizations Immunizations up to date: Yes Hx Diphtheria, Pertussis, Tetanus Vaccination: Yes Hx Pneumococcal Vaccination: 07/10/14 Review of Systems - Review of Systems Notes: PHYSICAL EXAMINATION: GENERAL: Well-appearing, well-nourished and in no acute distress. HEAD: Atraumatic, normocephalic. EYES: Pupils equal round and reactive to light, extraocular movements intact, conjunctiva are normal. ENT: Nares patent, oropharynx clear without exudates. Moist mucous membranes. NECK: Normal range of motion, supple without lymphadenopathy LUNGS: Breath sounds clear to auscultation bilaterally and equal. No wheezes rales or rhonchi. HEART: Regular rate and rhythm without murmurs ABDOMEN: Soft, nontender, nondistended abdomen. No guarding, no rebound. No masses appreciated. Female : deferred Musculoskeletal: Normal range of motion, no pitting or edema. No cyanosis. NEUROLOGICAL: Cranial nerves grossly intact. Normal speech, normal gait. Normal sensory, motor exams PSYCH: Normal mood, normal affect. SKIN: Dialysis access right subclavian warm, Dry, normal turgor, no rashes or lesions noted. Physical Exam - Vital signs Vitals: Temp Pulse Resp BP Pulse Ox 98.1 F 86 16 150/98 H 97 03/02/17 05:12 03/02/17 05:12 03/02/17 05:12 03/02/17 05:12 03/02/17 05:12 Course - Re-evaluation Re-evalutation: 03/02/17 09:39 Ultrasound was performed no acute abnormality was noted chest x-ray was normal. Lab work does show mild hyponatremia patient was made aware of this and is otherwise stable for discharge After performing a Medical Screening Examination, I estimate there is LOW risk for ACUTE APPENDICITIS, BOWEL OBSTRUCTION, ACUTE CHOLECYSTITIS, PERFORATED DIVERTICULITIS, INCARCERATED HERNIA, PANCREATITIS, PELVIC INFLAMMATORY DISEASE, PERFORATED ULCER, ECTOPIC , or TUBO-OVARIAN ABSCESS, thus I consider the discharge disposition reasonable. Also, there is no evidence or peritonitis , sepsis, or toxicity. I have reevaluated this patient multiple times and no significant life threatening changes are noted. The patient and I have discussed the diagnosis and risks, and we agree with discharging home with close follow-up with the understanding that symptoms and presentations can change. We also discussed returning to the Emergency Department immediately if new or worsening symptoms occur. We have discussed the symptoms which are most concerning (e.g., bloody stool, fever, changing or worsening pain, vomiting) that necessitate immediate return. - Vital Signs Vital signs: Temp Pulse Resp BP Pulse Ox 98 F 94 18 150/98 H 100 03/02/17 08:12 03/02/17 08:12 03/02/17 08:12 03/02/17 05:12 03/02/17 08:12 - Laboratory Result Diagrams: 03/02/17 06:37 03/02/17 06:37 Laboratory results interpreted by me: 03/02/17 03/02/17 06:37 06:37 RBC 3.30 L Hgb 10.6 L Hct 31.5 L RDW 14.9 H Sodium 128.5 L Chloride 89 L BUN 35 H Creatinine 8.99 H Est GFR ( Amer) 6 L Est GFR (Non-Af Amer) 5 L Direct Bilirubin 0.7 H - Diagnostic Test Radiology reviewed: Image reviewed, Reports reviewed Discharge - Discharge Clinical Impression: Facial swelling, Hyponatremia CKD (chronic kidney disease) Qualifiers: Chronic kidney disease stage: stage 3 (moderate) Qualified Code(s): N18.3 - Chronic kidney disease, stage 3 (moderate) Condition: Stable Disposition: HOME, SELF-CARE Additional Instructions: Follow up with your physician tomorrow for further care or return to the ED IMMEDIATELY if symptoms worsen or new concerns occur. If you cannot afford to follow up with your primary care physician a list of low cost clinics have been provided at the end of your discharge papers as well.
--- NOTE | 2017-03-02 07:52 | EKG REPORT ---
SEVERITY:- NORMAL ECG - SINUS RHYTHM : Confirmed by: Anthony Small MD 02-Mar-2017 07:51:50
[2017-03-02 09:52] VITALS: BP 148/82
--- NOTE | 2017-03-02 12:30 | XCELERA REPORT ---
[address] [address] Upper Extremity Venous Evaluation Name: MILAGROS RAMOS Age: 31 yrs Gender: Female : 1985 Patient Status: Emergency Patient Location: ER Study Date: 03/02/2017 08:05 AM Procedure: Unilateral duplex scan of the right upper extremity veins was performed, including responses to compression and other maneuvers. Reason For Study: RUE IJ bilateral please, FACIAL SWELLING Ordering Physician: HIWOT BROWN Performed By: Jana Rothman Right Side Venous Evaluation Normal vessel filling wall to wall, compression and augmentation as well as Colour flow down to the forearm veins. Critical Findings Called in to the ER at bout 1000. Interpretation Summary Normal compression, patency, spontaneous and phasic flow of the right upper extremity veins. : HIWOT BROWN > Miguel Alexander
== END 2017-03-02 09:52 | disposition home or self-care (01) ==
LOC: ER 05:07
DX: R22.0 Localized swelling, mass and lump, head (principal); E87.1 Hypo-osmolality and hyponatremia; N18.3 Chronic kidney disease, stage 3 (moderate); R53.1 Weakness; F17.210 Nicotine dependence, cigarettes, uncomplicated
CPT/HCPCS: 36415; 71010; 80053; 85025; 93005; 93010; 93971; 99284

== ENCOUNTER 2017-03-23 14:23 | Inpatient (IN) | payer MEDICARE, MEDICAID ==
[2017-03-23] MEDS ORDERED: ASPIRIN 325 MG TABLET PO ONE (16:12)
[2017-03-23] MEDS ORDERED: MORPHINE SULFATE 10 MG/ML INJ IV ONE ×2 (16:12→19:30)
[2017-03-23 16:24] LABS: ABSOLUTE BASOPHILS # (AUTO) 0.1 10^3/uL (0.0-0.2); ABSOLUTE EOSINOPHILS # (AUTO) 0.1 10^3/uL (0.0-0.6); ABSOLUTE LYMPHOCYTES (AUTO) 1.2 10^3/uL (0.5-4.7); ABSOLUTE MONOCYTES (AUTO) 0.3 10^3/uL (0.1-1.4); ABSOLUTE NEUT (AUTO) 5.4 10^3/uL (1.7-8.2); BASOPHILS % (AUTO) 0.8 % (0-2); EOSINOPHILS % (AUTO) 0.9 % (0-6); HEMATOCRIT 23.3 % (36.0-47.0); HGB HCT DIFFERENCE -0.2; LYMPHOCYTES % (AUTO) 17.4 % (13-45); MEAN CORPUSCULAR HEMOGLOBIN 31.6 pg (27.0-33.4); MEAN CORPUSCULAR HGB CONC 33.1 g/dL (32.0-36.0); MEAN CORPUSCULAR VOLUME 96 fl (80-97); MONOCYTES % (AUTO) 4.9 % (3-13); RED BLOOD COUNT 2.43 10^6/uL (3.72-5.28); RED CELL DISTRIBUTION WIDTH 13.9 % (11.5-14.0); WHITE BLOOD COUNT 7.1 10^3/uL (4.0-10.5)
[2017-03-23 16:27] LABS: HEMOGLOBIN 7.7 g/dL (12.0-15.5)
[2017-03-23 16:28] LABS: PROTHROMBIN TIME 13.7 SEC (11.4-15.4)
[2017-03-23 16:30] LABS: VENOUS BLOOD BASE EXCESS -1.2 mmol/L; VENOUS BLOOD HCO3 22.1 mmol/L (20-32); VENOUS BLOOD PCO2 32.4 mmHg (35-63); VENOUS BLOOD PH 7.45 (7.30-7.42)
[2017-03-23 16:38] LABS: ALANINE AMINOTRANSFERASE 40 U/L (9-52); ALBUMIN 3.8 g/dL (3.5-5.0); ALKALINE PHOSPHATASE 110 U/L (38-126); ANION GAP 17 (5-19); ASPARTATE AMINO TRANSFERASE 24 U/L (14-36); BILIRUBIN,DIRECT 0.5 mg/dL (0.0-0.4); BILIRUBIN,TOTAL 0.7 mg/dL (0.2-1.3); BLOOD UREA NITROGEN 38 mg/dL (7-20); CARBON DIOXIDE 19 mmol/L (22-30); CHLORIDE 91 mmol/L (98-107); CREATININE RESULT 9.47 mg/dL (0.52-1.25); GLUCOSE 65 mg/dL (75-110); POTASSIUM 4.6 mmol/L (3.6-5.0); SODIUM 126.5 mmol/L (137-145); TOTAL PROTEIN 6.1 g/dL (6.3-8.2)
--- NOTE | 2017-03-23 17:07 | ER Document Report ---
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 Patient actually states she is scheduled to get a fistula reconstruction at [facility] and had actually a preop stress test at [facility] yesterday which was unremarkable. She states he did not have the chest pain until later in the day after the stress test. She did complete her dialysis yesterday. Patient does have a history of pulmonary embolism as well as endocarditis. Patient denies any fevers. She denies any vomiting. She denies any and all abdominal pain. She states the pain is to the left side of her chest, without radiation, without aggravating or relieving factors. States greater than 25 bouts of nonbloody diarrhea. TRAVEL OUTSIDE OF THE [place] IN LAST 30 DAYS: No - HPI Patient complains to provider of: Chest pain, Short of breath Onset: Other - See above Duration: Continuous Quality of pain: Achy Severity: Mild Pain Level: 1 Context: Other - See above Short of Breath: Mild Chest pain/discomfort: Left Cough: Nonproductive Sputum amount: None Associated symptoms: Other - See above Similar symptoms previously: Yes Recently seen / treated by doctor: Yes - Related Data Allergies/Adverse Reactions: metoclopramide HCl [From Reglan] Allergy (Severe, Verified 03/23/17 14:55) DYSTONIC REACTION vancomycin [Vancomycin] Allergy (Intermediate, Verified 03/23/17 14:55) rash amoxicillin [Amoxicillin] Allergy (Mild, Verified 03/23/17 14:55) Hives Iodinated Contrast- Oral and IV Dye [IV Dye, Iodine Containing] Adverse Reaction (Severe, Verified 03/23/17 14:55) esrd ok with topical Past Medical History - General Information source: Patient - Social History Smoking Status: Former Smoker Cigarette use (# per day): No Chew tobacco use (# tins/day): No Smoking Education Provided: No Frequency of alcohol use: None Drug Abuse: None Family History: Reviewed & Not Pertinent, Arthritis, Malignancy - Past Medical History Cardiac Medical History: Reports: Hx Hypertension - CONTROLLED WITH MED, Hx Pulmonary Embolism Denies: Hx Coronary Artery Disease, Hx Heart Attack Pulmonary Medical History: Denies: Hx Asthma, Hx Bronchitis, Hx COPD, Hx Pneumonia, Hx Tuberculosis Neurological Medical History: Reports: Hx Seizures - febrile as infant, 2010, , 11/2015, 12/2016. 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 Denies: Hx Kidney Stones, Hx Peritoneal Dialysis GI Medical History: Reports: Hx Gastroesophageal Reflux Disease. Denies: Hx Hepatitis, Hx Hiatal Hernia, Hx Ulcer Musculoskeltal Medical History: Denies Hx Arthritis Psychiatric Medical History: Reports: Hx Anxiety, Hx Depression Infectious Medical History: Denies: Hx Hepatitis Past Surgical History: Reports: Hx Cholecystectomy - 01/2010, Hx Herniorrhaphy - Double hernia repair, Hx Kidney (Renal Surgery) - kidney transplant 2004, Hx Tubal Ligation, Hx Vascular Surgery - PermCath placement for dialysis, multiple procedures for declotting CVC. Denies: Hx Appendectomy, Hx Bowel Surgery, Hx Section, Hx Hysterectomy, Hx Mastectomy, Hx Open Heart Surgery, Hx Pacemaker, Hx Tonsillectomy - Immunizations Immunizations up to date: Yes Hx Diphtheria, Pertussis, Tetanus Vaccination: Yes Hx Pneumococcal Vaccination: 07/10/14 Review of Systems - Review of Systems Constitutional: denies: Fever EENT: denies: Eye discharge, Nose discharge Cardiovascular: denies: Palpitations Respiratory: Short of breath. denies: Hurts to breathe, Wheezing Gastrointestinal: denies: Vomiting Genitourinary: denies: Dysuria Musculoskeletal: denies: Leg swelling Skin: Other - no hives. denies: Rash Neurological/Psychological: Other - no slurred speech -: Yes All other systems reviewed and negative Physical Exam - Vital signs Vitals: Temp Pulse Resp Pulse Ox 98.6 F 101 H 28 H 96 03/23/17 14:33 03/23/17 14:33 03/23/17 14:33 03/23/17 14:33 Notes: Reviewed vital signs and nursing note as charted by RN. CONSTITUTIONAL: Alert and oriented and responds appropriately to questions. Well -appearing; well-nourished HEAD: Normocephalic; atraumatic EYES: PERRL ENT: Normal nose; no rhinorrhea; moist mucous membranes; pharynx without lesions noted NECK: Supple without meningismus; non-tender; no cervical lymphadenopathy, no masses CARD: Regular rate and rhythm; no murmurs, no clicks, no rubs, no gallops; symmetric distal pulses RESP: Normal chest excursion without splinting; mild tachypnea; breath sounds clear and equal bilaterally; minimally scattered rhonchi bilateral ABD/GI: Normal bowel sounds; non-distended; soft, non-tender BACK: The back appears normal and is non-tender to palpation, there is no CVA tenderness EXT: Normal ROM in all joints; non-tender to palpation; no cyanosis, no effusions, no edema SKIN: Normal color for age and race; warm; dry; good turgor; capillary refill < 2 seconds; no acute lesions noted NEURO: Moves all extremities equally; Motor and sensory function intact PSYCH: The patient's mood and manner are appropriate. Grooming and personal hygiene are appropriate. Course - Re-evaluation Re-evalutation: 03/23/17 17:09 Given the above history and physical examination, we will order an x-ray of the chest, cardiac panel, EKG, and reassess. If this is unremarkable we will most likely proceed a CTA of the chest given the patient's history. I am unable currently to connect the diarrhea with the chest pain and shortness of breath. Patient has not missed her dialysis session. EKG is unremarkable with a heart rate of 90, normal axis, no obvious ST elevation or depression. 03/23/17 17:12 Patient's hemoglobin seems to have dropped 4 points since last month. We did perform a rectal exam. 03/23/17 17:29 Patient states she does have a history of anemia requiring transfusion in the past. She denies any history of GI bleeding. Patient denies any blood in the stools. I have performed a rectal examination showing no gross blood. Hemoccult is pending. VQ scan shows intermediate probability of pulmonary embolism. 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 - Vital Signs Vital signs: Temp Pulse Resp BP Pulse Ox 98.6 F 101 H 18 160/98 H 98 03/23/17 14:33 03/23/17 14:33 03/23/17 17:04 03/23/17 17:04 03/23/17 17:04 - Laboratory Result Diagrams: 03/23/17 16:10 03/23/17 16:10 Laboratory results interpreted by me: 03/23/17 03/23/17 03/23/17 16:10 16:10 16:10 RBC 2.43 L Hgb 7.7 L Hct 23.3 L Plt Count 132 L VBG pH 7.45 H VBG pCO2 32.4 L Sodium 126.5 L Chloride 91 L Carbon Dioxide 19 L BUN 38 H Creatinine 9.47 H Est GFR ( Amer) 6 L Est GFR (Non-Af Amer) 5 L Glucose 65 L Direct Bilirubin 0.5 H Total Protein 6.1 L Discharge - Discharge Clinical Impression: Dyspnea, Anemia, Pulmonary infiltrate in right lung on chest x-ray Condition: Fair Disposition: ADMITTED INPATIENT Admitting Provider: Hospitalist Unit Admitted: Telemetry
[2017-03-23] MEDS ORDERED: NORMAL SALINE 1000 ML 500 ML IV ONE (17:11)
--- NOTE | 2017-03-23 17:14 | RADIOLOGY REPORT (SQ) ---
EXAM DESCRIPTION: NM LUNG VENT/PERF SCAN COMPLETED DATE/TIME: 03/23/2017 4:59 pm REASON FOR STUDY: 13, CP with SOB/ h/o PE - dialysis pt COMPARISON: Chest radiograph RADIONUCLIDE AND DOSE: 5.45 millicuries TC-99m MAA Intravenous 31.1 millicuries TC-99m DTPA Inhaled aerosol TECHNIQUE: Eight views of the lungs acquired post ventilation of DTPA aerosol. Eight matching views of the lungs acquired following injection of MAA. LIMITATIONS: None. FINDINGS: VENTILATION: Symmetric and homogeneous distribution of DTPA aerosol during ventilatory pha se. No significant areas of photopenia. PERFUSION: There is a single wedge-shaped defect involving the superior segment of the left lower lob e. Remainder of the profusion is normal. OTHER: No other significant finding. IMPRESSION: Intermediate probability of pulmonary embolus. Single segmental V/Q mismatch. TECHNICAL DOCUMENTATION: JOB ID: [id number] [employer]- All Rights Reserved
[2017-03-23] MEDS ORDERED: CEFTRIAXONE RTU 1 GM/D5W 50 ML IV ONE (17:43)
[2017-03-23] MEDS ORDERED: AZITHROMYCIN INJ 500 MG VIAL IV ONE (17:43)
--- NOTE | 2017-03-23 17:52 | RADIOLOGY REPORT (SQ) ---
EXAM DESCRIPTION: CHEST SINGLE VIEW COMPLETED DATE/TIME: 03/23/2017 5:41 pm REASON FOR STUDY: 13, SOB COMPARISON: 03/02/2017 EXAM PARAMETERS: NUMBER OF VIEWS: One view. TECHNIQUE: Single frontal radiographic view of the chest acquired. RADIATION DOSE: NA LIMITATIONS: None. FINDINGS: LUNGS AND PLEURA: There is a hazy opacity in the right lung base. There is also some retr ocardiac opacity on the left with the left hemidiaphragm being somewhat indistinct. MEDIASTINUM AND HILAR STRUCTURES: No masses. Contour normal. HEART AND VASCULAR STRUCTURES: Heart normal in size. Normal vasculature. BONES: No acute findings. HARDWARE: A dual-lumen catheter is present on the right. The tip of the catheter is near the right a trium or in the right atrium. OTHER: No other significant finding. IMPRESSION: Right middle lobe or lower lobe pneumonia. Cannot entirely rule out an infiltrate in th e left lower lobe. TECHNICAL DOCUMENTATION: JOB ID: [id number]
[2017-03-23] MEDS ORDERED: AZITHROMYCIN 250 MG TABLET PO ONE (18:22)
[2017-03-23] MEDS ORDERED: HYDRALAZINE HCL INJ/PF 20 MG/1 ML SDV IV PRN (18:59)
--- NOTE | 2017-03-23 19:01 | PDOC H&P ---
History of Present Illness Admission Date/PCP: 03/23/17 18:10 Patient complains of: SOA History of Present Illness: MILAGROS RAMOS is a 31 year old female presents to the ED from home with sudden onset of breathlessness and lower chest pain described as sharp, stabbing, constant pain under her sternum and radiating around under her breasts and back between her shoulder blades with associated SOA, dry hacking cough, worse with cough and deep breath causing her to breath rapid and shallow, better with some positions and morphine. had similar pain with her previous PE and recently taken off her coumadin, told she didn't need it anymore. no sick contacts, fevers, chills, hemoptysis, orthopnea, PND, swelling of her legs or pain in calves, no recent travel and no more sedentary than usual. she is ESRD with HD on TTa and did perform HD yesterday. she also underwent cardiolyte stress testing yesterday at [facility] in [place] in preparation for redo of her vascular fistula in the left forearm scheduled at [facility] 04/08/17. she also had her permacath replaced in Rt ant chest about 2 wks ago b/c it was "clotting off" and had "fibrous sheath attached when they removed it". eval in ED shows airspace disease obscuring the Rt cardiac silhouette and portion of Rt hemidiaphragm, no leukocytosis, no hypoxia and VQ scan indeterminant but seems to show mismatch in the same area of RLL. we were asked to admit for further eval and management. she is given rocephin and zmax in ED with bld culx's drawn. Past Medical History Cardiac Medical History: Reports: Hypertension - CONTROLLED WITH MED, Pulmonary Embolism Denies: Coronary Artery Disease, Myocardial Infarction Pulmonary Medical History: Denies: Asthma, Bronchitis, Chronic Obstructive Pulmonary Disease (COPD), Pneumonia, Tuberculosis Neurological Medical History: Reports: Seizures - febrile as , 2010, 2014, 11/2015, 12/2016 Renal/ Medical History: Reports: End Stage Renal Disease - focal segmental glumerulosclerosis GI Medical History: Reports: Gastroesophageal Reflux Disease Denies: Hepatitis, Hiatal Hernia Musculoskeltal Medical History: Denies: Arthritis Psychiatric Medical History: Reports: Depression Hematology: Reports: Anemia Denies: Sickle Cell Disease Past Surgical History Past Surgical History: Reports: Cholecystectomy - 01/2010, Herniorrhaphy - Double hernia repair, Tubal Ligation, Vascular Surgery - PermCath placement for dialysis, multiple procedures for declotting CVC Denies: Amputation, Appendectomy, Section, Hysterectomy, Mastectomy , Pacemaker, Tonsillectomy Social History Information Source: Patient Smoking Status: Former Smoker Frequency of Alcohol Use: None Hx Recreational Drug Use: No Drugs: None Hx Prescription Drug Abuse: No - Advance Directive Resuscitation Status: Full Code Family History Family History: Reviewed & Not Pertinent, Arthritis, Malignancy Parental Family History Reviewed: Yes Children Family History Reviewed: Yes Sibling(s) Family History Reviewed.: Yes Medication/Allergy Allergies/Adverse Reactions: metoclopramide HCl [From Reglan] Allergy (Severe, Verified 03/23/17 14:55) DYSTONIC REACTION vancomycin [Vancomycin] Allergy (Intermediate, Verified 03/23/17 14:55) rash amoxicillin [Amoxicillin] Allergy (Mild, Verified 03/23/17 14:55) Hives Iodinated Contrast- Oral and IV Dye [IV Dye, Iodine Containing] Adverse Reaction (Severe, Verified 03/23/17 14:55) esrd ok with topical Review of Systems All systems: reviewed and no additional remarkable complaints except as stated - all systems reviewed, see HPI, remaining systems negative Physical Exam Vital Signs: Temp Pulse Resp BP Pulse Ox 98.6 F 101 H 18 160/98 H 98 03/23/17 14:33 03/23/17 14:33 03/23/17 17:04 03/23/17 17:04 03/23/17 17:04 General appearance: PRESENT: mild distress, well-developed, well-nourished Head exam: PRESENT: atraumatic, normocephalic Eye exam: PRESENT: EOMI. ABSENT: conjunctival injection, scleral icterus Mouth exam: PRESENT: dry mucosa, neck supple Neck exam: PRESENT: full ROM. ABSENT: tracheal deviation Respiratory exam: PRESENT: accessory muscle use, chest wall tenderness - all around the sternal margin and along lower ribs bilat reproducing her pain, clear to auscultation marquis - remarkably clear to ausc, retraction, tachypnea. ABSENT: rales, rhonchi, wheezes Cardiovascular exam: PRESENT: RRR, tachycardia. ABSENT: systolic murmur Pulses: PRESENT: normal radial pulses - symmetric, normal dorsalis pedis pul Vascular exam: PRESENT: normal capillary refill GI/Abdominal exam: PRESENT: normal bowel sounds, soft. ABSENT: tenderness Extremities exam: PRESENT: pedal edema - trace bilat at the ankles. ABSENT: calf tenderness - no palp cords Musculoskeletal exam: PRESENT: ambulatory, full ROM Neurological exam: PRESENT: alert, awake, oriented to person, oriented to place , oriented to time Psychiatric exam: PRESENT: appropriate affect, normal mood Skin exam: PRESENT: warm. ABSENT: dry Results EKG Comments: 03/23/17 16:10 03/23/17 16:10 MCV 96 fl (80-97) 03/23/17 16:10 MCH 31.6 pg (27.0-33.4) 03/23/17 16:10 MCHC 33.1 g/dL (32.0-36.0) 03/23/17 16:10 RDW 13.9 % (11.5-14.0) 03/23/17 16:10 Seg Neutrophils % 76.0 % (42-78) 03/23/17 16:10 Lymphocytes % 17.4 % (13-45) 03/23/17 16:10 Monocytes % 4.9 % (3-13) 03/23/17 16:10 Eosinophils % 0.9 % (0-6) 03/23/17 16:10 Basophils % 0.8 % (0-2) 03/23/17 16:10 Absolute Neutrophils 5.4 10^3/uL (1.7-8.2) 03/23/17 16:10 Absolute Lymphocytes 1.2 10^3/uL (0.5-4.7) 03/23/17 16:10 Absolute Monocytes 0.3 10^3/uL (0.1-1.4) 03/23/17 16:10 Absolute Eosinophils 0.1 10^3/uL (0.0-0.6) 03/23/17 16:10 Absolute Basophils 0.1 10^3/uL (0.0-0.2) 03/23/17 16:10 VBG pH 7.45 (7.30-7.42) H 03/23/17 16:10 VBG pCO2 32.4 mmHg (35-63) L 03/23/17 16:10 VBG HCO3 22.1 mmol/L (20-32) 03/23/17 16:10 VBG Base Excess -1.2 mmol/L 03/23/17 16:10 Chloride 91 mmol/L (98-107) L 03/23/17 16:10 Carbon Dioxide 19 mmol/L (22-30) L 03/23/17 16:10 Anion Gap 17 (5-19) 03/23/17 16:10 Est GFR ( Amer) 6 (>60) L 03/23/17 16:10 Est GFR (Non-Af Amer) 5 (>60) L 03/23/17 16:10 Glucose 65 mg/dL (75-110) L 03/23/17 16:10 Calcium 9.0 mg/dL (8.4-10.2) 03/23/17 16:10 Total Bilirubin 0.7 mg/dL (0.2-1.3) 03/23/17 16:10 AST 24 U/L (14-36) 03/23/17 16:10 ALT 40 U/L (9-52) 03/23/17 16:10 Alkaline Phosphatase 110 U/L (38-126) 03/23/17 16:10 Total Protein 6.1 g/dL (6.3-8.2) L 03/23/17 16:10 Albumin 3.8 g/dL (3.5-5.0) 03/23/17 16:10 Stool Occult Blood NEGATIVE (NEGATIVE) 03/23/17 17:26 Impressions: Lung Scan-VQ NM 03/23/17 16:11 IMPRESSION: Intermediate probability of pulmonary embolus. Single segmental V/ Q mismatch. Chest X-Ray 03/23/17 17:27 IMPRESSION: Right middle lobe or lower lobe pneumonia. Cannot entirely rule out an infiltrate in the left lower lobe. Status: Image reviewed by me - did not review VQ scan; o/w agree with rads Assessment & Plan - Diagnosis (1) Anemia Qualifiers: Anemia type: due to chronic kidney disease Chronic kidney disease stage : on chronic dialysis Qualified Code(s): N18.6 - End stage renal disease ; D63.1 - Anemia in chronic kidney disease; Z99.2 - Dependence on renal dialysis Is this a current diagnosis for this admission?: YesPlan: no evidence for hypotension or acute blood loss; trend H/H and transfuse if persistently low (2) Pulmonary infiltrate in right lung on CXR Is this a current diagnosis for this admission?: YesPlan: start empiric abx with rocephin/zmax, supplemental O2, nebs and after discussion with Dr Dominguez, will pre-medicate for the itching and ck CTA chest to r/o recurrent PE, pulm infarct, aortic dissection, pneumonia, etc. will discuss with dr desi juarez. (3) Accelerated hypertension Is this a current diagnosis for this admission?: YesPlan: worse, 2/2 pain; treat with analgesics and resume home regimen when confirmed (5) GERD (gastroesophageal reflux disease) Qualifiers: Esophagitis presence: without esophagitis Qualified Code(s): K21.9 - Gastro-esophageal reflux disease without esophagitis Is this a current diagnosis for this admission?: YesPlan: start PPI (6) History of pulmonary embolism Is this a current diagnosis for this admission?: YesPlan: as above; start heparin gtt if CTA positive - Time Time Spent: Greater than 70 Minutes Medications reviewed and adjusted accordingly: Yes - Inpatient Certification Based on my medical assessment, after consideration of the patient's comorbidities, presenting symptoms, or acuity I expect that the services needed warrant INPATIENT care.: Yes I certify that my determination is in accordance with my understanding of Medicare's requirements for reasonable and necessary INPATIENT services [42 CFR 412.3e].: Yes Medical Necessity: Significant Comorbidiites Make Outpatient Treatment Too Risky , Need For IV Fluids, Need For Continuous Telemetry Monitoring, Need for Nebulizer Therapy and Monitoring of Response, Need for Pain Control, Need for IV Antibiotics, Risk of Complication if Not Cared For in Hospital - Plan Summary Plan Summary: get old records from [place] regarding stress test.
[2017-03-23] MEDS ORDERED: LIDOCAINE 0.5% INJ-PF (5 MG/ML) 50 ML SDV ONE (20:44)
[2017-03-23] MEDS ORDERED: LIDOCAINE 1% INJ-PF (10 MG/ML) 30 ML SDV IV ONE (21:15)
[2017-03-23] MEDS: MORPHINE SULFATE 10 MG/ML INJ IV PRN (21:27)
--- NOTE | 2017-03-23 21:47 | RADIOLOGY REPORT (SQ) ---
EXAM DESCRIPTION: CHEST SINGLE VIEW COMPLETED DATE/TIME: 03/23/2017 9:31 pm REASON FOR STUDY: very placement of central line COMPARISON: 03/23/2017 EXAM PARAMETERS: NUMBER OF VIEWS: One view. TECHNIQUE: Single frontal radiographic view of the chest acquired. RADIATION DOSE: NA LIMITATIONS: None. FINDINGS: LUNGS AND PLEURA: Diffuse parenchymal opacities with Manan a and B-lines. MEDIASTINUM AND HILAR STRUCTURES: No masses. Contour normal. HEART AND VASCULAR STRUCTURES: Heart enlarged. Vascular congestion. BONES: No acute findings. HARDWARE: Dx large caliber indwelling venous access catheter via right subclavian approach. There is a new small caliber catheter overlying the left upper chest and neck. This appears to be a subclavi an catheter with the tip in the jugular vein rather than SVC. OTHER: No other significant finding. IMPRESSION: Congestive failure and pulmonary edema. New venous access catheter via left subclavian approach with the tip extending into the the jugular v ein. TECHNICAL DOCUMENTATION: JOB ID: [id number]
--- NOTE | 2017-03-23 22:33 | OPERATIVE REPORT E ---
Operative Report NAME: MILAGROS RAMOS : 1985 AGE: 31Y DATE OF SURGERY: 03/23/2017 ROOM: 420 PREOPERATIVE DIAGNOSIS: 1. Poor veins for IV access. 2. Hemodialysis patient. POSTOPERATIVE DIAGNOSES: 1. Poor veins for IV access. 2. Hemodialysis patient. OPERATION: Placement of left internal jugular vein catheter. SURGEON: FELIX BRUNSON M.D. ANESTHESIA: Local. INDICATION: This is a 31-year-old female who is admitted for possible pneumonia versus pulmonary embolism. IV is needed to do CTA of the chest. DESCRIPTION OF PROCEDURE: Patient is placed in slight Trendelenburg position. The left neck were then prepped and draped in the usual sterile fashion. The use of the ultrasound, the left internal jugular vein was then punctured and guidewire passed through the needle directed into the superior vena cava. The guidewire could only be put 10-15 cm. Puncture site was then dilated. Triple lumen catheter was then inserted up to about 8 cm. However, it needed to be pulled another 1-2 cm to be able aspirate blood easily through the distal port. Patient did have a lot of scarring along the side and she has a scar probably from a previous surgery. Patient had a lot of local anesthesia infiltrated along this site because of significant pain during placement of the catheter. The catheter was then anchored to the skin with 3-0 silk. The two medial and proximal ports were clamped and I told the nurse to just use the distal port. An x-ray was done which showed that the catheter tip appears to be going into the left subclavian vein. This can be used for the CT angio of the chest. DICTATING PHYSICIAN: FELIX BRUNSON M.D. [id number] PHY#: [id number] ID: [id number] JOB#: [id number] ACCT: [id number] cc:FELIX BRUNSON M.D. >
[2017-03-23] MEDS: DIPHENHYDRAMINE HCL 50 MG/ML VIAL IV PRN (23:11)
[2017-03-24 01:11] LABS: ABSOLUTE BASOPHILS # (AUTO) 0.1 10^3/uL (0.0-0.2); ABSOLUTE EOSINOPHILS # (AUTO) 0.1 10^3/uL (0.0-0.6); ABSOLUTE LYMPHOCYTES (AUTO) 1.6 10^3/uL (0.5-4.7); ABSOLUTE MONOCYTES (AUTO) 0.3 10^3/uL (0.1-1.4); ABSOLUTE NEUT (AUTO) 4.5 10^3/uL (1.7-8.2); BASOPHILS % (AUTO) 1.5 % (0-2); EOSINOPHILS % (AUTO) 1.5 % (0-6); HEMATOCRIT 21.3 % (36.0-47.0); HGB HCT DIFFERENCE 0.3; LYMPHOCYTES % (AUTO) 24.2 % (13-45); MEAN CORPUSCULAR HEMOGLOBIN 31.8 pg (27.0-33.4); MEAN CORPUSCULAR HGB CONC 33.6 g/dL (32.0-36.0); MEAN CORPUSCULAR VOLUME 95 fl (80-97); MONOCYTES % (AUTO) 4.7 % (3-13); RED BLOOD COUNT 2.25 10^6/uL (3.72-5.28); RED CELL DISTRIBUTION WIDTH 13.7 % (11.5-14.0); SEGMENTED NEUTROPHILS % (AUTO) 68.1 % (42-78); WHITE BLOOD COUNT 6.6 10^3/uL (4.0-10.5)
[2017-03-24 01:12] LABS: HEMOGLOBIN 7.2 g/dL (12.0-15.5)
[2017-03-24] MEDS: HEPARIN SOD (PORCINE) 5,000 UNIT/ML 1 ML SYRINGE SUBCUT SCH ×4 (01:50→21:24)
[2017-03-24] MEDS: MORPHINE SULFATE 10 MG/ML INJ IV PRN ×4 (01:52→19:32)
--- NOTE | 2017-03-24 03:40 | RADIOLOGY REPORT (SQ) ---
EXAM DESCRIPTION: CTA CHEST COMPLETED DATE/TIME: 03/24/2017 2:03 am REASON FOR STUDY: SOB COMPARISON: 01/01/2016. TECHNIQUE: CT scan of the chest performed using helical scanning technique with dynamic intravenous contrast injection. Images reviewed with lung, soft tissue and bone windows. Reconstructed coronal and sagittal MPR images reviewed. Additional 3 dimensional post-processing performed to develop Maximal Intensity Projection images (WV P). All images stored on PACS. All CT scanners at this facility use dose modulation, iterative reconstruction, and/or weight based d osing when appropriate to reduce radiation dose to as low as reasonably achievable (ALARA). [facility]: Dose Right [facility]: CareDose [facility]: Dose Right [facility]: Teradose 4D [facility]: Smart iSSimple CONTRAST TYPE AND DOSE: contrast/concentration: Isovue 300.00 mg/ml; Total Contrast Delivered: 75.0 ml; Total Saline Delivered: 110.2 ml RENAL FUNCTION: Dialysis pending within 24 hours. RADIATION DOSE: 73.92 . LIMITATIONS: Suboptimal pulmonary arterial enhancement. FINDINGS: LUNGS AND PLEURA: Moderate consolidate of bilateral lower lobes, left more than right. Sm all -moderate bilateral pleural effusions. Patchy airspace opacities involve the right middle lobe a nd lingula as well. AORTA AND GREAT VESSELS: No aneurysm or dissection. HEART: Small pericardial fluid. PULMONARY ARTERIES: Suboptimal pulmonary arterial enhancement measures 132 Hounsfield units. No asim s evidence of significant pulmonary embolus. No right ventricular strain. HILAR AND MEDIASTINAL STRUCTURES: No identified masses or abnormal nodes. HARDWARE: Right central line tip is at the right atrium ; consider 6 cm retraction. UPPER ABDOMEN: No significant findings. Limited exam. THYROID AND OTHER SOFT TISSUES: No masses. No adenopathy. BONES: No acute or significant finding. 3D MIPS: Confirm above findings. OTHER: No other significant finding. IMPRESSION: 1. Moderate multifocal airspace opacities and bilateral pleural effusions consistent wi th pneumonia and/ or pulmonary edema. 2. Suboptimal pulmonary arterial enhancement. No gross evide nce of significant pulmonary embolus. Consider repeat contrast CTA evaluation/surveillance and/or al ternative investigation (such as DVT ultrasound and/or laboratory testing) TECHNICAL DOCUMENTATION: JOB ID: [id number] Quality ID # [id number]: Final reports with documentation of one or more dose reduction techniques (e.g., Au tomated exposure control, adjustment of the mA and/or kV according to patient size, use of iterative reconstruction technique) 2010 [employer]- All Rights Reserved
[2017-03-24] MEDS: LANSOPRAZOLE 30 MG TAB.RAP.DR PO SCH ×2 (05:22→05:54)
[2017-03-24 06:48] LABS: ABSOLUTE EOSINOPHILS # (AUTO) 0.1 10^3/uL (0.0-0.6); ABSOLUTE LYMPHOCYTES (AUTO) 1.2 10^3/uL (0.5-4.7); ABSOLUTE MONOCYTES (AUTO) 0.3 10^3/uL (0.1-1.4); ABSOLUTE NEUT (AUTO) 5.1 10^3/uL (1.7-8.2); BASOPHILS % (AUTO) 0.7 % (0-2); EOSINOPHILS % (AUTO) 1.2 % (0-6); HEMATOCRIT 21.6 % (36.0-47.0); LYMPHOCYTES % (AUTO) 17.9 % (13-45); MEAN CORPUSCULAR HEMOGLOBIN 32.1 pg (27.0-33.4); MEAN CORPUSCULAR HGB CONC 33.3 g/dL (32.0-36.0); MEAN CORPUSCULAR VOLUME 96 fl (80-97); MONOCYTES % (AUTO) 4.7 % (3-13); RED BLOOD COUNT 2.24 10^6/uL (3.72-5.28); RED CELL DISTRIBUTION WIDTH 13.8 % (11.5-14.0); SEGMENTED NEUTROPHILS % (AUTO) 75.5 % (42-78); WHITE BLOOD COUNT 6.8 10^3/uL (4.0-10.5)
[2017-03-24 06:56] LABS: ANION GAP 15 (5-19); BLOOD UREA NITROGEN 46 mg/dL (7-20); CALCIUM 8.8 mg/dL (8.4-10.2); CARBON DIOXIDE 19 mmol/L (22-30); CHLORIDE 89 mmol/L (98-107); CREATININE RESULT 10.16 mg/dL (0.52-1.25); GLUCOSE 54 mg/dL (75-110); POTASSIUM 5.1 mmol/L (3.6-5.0); SODIUM 123.3 mmol/L (137-145)
[2017-03-24 06:58] LABS: HEMOGLOBIN 7.2 g/dL (12.0-15.5)
[2017-03-24] MEDS ORDERED: DIPHENHYDRAMINE HCL 50 MG/ML VIAL IV PRN (07:25)
[2017-03-24] MEDS ORDERED: CLONIDINE HCL 0.1 MG TABLET PO ONE (08:15)
[2017-03-24] MEDS ORDERED: NORMAL SALINE 250 ML IV PRN ×2 (08:37)
[2017-03-24] MEDS ORDERED: HEPARIN SOD (PORCINE) 1,000 UNIT/ML 10 ML VIAL IV PRN (08:49)
[2017-03-24] MEDS ORDERED: EPOETIN ALFA INJ 20000 UNIT/1 ML VIAL (RENAL) IV PRN (08:52)
--- NOTE | 2017-03-24 09:16 | EKG REPORT ---
SEVERITY:- NORMAL ECG - SINUS RHYTHM : Confirmed by: Tucker Elder 24-Mar-2017 09:15:46
[2017-03-24] MEDS: ACETAMINOPHEN 325 MG TABLET PO PRN ×2 (09:24→19:33)
[2017-03-24] MEDS ORDERED: DEXTROSE 50%-WATER 25 GM/50 ML DISP.SYRIN IV ONE (09:30)
--- NOTE | 2017-03-24 11:21 | PDOC PROGRESS REPORT ---
Subjective Progress Note for:: 03/24/17 Subjective:: reason for visit: f/u pneumonia, chest wall pain, ESRD hosptial course; MILAGROS RAMOS is a 31 year old female presents to the ED from home with sudden onset of breathlessness and lower chest pain described as sharp , stabbing, constant pain under her sternum and radiating around under her breasts and back between her shoulder blades with associated SOA, dry hacking cough, worse with cough and deep breath causing her to breath rapid and shallow , better with some positions and morphine. had similar pain with her previous PE and recently taken off her coumadin, told she didn't need it anymore. no sick contacts, fevers, chills, hemoptysis, orthopnea, PND, swelling of her legs or pain in calves, no recent travel and no more sedentary than usual. she is ESRD with HD on TTHSa and did perform HD yesterday. 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 she also had her permacath replaced in Rt ant chest about 2 wks ago b/c it was "clotting off" and had "fibrous sheath attached when they removed it". eval in ED shows airspace disease obscuring the Rt cardiac silhouette and portion of Rt hemidiaphragm, no leukocytosis, no hypoxia and VQ scan indeterminant but seems to show mismatch in the same area of RLL. we were asked to admit for further eval and management. she is given rocephin and zmax in ED with bld culx's drawn. dr hurst attempted placement of central line but it turned from the Rt IJ into the subclavian pointing away from the heart. nevertheless she was able to undergo CTA chest and no obvious PE noted on suboptimal exam but extensive bilat airspace dz noted c/w pneumonia. ROS: still feels "bad" with chest wall pain as before, though at least mildly improved; now c/o subjective fevers and chills through the night, cough more productive this morning. she denies palpitations, n/v/d, all systems reviewed, remaining systems negative. Physical Exam Vital Signs: Temp Pulse Resp BP Pulse Ox 98.5 F 95 25 H 151/90 H 93 03/24/17 03:43 03/24/17 07:00 03/24/17 03:43 03/24/17 03:43 03/24/17 03:43 Intake & Output 03/23/17 03/24/17 03/25/17 06:59 06:59 06:59 Intake Total 480 Output Total 0 5000 Balance 480 -5000 Weight 64.6 kg General appearance: PRESENT: mild distress, well-developed, well-nourished Head exam: PRESENT: atraumatic, normocephalic Eye exam: PRESENT: EOMI. ABSENT: conjunctival injection, scleral icterus Mouth exam: PRESENT: moist, neck supple Neck exam: PRESENT: full ROM. ABSENT: tracheal deviation Respiratory exam: PRESENT: accessory muscle use, chest wall tenderness - diffuse as before, crackles - bases. ABSENT: rhonchi, wheezes Cardiovascular exam: PRESENT: RRR, systolic murmur Pulses: PRESENT: normal radial pulses, normal dorsalis pedis pul GI/Abdominal exam: PRESENT: normal bowel sounds, soft. ABSENT: tenderness Extremities exam: PRESENT: pedal edema. ABSENT: calf tenderness Neurological exam: PRESENT: alert, awake, oriented to person, oriented to place , oriented to time Psychiatric exam: PRESENT: appropriate affect, normal mood Skin exam: PRESENT: warm. ABSENT: dry Results Laboratory Results: 03/24/17 06:20 03/24/17 06:20 03/24/17 03/24/17 03/24/17 00:50 06:20 06:20 WBC 6.6 6.8 RBC 2.25 L 2.24 L Hgb 7.2 L 7.2 L Hct 21.3 L 21.6 L MCV 95 96 MCH 31.8 32.1 MCHC 33.6 33.3 RDW 13.7 13.8 Plt Count 129 L 132 L Seg Neutrophils % 68.1 75.5 Lymphocytes % 24.2 17.9 Monocytes % 4.7 4.7 Eosinophils % 1.5 1.2 Basophils % 1.5 0.7 Absolute Neutrophils 4.5 5.1 Absolute Lymphocytes 1.6 1.2 Absolute Monocytes 0.3 0.3 Absolute Eosinophils 0.1 0.1 Absolute Basophils 0.1 0.0 Sodium 123.3 L Potassium 5.1 H Chloride 89 L Carbon Dioxide 19 L Anion Gap 15 BUN 46 H Creatinine 10.16 H Est GFR ( Amer) 5 L Est GFR (Non-Af Amer) 4 L Glucose 54 L Calcium 8.8 Impressions: Lung Scan-VQ NM 03/23/17 16:11 IMPRESSION: Intermediate probability of pulmonary embolus. Single segmental V/ Q mismatch. Chest X-Ray 03/23/17 17:27 IMPRESSION: Right middle lobe or lower lobe pneumonia. Cannot entirely rule out an infiltrate in the left lower lobe. Chest/Abdomen CTA 03/23/17 17:47 IMPRESSION: 1. Moderate multifocal airspace opacities and bilateral pleural effusions consistent with pneumonia and/ or pulmonary edema. 2. Suboptimal pulmonary arterial enhancement. No gross evidence of significant pulmonary embolus. Consider repeat contrast CTA evaluation/surveillance and/or alternative investigation (such as DVT ultrasound and/or laboratory testing) Assessment & Plan - Diagnosis (1) Pneumonia Qualifiers: Pneumonia type: due to unspecified organism Laterality: bilateral Lung location: lower lobe of lung Qualified Code(s): J18.9 - Pneumonia, unspecified organism Is this a current diagnosis for this admission?: YesPlan: unchanged; continue rocephin and zmax, O2, nebs and supportive care. f/u cultures (2) Anemia Qualifiers: Anemia type: due to chronic kidney disease Chronic kidney disease stage : on chronic dialysis Qualified Code(s): N18.6 - End stage renal disease ; D63.1 - Anemia in chronic kidney disease; Z99.2 - Dependence on renal dialysis Is this a current diagnosis for this admission?: YesPlan: worse; transfuse 2U PRBCs and continue to monitor; stool heme neg (3) Accelerated hypertension Is this a current diagnosis for this admission?: YesPlan: improved but not back to baseline, 2/2 pain; treat with analgesics and resume home regimen when confirmed (4) ESRD on dialysis Plan: case discussed with dr barrios, dialyze today and again tomorrow (5) GERD (gastroesophageal reflux disease) Qualifiers: Esophagitis presence: without esophagitis Qualified Code(s): K21.9 - Gastro-esophageal reflux disease without esophagitis Is this a current diagnosis for this admission?: Yes (6) History of pulmonary embolism Is this a current diagnosis for this admission?: YesPlan: no recurrence, no indication for anticoagulation - Time Time Spent with patient: 25-34 minutes Medications reviewed and adjusted accordingly: Yes
[2017-03-24] MEDS: IPRATROPIUM/ALBUTEROL 0.5-2.5 MG/3 ML AMPUL NEB PRN ×2 (13:10→17:07)
[2017-03-24] MEDS: NORMAL SALINE INJ/PF 0.9% 10 ML SDV IV SCH ×2 (15:02→21:25)
--- NOTE | 2017-03-24 16:14 | XCELERA REPORT ---
[address] [address] Lower Extremity Venous Evaluation Name: MILAGROS RAMOS Age: 31 yrs Gender: Female : 1985 Patient Status: Inpatient Patient Location: [id number]\S\420\[id number]\A Study Date: 03/24/2017 03:12 PM Procedure: Color flow and duplex imaging bilaterally of the veins of the lower extremities as well as the Common Femoral veins. Reason For Study: abn v/q scan; Hx PE Ordering Physician: SUSANNA CRAFT Performed By: Jana Rothman Right Sided Venous Evaluation Normal vessel filling wall to wall, compression and augmentation as well as Colour flow down to the infrageniculate veins. Left Sided Venous Evaluation Normal vessel filling wall to wall, compression and augmentation as well as Colour flow down to the infrageniculate veins. Interpretation Summary No duplex evidence of DVT or obstruction in the bilateral lower extremities. : SUSANNA CRAFT > Miguel Alexander
[2017-03-24] MEDS: DIPHENHYDRAMINE HCL 50 MG/ML VIAL IV PRN (19:32)
[2017-03-24 20:02] LABS: PRE-TRANSFUSION TOTAL BILI. 0.7 mg/dL (0.2-1.3)
[2017-03-24] MEDS: AZITHROMYCIN 250 MG TABLET PO SCH (21:24)
[2017-03-24] MEDS: PREGABALIN 75 MG CAPSULE PO SCH (21:24)
[2017-03-24] MEDS: CEFTRIAXONE 1 GM/D5W RTU 50 ML IV SCH (21:24)
[2017-03-24 22:03] LABS: ABSOLUTE LYMPHOCYTES (AUTO) 0.8 10^3/uL (0.5-4.7); ABSOLUTE MONOCYTES (AUTO) 0.3 10^3/uL (0.1-1.4); ABSOLUTE NEUT (AUTO) 5.4 10^3/uL (1.7-8.2); MEAN CORPUSCULAR HGB CONC 33.5 g/dL (32.0-36.0); RED BLOOD COUNT 2.97 10^6/uL (3.72-5.28)
[2017-03-24 22:20] LABS: BASOPHILS % (AUTO) 0.4 % (0-2); EOSINOPHILS % (AUTO) 0.4 % (0-6); HEMOGLOBIN 9.1 g/dL (12.0-15.5); HGB HCT DIFFERENCE 0.3; LYMPHOCYTES % (AUTO) 12.7 % (13-45); MEAN CORPUSCULAR HEMOGLOBIN 30.5 pg (27.0-33.4); MONOCYTES % (AUTO) 4.3 % (3-13); RED CELL DISTRIBUTION WIDTH 17.3 % (11.5-14.0); SEGMENTED NEUTROPHILS % (AUTO) 82.2 % (42-78); WHITE BLOOD COUNT 6.6 10^3/uL (4.0-10.5)
[2017-03-24 22:21] LABS: MEAN CORPUSCULAR VOLUME 91 fl (80-97)
[2017-03-25] MEDS: MORPHINE SULFATE 10 MG/ML INJ IV PRN ×4 (04:03→21:37)
[2017-03-25] MEDS: LANSOPRAZOLE 30 MG TAB.RAP.DR PO SCH (05:38)
[2017-03-25] MEDS: NORMAL SALINE INJ/PF 0.9% 10 ML SDV IV SCH ×3 (05:38→21:37)
[2017-03-25] MEDS: HEPARIN SOD (PORCINE) 5,000 UNIT/ML 1 ML SYRINGE SUBCUT SCH ×3 (05:38→21:37)
[2017-03-25] MEDS: IPRATROPIUM/ALBUTEROL 0.5-2.5 MG/3 ML AMPUL NEB PRN ×4 (07:49→23:24)
[2017-03-25] MEDS ORDERED: HEPARIN SOD (PORCINE) 1,000 UNIT/ML 10 ML VIAL IV PRN (09:12)
[2017-03-25] MEDS ORDERED: DIPHENHYDRAMINE HCL 50 MG/ML VIAL IV PRN (09:13)
[2017-03-25] MEDS ORDERED: BISACODYL 5 MG TABEC PO ONE (10:00)
--- NOTE | 2017-03-25 11:46 | PDOC PROGRESS REPORT ---
Subjective Progress Note for:: 03/25/17 Subjective:: reason for visit: f/u pneumonia, chest wall pain, ESRD hosptial course; MILAGROS RAMOS is a 31 year old female presents to the ED from home with sudden onset of breathlessness and lower chest pain described as sharp , stabbing, constant pain under her sternum and radiating around under her breasts and back between her shoulder blades with associated SOA, dry hacking cough, worse with cough and deep breath causing her to breath rapid and shallow , better with some positions and morphine. had similar pain with her previous PE and recently taken off her coumadin, told she didn't need it anymore. no sick contacts, fevers, chills, hemoptysis, orthopnea, PND, swelling of her legs or pain in calves, no recent travel and no more sedentary than usual. she is ESRD with HD on TTa and did perform HD yesterday. 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 she also had her permacath replaced in Rt ant chest about 2 wks ago b/c it was "clotting off" and had "fibrous sheath attached when they removed it". eval in ED shows airspace disease obscuring the Rt cardiac silhouette and portion of Rt hemidiaphragm, no leukocytosis, no hypoxia and VQ scan indeterminant but seems to show mismatch in the same area of RLL. we were asked to admit for further eval and management. she is given rocephin and zmax in ED with bld culx's drawn. dr hurst attempted placement of central line but it turned from the Rt IJ into the subclavian pointing away from the heart. nevertheless she was able to undergo CTA chest and no obvious PE noted on suboptimal exam but extensive bilat airspace dz noted c/w pneumonia and L>R pleural effusions. she has undergone HD x2, each time trying to lower her dry weight. cough is more productive of yellow/green phlegm now ROS: still feels "bad" with chest wall pain as before, though continues to improve; she denies palpitations, n/v/d, all systems reviewed, remaining systems negative. Physical Exam Vital Signs: Temp Pulse Resp BP Pulse Ox 99.4 F 79 18 143/93 H 96 03/25/17 07:13 03/25/17 07:49 03/25/17 07:49 03/25/17 07:13 03/25/17 07:13 Intake & Output 03/24/17 03/25/17 03/26/17 06:59 06:59 06:59 Intake Total 480 1892 Output Total 0 5000 Balance 480 -3108 Weight 64.6 kg 61.4 kg General appearance: PRESENT: no acute distress, well-developed, well-nourished Head exam: PRESENT: atraumatic, normocephalic Eye exam: ABSENT: conjunctival injection, scleral icterus Mouth exam: PRESENT: moist, tongue midline Neck exam: PRESENT: full ROM. ABSENT: tracheal deviation Respiratory exam: PRESENT: rales - L>R, unlabored, wheezes - exp. ABSENT: rhonchi Cardiovascular exam: PRESENT: RRR. ABSENT: tachycardia GI/Abdominal exam: PRESENT: normal bowel sounds, soft. ABSENT: tenderness Extremities exam: PRESENT: pedal edema - trace. ABSENT: calf tenderness Neurological exam: PRESENT: alert, awake, oriented to person, oriented to place , oriented to time, oriented to situation Psychiatric exam: PRESENT: appropriate affect, normal mood Focused psych exam: ABSENT: delusional, pressured speech, psychomotor agitation Skin exam: PRESENT: dry, warm Results Laboratory Results: 03/24/17 21:59 03/24/17 06:20 03/24/17 21:59 WBC 6.6 RBC 2.97 L Hgb 9.1 L Hct 27.0 L MCV 91 D MCH 30.5 MCHC 33.5 RDW 17.3 H Plt Count 111 L Seg Neutrophils % 82.2 H Lymphocytes % 12.7 L Monocytes % 4.3 Eosinophils % 0.4 Basophils % 0.4 Absolute Neutrophils 5.4 Absolute Lymphocytes 0.8 Absolute Monocytes 0.3 Absolute Eosinophils 0.0 Absolute Basophils 0.0 Assessment & Plan - Diagnosis (1) Pneumonia Qualifiers: Pneumonia type: due to unspecified organism Laterality: bilateral Lung location: lower lobe of lung Qualified Code(s): J18.9 - Pneumonia, unspecified organism Is this a current diagnosis for this admission?: YesPlan: unchanged; continue rocephin and zmax, O2, nebs and supportive care. f/u cultures and repeat CXR in am (2) Anemia Qualifiers: Anemia type: due to chronic kidney disease Chronic kidney disease stage : on chronic dialysis Qualified Code(s): N18.6 - End stage renal disease ; D63.1 - Anemia in chronic kidney disease; Z99.2 - Dependence on renal dialysis Is this a current diagnosis for this admission?: YesPlan: improved after transfused 2U PRBCs and continue to monitor; stool heme neg (3) Accelerated hypertension Is this a current diagnosis for this admission?: YesPlan: improved but not back to baseline, 2/2 pain; treat with analgesics and resume home regimen when confirmed (5) GERD (gastroesophageal reflux disease) Qualifiers: Esophagitis presence: without esophagitis Qualified Code(s): K21.9 - Gastro-esophageal reflux disease without esophagitis Is this a current diagnosis for this admission?: Yes (6) History of pulmonary embolism Is this a current diagnosis for this admission?: Yes (7) Pleural effusion Is this a current diagnosis for this admission?: YesPlan: bilat and likely multifactorial with component of fluid overloaded state and infectious source; agree with lower dry weight as dialysis goal, defer to dr barrios here (8) Pleurisy with effusion Is this a current diagnosis for this admission?: YesPlan: worse; has some exp wheeze as well so will add systemic steroids to see if we can improve both - Time Time Spent with patient: 25-34 minutes Medications reviewed and adjusted accordingly: Yes Within: within 72 hours
[2017-03-25] MEDS: DOCUSATE SODIUM 100 MG CAPSULE PO SCH ×2 (12:29→17:47)
[2017-03-25] MEDS: METHYLPREDNISOLONE INJ 40 MG/1 ML SDV IV SCH ×2 (12:29→21:37)
[2017-03-25] MEDS: DIPHENHYDRAMINE HCL 50 MG/ML VIAL IV PRN (16:29)
--- NOTE | 2017-03-25 17:16 | PDOC PROGRESS REPORT ---
Subjective Progress Note for:: 03/25/17 Subjective:: Patient seen on dialysis today. She is undergoing dialysis without any issues. It is being supervised to ensure a safe and smooth procedure. She definitely feels better than when she felt yesterday with decreasing chest pain and shortness of breath. No history of any fever chills. Physical Exam Vital Signs: Temp Pulse Resp BP Pulse Ox 99.1 F 110 H 16 133/93 H 94 03/25/17 12:24 03/25/17 14:00 03/25/17 13:20 03/25/17 12:24 03/25/17 12:24 Intake & Output 03/24/17 03/25/17 03/26/17 06:59 06:59 06:59 Intake Total 480 1892 450 Output Total 0 5000 5000 Balance 480 -5533 -7479 Weight 64.6 kg 61.4 kg General appearance: PRESENT: no acute distress Respiratory exam: PRESENT: clear to auscultation marquis, decreased breath sounds. ABSENT: crackles, rhonchi Cardiovascular exam: PRESENT: +S1, +S2 GI/Abdominal exam: PRESENT: normal bowel sounds, soft. ABSENT: distended, organomegaly, tenderness Extremities exam: PRESENT: +1 edema Neurological exam: PRESENT: awake, oriented to person, oriented to place, oriented to time Results Laboratory Results: 03/24/17 21:59 03/24/17 06:20 03/24/17 21:59 WBC 6.6 RBC 2.97 L Hgb 9.1 L Hct 27.0 L MCV 91 D MCH 30.5 MCHC 33.5 RDW 17.3 H Plt Count 111 L Seg Neutrophils % 82.2 H Lymphocytes % 12.7 L Monocytes % 4.3 Eosinophils % 0.4 Basophils % 0.4 Absolute Neutrophils 5.4 Absolute Lymphocytes 0.8 Absolute Monocytes 0.3 Absolute Eosinophils 0.0 Absolute Basophils 0.0 Impressions: Lung Scan-VQ NM 03/23/17 16:11 IMPRESSION: Intermediate probability of pulmonary embolus. Single segmental V/ Q mismatch. Chest X-Ray 03/23/17 17:27 IMPRESSION: Right middle lobe or lower lobe pneumonia. Cannot entirely rule out an infiltrate in the left lower lobe. Chest/Abdomen CTA 03/23/17 17:47 IMPRESSION: 1. Moderate multifocal airspace opacities and bilateral pleural effusions consistent with pneumonia and/ or pulmonary edema. 2. Suboptimal pulmonary arterial enhancement. No gross evidence of significant pulmonary embolus. Consider repeat contrast CTA evaluation/surveillance and/or alternative investigation (such as DVT ultrasound and/or laboratory testing) Assessment & Plan - Diagnosis (1) Pneumonia Qualifiers: Pneumonia type: due to unspecified organism Laterality: bilateral Lung location: lower lobe of lung Qualified Code(s): J18.9 - Pneumonia, unspecified organism Is this a current diagnosis for this admission?: YesPlan: On antibiotics and showing clinical improvement. (2) Accelerated hypertension Is this a current diagnosis for this admission?: YesPlan: Under control and stable at the moment (3) Anemia in chronic kidney disease (CKD) Plan: Adjust erythropoietin. (4) ESRD on dialysis Plan: Undergoing dialysis without any issues. Is being supervised to ensure a safe and smooth procedure. Vital signs are stable. Discussed treatment orders with the treating nurse Shannon.We will try to remove around 5 L as tolerated. (5) History of pulmonary embolism Is this a current diagnosis for this admission?: Yes (6) Sepsis Plan: From pneumonia and improving. (7) Acute hyperkalemia Plan: Should improve to dialysis. Monitor (8) Hyponatremia Plan: Possible SIADH in the face of pneumonia and pain. Will put on fluid restriction. Monitor.
[2017-03-25] MEDS: CEFTRIAXONE 1 GM/D5W RTU 50 ML IV SCH (17:47)
[2017-03-25] MEDS: AZITHROMYCIN 250 MG TABLET PO SCH (17:47)
[2017-03-25] MEDS: PREGABALIN 75 MG CAPSULE PO SCH (21:37)
[2017-03-26] MEDS: DIPHENHYDRAMINE HCL 50 MG/ML VIAL IV PRN ×4 (01:48→23:19)
[2017-03-26] MEDS: MORPHINE SULFATE 10 MG/ML INJ IV PRN ×6 (01:48→23:19)
[2017-03-26 06:31] LABS: ABSOLUTE LYMPHOCYTES (AUTO) 0.3 10^3/uL (0.5-4.7); ABSOLUTE MONOCYTES (AUTO) 0.2 10^3/uL (0.1-1.4); ABSOLUTE NEUT (AUTO) 5.1 10^3/uL (1.7-8.2); BASOPHILS % (AUTO) 0.2 % (0-2); HEMATOCRIT 26.8 % (36.0-47.0); HEMOGLOBIN 9.1 g/dL (12.0-15.5); HGB HCT DIFFERENCE 0.5; LYMPHOCYTES % (AUTO) 6.1 % (13-45); MEAN CORPUSCULAR HEMOGLOBIN 30.8 pg (27.0-33.4); MEAN CORPUSCULAR VOLUME 91 fl (80-97); RED BLOOD COUNT 2.95 10^6/uL (3.72-5.28); SEGMENTED NEUTROPHILS % (AUTO) 90.7 % (42-78); WHITE BLOOD COUNT 5.6 10^3/uL (4.0-10.5)
[2017-03-26] MEDS: HEPARIN SOD (PORCINE) 5,000 UNIT/ML 1 ML SYRINGE SUBCUT SCH ×3 (06:34→23:19)
[2017-03-26] MEDS: LANSOPRAZOLE 30 MG TAB.RAP.DR PO SCH (06:35)
[2017-03-26] MEDS: NORMAL SALINE INJ/PF 0.9% 10 ML SDV IV SCH ×3 (06:35→23:19)
[2017-03-26] MEDS: IPRATROPIUM/ALBUTEROL 0.5-2.5 MG/3 ML AMPUL NEB PRN ×4 (08:12→21:10)
--- NOTE | 2017-03-26 10:25 | PDOC PROGRESS REPORT ---
Subjective Progress Note for:: 03/26/17 Subjective:: reason for visit: f/u pneumonia, chest wall pain, ESRD hosptial course; MILAGROS RAMOS is a 31 year old female presents to the ED from home with sudden onset of breathlessness and lower chest pain described as sharp , stabbing, constant pain under her sternum and radiating around under her breasts and back between her shoulder blades with associated SOA, dry hacking cough, worse with cough and deep breath causing her to breath rapid and shallow , better with some positions and morphine. had similar pain with her previous PE and recently taken off her coumadin, told she didn't need it anymore. no sick contacts, fevers, chills, hemoptysis, orthopnea, PND, swelling of her legs or pain in calves, no recent travel and no more sedentary than usual. she is ESRD with HD on TTa and did perform HD yesterday. 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 she also had her permacath replaced in Rt ant chest about 2 wks ago b/c it was "clotting off" and had "fibrous sheath attached when they removed it". eval in ED shows airspace disease obscuring the Rt cardiac silhouette and portion of Rt hemidiaphragm, no leukocytosis, no hypoxia and VQ scan indeterminant but seems to show mismatch in the same area of RLL. we were asked to admit for further eval and management. she is given rocephin and zmax in ED with bld culx's drawn. dr hurst attempted placement of central line but it turned from the Rt IJ into the subclavian pointing away from the heart. nevertheless she was able to undergo CTA chest and no obvious PE noted on suboptimal exam but extensive bilat airspace dz noted c/w pneumonia and L>R pleural effusions. she has undergone HD x2, each time trying to lower her dry weight. cough continues productive of yellow/green phlegm and overall she feels better. she c /o wheezes at times but better with nebs ROS: chest wall pain improved, though continues to improve; she denies palpitations, n/v/d, all systems reviewed, remaining systems negative. Physical Exam Vital Signs: Temp Pulse Resp BP Pulse Ox 98.1 F 94 14 160/99 H 100 03/26/17 07:19 03/26/17 07:19 03/26/17 07:19 03/26/17 07:19 03/26/17 07:19 Intake & Output 03/25/17 03/26/17 03/27/17 06:59 06:59 06:59 Intake Total 1892 1010 Output Total 5000 5000 Balance -3108 -3990 Weight 61.4 kg 61.9 kg General appearance: PRESENT: no acute distress, well-developed, well-nourished Head exam: PRESENT: atraumatic, normocephalic Eye exam: ABSENT: conjunctival injection, scleral icterus Mouth exam: PRESENT: moist, tongue midline Neck exam: PRESENT: full ROM. ABSENT: tracheal deviation Respiratory exam: PRESENT: rales - L>R, unlabored, wheezes - exp. ABSENT: rhonchi Cardiovascular exam: PRESENT: RRR. ABSENT: tachycardia GI/Abdominal exam: PRESENT: normal bowel sounds, soft. ABSENT: tenderness Extremities exam: PRESENT: pedal edema - trace. ABSENT: calf tenderness Neurological exam: PRESENT: alert, awake, oriented to person, oriented to place , oriented to time, oriented to situation Psychiatric exam: PRESENT: appropriate affect, normal mood Focused psych exam: ABSENT: delusional, pressured speech, psychomotor agitation Skin exam: PRESENT: dry, warm Results Laboratory Results: 03/26/17 05:33 03/24/17 06:20 03/26/17 05:33 WBC 5.6 RBC 2.95 L Hgb 9.1 L Hct 26.8 L MCV 91 MCH 30.8 MCHC 34.0 RDW 17.0 H Plt Count 125 L Seg Neutrophils % 90.7 H Lymphocytes % 6.1 L Monocytes % 3.0 Eosinophils % 0.0 Basophils % 0.2 Absolute Neutrophils 5.1 Absolute Lymphocytes 0.3 L Absolute Monocytes 0.2 Absolute Eosinophils 0.0 Absolute Basophils 0.0 Assessment & Plan - Diagnosis (1) Pneumonia Qualifiers: Pneumonia type: due to unspecified organism Laterality: bilateral Lung location: lower lobe of lung Qualified Code(s): J18.9 - Pneumonia, unspecified organism Is this a current diagnosis for this admission?: YesPlan: improved but not back to baseline; continue rocephin and zmax, O2, nebs and supportive care. cultures not helpful (2) Pleural effusion Is this a current diagnosis for this admission?: YesPlan: bilat and likely multifactorial with component of fluid overloaded state and infectious source; agree with lower dry weight as dialysis goal, defer to dr barrios here (3) Pleurisy with effusion Is this a current diagnosis for this admission?: YesPlan: worse; has some exp wheeze as well so will add systemic steroids to see if we can improve both (4) Anemia Qualifiers: Anemia type: due to chronic kidney disease Chronic kidney disease stage : on chronic dialysis Qualified Code(s): N18.6 - End stage renal disease ; D63.1 - Anemia in chronic kidney disease; Z99.2 - Dependence on renal dialysis Is this a current diagnosis for this admission?: Yes (5) Accelerated hypertension Is this a current diagnosis for this admission?: Yes (7) GERD (gastroesophageal reflux disease) Qualifiers: Esophagitis presence: without esophagitis Qualified Code(s): K21.9 - Gastro-esophageal reflux disease without esophagitis Is this a current diagnosis for this admission?: Yes (8) History of pulmonary embolism Is this a current diagnosis for this admission?: Yes - Time Time Spent with patient: 15-24 minutes Within: within 48 hours
[2017-03-26] MEDS: DOCUSATE SODIUM 100 MG CAPSULE PO SCH ×2 (10:48→17:12)
[2017-03-26] MEDS: METHYLPREDNISOLONE INJ 40 MG/1 ML SDV IV SCH ×2 (10:48→23:19)
--- NOTE | 2017-03-26 11:14 | RADIOLOGY REPORT (SQ) ---
EXAM DESCRIPTION: CHEST PA/LAT COMPLETED DATE/TIME: 03/26/2017 11:02 am REASON FOR STUDY: f/u pleural effusion COMPARISON: CT angio chest 03/23/2017 Chest films 03/23/2017, 12/17/2016 EXAM PARAMETERS: NUMBER OF VIEWS: two views TECHNIQUE: Digital Frontal and Lateral radiographic views of the chest acquired. RADIATION DOSE: NA LIMITATIONS: none FINDINGS: LUNGS AND PLEURA: No opacities, masses or pneumothorax. No pleural effusion. MEDIASTINUM AND HILAR STRUCTURES: No masses or contour abnormalities. HEART AND VASCULAR STRUCTURES: Heart normal size. No evidence for failure. BONES: No acute findings. HARDWARE: Unchanged right jugular central venous dialysis catheter with the tip in the right atrium. 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 OTHER: No other significant finding. IMPRESSION: No pleural effusions. No focal infiltrates. TECHNICAL DOCUMENTATION: JOB ID: [id number] [employer]- All Rights Reserved
[2017-03-26] MEDS: AZITHROMYCIN 250 MG TABLET PO SCH (17:12)
[2017-03-26] MEDS: CEFTRIAXONE 1 GM/D5W RTU 50 ML IV SCH (17:12)
[2017-03-26] MEDS ORDERED: SODIUM CHLORIDE NASAL SPRAY 44 ML ONE (18:33)
[2017-03-26] MEDS ORDERED: SODIUM CHLORIDE NASAL SPRAY 44 ML NASL PRN (19:49)
[2017-03-26] MEDS: PREGABALIN 75 MG CAPSULE PO SCH (23:19)
[2017-03-27] MEDS: LANSOPRAZOLE 30 MG TAB.RAP.DR PO SCH (05:48)
[2017-03-27] MEDS: NORMAL SALINE INJ/PF 0.9% 10 ML SDV IV SCH ×3 (05:48→22:02)
[2017-03-27] MEDS: HEPARIN SOD (PORCINE) 5,000 UNIT/ML 1 ML SYRINGE SUBCUT SCH ×3 (05:48→22:02)
[2017-03-27] MEDS: MORPHINE SULFATE 10 MG/ML INJ IV PRN ×5 (05:53→22:58)
[2017-03-27] MEDS: DIPHENHYDRAMINE HCL 50 MG/ML VIAL IV PRN ×3 (05:55→18:49)
[2017-03-27] MEDS: IPRATROPIUM/ALBUTEROL 0.5-2.5 MG/3 ML AMPUL NEB PRN ×3 (08:18→20:36)
[2017-03-27] MEDS ORDERED: BISACODYL 10 MG SUPP.RECT PR ONE (10:15)
[2017-03-27] MEDS: DOCUSATE SODIUM 100 MG CAPSULE PO SCH ×2 (10:26→18:48)
[2017-03-27] MEDS: METHYLPREDNISOLONE INJ 40 MG/1 ML SDV IV SCH ×2 (10:26→22:01)
--- NOTE | 2017-03-27 11:08 | PDOC PROGRESS REPORT ---
Subjective Progress Note for:: 03/27/17 Subjective:: reason for visit: f/u pneumonia, chest wall pain, ESRD hosptial course; MILAGROS RAMOS is a 31 year old female presents to the ED from home with sudden onset of breathlessness and lower chest pain described as sharp , stabbing, constant pain under her sternum and radiating around under her breasts and back between her shoulder blades with associated SOA, dry hacking cough, worse with cough and deep breath causing her to breath rapid and shallow , better with some positions and morphine. had similar pain with her previous PE and recently taken off her coumadin, told she didn't need it anymore. no sick contacts, fevers, chills, hemoptysis, orthopnea, PND, swelling of her legs or pain in calves, no recent travel and no more sedentary than usual. she is ESRD with HD on TTa and did perform HD yesterday. 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 she also had her permacath replaced in Rt ant chest about 2 wks ago b/c it was "clotting off" and had "fibrous sheath attached when they removed it". eval in ED shows airspace disease obscuring the Rt cardiac silhouette and portion of Rt hemidiaphragm, no leukocytosis, no hypoxia and VQ scan indeterminant but seems to show mismatch in the same area of RLL. we were asked to admit for further eval and management. she is given rocephin and zmax in ED with bld culx's drawn. dr hurst attempted placement of central line but it turned from the Rt IJ into the subclavian pointing away from the heart. nevertheless she was able to undergo CTA chest and no obvious PE noted on suboptimal exam but extensive bilat airspace dz noted c/w pneumonia and L>R pleural effusions. she has undergone HD x2, each time trying to lower her dry weight. cough continues productive of yellow/green phlegm and overall she feels better. she c /o wheezes at times but better with nebs; passing gas but still no stool and no abd pain. overall improved. ROS: chest wall pain improved, though continues to improve; she denies palpitations, n/v/d, all systems reviewed, remaining systems negative. Physical Exam Vital Signs: Temp Pulse Resp BP Pulse Ox 98.5 F 97 20 136/91 H 100 03/27/17 07:12 03/27/17 07:12 03/27/17 07:12 03/27/17 07:12 03/27/17 07:12 Intake & Output 03/26/17 03/27/17 03/28/17 06:59 06:59 06:59 Intake Total 1010 940 Output Total 5000 0 Balance -3990 940 Weight 61.9 kg 63.6 kg General appearance: PRESENT: no acute distress, well-developed, well-nourished Head exam: PRESENT: atraumatic, normocephalic Eye exam: ABSENT: conjunctival injection, scleral icterus Mouth exam: PRESENT: moist, tongue midline Neck exam: PRESENT: full ROM. ABSENT: tracheal deviation Respiratory exam: PRESENT: rales - resolved, just some basilar crackles on Rt, unlabored, no wheezes or rhonchi Cardiovascular exam: PRESENT: RRR. ABSENT: tachycardia GI/Abdominal exam: PRESENT: normal bowel sounds, soft. ABSENT: tenderness Extremities exam: PRESENT: pedal edema - trace. ABSENT: calf tenderness Neurological exam: PRESENT: alert, awake, oriented to person, oriented to place , oriented to time, oriented to situation Psychiatric exam: PRESENT: appropriate affect, normal mood Focused psych exam: ABSENT: delusional, pressured speech, psychomotor agitation Skin exam: PRESENT: dry, warm Results Laboratory Results: 03/26/17 05:33 03/24/17 06:20 03/24/17 18:55 Sputum Gram Stain - Final 03/24/17 18:55 Sputum Sputum Culture - Final NORMAL JOSE Impressions: Chest X-Ray 03/26/17 06:00 IMPRESSION: No pleural effusions. No focal infiltrates. Assessment & Plan - Diagnosis (1) Pneumonia Qualifiers: Pneumonia type: due to unspecified organism Laterality: bilateral Lung location: lower lobe of lung Qualified Code(s): J18.9 - Pneumonia, unspecified organism Is this a current diagnosis for this admission?: Yes (2) Pleural effusion Is this a current diagnosis for this admission?: Yes (3) Pleurisy with effusion Is this a current diagnosis for this admission?: Yes (4) Anemia Qualifiers: Anemia type: due to chronic kidney disease Chronic kidney disease stage : on chronic dialysis Qualified Code(s): N18.6 - End stage renal disease ; D63.1 - Anemia in chronic kidney disease; Z99.2 - Dependence on renal dialysis Is this a current diagnosis for this admission?: Yes (5) Accelerated hypertension Is this a current diagnosis for this admission?: Yes (7) GERD (gastroesophageal reflux disease) Qualifiers: Esophagitis presence: without esophagitis Qualified Code(s): K21.9 - Gastro-esophageal reflux disease without esophagitis Is this a current diagnosis for this admission?: Yes (8) History of pulmonary embolism Is this a current diagnosis for this admission?: Yes - Time Time Spent with patient: 25-34 minutes - Plan Summary Plan Summary: overall condition improved, anticipate d/c home tomorrow after HD
[2017-03-27] MEDS: AZITHROMYCIN 250 MG TABLET PO SCH (18:48)
[2017-03-27] MEDS: CEFTRIAXONE 1 GM/D5W RTU 50 ML IV SCH (18:49)
[2017-03-27] MEDS: PREGABALIN 75 MG CAPSULE PO SCH (22:01)
[2017-03-28] MEDS: DIPHENHYDRAMINE HCL 50 MG/ML VIAL IV PRN ×3 (01:05→22:12)
[2017-03-28] MEDS: MORPHINE SULFATE 10 MG/ML INJ IV PRN ×5 (02:49→22:12)
[2017-03-28] MEDS: LANSOPRAZOLE 30 MG TAB.RAP.DR PO SCH (05:22)
[2017-03-28] MEDS: NORMAL SALINE INJ/PF 0.9% 10 ML SDV IV SCH ×3 (05:22→22:13)
[2017-03-28] MEDS: HEPARIN SOD (PORCINE) 5,000 UNIT/ML 1 ML SYRINGE SUBCUT SCH ×3 (05:23→22:13)
[2017-03-28 06:08] LABS: ABSOLUTE LYMPHOCYTES (AUTO) 0.8 10^3/uL (0.5-4.7); ABSOLUTE MONOCYTES (AUTO) 0.3 10^3/uL (0.1-1.4); ABSOLUTE NEUT (AUTO) 9.6 10^3/uL (1.7-8.2); BASOPHILS % (AUTO) 0.1 % (0-2); HEMATOCRIT 27.5 % (36.0-47.0); HEMOGLOBIN 9.3 g/dL (12.0-15.5); HGB HCT DIFFERENCE 0.4; LYMPHOCYTES % (AUTO) 7.2 % (13-45); MEAN CORPUSCULAR HEMOGLOBIN 30.6 pg (27.0-33.4); MEAN CORPUSCULAR HGB CONC 33.8 g/dL (32.0-36.0); MEAN CORPUSCULAR VOLUME 91 fl (80-97); RED BLOOD COUNT 3.03 10^6/uL (3.72-5.28); RED CELL DISTRIBUTION WIDTH 16.7 % (11.5-14.0); SEGMENTED NEUTROPHILS % (AUTO) 89.7 % (42-78); WHITE BLOOD COUNT 10.7 10^3/uL (4.0-10.5)
[2017-03-28 06:23] LABS: BLOOD UREA NITROGEN 79 mg/dL (7-20); CALCIUM 7.4 mg/dL (8.4-10.2); CARBON DIOXIDE 18 mmol/L (22-30); CHLORIDE 79 mmol/L (98-107); GLUCOSE 97 mg/dL (75-110); MAGNESIUM 1.6 mg/dL (1.6-2.3); PHOSPHORUS 7.8 mg/dL (2.5-4.5)
[2017-03-28 06:28] LABS: CREATININE RESULT 10.48 mg/dL (0.52-1.25)
[2017-03-28 06:39] LABS: ANION GAP 19 (5-19)
[2017-03-28 06:48] LABS: SODIUM 116.3 mmol/L (137-145)
[2017-03-28] MEDS ORDERED: DIPHENHYDRAMINE HCL 50 MG/ML VIAL IV PRN (08:20)
[2017-03-28] MEDS: IPRATROPIUM/ALBUTEROL 0.5-2.5 MG/3 ML AMPUL NEB PRN ×2 (09:36→14:41)
[2017-03-28] MEDS ORDERED: HEPARIN SOD (PORCINE) 1,000 UNIT/ML 10 ML VIAL IV PRN (10:07)
[2017-03-28] MEDS ORDERED: EPOETIN ALFA 10,000 UNIT in SYRINGE, DISPOSABLE, 1 EACH IV PRN (10:08)
[2017-03-28] MEDS: METHYLPREDNISOLONE INJ 40 MG/1 ML SDV IV SCH (13:08)
[2017-03-28] MEDS: DOCUSATE SODIUM 100 MG CAPSULE PO SCH ×2 (13:09→18:04)
--- NOTE | 2017-03-28 13:44 | PDOC PROGRESS REPORT ---
Subjective Progress Note for:: 03/28/17 Subjective:: Patient seen on dialysis today. She generally feels better with the pains. However she is got high intake and does resulted in dropping her sodium to 116. Denies any history to implicate hyponatremia at the moment. I discussed with her the last visit about limiting her fluids which she is not doing unfortunately. Physical Exam Vital Signs: Temp Pulse Resp BP Pulse Ox 97.8 F 85 16 137/93 H 97 03/28/17 07:00 03/28/17 09:36 03/28/17 09:36 03/28/17 07:00 03/28/17 09:36 Intake & Output 03/27/17 03/28/17 03/29/17 06:59 06:59 06:59 Intake Total 940 1420 355 Output Total 0 0 Balance 940 1420 355 Weight 63.6 kg General appearance: PRESENT: no acute distress Respiratory exam: PRESENT: clear to auscultation marquis. ABSENT: crackles, rhonchi Cardiovascular exam: PRESENT: +S1, +S2 GI/Abdominal exam: PRESENT: normal bowel sounds, soft. ABSENT: distended, organomegaly, tenderness Neurological exam: PRESENT: alert, oriented to person, oriented to place, oriented to time Results Laboratory Results: 03/28/17 05:27 03/28/17 05:27 03/28/17 03/28/17 05:27 05:27 WBC 10.7 H RBC 3.03 L Hgb 9.3 L Hct 27.5 L MCV 91 MCH 30.6 MCHC 33.8 RDW 16.7 H Plt Count 207 Seg Neutrophils % 89.7 H Lymphocytes % 7.2 L Monocytes % 3.0 Eosinophils % 0.0 Basophils % 0.1 Absolute Neutrophils 9.6 H Absolute Lymphocytes 0.8 Absolute Monocytes 0.3 Absolute Eosinophils 0.0 Absolute Basophils 0.0 Sodium 116.3 L* Potassium 6.0 H* Chloride 79 L Carbon Dioxide 18 L Anion Gap 19 BUN 79 H Creatinine 10.48 H Est GFR ( Amer) 5 L Est GFR (Non-Af Amer) 4 L Glucose 97 Calcium 7.4 L Phosphorus 7.8 H Magnesium 1.6 03/24/17 18:55 Sputum Gram Stain - Final 03/24/17 18:55 Sputum Sputum Culture - Final NORMAL JOSE Impressions: Lung Scan-VQ NM 03/23/17 16:11 IMPRESSION: Intermediate probability of pulmonary embolus. Single segmental V/ Q mismatch. Chest/Abdomen CTA 03/23/17 17:47 IMPRESSION: 1. Moderate multifocal airspace opacities and bilateral pleural effusions consistent with pneumonia and/ or pulmonary edema. 2. Suboptimal pulmonary arterial enhancement. No gross evidence of significant pulmonary embolus. Consider repeat contrast CTA evaluation/surveillance and/or alternative investigation (such as DVT ultrasound and/or laboratory testing) Chest X-Ray 03/26/17 06:00 IMPRESSION: No pleural effusions. No focal infiltrates. Assessment & Plan - Diagnosis (1) Pneumonia Qualifiers: Pneumonia type: due to unspecified organism Laterality: bilateral Lung location: lower lobe of lung Qualified Code(s): J18.9 - Pneumonia, unspecified organism Is this a current diagnosis for this admission?: YesPlan: Improving on antibiotics. (2) Accelerated hypertension Is this a current diagnosis for this admission?: YesPlan: Stable (3) Anemia in chronic kidney disease (CKD) Plan: Adjust erythropoietin accordingly (4) ESRD on dialysis Plan: Patient seen on dialysis which is undergoing without any issues. Is being supervised to ensure a safe and smooth procedure. Vital signs are stable. Orders again discussed with the treating nurse. We will try to remove 5 L of fluid as tolerated. (5) History of pulmonary embolism Is this a current diagnosis for this admission?: Yes (6) Sepsis Plan: Improving. (7) Acute hyperkalemia Plan: Advised on diet. She should respond to appropriate bath of dialysis. (8) Hyponatremia Plan: Sodium today was 116. Again discussed and reiterated the fact she should limit her fluid intake to 32 ounces a day. She should respond to dialysis. Will recommend getting labs in the morning and follow-up.
--- NOTE | 2017-03-28 16:16 | PDOC PROGRESS REPORT ---
Subjective Progress Note for:: 03/28/17 Subjective:: reason for visit: f/u pneumonia, chest wall pain, ESRD hosptial course; MILAGROS RAMOS is a 31 year old female presents to the ED from home with sudden onset of breathlessness and lower chest pain described as sharp , stabbing, constant pain under her sternum and radiating around under her breasts and back between her shoulder blades with associated SOA, dry hacking cough, worse with cough and deep breath causing her to breath rapid and shallow , better with some positions and morphine. had similar pain with her previous PE and recently taken off her coumadin, told she didn't need it anymore. no sick contacts, fevers, chills, hemoptysis, orthopnea, PND, swelling of her legs or pain in calves, no recent travel and no more sedentary than usual. she is ESRD with HD on TTa and did perform HD yesterday. 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 she also had her permacath replaced in Rt ant chest about 2 wks ago b/c it was "clotting off" and had "fibrous sheath attached when they removed it". eval in ED shows airspace disease obscuring the Rt cardiac silhouette and portion of Rt hemidiaphragm, no leukocytosis, no hypoxia and VQ scan indeterminant but seems to show mismatch in the same area of RLL. we were asked to admit for further eval and management. she is given rocephin and zmax in ED with bld culx's drawn. dr hurst attempted placement of central line but it turned from the Rt IJ into the subclavian pointing away from the heart. nevertheless she was able to undergo CTA chest and no obvious PE noted on suboptimal exam but extensive bilat airspace dz noted c/w pneumonia and L>R pleural effusions. she has undergone HD x3, each time trying to lower her dry weight. cough continues productive of yellow/green phlegm and overall she feels better. she c /o wheezes at times but better with nebs; passing gas but still no stool and no abd pain. overall improved. she reluctantly admits she is noncompliant with her fluid restriction accounting for the severe drop in her Na and another 5L of fluid removed during dialysis today. ROS: chest wall pain improved, though continues to improve; she denies palpitations, n/v/d, all systems reviewed, remaining systems negative. Physical Exam Vital Signs: Temp Pulse Resp BP Pulse Ox 97.8 F 84 16 137/93 H 98 03/28/17 07:00 03/28/17 14:41 03/28/17 14:41 03/28/17 07:00 03/28/17 14:41 Intake & Output 03/27/17 03/28/17 03/29/17 06:59 06:59 06:59 Intake Total 940 1420 355 Output Total 0 0 6100 Balance 940 1420 -5745 Weight 63.6 kg General appearance: PRESENT: no acute distress, well-developed, well-nourished Head exam: PRESENT: atraumatic, normocephalic Eye exam: ABSENT: conjunctival injection, scleral icterus Mouth exam: PRESENT: moist, tongue midline Neck exam: PRESENT: full ROM. ABSENT: tracheal deviation Respiratory exam: PRESENT: rales - resolved, just some basilar crackles on Rt, unlabored, no wheezes or rhonchi Cardiovascular exam: PRESENT: RRR. ABSENT: tachycardia GI/Abdominal exam: PRESENT: normal bowel sounds, soft. ABSENT: tenderness Extremities exam: PRESENT: pedal edema - trace. ABSENT: calf tenderness Neurological exam: PRESENT: alert, awake, oriented to person, oriented to place , oriented to time, oriented to situation Psychiatric exam: PRESENT: appropriate affect, normal mood Focused psych exam: ABSENT: delusional, pressured speech, psychomotor agitation Skin exam: PRESENT: dry, warm Results Laboratory Results: 03/28/17 05:27 03/28/17 05:27 03/28/17 03/28/17 05:27 05:27 WBC 10.7 H RBC 3.03 L Hgb 9.3 L Hct 27.5 L MCV 91 MCH 30.6 MCHC 33.8 RDW 16.7 H Plt Count 207 Seg Neutrophils % 89.7 H Lymphocytes % 7.2 L Monocytes % 3.0 Eosinophils % 0.0 Basophils % 0.1 Absolute Neutrophils 9.6 H Absolute Lymphocytes 0.8 Absolute Monocytes 0.3 Absolute Eosinophils 0.0 Absolute Basophils 0.0 Sodium 116.3 L* Potassium 6.0 H* Chloride 79 L Carbon Dioxide 18 L Anion Gap 19 BUN 79 H Creatinine 10.48 H Est GFR ( Amer) 5 L Est GFR (Non-Af Amer) 4 L Glucose 97 Calcium 7.4 L Phosphorus 7.8 H Magnesium 1.6 Impressions: Lung Scan-VQ NM 03/23/17 16:11 IMPRESSION: Intermediate probability of pulmonary embolus. Single segmental V/ Q mismatch. Chest/Abdomen CTA 03/23/17 17:47 IMPRESSION: 1. Moderate multifocal airspace opacities and bilateral pleural effusions consistent with pneumonia and/ or pulmonary edema. 2. Suboptimal pulmonary arterial enhancement. No gross evidence of significant pulmonary embolus. Consider repeat contrast CTA evaluation/surveillance and/or alternative investigation (such as DVT ultrasound and/or laboratory testing) Chest X-Ray 03/26/17 06:00 IMPRESSION: No pleural effusions. No focal infiltrates. Assessment & Plan - Diagnosis (1) Hyponatremia Is this a current diagnosis for this admission?: YesPlan: worse, 2/2 to below; discussed with dr barrios and he will correct with dialysis today but recommends keeping her overnight and checking again in the morning. (2) Polydipsia Is this a current diagnosis for this admission?: YesPlan: noncompliant with her fluid restriction (3) Pneumonia Qualifiers: Pneumonia type: due to unspecified organism Laterality: bilateral Lung location: lower lobe of lung Qualified Code(s): J18.9 - Pneumonia, unspecified organism Is this a current diagnosis for this admission?: YesPlan: improved but not back to baseline; continue rocephin and d/c zmax, O2, nebs and supportive care. cultures not helpful (4) Pleural effusion Is this a current diagnosis for this admission?: YesPlan: resolved with large volume removal on HD x3 now. bilat and likely multifactorial with component of fluid overloaded state and infectious source; agree with lower dry weight as dialysis goal, defer to dr barrios here (5) Pleurisy with effusion Is this a current diagnosis for this admission?: YesPlan: persists but I think there is a psychosomatic component to this; continue systemic steroids but change to oral for a short course (6) Anemia Qualifiers: Anemia type: due to chronic kidney disease Chronic kidney disease stage : on chronic dialysis Qualified Code(s): N18.6 - End stage renal disease ; D63.1 - Anemia in chronic kidney disease; Z99.2 - Dependence on renal dialysis Is this a current diagnosis for this admission?: Yes (7) Accelerated hypertension Is this a current diagnosis for this admission?: Yes (9) GERD (gastroesophageal reflux disease) Qualifiers: Esophagitis presence: without esophagitis Qualified Code(s): K21.9 - Gastro-esophageal reflux disease without esophagitis Is this a current diagnosis for this admission?: Yes (10) History of pulmonary embolism Is this a current diagnosis for this admission?: Yes - Time Time Spent with patient: 35 or more minutes
[2017-03-28] MEDS: CEFTRIAXONE 1 GM/D5W RTU 50 ML IV SCH (18:05)
[2017-03-28] MEDS: PREGABALIN 75 MG CAPSULE PO SCH (22:12)
[2017-03-29] MEDS: MORPHINE SULFATE 10 MG/ML INJ IV PRN ×2 (02:10→06:24)
[2017-03-29] MEDS: IPRATROPIUM/ALBUTEROL 0.5-2.5 MG/3 ML AMPUL NEB PRN ×2 (04:27→10:27)
[2017-03-29] MEDS: LANSOPRAZOLE 30 MG TAB.RAP.DR PO SCH (05:23)
[2017-03-29] MEDS: HEPARIN SOD (PORCINE) 5,000 UNIT/ML 1 ML SYRINGE SUBCUT SCH (05:23)
[2017-03-29] MEDS: NORMAL SALINE INJ/PF 0.9% 10 ML SDV IV SCH (05:23)
[2017-03-29] MEDS: DIPHENHYDRAMINE HCL 50 MG/ML VIAL IV PRN (05:44)
[2017-03-29 06:39] LABS: ANION GAP 15 (5-19); BLOOD UREA NITROGEN 57 mg/dL (7-20); CALCIUM 8.6 mg/dL (8.4-10.2); CARBON DIOXIDE 24 mmol/L (22-30); CHLORIDE 86 mmol/L (98-107); GLUCOSE 99 mg/dL (75-110); POTASSIUM 4.7 mmol/L (3.6-5.0); SODIUM 124.8 mmol/L (137-145)
[2017-03-29 06:46] LABS: CREATININE RESULT 6.75 mg/dL (0.52-1.25)
--- NOTE | 2017-03-29 09:40 | PDOC DISCHARGE SUMMARY ---
General - Admit/Disc Date/PCP Admission Date/Primary Care Provider: 03/23/17 18:24 Discharge Date: 03/29/17 - Discharge Diagnosis (1) Pneumonia Is this a current diagnosis for this admission?: YesSummary: Concerns for gram positives and atypical organisms. She will complete a course of p.o. Zithromax (2) ESRD on dialysis Summary: She was dialyzed 3 during this hospitalization to try to decrease her dry weight. She will follow-up with Dr. Sanford and resume her usual dialysis schedule. (3) Pleural effusion Is this a current diagnosis for this admission?: YesSummary: Improving (4) Pleurisy with effusion Is this a current diagnosis for this admission?: YesSummary: She has been given some hydrocodone at the time of discharge (5) Hyponatremia Is this a current diagnosis for this admission?: YesSummary: Stable (6) Polydipsia Is this a current diagnosis for this admission?: YesSummary: She is encouraged to be compliant with her fluid restriction (7) Anemia Is this a current diagnosis for this admission?: YesSummary: Stable. She will follow-up with nephrology. This is secondary to her end- stage renal disease. (8) Accelerated hypertension Is this a current diagnosis for this admission?: YesSummary: Improved (9) GERD (gastroesophageal reflux disease) Is this a current diagnosis for this admission?: YesSummary: Continue PPI (10) History of pulmonary embolism Is this a current diagnosis for this admission?: YesSummary: No issues during this hospitalization - Additional Information Resuscitation Status: Full Code Discharge Diet: Other (Comments) - renal Discharge Activity: Activity As Tolerated Home Medications: Acetaminophen [Tylenol 325 mg Tablet] 650 mg PO Q4HP PRN tablet 03/28/17 Cefpodoxime Proxetil 200 mg PO ASDIR PRN #5 tablet 03/28/17 Hydrocodone/Acetaminophen [[place]anc[place] 5-325 mg Tablet] 1 tab PO Q6HP PRN #10 tablet 03/28/17 Prednisone 20 mg PO BID #10 tablet 03/28/17 Pregabalin [Lyrica 75 mg Capsule] 75 mg PO QHS #30 capsule 03/28/17 Sodium Chloride [[place] Nasal [place] 44 ml Bottle] 1 spray NASL Q1HP PRN bottle 03/28/17 History of Present Illness History of Present Illness: MILAGROS RAMOS is a 31 year old female who presented to the emergency room with shortness of breath Hospital Course Hospital Course: The patient is a very pleasant 31-year-old female who presented to the emergency room with acute onset of shortness of breath and lower chest pain described as sharp and stabbing. Her past medical history significant for end- stage renal disease on hemodialysis. She follows with Dr. Sanford and her hemodialysis schedule is Tuesday and Tuesday. 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 In the emergency room the patient was found to have evidence of an underlying pneumonia. She was started on IV Rocephin and Zithromax. She has been dialyzed 3 during this hospitalization to try to lower her dry weight. She continues to have a bit of a cough productive of yellow sputum but it is improved since the time of admission. Overall she has improved and it is felt that she is stable for discharge at this point. She continues to have some pleuritic chest pain and some hydrocodone is been given at the time of discharge. Of note the patient was called with the results of her stress test and apparently she is going to need cardiac catheterization and she is to contact her wrapping checker as soon as she gets out of the hospital. Overall she is improved and it is felt that she can safely complete a course of outpatient antibiotics. She will be discharged home today in stable condition. She will resume her usual dialysis schedule and keep all of her appointments that are already scheduled with her various specialists. Physical Exam Vital Signs: Temp Pulse Resp BP Pulse Ox 98.7 F 85 12 145/87 H 97 03/29/17 07:43 03/29/17 07:43 03/29/17 07:43 03/29/17 07:43 03/29/17 07:43 Intake & Output 03/28/17 03/29/17 03/30/17 06:59 06:59 06:59 Intake Total 1420 1712 Output Total 0 6100 Balance 1420 -4388 Weight 63.9 kg General appearance: PRESENT: no acute distress, well-developed Head exam: PRESENT: atraumatic, normocephalic Mouth exam: PRESENT: moist Respiratory exam: PRESENT: other - Lungs are fairly clear however she does have some scattered rhonchi bilaterally. Cardiovascular exam: PRESENT: +S1, +S2. ABSENT: gallop, rubs, systolic murmur GI/Abdominal exam: PRESENT: normal bowel sounds, soft. ABSENT: tenderness Extremities exam: PRESENT: full ROM, pedal edema. ABSENT: clubbing Musculoskeletal exam: PRESENT: ambulatory Neurological exam: PRESENT: alert, altered, awake, oriented to person, oriented to place, oriented to time Psychiatric exam: PRESENT: depressed Skin exam: PRESENT: dry, warm Results Laboratory Results: 03/28/17 05:27 03/29/17 05:30 03/29/17 05:30 Sodium 124.8 L Potassium 4.7 Chloride 86 L Carbon Dioxide 24 Anion Gap 15 BUN 57 H Creatinine 6.75 H Est GFR ( Amer) 9 L Est GFR (Non-Af Amer) 7 L Glucose 99 Calcium 8.6 Impressions: Lung Scan-VQ NM 03/23/17 16:11 IMPRESSION: Intermediate probability of pulmonary embolus. Single segmental V/ Q mismatch. Chest/Abdomen CTA 03/23/17 17:47 IMPRESSION: 1. Moderate multifocal airspace opacities and bilateral pleural effusions consistent with pneumonia and/ or pulmonary edema. 2. Suboptimal pulmonary arterial enhancement. No gross evidence of significant pulmonary embolus. Consider repeat contrast CTA evaluation/surveillance and/or alternative investigation (such as DVT ultrasound and/or laboratory testing) Chest X-Ray 03/26/17 06:00 IMPRESSION: No pleural effusions. No focal infiltrates. Plan Discharge Plan: The patient will be discharged home today with close outpatient follow-up with cardiology. She will resume her usual dialysis schedule. Time Spent: Greater than 30 Minutes
[2017-03-29 09:50] VITALS: BP 137/93
[2017-03-29] MEDS ORDERED: PREDNISONE 20 MG TABLET PO SCH (10:00)
[2017-03-29] MEDS: DOCUSATE SODIUM 100 MG CAPSULE PO SCH (10:07)
== END 2017-03-29 10:35 | disposition home or self-care (01) | DRG 193 ==
LOC: ER 14:23 → EH 18:10 → UNDOADMIN 18:10 → EH 18:24 → 4W 19:59 → 4S 03-24 17:53
PROVIDERS: ADMIT Internal Medicine; ATTEND Internal Medicine
PROC: 02HV33Z Insertion of Infusion Device into Superior Vena Cava, Percutaneous Approach (ICD-10-PCS; principal; 2017-03-23)
PROC: 5A1D00Z (ICD-10-PCS; 2017-03-24)
PROC: 30233N1 Transfusion of Nonautologous Red Blood Cells into Peripheral Vein, Percutaneous Approach (ICD-10-PCS; 2017-03-24)
PROC: 5A1D00Z (ICD-10-PCS; 2017-03-25)
PROC: 5A1D00Z (ICD-10-PCS; 2017-03-28)
DX: J18.9 Pneumonia, unspecified organism (principal); N18.6 End stage renal disease; E87.1 Hypo-osmolality and hyponatremia; I12.0 Hypertensive chronic kidney disease with stage 5 chronic kidney disease or end stage renal disease; J90 Pleural effusion, not elsewhere classified; D63.1 Anemia in chronic kidney disease; Z99.2 Dependence on renal dialysis; K21.9 Gastro-esophageal reflux disease without esophagitis; F32.9 Major depressive disorder, single episode, unspecified; Z90.49 Acquired absence of other specified parts of digestive tract; Z86.711 Personal history of pulmonary embolism; Z87.891 Personal history of nicotine dependence; Z88.1 Allergy status to other antibiotic agents; Z88.8 Allergy status to other drugs, medicaments and biological substances
CPT/HCPCS: 36415; 36430; 71010; 71020; 71275; 78582; 80048; 80053; 82272; 82803; 82962; 83735; 84100; 85025; 85610; 86850; 86900; 86901; 86920; 87040; 87070; 87205; 93005; 93010; 93970; 94799; 96374; 99285; A9540; A9567; C1751; J0360; J0696; J1200; J1644; J2270; J2920; J3490; J7512; J7620; P9016; Q4081; Q9969